=== PATIENT | female | born 1945 | race Caucasian/White ===

== ENCOUNTER 2017-09-08 13:14 | Outpatient (CLI) | payer MEDICAID, MEDICARE ==
--- NOTE | 2017-09-13 16:20 | Ultrasound Report ---
CAROTID DUPLEX: 09/08/2017 CLINICAL INDICATION: Left carotid bruit. TECHNIQUE: Real-time sonographic vascular imaging was performed by the grain buyer through the carotid arteries utilizing both color-flow and Doppler spectral analysis. Multiple parts sales representative static images were saved for review. RIGHT Vessel PSV cm/sec EDV cm/sec ICA/CCA RSV Ratio Degree of Stenosis Plaque Estimate % RCCA Prox 83 -- -- RCCA Dist 73 13 -- RECA 110 -- -- RT BULB 78 15 1.0 FAITH Prox 310 80 4.24 FAITH Mid 248 53 3.3 FAITH Dist 165 32 2.2 RVA 60 -- -- RVA flow direction: Antegrade LEFT Vessel PSV cm/sec EDV cm/sec ICA/CCA RSV Ratio Degree of Stenosis Plaque Estimate % LCCA Prox 127 -- -- LCCA Dist 94 20 -- LECA 124 -- -- LFT BULB 168 40 1.7 LICA Prox 140 39 1.4 LICA Mid 94 33 1.0 LICA Dist 133 23 1.4 LVA 44 -- -- LVA flow direction: Antegrade Velocity criteria are extrapolated from diameter data as defined by the Society of Radiologists in Ultrasound Consensus Conference Radiology 2003; 229; 340-346. Degree of Stenosis % ICA PSV cm/sec ICA/CCA RSV Ratio ICA EDV cm/sec Plaque Estimate % Normal < 125 < 40 < 2.0 None <50 < 125 <40 < 2.0 < 50 50-69 125-130 40-100 2.0-4.0 >/=50 >/=70 but less than near occlusion > 230 > 100 > 4.0 >/=50 Near occlusion High, low or undetectable Variable Variable Visible Total occlusion Undetectable Not applicable Not applicable No detectable lumen RIGHT: There is plaquing at the right carotid bifurcation and proximal right internal carotid artery, producing greater than 70% luminal diameter narrowing of the proximal right internal carotid artery by velocity criteria. LEFT: There is plaquing in the left carotid bifurcation and proximal internal carotid artery, producing less than 50% luminal diameter narrowing by velocity criteria. The vertebral arteries demonstrate antegrade flow bilaterally. IMPRESSION: Right worse than left carotid plaquing, producing greater than 70% luminal diameter stenosis of the proximal right internal carotid artery by velocity criteria. TD: 09/08/2017 22:20 [facility]
== END 2017-09-08 13:15 | disposition home or self-care (01) ==
LOC: DI 13:14
PROVIDERS: ATTEND Physician Assistant Medical
DX: I65.23 Occlusion and stenosis of bilateral carotid arteries (principal)
CPT/HCPCS: 93880

== ENCOUNTER 2017-09-28 05:50 | Day surgery (SDC) | payer MEDICARE, MEDICAID ==
[2017-09-28] MEDS ORDERED: LACTATED RINGERS 1,000 ML IV ONE (06:28)
[2017-09-28] MEDS ORDERED: MIDAZOLAM 2 MG/2 ML VIAL IVP ONE (08:17)
[2017-09-28] MEDS ORDERED: fentaNYL 100 MCG/2 ML VIAL IVP ONE (08:17)
[2017-09-28 09:49] VITALS: BP 146/76
== END 2017-09-28 05:51 | disposition home or self-care (01) ==
LOC: SDS 05:50
PROVIDERS: ATTEND Surgery
PROC: 0DBN8ZX Excision of Sigmoid Colon, Via Natural or Artificial Opening Endoscopic, Diagnostic (ICD-10-PCS; 2017-09-28)
PROC: 0DBH8ZX Excision of Cecum, Via Natural or Artificial Opening Endoscopic, Diagnostic (ICD-10-PCS; 2017-09-28)
PROC: 0DBL8ZX Excision of Transverse Colon, Via Natural or Artificial Opening Endoscopic, Diagnostic (ICD-10-PCS; 2017-09-28)
PROC: 3E0H8GC Introduction of Other Therapeutic Substance into Lower GI, Via Natural or Artificial Opening Endoscopic (ICD-10-PCS; 2017-09-28)
PROC: 0DBK8ZX Excision of Ascending Colon, Via Natural or Artificial Opening Endoscopic, Diagnostic (ICD-10-PCS; principal; 2017-09-28 07:30)
DX: Z12.11 Encounter for screening for malignant neoplasm of colon (principal); K57.30 Diverticulosis of large intestine without perforation or abscess without bleeding; D12.0 Benign neoplasm of cecum; D12.2 Benign neoplasm of ascending colon; D12.3 Benign neoplasm of transverse colon; D12.4 Benign neoplasm of descending colon; D12.5 Benign neoplasm of sigmoid colon; K62.1 Rectal polyp; K64.8 Other hemorrhoids; E11.40 Type 2 diabetes mellitus with diabetic neuropathy, unspecified; E11.319 Type 2 diabetes mellitus with unspecified diabetic retinopathy without macular edema; Z79.82 Long term (current) use of aspirin; Z79.84 Long term (current) use of oral hypoglycemic drugs; F17.210 Nicotine dependence, cigarettes, uncomplicated; I25.10 Atherosclerotic heart disease of native coronary artery without angina pectoris; Z80.0 Family history of malignant neoplasm of digestive organs
CPT/HCPCS: 45380; 45381; 45385; J7120

== ENCOUNTER 2018-04-02 12:12 | Outpatient (CLI) | payer MEDICARE, MEDICAID ==
--- NOTE | 2018-04-05 15:22 | Mammography Report ---
Procedure Date: 04/02/2018 Accession Number: [id number] / [id number] Procedure: MGN - Screening Mammo Dig Bilat CPT Code: FULL RESULT: EXAM: Screening Mammo Dig Bilat DATE: 04/02/2018 12:32 PM CLINICAL HISTORY: 72-year-old female with history of early menses and breast biopsy with benign pathology results in her left breast presents for screening. TECHNIQUE: Bilateral CC and MLO views were obtained. COMPARISON: No comparisons are available. If outside mammograms are made available, an addendum can be issued. FINDINGS: The breasts demonstrate diffuse fatty replacement bilaterally. Typically benign coarse calcifications are seen in both breasts. Typically benign vascular calcifications are seen in both breasts. No suspicious masses, clustered microcalcifications, or regions of architectural distortion are identified. IMPRESSION: Benign findings RECOMMENDATION: Routine annual screening unless otherwise clinically indicated. BIRADS CATEGORY 2: Benign findings STANDARD QUALIFYING STATEMENTS: 1. This examination was reviewed with the aid of Computer-Aided Detection (CAD). 2. A negative or benign imaging report should not delay biopsy if clinically suspicious findings are present. Consider surgical consultation if warrented. More than 5% of cancers are not identified by imaging. 3. Dense breasts may obscure an underlying neoplasm.
== END 2018-04-02 12:13 | disposition home or self-care (01) ==
LOC: DI.N 12:12
PROVIDERS: ATTEND Family Medicine
DX: Z12.31 Encounter for screening mammogram for malignant neoplasm of breast (principal)
CPT/HCPCS: 77067

== ENCOUNTER 2018-07-13 10:46 | Day surgery (SDC) | payer MEDICARE, MEDICAID ==
[2018-07-13] MEDS ORDERED: LACTATED RINGERS 1,000 ML IV ONE (11:24)
[2018-07-13] MEDS ORDERED: fentaNYL 250 MCG/5 ML VIAL IVP ONE (13:02)
[2018-07-13] MEDS ORDERED: MIDAZOLAM 2 MG/2 ML VIAL IVP ONE (13:02)
[2018-07-13 13:54] VITALS: BP 144/71
== END 2018-07-13 10:47 | disposition home or self-care (01) ==
LOC: SDS 10:46
PROVIDERS: ATTEND Surgery
PROC: 0DBL8ZZ Excision of Transverse Colon, Via Natural or Artificial Opening Endoscopic (ICD-10-PCS; 2018-07-13)
PROC: 0DBN8ZZ Excision of Sigmoid Colon, Via Natural or Artificial Opening Endoscopic (ICD-10-PCS; 2018-07-13)
PROC: 0DBM8ZZ Excision of Descending Colon, Via Natural or Artificial Opening Endoscopic (ICD-10-PCS; principal; 2018-07-13 12:00)
DX: D12.4 Benign neoplasm of descending colon (principal); D12.3 Benign neoplasm of transverse colon; K63.5 Polyp of colon; K57.30 Diverticulosis of large intestine without perforation or abscess without bleeding; K64.8 Other hemorrhoids; E11.40 Type 2 diabetes mellitus with diabetic neuropathy, unspecified; E11.319 Type 2 diabetes mellitus with unspecified diabetic retinopathy without macular edema; E66.9 Obesity, unspecified; J43.9 Emphysema, unspecified; I10 Essential (primary) hypertension; I25.119 Atherosclerotic heart disease of native coronary artery with unspecified angina pectoris; F17.210 Nicotine dependence, cigarettes, uncomplicated; I25.2 Old myocardial infarction; Z79.4 Long term (current) use of insulin; Z80.0 Family history of malignant neoplasm of digestive organs; Z68.38 Body mass index [BMI] 38.0-38.9, adult
CPT/HCPCS: 45385; J3010; J7120

== ENCOUNTER 2018-08-25 19:45 | Outpatient (CLI) | payer MEDICARE, MEDICAID | END 2018-08-25 19:46 | disposition critical access hospital (66) | LOC: EMS 19:45 | PROVIDERS: ATTEND Surgery | DX: R06.02 Shortness of breath (principal); R05 Cough; R50.9 Fever, unspecified | CPT/HCPCS: A0425; A0427 ==

== ENCOUNTER 2018-08-25 20:00 | Emergency (ER) | payer MEDICARE, MEDICAID ==
[2018-08-25] MEDS ORDERED: ALBUTEROL NEB 2.5 MG/3 ML INH STA ×2 (20:28→21:58)
[2018-08-25] MEDS ORDERED: methylPREDNISolone SUCCINATE 125 MG/2 ML VIAL IVP STA (20:28)
--- NOTE | 2018-08-25 20:31 | ED Physician Documentation ---
PD HPI DYSPNEA - Stated complaint Stated Complaint: SOA, COPD, COUGH - Chief complaint Chief Complaint: Resp - History obtained from History obtained from: Patient, EMS - History of Present Illness Timing - onset: Other (Almost 1 weeks worth of worsening cough with productive sputum that is pinkish and shortness of breath. Some subjective fevers at home. No pedal edema or chest pain. She has a history of COPD but does not take anything on a daily basis. She does still smoke. She had a DuoNeb in route) Timing - details: Gradual onset, Still present Associated symptoms: Fever, Cough Review of Systems Ten Systems: 10 systems reviewed and negative Constitutional: reports: Fever, Fatigue Nose: denies: Rhinorrhea / runny nose, Congestion Throat: denies: Sore throat Respiratory: reports: Dyspnea, Cough GI: denies: Abdominal Pain, Nausea, Vomiting PD PAST MEDICAL HISTORY - Past Medical History Cardiovascular: Hypertension, High cholesterol, Coronary artery disease Respiratory: COPD, Shortness of breath Endocrine/Autoimmune: Type 2 diabetes GI: None : None HEENT: Other Psych: Depression, Anxiety Musculoskeletal: None, Chronic back pain Derm: None - Past Surgical History Past Surgical History: Yes General: Colonoscopy Ortho: Carpal Tunnel surgery, Spine surgery /MEDICAL WRITER: Hysterectomy Cardiovascular: Coronary stent HEENT: Cataracts - Present Medications Home Medications: Ambulatory Orders Medication Instructions Recorded Confirmed ALPRAZolam [Alprazolam] 1.5 mg PO DAILY PRN 05/30/15 07/12/18 Albuterol Sulfate [Proair Hfa] 2 puffs INH Q4HR PRN 05/30/15 07/12/18 Aspirin [Aspir 81] 81 mg PO DAILY 05/30/15 07/13/18 Atorvastatin Calcium [Lipitor] 80 mg PO DAILY 05/30/15 07/12/18 Enalapril Maleate [Vasotec] 20 mg PO DAILY 05/30/15 07/12/18 Gabapentin 1,200 mg PO BID 05/30/15 07/12/18 Mirtazapine 45 mg PO DAILY 05/30/15 07/12/18 Nitroglycerin [Nitrostat] 0.4 mg PO Q5MIN PRN 05/30/15 07/12/18 metFORMIN [Glucophage] 1,000 mg PO BID 05/30/15 07/13/18 Bupropion HCl [Wellbutrin Sr] 150 mg PO BID 01/01/16 07/12/18 Carvedilol 12 mg PO BID 01/01/16 07/12/18 Primidone 200 mg PO DAILY 01/01/16 07/12/18 Cholecalciferol (Vitamin D3) 2,000 unit PO DAILY 08/22/16 07/12/18 [Vitamin D] Insulin Glargine/Lixisenatide 30 units PO DAILY 09/28/17 07/12/18 [Soliqua 100 Unit-33 Mcg/ml Pen] Azithromycin 1 tab PO DAILY #4 tablet 08/25/18 Tiotropium [place] [Spiriva] 08/25/18 predniSONE [Deltasone] 20 mg PO [id number] #21 tab 08/25/18 - Allergies Allergies/Adverse Reactions: Allergies Allergy/AdvReac Type Severity Reaction Status Date / Time No Known Drug Allergies Allergy Verified 05/30/15 19:18 - Social History Does the pt smoke?: Yes Smoking Status: Current every day smoker Does the pt drink ETOH?: No Does the pt have substance abuse?: No - POLST Patient has POLST: No PD ED PE NORMAL - Vitals Vital signs reviewed: Yes - General General: Alert and oriented X 3, No acute distress - HEENT HEENT: PERRL, EOMI - Neck Neck: Supple, no meningeal sign, No bony TTP - Cardiac Cardiac: RRR, No murmur - Respiratory Respiratory: Other (slightly labored, wheezy throughout with rhonchi at the left base.) - Abdomen Abdomen: Soft, Non tender - Back Back: No CVA TTP, No spinal TTP - Derm Derm: Normal color, Warm and dry - Extremities Extremities: No edema, No calf tenderness / cord - Neuro Neuro: Alert and oriented X 3, Normal speech Results - Vitals Vitals: Vital Signs - 24 hr 08/25/18 08/25/18 08/25/18 20:03 20:11 20:38 Temperature 36.2 C L Heart Rate 91 91 Respiratory 28 H 21 Rate Blood Pressure 202/90 H O2 Saturation 93 Oxygen O2 Source Nasal cannula - Labs Labs: Laboratory Tests 08/25/18 08/25/18 08/25/18 21:03 21:03 21:03 WBC 7.0 RBC 4.22 Hgb 13.8 Hct 41.2 MCV 97.7 MCH 32.6 H MCHC 33.4 RDW 14.4 Plt Count 264 MPV 7.3 L Neut # (Auto) 4.6 Lymph # (Auto) 1.3 L [place] # (Auto) 0.9 Eos # (Auto) 0.2 Baso # (Auto) 0.1 Absolute Nucleated RBC 0.00 Nucleated RBC % 0.0 Sodium 136 Potassium 4.5 Chloride 97 L Carbon Dioxide 29 Anion Gap 10.0 BUN 9 Creatinine 0.9 Estimated GFR (MDRD) 62 L Glucose 163 H Lactic Acid 1.3 Calcium 9.2 Total Bilirubin 0.3 AST 18 ALT 22 Alkaline Phosphatase 94 Total Protein 7.1 Albumin 3.6 Globulin 3.5 Albumin/Globulin Ratio 1.0 Lipase 24 - Rads (name of study) 2v chest Radiology: EMP read contemporaneously (NAD) PD MEDICAL DECISION MAKING - ED course ED course: 73-year-old woman with apparent COPD exacerbation. Her chest x-ray is clear and she was feeling better after nebs here and in route. She also received IV steroids and oral azithromycin. Her vital signs and lab work are reassuring. Departure - Departure Disposition: 01 Home, Self Care Clinical Impression: COPD exacerbation Condition: Good Record reviewed to determine appropriate education?: Yes Instructions: COPD Dc Prescriptions: Azithromycin 1 tab PO DAILY #4 tablet predniSONE [Deltasone] 20 mg PO [id number] #21 tab Comments: Continue to use your rescue inhaler. Return for new or worsening symptoms and follow-up with your doctor this week for recheck. Also blood pressure recheck as it was fairly high here tonight. Since you have already gone 4 days without smoking, do not start again.
[2018-08-25 21:13] LABS: BASOPHILS # (AUTO) 0.1 10^3/uL (0.0-0.1); EOSINOPHILS # (AUTO) 0.2 10^3/uL (0.0-0.7); HGB - HEMOGLOBIN 13.8 g/dL (12.0-16.0); LYMPHOCYTES # (AUTO) 1.3 10^3/uL (1.5-3.5); LYMPHOCYTES % (AUTO) 18.6 %; MEAN CORPUSCULAR HEMOGLOBIN 32.6 pg (27.0-31.0); MEAN CORPUSCULAR HGB CONC 33.4 g/dL (32.0-36.0); MEAN CORPUSCULAR VOLUME 97.7 fL (81.0-99.0); MEAN PLATELET VOLUME 7.3 fL (7.9-10.8); MONOCYTES # (AUTO) 0.9 10^3/uL (0.0-1.0); MONOCYTES % (AUTO) 12.1 %; NEUTROPHILS # (AUTO) 4.6 10^3/uL (1.5-6.6); NEUTROPHILS % (AUTO) 65.3 %; PLT - PLATELET COUNT 264 10^3/uL (130-450); RED BLOOD COUNT 4.22 10^6/uL (4.20-5.40); RED CELL DISTRIBUTION WIDTH 14.4 % (12.0-15.0)
[2018-08-25 21:26] LABS: ALBUMIN 3.6 g/dL (3.2-5.5); BILIRUBIN,TOTAL 0.3 mg/dL (0.2-1.0); CALCIUM 9.2 mg/dL (8.5-10.3); CREATININE 0.9 mg/dL (0.4-1.0); TOTAL PROTEIN 7.1 g/dL (6.7-8.2)
--- NOTE | 2018-08-25 21:37 | XRAY Report ---
Reason: cough Procedure Date: 08/25/2018 Accession Number: [id number] / [id number] Procedure: XR - Chest 2 View X-Ray CPT Code: 68387 FULL RESULT: EXAM: CHEST RADIOGRAPHY EXAM DATE: 08/25/2018 09:16 PM. CLINICAL HISTORY: Cough. COMPARISON: 01/04/2016. TECHNIQUE: 2 views. FINDINGS: Lungs/Pleura: No focal consolidation. Minimal linear scarring or atelectasis in the left lung base. No pleural effusion. No pneumothorax. Normal volumes. Mediastinum: Heart and mediastinal contours are normal. Other: None. IMPRESSION: No acute cardiopulmonary abnormality. RADIA
[2018-08-25] MEDS ORDERED: AZITHROMYCIN 250 MG TABLET PO STA (21:52)
[2018-08-25 22:04] VITALS: BP 141/71
== END 2018-08-25 22:27 | disposition home or self-care (01) ==
LOC: EDUNIT# → ED 20:00
DX: J44.1 Chronic obstructive pulmonary disease with (acute) exacerbation (principal); E11.9 Type 2 diabetes mellitus without complications; Z79.4 Long term (current) use of insulin; I25.10 Atherosclerotic heart disease of native coronary artery without angina pectoris; E78.00 Pure hypercholesterolemia, unspecified; I10 Essential (primary) hypertension; Z95.5 Presence of coronary angioplasty implant and graft; Z79.82 Long term (current) use of aspirin; F17.200 Nicotine dependence, unspecified, uncomplicated
CPT/HCPCS: 36415; 71046; 80053; 83605; 83690; 85025; 87040; 94640; 94664; 96374; 99283; 99284; A9270

== ENCOUNTER 2019-02-25 13:18 | Outpatient (CLI) | payer MEDICARE, MEDICAID ==
--- NOTE | 2019-02-26 10:57 | Ultrasound Report ---
Reason: CLAUDICATION BILATERAL, DIABETES TYPE II, NICOTENE Procedure Date: 02/25/2019 Accession Number: [id number] / [id number] Procedure: US - Duplex Lwr Ext Arterial Bilat CPT Code: FULL RESULT: EXAM: Bilateral Lower Extremity Arterial Doppler Ultrasound EXAM DATE: 02/25/2019 02:45 PM. CLINICAL HISTORY: Claudication bilateral, diabetes type 2, nicotine. COMPARISON: None. TECHNIQUE: Real-time sonographic vascular imaging was performed by the change control manager, utilizing color-flow, Doppler flow, and spectral analysis. Multiple agricultural sales representative static images were saved for review. FINDINGS: Bilateral lower extremity arterial Doppler examination is performed with grayscale, color Doppler and spectral Doppler. The right common femoral artery, profunda femoris, SFA, popliteal, peroneal, anterior and posterior tibial arteries as well as the dorsalis pedis artery are all patent by color Doppler, do not demonstrate focal stenosis greater than 50% by grayscale Doppler, and demonstrate preserved brisk systolic upstrokes with expected arterial waveforms by spectral Doppler. Despite mild elevation of velocity at the common femoral artery inflow, downstream arterial waveforms are not suggestive of hemodynamic significance. For the left lower extremity, the common femoral artery demonstrates brisk systolic upstroke by spectral Doppler with focal elevation of velocity to 309 cm/s just before the bifurcation into profunda and SFA. Waveforms in the profunda femoris are preserved with brisk systolic upstroke. There is a minimal delay in upstroke without tardus parvus waveform in the proximal SFA which persists throughout the downstream lower extremity, but there is otherwise preserved patency of the left popliteal artery, posterior tibial artery, anterior tibial artery, peroneal artery and dorsalis pedis artery, all of which demonstrate relative preservation of upstroke without tardus parvus waveform. The following peak systolic velocities are reported in centimeters per second: Right Lower Extremity: DESKTOP SUPPORT ENGINEER: PSV 194 cm/s. PSFA: PSV 122 cm/s. MSFA: PSV 87 cm/s. DSFA: PSV 131 cm/s. PFA: PSV 50 cm/s. POP: PSV 85 cm/s. ILSA: PSV 92 cm/s. BAR USEFUL OR BUSSER: PSV 106 cm/s. KATHERIN: PSV 45 cm/s. DPA: PSV 72 cm/s. Left Lower Extremity: DESKTOP SUPPORT ENGINEER: PSV 309 cm/s. PSFA: PSV 112 cm/s. MSFA: PSV 88 cm/s. DSFA: PSV 116 cm/s. PFA: PSV 77 cm/s. POP: PSV 139 cm/s. ILSA: PSV 88 cm/s. BAR USEFUL OR BUSSER: PSV 93 cm/s. KATHERIN: PSV 46 cm/s. DPA: PSV 72 cm/s. IMPRESSION: Preserved three-vessel perfusion to both ankles with focal elevation of velocity in the left common femoral artery and to a lesser degree in the right common femoral artery. Minimal delay in upstroke downstream to the focal DESKTOP SUPPORT ENGINEER narrowing is seen in the left lower extremity without development of tardus parvus waveform at any level. RADIA
== END 2019-02-25 13:19 | disposition home or self-care (01) ==
LOC: DI 13:18
PROVIDERS: ATTEND Family Medicine
DX: E11.51 Type 2 diabetes mellitus with diabetic peripheral angiopathy without gangrene (principal); F17.201 Nicotine dependence, unspecified, in remission
CPT/HCPCS: 93925

== ENCOUNTER 2019-04-24 12:27 | Outpatient (CLI) | payer MEDICARE, MEDICAID ==
--- NOTE | 2019-04-25 09:15 | Mammography Report ---
Reason: SCREENING MAMMO Procedure Date: 04/24/2019 Accession Number: [id number] / [id number] Procedure: MGN - Screening Mammo Dig Bilat CPT Code: FULL RESULT: EXAM: Screening Mammo Dig Bilat DATE: 04/24/2019 12:52 PM CLINICAL HISTORY: Screening encounter. History of early menses. TECHNIQUE: (B) - Bilateral CC and MLO views were obtained. COMPARISON: 04/02/2018. PARENCHYMAL PATTERN: (A) - The breast(s) demonstrate(s) scattered fibroglandular densities. FINDINGS: There are coarse typically benign calcifications. There are no suspicious masses, calcifications, or areas of distortion. IMPRESSION: Benign findings. BI-RADS category 2. RECOMMENDATION: (ANNUAL) - Recommend routine annual screening mammography. BI-RADS CATEGORY: (2) - Benign Findings. STANDARD QUALIFYING STATEMENTS: 1. This examination was not reviewed with the aid of Computer-Aided Detection (CAD). 2. A negative or benign imaging report should not preclude biopsy if clinically suspicious findings are present. 3. Dense breasts may obscure an underlying neoplasm. 4. This examination was reviewed without the aid of 3D breast imaging (tomosynthesis).
== END 2019-04-24 12:28 | disposition home or self-care (01) ==
LOC: DI.N 12:27
DX: Z12.31 Encounter for screening mammogram for malignant neoplasm of breast (principal)
CPT/HCPCS: 77067

== ENCOUNTER 2020-03-09 17:36 | Outpatient (CLI) | payer MEDICARE, MEDICAID ==
[2020-03-09 19:18] LABS: ALBUMIN 3.4 g/dL (3.2-5.5); BILIRUBIN,TOTAL 0.5 mg/dL (0.2-1.0); CALCIUM 9.2 mg/dL (8.5-10.3); CREATININE 1.2 mg/dL (0.4-1.0); TOTAL PROTEIN 6.7 g/dL (6.7-8.2)
[2020-03-09 19:38] LABS: HEMOGLOBIN A1C 1.79 g/dL; HEMOGLOBIN A1C % 13.8 % (4.6-6.2)
--- NOTE | 2020-03-10 09:12 | XRAY Report ---
PROCEDURE: Pelvis 1 View INDICATIONS: Pain In Joint, Pelvis/Thigh TECHNIQUE: 1 view(s) of the pelvis acquired. COMPARISON: CT of abdomen and pelvis dated 07/25/2016. FINDINGS: Bones: No fractures or dislocations. No suspicious bony lesions. Mild osteoarthritic changes throu ghout bony pelvis is seen. No evidence of avascular necrosis of femoral head. Soft tissues: Visualized bowel gas pattern is normal. No suspicious soft tissue calcifications. IMPRESSION: Osteoarthritis throughout the bony pelvis. No pelvic fracture or dislocation. No evidence of avascular necrosis. Reviewed by: Colton Doyle MD on 03/10/2020 9:10 AM PDT Approved by: Colton Doyle MD on 03/10/2020 9:10 AM PDT Station ID: [id number]
--- NOTE | 2020-03-10 09:13 | XRAY Report ---
PROCEDURE: Lumbar Spine 2 View INDICATIONS: Pain In Joint, Pelvis/Thigh TECHNIQUE: 3 views of the lumbar spine were acquired. COMPARISON: CT of abdomen and pelvis dated 07/25/2016. FINDINGS: Bones: 5 [id number] vertebrae are present. There is normal bony alignment. Degenerative disc d isease throughout lumbar spine is seen more prominent at L3-4 and L4-5 levels. Bilateral facet arthro sis is also seen. No vertebral body compression fractures. No suspicious bony lesions. Soft tissues: Overlying bowel gas pattern is normal. No suspicious soft tissue calcifications. IMPRESSION: No acute compression fracture or spondylolisthesis. Degenerative disc disease throughout lumbar spine more prominent at L3-4 and L4-5 levels. Reviewed by: Colton Doyle MD on 03/10/2020 9:11 AM PDT Approved by: Colton Doyle MD on 03/10/2020 9:11 AM PDT Station ID: [id number]
== END 2020-03-09 17:37 | disposition home or self-care (01) ==
LOC: DI 17:36
PROVIDERS: ATTEND Nurse Practitioner Family
DX: M25.559 Pain in unspecified hip (principal); M47.898 Other spondylosis, sacral and sacrococcygeal region; M51.36 Other intervertebral disc degeneration, lumbar region; E11.9 Type 2 diabetes mellitus without complications
CPT/HCPCS: 36415; 72100; 72170; 80053; 83036

== ENCOUNTER 2020-07-20 11:42 | Outpatient (CLI) | payer MEDICARE, MEDICAID ==
[2020-07-20 12:29] VITALS: BP 109/51
--- NOTE | 2020-07-20 12:29 | SLEEP CARE CONSULTATION ---
Information from patient questionnaire entered by Angela Lundberg. I have reviewed and concur with the information entered by Angela Lundberg. This document represents the service I personally performed and the decisions made by me, Theresa Ansari ARNP. History of Present Illness Service Date and Time: 07/20/2020 1142 Reason for Visit: New patient Chief Complaint: reports: Unrefreshed sleep, Snoring, Fatigue, Frequent awakenings at night. denies: Insomnia, Excessive daytime sleepiness, Observed pauses in breathing (sleeps alone) Date of Onset: 2005 Usual bedtime: 11 PM Time it takes to fall asleep: 30-45 min Snores at night: Yes Observed to quit breathing while asleep: No Number of times waking at night: 2 or 3 Reasons for waking at night: reports: Snoring (Mostly unknown why). denies: Choking, Gasping for air, Bathroom Toss, Turn, or Twitch while sleeping: No Recalls having dreams: Yes (But don't recall the dreams) Usually gets out of bed at: Between 5 and 11 AM Feels refreshed in the morning: No Morning headache: No Sleepy or fatigued during the day: Yes Ever fallen asleep while driving: No Takes day naps: Yes (sometimes; 1-2 times a week for 20-40 minutes) Dreams during day naps: Yes (probably) Prior sleep studies: Yes Year and Where: Around 2015 at [facility] Additional HPI information: I had the pleasure of seeing HOUSTON FARLEY today regarding the possibility of her having a sleep disorder. Her current complaints are insomnia, snoring, frequent night awakenings, unrefreshed sleep and fatigue. Previously diagnosed, but has bad claustrophobia and couldn't tolerate the mask on the initial trial of CPAP therapy. She was taken off Xanax 2 months ago, weaned off and now out for last month. She is here because her PCP does not want to have her continue on the Xanax. She is now taking a trazadone with an antihistamine which is helping her get to sleep but not stay asleep. She is unsure what she is doing here for this evaluation. - Parasomnia Symptoms Ever been unable to move upon waking from sleep: No Walks in sleep: No Talks in sleep: Yes Ever acted out dreams in sleep: No Ever felt weak in the knees when startled or emotional: No Bothered by creepy, crawly, restless sensations in legs: Yes (has RLS) Problems with memory or concentration: Yes (sometimes) Subjective Initial [place] Sleepiness Scale score: 6 (in 2019) Past Medical History Past Medical History: reports: Hypertension, Claustrophobia, Diabetes, Arthritis, Coronary Heart Disease, Anxiety, Depression, Emphysema, Mood di sorder, Other (essential tremors). 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 Patient is a / and lives in [place]. Have you smoked in the past 12 months: Yes Cigarettes per day (20/pack): 60 Years of smokin Quit date: 10/2019 Smoking Pack Years: 120.0 Alcohol use: No Caffeine use: Yes Caffeine amount and frequency: 3 diet pepsis a day, sometimes a latte Family History Family history of sleep disordered breathing: Yes (Brother snores; sister has apnea) Family Hx Sleep Apnea: Sibling: Snoring, Sleep apnea - Treated Allergies and Home Medications Drug allergies reviewed: Yes (NKDA) Home medication list reviewed: Yes (see list) Review of Systems Weight gain over past 5 years: 50 Cardiovascular: reports: high blood pressure, leg or foot swelling, other (heart attack in 2003). denies: palpitations, chest pain, irregular heart rate or pulse Respiratory: reports: shortness of breath Gastrointestinal: reports: diarrhea. denies: heartburn, difficulty swallowing Urinary: reports: incontinence (some), frequency (seldom) Neurological: reports: headaches (not often), gait or balance problems. denies: seizure, head trauma, speech dysfunction Psychiatric: reports: Attention Deficit Hyperactivity, anxiety, depression, mood disorder, claustrophobia Ear/Nose/Throat: reports: dry mouth/throat, hoarseness, tonsillectomy, wisdom teeth removed Endocrine: reports: sluggishness, too hot or cold (sometimes), excessive thirst, increased appetite Musculoskeletal: reports: joint pain, neck pain, back pain, muscle pain or cramping, mobility problems (kind of) Immunologic: denies: allergies to food or environment Physical Exam Blood Pressure: 109/51 Cuff size: wrist Heart Rate: 82 O2 Saturation: 94 Height: 5 ft 6 in Weight: 261 lb Body Mass Index: 42.1 BMI Classification: Morbidly Obese Neck circumference: 16 (inchs) HEENT: No craniofacial malformation Nostrils: patent to airflow Mouth and throat: narrow oropharynx Uvula visualization: 25% Mallampati Class III Tonsils: absent bilaterally Chin and jaw: normal size and position Neck: normal w/o lymphadenopathy or thyromegaly Heart: regular rate and rhythm Lungs: clear bilaterally Impression and Plan 1. Suspected Obstructive Sleep Apnea-Hypopnea Syndrome, as previously diagnosed as well as a history of loud and irregular snoring, frequent awakening during the night, unrefreshed sleep, cognitive impairment. She was agreeable to retesting and possibly restarting CPAP therapy again if it will help to improve her health and quality of sleep. She has a history of hypertension, diabetes, coronary heart disease, mood disorder, depression and anxiety. I recommend proceeding to polysomnography to confirm the diagnosis and to assess severity. If the patient has significant sleep disordered breathing, a manual CPAP titration study will also be performed to find the optimal treatment pressure. I informed the patient of what the sleep studies involve and after some discussion, obtained agreement to proceed. The pathophysiology of obstructive sleep apnea-hypopnea syndrome was discussed with the patient and health risks of cardiovascular and cerebrovascular disease if not treated. Risks of drowsy driving discussed in detail and patient advised to avoid long distance driving and to ear pull machine operator at the first sign of drowsiness. Patient agreed to plan. * Schedule polysomnography +- manual CPAP titration study. * Avoid long distance driving or driving when feeling sleepy. * Avoid alcohol, sedative and muscle relaxant around bedtime. * Attempt to lose weight. * Review instructions provided by trained office staff on how to prepare for the sleep study. * Return for follow-up after sleep study completed. Counseling Topics: Weight loss health impact Visit Type: In Office Time Spent with Patient (minutes): 35 Provider Statement: I spent 100% of the Face to Face Visit with the patient with greater than 50% spent counseling the patient and coordination of care.
== END 2020-07-20 11:43 | disposition home or self-care (01) ==
LOC: SC 11:42
PROVIDERS: ATTEND Nurse Practitioner Family
DX: G47.33 Obstructive sleep apnea (adult) (pediatric) (principal); E66.01 Morbid (severe) obesity due to excess calories; Z68.41 Body mass index [BMI] 40.0-44.9, adult
CPT/HCPCS: 99203; G0463; 99212

== ENCOUNTER 2020-12-15 07:00 | Outpatient (CLI) | payer MEDICARE, MEDICAID ==
[2020-12-15 18:28] LABS: THYROID STIMULATING HORMONE 1.64 uIU/mL (0.34-5.60)
[2020-12-15 18:35] LABS: CREATININE,URINE 85.8 mg/dL; MICROALBUM/CREATININE RATIO,UR 442.9 ug/mg (<30.0)
== END 2020-12-15 23:59 | disposition home or self-care (01) ==
LOC: LAB.WCP 07:00
PROVIDERS: ATTEND Family Medicine
DX: E11.8 Type 2 diabetes mellitus with unspecified complications (principal)
CPT/HCPCS: 36415; 80053; 80061; 82043; 82570; 83036; 83721; 84443; 85025

== ENCOUNTER 2020-12-24 08:00 | Outpatient (CLI) | payer MEDICARE, MEDICAID ==
[2020-12-24 17:47] LABS: BASOPHILS % (AUTO) 0.8 %; EOSINOPHILS # (AUTO) 0.4 10^3/uL (0.0-0.7); EOSINOPHILS % (AUTO) 7.4 %; HCT - HEMATOCRIT 38.9 % (37.0-47.0); LYMPHOCYTES # (AUTO) 1.1 10^3/uL (1.5-3.5); MEAN CORPUSCULAR HEMOGLOBIN 34.2 pg (27.0-31.0); MEAN CORPUSCULAR HGB CONC 30.8 g/dL (32.0-36.0); MEAN CORPUSCULAR VOLUME 110.8 fL (81.0-99.0); MEAN PLATELET VOLUME 11.3 fL (7.9-10.8); MONOCYTES # (AUTO) 0.6 10^3/uL (0.0-1.0); NEUTROPHILS # (AUTO) 3.1 10^3/uL (1.5-6.6); NEUTROPHILS % (AUTO) 59.4 %; NRBC ABSOLUTE COUNT (AUTO) 0.04 x10^3/uL; NUCLEATED RED BLOOD CELLS AUTO 0.8 /100WBC; PLT - PLATELET COUNT 253 10^3/uL (130-450); RED BLOOD COUNT 3.51 10^6/uL (4.20-5.40); WHITE BLOOD COUNT 5.3 x10^3/uL (4.8-10.8)
[2020-12-24 17:50] LABS: SLIDE REVIEW? Indicated
[2020-12-24 18:05] LABS: PLATELET ESTIMATE, MANUAL NORMAL (130-450,000) (NORMAL); PLATELET MORPHOLOGY NORMAL APPEARANCE (NORMAL); RBC MORPHOLOGY (MULTIPLE) 1+ MACROCYTOSIS (NORMAL); WBC MORPHOLOGY (MULTIPLE) NORMAL APPEARANCE (NORMAL)
[2020-12-24 18:07] LABS: ALBUMIN 4.3 g/dL (3.2-5.5); ALBUMIN/GLOBULIN RATIO 1.6 (1.0-2.2); ALKALINE PHOSPHATASE 108 IU/L (42-121); ALT ALANINE AMINOTRANSFERASE 29 IU/L (10-60); AST ASPARTATE AMINOTRANSFERASE 20 IU/L (10-42); BILIRUBIN,TOTAL 0.6 mg/dL (0.2-1.0); BUN - BLOOD UREA NITROGEN 25 mg/dL (6-20); CALCIUM 9.9 mg/dL (8.5-10.3); CARBON DIOXIDE - CO2 30 mmol/L (21-32); CHLORIDE 98 mmol/L (101-111); CHOL/HDL RATIO 3.7 (<4.4); CHOLESTEROL 162 mg/dL; CREATININE 1.1 mg/dL (0.4-1.0); GFR - MDRD 49 (>89); GLUCOSE 318 mg/dL (70-100); HDL CHOLESTEROL 44 mg/dL; LDL CHOLESTEROL,CALCULATED 73 mg/dL; LDL/HDL RATIO 1.7 (<4.4); POTASSIUM 5.1 mmol/L (3.5-5.0); SODIUM 137 mmol/L (135-145); TRIGLYCERIDES 227 mg/dL; VLDL CHOLESTEROL 45 mg/dL
[2020-12-24 20:52] LABS: ESTIMATED AVERAGE GLUCOSE 252 mg/dL (70-100); HEMOGLOBIN A1c% 10.4 % (4.27-6.07)
== END 2020-12-24 23:59 | disposition home or self-care (01) ==
LOC: LAB.WCP 08:00
PROVIDERS: ATTEND Family Medicine
DX: E11.8 Type 2 diabetes mellitus with unspecified complications (principal)
CPT/HCPCS: 36415; 80053; 80061; 83036; 83721; 85025

== ENCOUNTER 2021-02-18 02:21 | Outpatient (CLI) | payer MEDICAID, MEDICARE | END 2021-02-18 02:22 | disposition critical access hospital (66) | LOC: EMS 02:21 | DX: R06.02 Shortness of breath (principal) | CPT/HCPCS: A0425; A0427 ==

== ENCOUNTER 2021-02-18 02:38 | Emergency (ER) | payer MEDICAID, MEDICARE ==
--- NOTE | 2021-02-18 02:36 | ED Physician Documentation ---
PD HPI DYSPNEA - Stated complaint Stated Complaint: SOA - History obtained from History obtained from: Patient, EMS - History of Present Illness Timing - onset: Enter time (17:00) Timing - onset during: Rest Timing - details: Gradual onset Pain level now: 2 Improved by: O2, Inhaler/neb Worsened by: Exertion Associated symptoms: No: Fever Recently seen: Not recently seen - Additional information Additional information: BIBA for dyspnea. she started having shortness of breath this afternoon around 5 PM while at home at rest, gradually progressing. she feels this is similar to previous COPD exacerbations. she does not use oxygen at home nor does she have nebs or inhalers. EMS found patient to be tachypneic , tachycardic, could not get accurate pulse ox reading. combivent MDI was given and supplemental oxygen ( via NC) was placed, and she rapidly had relief of her dyspnea and says she is at baseline on arrival regarding her respiratory status. as she is arriving to ED, however, she developed chest pressure, midline without radiation. denies h/o similar pain. she has h/o coronary artery stents placed 2003 and 2010 fsbs by EMS 223 Review of Systems Constitutional: reports: Reviewed and negative Cardiac: reports: Chest pain / pressure. denies: Palpitations, Pedal edema Respiratory: reports: Dyspnea, Wheezing. denies: Cough, Hemoptysis GI: reports: Reviewed and negative PD PAST MEDICAL HISTORY - Past Medical History Past Medical History: Yes Cardiovascular: Hypertension, Coronary artery disease Respiratory: COPD Endocrine/Autoimmune: Type 2 diabetes - Present Medications Home Medications: Ambulatory Orders Medication Instructions Recorded Confirmed Albuterol Sulfate [Proair Hfa] 2 puffs INH Q4HR PRN 05/30/15 02/18/21 Aspirin [Aspir 81] 81 mg PO DAILY 05/30/15 02/18/21 Enalapril Maleate [Vasotec] 10 mg PO DAILY 05/30/15 02/18/21 Gabapentin 1,200 mg PO BID 05/30/15 02/18/21 Mirtazapine 45 mg PO DAILY 05/30/15 02/18/21 Nitroglycerin [Nitrostat] 0.4 mg PO Q5MIN PRN 05/30/15 02/18/21 metFORMIN [Glucophage] 250 mg PO DAILY 05/30/15 02/18/21 Bupropion HCl [Wellbutrin Sr] 150 mg PO BID 01/01/16 02/18/21 Primidone 200 mg PO BID 01/01/16 02/18/21 carvediloL [Carvedilol] 12.5 mg PO BID 01/01/16 02/18/21 Cholecalciferol (Vitamin D3) 2,000 unit PO DAILY 08/22/16 02/18/21 [Vitamin D] Insulin Glargine/Lixisenatide 40 units PO QPM 09/28/17 02/18/21 [Soliqua 100 Unit-33 Mcg/ml Pen] Tiotropium [place] [Spiriva] 1 cap INH DAILY 08/25/18 02/18/21 Atorvastatin Calcium 80 mg PO DAILY 01/09/19 02/18/21 Cyanocobalamin (Vitamin B-12) 500 mcg SL DAILY 01/09/19 02/18/21 [Vitamin B-12 (500 mcg sublingual)] Multivitamin [Multiple Vitamins] 1 each PO DAILY 01/09/19 02/18/21 Vitamin E 100 unit PO DAILY 01/09/19 02/18/21 Furosemide [Lasix] 20 mg PO DAILY 02/18/21 02/18/21 Insulin Lispro [Humalog Kwikpen 12 units SUBQ TID 02/18/21 02/18/21 U-100] Propranolol [Inderal] 10 mg PO DAILY 02/18/21 02/18/21 predniSONE [Deltasone] 40 mg PO DAILY 3 Days #6 tablet 02/18/21 - Allergies Allergies/Adverse Reactions: Allergies Allergy/AdvReac Type Severity Reaction Status Date / Time No Known Drug Allergies Allergy Verified 02/18/21 02:58 - Living Situation Living Arrangement: reports: At home - Social History Does the pt drink ETOH?: No PD ED PE NORMAL - Vitals Vital signs reviewed: Yes - General General: Alert and oriented X 3, No acute distress, Well developed/nourished - HEENT HEENT: Moist mucous membranes - Neck Neck: Supple, no meningeal sign, No JVD - Cardiac Cardiac: RRR, No murmur, No gallop, No rub - Respiratory Respiratory: No respiratory distress, Clear bilaterally - Abdomen Abdomen: Soft, Non tender, Non distended - Derm Derm: Normal color, Warm and dry - Neuro Neuro: Alert and oriented X 3 Results - Vitals Vitals: Oxygen O2 Source Room air Oxygen Flow Rate 3 - EKG (time done) both EKGs uninterpretable Other comments: Other comments (2 EKGs were attempted, but neither can be interpreted due to artifact related to her essential tremor) - Labs Labs: Laboratory Tests 02/18/21 02/18/21 02/18/21 03:05 03:16 03:16 WBC 9.6 RBC 3.14 L Hgb 11.2 L Hct 34.6 L MCV 110.2 H MCH 35.7 H MCHC 32.4 RDW 15.6 H Plt Count 234 MPV 10.3 Neut # (Auto) 7.1 H Lymph # (Auto) 1.1 L [place] # (Auto) 0.8 Eos # (Auto) 0.4 Baso # (Auto) 0.1 Absolute Nucleated RBC 0.04 Nucleated RBC % 0.4 Manual Slide Review Indicated Platelet Estimate NORMAL (130-450,000) RBC Morph Micro Appear 1+ POLYCHROMASIA Sodium 136 Potassium 5.3 H Chloride 96 L Carbon Dioxide 33 H Anion Gap 7.0 BUN 31 H Creatinine 1.0 Estimated GFR (MDRD) 54 L Glucose 268 H Calcium 8.6 Total Bilirubin 0.6 AST 58 H ALT 92 H Alkaline Phosphatase 121 Troponin I High Sens Total Protein 6.6 L Albumin 3.7 Globulin 2.9 Albumin/Globulin Ratio 1.3 Lipase 130 H Nasal Adenovirus (PCR) NOT DETECTED Nasal B. parapertussis DNA (PCR) NOT DETECTED Nasal Coronavir 229E PCR NOT DETECTED Nasal Coronavir HKU1 PCR NOT DETECTED Nasal Coronavir NL63 PCR NOT DETECTED Nasal Coronavir OC43 PCR NOT DETECTED Nasal Enterovir/Rhinovir PCR NOT DETECTED Nasal Influenza B PCR NOT DETECTED Nasal Influenza A PCR NOT DETECTED Nasal Parainfluen 1 PCR NOT DETECTED Nasal Parainfluen 2 PCR NOT DETECTED Nasal Parainfluen 3 PCR NOT DETECTED Nasal Parainfluen 4 PCR NOT DETECTED Nasal RSV (PCR) NOT DETECTED Nasal B.pertussis DNA PCR NOT DETECTED Nasal C.pneumoniae (PCR) NOT DETECTED Edwin Human Metapneumo PCR NOT DETECTED Nasal M.pneumoniae (PCR) NOT DETECTED Nasal SARS-CoV-2 (PCR) NOT DETECTED 02/18/21 03:16 WBC RBC Hgb Hct MCV MCH MCHC RDW Plt Count MPV Neut # (Auto) Lymph # (Auto) [place] # (Auto) Eos # (Auto) Baso # (Auto) Absolute Nucleated RBC Nucleated RBC % Manual Slide Review Platelet Estimate RBC Morph Micro Appear Sodium Potassium Chloride Carbon Dioxide Anion Gap BUN Creatinine Estimated GFR (MDRD) Glucose Calcium Total Bilirubin AST ALT Alkaline Phosphatase Troponin I High Sens 9.0 Total Protein Albumin Globulin Albumin/Globulin Ratio Lipase Nasal Adenovirus (PCR) Nasal B. parapertussis DNA (PCR) Nasal Coronavir 229E PCR Nasal Coronavir HKU1 PCR Nasal Coronavir NL63 PCR Nasal Coronavir OC43 PCR Nasal Enterovir/Rhinovir PCR Nasal Influenza B PCR Nasal Influenza A PCR Nasal Parainfluen 1 PCR Nasal Parainfluen 2 PCR Nasal Parainfluen 3 PCR Nasal Parainfluen 4 PCR Nasal RSV (PCR) Nasal B.pertussis DNA PCR Nasal C.pneumoniae (PCR) Edwin Human Metapneumo PCR Nasal M.pneumoniae (PCR) Nasal SARS-CoV-2 (PCR) - Rads (name of study) chest xray Radiology: Prelim report reviewed, See rad report PD MEDICAL DECISION MAKING - ED course Complexity details: reviewed results, re-evaluated patient, considered differential, d/w patient ED course: chest pain developed on ED arrival but only lasted few minutes and resolved completely. 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 reassuring tests including blood tests, CXR Departure - Departure Disposition: 01 Home, Self Care Clinical Impression: COPD exacerbation, Hyperkalemia Chest pain Qualifiers: Chest pain type: unspecified Qualified Code(s): R07.9 - Chest pain, unspecified Condition: Good Instructions: ED Reactive Airway Disease, ED Chest Pain Atypical Unkn Cause, ED Potassium Excess Follow-Up: Clifford Mock DO [Primary Care Provider] - Prescriptions: predniSONE [Deltasone] 40 mg PO DAILY 3 Days #6 tablet Discharge Date/Time: 02/18/21 04:35
[2021-02-18 03:27] LABS: BASOPHILS # (AUTO) 0.1 10^3/uL (0.0-0.1); BASOPHILS % (AUTO) 0.7 %; EOSINOPHILS # (AUTO) 0.4 10^3/uL (0.0-0.7); EOSINOPHILS % (AUTO) 4.2 %; HCT - HEMATOCRIT 34.6 % (37.0-47.0); HGB - HEMOGLOBIN 11.2 g/dL (12.0-16.0); LYMPHOCYTES # (AUTO) 1.1 10^3/uL (1.5-3.5); LYMPHOCYTES % (AUTO) 11.7 %; MEAN CORPUSCULAR HEMOGLOBIN 35.7 pg (27.0-31.0); MEAN CORPUSCULAR HGB CONC 32.4 g/dL (32.0-36.0); MEAN CORPUSCULAR VOLUME 110.2 fL (81.0-99.0); MEAN PLATELET VOLUME 10.3 fL (7.9-10.8); MONOCYTES # (AUTO) 0.8 10^3/uL (0.0-1.0); MONOCYTES % (AUTO) 8.4 %; NEUTROPHILS # (AUTO) 7.1 10^3/uL (1.5-6.6); NEUTROPHILS % (AUTO) 74.3 %; NRBC ABSOLUTE COUNT (AUTO) 0.04 x10^3/uL; NUCLEATED RED BLOOD CELLS AUTO 0.4 /100WBC; PLT - PLATELET COUNT 234 10^3/uL (130-450); RED BLOOD COUNT 3.14 10^6/uL (4.20-5.40); RED CELL DISTRIBUTION WIDTH 15.6 % (12.0-15.0); WHITE BLOOD COUNT 9.6 x10^3/uL (4.8-10.8)
[2021-02-18 03:30] LABS: SLIDE REVIEW? Indicated
[2021-02-18 03:41] LABS: ALBUMIN 3.7 g/dL (3.2-5.5); ALBUMIN/GLOBULIN RATIO 1.3 (1.0-2.2); BILIRUBIN,TOTAL 0.6 mg/dL (0.2-1.0); CALCIUM 8.6 mg/dL (8.5-10.3); POTASSIUM 5.3 mmol/L (3.5-5.0); TOTAL PROTEIN 6.6 g/dL (6.7-8.2)
[2021-02-18 03:53] LABS: PLATELET ESTIMATE, MANUAL NORMAL (130-450,000) (NORMAL)
[2021-02-18 04:00] LABS: CORONAVIRUS 229E-RESP PCR NOT DETECTED; CORONAVIRUS HKU1-RESP PCR NOT DETECTED; CORONAVIRUS NL63-RESP PCR NOT DETECTED; CORONAVIRUS OC43-RESP PCR NOT DETECTED; HUMAN METAPNEUMOVIRUS NOT DETECTED; SARS-CoV-2 -RESP PCR PANEL NOT DETECTED
[2021-02-18 04:01] LABS: B. PARAPERTUSSIS- RESP PCR PAN NOT DETECTED; B. PERTUSSIS- RESP PCR PANEL NOT DETECTED; C. PNEUMONIAE- RESP PCR PANEL NOT DETECTED; INFLUENZA A- RESP PCR PANEL NOT DETECTED; INFLUENZA B - RESP PCR PANEL NOT DETECTED; M. PNEUMONIAE- RESP PCR PANEL NOT DETECTED; PARAINFLUENZA VIRUS 1 NOT DETECTED; PARAINFLUENZA VIRUS 2 NOT DETECTED; PARAINFLUENZA VIRUS 3 NOT DETECTED; PARAINFLUENZA VIRUS 4 NOT DETECTED; RHINOVIRUS/ENTEROVIRUS NOT DETECTED; RSV- RESP PCR PANEL NOT DETECTED
[2021-02-18] MEDS ORDERED: CHERRY SYRUP 10 ML UDC PO ONE (04:11)
[2021-02-18] MEDS ORDERED: DEXAMETHASONE 10 MG/ML VIAL PO STA (04:11)
[2021-02-18 04:37] VITALS: BP 146/70
--- NOTE | 2021-02-18 08:53 | XRAY Report ---
PROCEDURE: Chest 1 View X-Ray INDICATIONS: chest pain TECHNIQUE: One view of the chest was acquired. COMPARISON: 08/25/2018 FINDINGS: Surgical changes and devices: None. Lungs and pleura: No pleural effusions or pneumothorax. Lungs are clear. Mediastinum: Mediastinal contours appear normal. Heart size is normal. Bones and chest wall: No suspicious bony lesions. Overlying soft tissues appear unremarkable. IMPRESSION: No acute cardiopulmonary abnormality Findings are consistent with preliminary findings from [facility]. Reviewed by: Raymond Palumbo on 02/18/2021 8:52 AM PDT Approved by: Raymond Palumbo on 02/18/2021 8:52 AM PDT Station ID: [id number]
== END 2021-02-18 04:35 | disposition home or self-care (01) ==
LOC: EDUNIT# → ED 02:38
DX: J44.1 Chronic obstructive pulmonary disease with (acute) exacerbation (principal); E87.5 Hyperkalemia; R07.89 Other chest pain; G25.0 Essential tremor; Z20.822 Contact with and (suspected) exposure to COVID-19; I25.10 Atherosclerotic heart disease of native coronary artery without angina pectoris; I10 Essential (primary) hypertension; Z95.5 Presence of coronary angioplasty implant and graft; E11.9 Type 2 diabetes mellitus without complications; Z79.4 Long term (current) use of insulin; Z79.82 Long term (current) use of aspirin
CPT/HCPCS: 36415; 71045; 80053; 83690; 84484; 85025; 87631; 93005; 99284; A9270; 0202U

== ENCOUNTER 2021-04-19 22:56 | Outpatient (CLI) | payer MEDICARE, MEDICAID | END 2021-04-19 22:57 | disposition critical access hospital (66) | LOC: EMS 22:56 | DX: R06.00 Dyspnea, unspecified (principal) | CPT/HCPCS: A0425; A0429 ==

== ENCOUNTER 2021-04-19 23:13 | Inpatient (IN) | payer MEDICARE, MEDICAID ==
[2021-04-20 00:08] LABS: BASOPHILS # (AUTO) 0.1 10^3/uL (0.0-0.1); BASOPHILS % (AUTO) 0.8 %; EOSINOPHILS # (AUTO) 0.5 10^3/uL (0.0-0.7); HGB - HEMOGLOBIN 10.1 g/dL (12.0-16.0); LYMPHOCYTES # (AUTO) 1.2 10^3/uL (1.5-3.5); LYMPHOCYTES % (AUTO) 13.3 %; MEAN CORPUSCULAR HEMOGLOBIN 36.9 pg (27.0-31.0); MEAN CORPUSCULAR HGB CONC 32.6 g/dL (32.0-36.0); MEAN CORPUSCULAR VOLUME 113.1 fL (81.0-99.0); MEAN PLATELET VOLUME 10.9 fL (7.9-10.8); MONOCYTES # (AUTO) 0.7 10^3/uL (0.0-1.0); MONOCYTES % (AUTO) 7.8 %; NEUTROPHILS # (AUTO) 6.8 10^3/uL (1.5-6.6); NEUTROPHILS % (AUTO) 72.7 %; NRBC ABSOLUTE COUNT (AUTO) 0.06 x10^3/uL; NUCLEATED RED BLOOD CELLS AUTO 0.6 /100WBC; PLT - PLATELET COUNT 268 10^3/uL (130-450); RED BLOOD COUNT 2.74 10^6/uL (4.20-5.40); RED CELL DISTRIBUTION WIDTH 17.6 % (12.0-15.0); WHITE BLOOD COUNT 9.3 x10^3/uL (4.8-10.8)
[2021-04-20 00:17] LABS: SLIDE REVIEW? Indicated
[2021-04-20 00:22] LABS: ALBUMIN 3.5 g/dL (3.2-5.5); ALBUMIN/GLOBULIN RATIO 1.4 (1.0-2.2); BILIRUBIN,TOTAL 0.7 mg/dL (0.2-1.0); CALCIUM 8.1 mg/dL (8.5-10.3); POTASSIUM 4.6 mmol/L (3.5-5.0)
[2021-04-20 00:30] LABS: PLATELET ESTIMATE, MANUAL NORMAL (130-450,000) (NORMAL)
--- NOTE | 2021-04-20 00:50 | ED Physician Documentation ---
PD HPI DYSPNEA - Stated complaint Stated Complaint: SOA/ LE SWELLING - Chief complaint Chief Complaint: Resp - History obtained from History obtained from: Patient, EMS - History of Present Illness Timing - onset: Yesterday Timing - details: Gradual onset Pain level max: 0 Pain level now: 0 Inciting event(s): Out of meds ( MDI (see narrative below)) Improved by: O2, Rest Associated symptoms: Wheezing, Bilateral edema (R>L). No: Fever, Cough, Hemoptysis, Chest pain / discomfort, Palpitations, Diaphoresis Similar symptoms before: Diagnosis (COPD) Recently seen: Not recently seen - Additional information Additional information: BIBA for dyspnea. She has COPD, does not use oxygen at home. She says that since yesterday, she has had gradually worsening dyspnea from her baseline; this was initially GIBSON but tonight is even at rest. She used her albuterol MDI twice before calling 911, noted no improvement. EMS then noted her MDI had . EMS administered albuterol by MDI they provided; this was given en route, but patient says this did not improve her dyspnea. she is COVID vaccinated. She notes bilateral leg swelling that started few days ago, noticeably worse RLE compared to left. Denies chest pain, denies fever. Mild, nonproductive cough. Review of Systems Constitutional: reports: Fatigue. denies: Fever, Chills, Sweats Eyes: reports: Reviewed and negative Ears: reports: Reviewed and negative Nose: reports: Reviewed and negative Throat: reports: Reviewed and negative Cardiac: reports: Pedal edema. denies: Chest pain / pressure, Palpitations, Calf pain Respiratory: reports: Dyspnea, Cough, Wheezing. denies: Hemoptysis GI: reports: Reviewed and negative : denies: Dysuria, Frequency Skin: reports: Reviewed and negative Musculoskeletal: reports: Extremity swelling. denies: Extremity pain Neurologic: reports: Generalized weakness, Headache. 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 Cardiovascular: Coronary stent HEENT: Cataracts - Present Medications Home Medications: Ambulatory Orders Medication Instructions Recorded Confirmed Albuterol Sulfate [Proair Hfa] 2 puffs INH Q4HR PRN 05/30/15 04/19/21 Aspirin [Aspir 81] 81 mg PO DAILY 05/30/15 04/19/21 Enalapril Maleate [Vasotec] 10 mg PO DAILY 05/30/15 04/19/21 Gabapentin 1,200 mg PO BID 05/30/15 04/19/21 Mirtazapine 45 mg PO DAILY 05/30/15 04/19/21 Nitroglycerin [Nitrostat] 0.4 mg PO Q5MIN PRN 05/30/15 04/19/21 metFORMIN [Glucophage] 250 mg PO DAILY 05/30/15 04/19/21 Bupropion HCl [Wellbutrin Sr] 150 mg PO BID 01/01/16 04/19/21 Primidone 200 mg PO BID 01/01/16 04/19/21 carvediloL [Carvedilol] 12.5 mg PO BID 01/01/16 04/19/21 Cholecalciferol (Vitamin D3) 2,000 unit PO DAILY 08/22/16 04/19/21 [Vitamin D] Insulin Glargine/Lixisenatide 40 units PO QPM 09/28/17 04/19/21 [Soliqua 100 Unit-33 Mcg/ml Pen] Atorvastatin Calcium 80 mg PO DAILY 01/09/19 04/19/21 Cyanocobalamin (Vitamin B-12) 500 mcg SL DAILY 01/09/19 04/19/21 [Vitamin B-12 (500 mcg sublingual)] Multivitamin [Multiple Vitamins] 1 each PO DAILY 01/09/19 04/19/21 Vitamin E 100 unit PO DAILY 01/09/19 04/19/21 Furosemide [Lasix] 20 mg PO DAILY 02/18/21 04/19/21 Insulin Lispro [Humalog Kwikpen 12 units SUBQ TID 02/18/21 04/19/21 U-100] Propranolol [Inderal] 10 mg PO DAILY 02/18/21 04/19/21 predniSONE [Deltasone] 40 mg PO DAILY 3 Days #6 tablet 02/18/21 04/19/21 - Allergies Allergies/Adverse Reactions: Allergies Allergy/AdvReac Type Severity Reaction Status Date / Time No Known Drug Allergies Allergy Verified 04/19/21 23:24 - Social History Does the pt smoke?: Yes Smoking Status: Current every day smoker Does the pt drink ETOH?: No Does the pt have substance abuse?: No - Immunizations Immunizations are current?: Yes - POLST Patient has POLST: No PD ED PE NORMAL - Vitals Vital signs reviewed: Yes - General General: Alert and oriented X 3, Other (obese. becomes dyspneic during conversation) - HEENT HEENT: Moist mucous membranes - Neck Neck: Supple, no meningeal sign - Cardiac Cardiac: RRR, No murmur - Abdomen Abdomen: Soft, Non tender - Derm Derm: Normal color, Warm and dry - Extremities Extremities: Other (1+ pitting edema LLE, 2+ pitting edema RLE) PD ED PE EXPANDED - Respiratory Respiratory: Wheezing, Decreased breath sounds Results - Vitals Vitals: Vital Signs - 24 hr 04/19/21 04/20/21 04/20/21 23:15 01:22 03:00 Temperature 36.3 C L Heart Rate 88 81 80 Respiratory 23 18 18 Rate Blood Pressure 139/102 H 114/64 119/64 O2 Saturation 98 98 96 04/20/21 04:03 Temperature Heart Rate 80 Respiratory 25 H Rate Blood Pressure O2 Saturation Oxygen O2 Source Nasal cannula Oxygen Flow Rate 2 - EKG (time done) No standard instances Rate: Rate (enter#) (79) Rhythm: NSR [place]: Normal Intervals: Normal IN QRS: Normal Ischemia: Normal ST segments, T wave inversion (III, flat aVF) - Labs Labs: Laboratory Tests 04/20/21 04/20/21 04/20/21 00:05 00:05 00:05 WBC 9.3 RBC 2.74 L Hgb 10.1 L Hct 31.0 L MCV 113.1 H MCH 36.9 H MCHC 32.6 RDW 17.6 H Plt Count 268 MPV 10.9 H Neut # (Auto) 6.8 H Lymph # (Auto) 1.2 L [place] # (Auto) 0.7 Eos # (Auto) 0.5 Baso # (Auto) 0.1 Absolute Nucleated RBC 0.06 Nucleated RBC % 0.6 Manual Slide Review Indicated Platelet Estimate NORMAL (130-450,000) RBC Morph Micro Appear 1+ POLYCHROMASIA D-Dimer Sodium 138 Potassium 4.6 Chloride 102 Carbon Dioxide 27 Anion Gap 9.0 BUN 20 Creatinine 1.0 Estimated GFR (MDRD) 54 L Glucose 266 H Calcium 8.1 L Total Bilirubin 0.7 AST 22 ALT 38 Alkaline Phosphatase 126 H Troponin I High Sens B-Natriuretic Peptide 183 H Total Protein 6.0 L Albumin 3.5 Globulin 2.5 Albumin/Globulin Ratio 1.4 Lipase 37 Nasal Adenovirus (PCR) Nasal B. parapertussis DNA (PCR) Nasal Coronavir 229E PCR Nasal Coronavir HKU1 PCR Nasal Coronavir NL63 PCR Nasal Coronavir OC43 PCR Nasal Enterovir/Rhinovir PCR Nasal Influenza B PCR Nasal Influenza A PCR Nasal Parainfluen 1 PCR Nasal Parainfluen 2 PCR Nasal Parainfluen 3 PCR Nasal Parainfluen 4 PCR Nasal RSV (PCR) Nasal B.pertussis DNA PCR Nasal C.pneumoniae (PCR) Edwin Human Metapneumo PCR Nasal M.pneumoniae (PCR) Nasal SARS-CoV-2 (PCR) 04/20/21 04/20/21 04/20/21 00:05 01:25 02:27 WBC RBC Hgb Hct MCV MCH MCHC RDW Plt Count MPV Neut # (Auto) Lymph # (Auto) [place] # (Auto) Eos # (Auto) Baso # (Auto) Absolute Nucleated RBC Nucleated RBC % Manual Slide Review Platelet Estimate RBC Morph Micro Appear D-Dimer 395.8 H Sodium Potassium Chloride Carbon Dioxide Anion Gap BUN Creatinine Estimated GFR (MDRD) Glucose Calcium Total Bilirubin AST ALT Alkaline Phosphatase Troponin I High Sens 9.9 B-Natriuretic Peptide Total Protein Albumin Globulin Albumin/Globulin Ratio Lipase Nasal Adenovirus (PCR) NOT DETECTED Nasal B. parapertussis DNA (PCR) NOT DETECTED Nasal Coronavir 229E PCR NOT DETECTED Nasal Coronavir HKU1 PCR NOT DETECTED Nasal Coronavir NL63 PCR NOT DETECTED Nasal Coronavir OC43 PCR NOT DETECTED Nasal Enterovir/Rhinovir PCR NOT DETECTED Nasal Influenza B PCR NOT DETECTED Nasal Influenza A PCR NOT DETECTED Nasal Parainfluen 1 PCR NOT DETECTED Nasal Parainfluen 2 PCR NOT DETECTED Nasal Parainfluen 3 PCR NOT DETECTED Nasal Parainfluen 4 PCR NOT DETECTED Nasal RSV (PCR) NOT DETECTED Nasal B.pertussis DNA PCR NOT DETECTED Nasal C.pneumoniae (PCR) NOT DETECTED Edwin Human Metapneumo PCR NOT DETECTED Nasal M.pneumoniae (PCR) NOT DETECTED Nasal SARS-CoV-2 (PCR) NOT DETECTED - [facility]ads (name of study) chest xray Radiology: Prelim report reviewed, See rad report RLE doppler US Radiology: Prelim report reviewed, See rad report PD MEDICAL DECISION MAKING - ED course Complexity details: reviewed old records, reviewed results, re-evaluated patient, considered differential, d/w patient ED course: given duoneb in ED followed by two albuterol neb treatments. also given 40 mg IV lasix early in stay. These did not result in any significant improvement on exam and patient reports no improvement after these interventions. She is also given 10mg Decadron early in stay. CXR interpreted by radiology as "possible small left pleural effusion. no definite consolidation. nonspecific bronchial wall thickening". BNP 183, normal troponin, no concerning findings on EKG. supplemental oxygen removed after above medications given and she slowly trended down to as low as 88% pulse ox on room air; supplemental oxygen restarted (3 liters/min NC) with improvement of pulse ox to lower/mid 90s. Will admit for hypoxia and dyspnea, suspect COPD exacerbation given lack of findings on testing to suggest alternative diagnosis. Departure - Departure Disposition: [facility] DC/[place] Clinical Impression: COPD exacerbation Condition: Good Discharge Date/Time: 04/20/21 05:20
[2021-04-20] MEDS ORDERED: FUROSEMIDE 40 MG/4 ML VIAL IVP STA (01:08)
[2021-04-20] MEDS ORDERED: DEXAMETHASONE 10 MG/ML VIAL IVP STA (01:09)
[2021-04-20] MEDS ORDERED: IPRATROPIUM/ALBUTEROL 3 ML NEB INH STA (01:09)
[2021-04-20 02:22] LABS: B. PARAPERTUSSIS- RESP PCR PAN NOT DETECTED; B. PERTUSSIS- RESP PCR PANEL NOT DETECTED; C. PNEUMONIAE- RESP PCR PANEL NOT DETECTED; CORONAVIRUS 229E-RESP PCR NOT DETECTED; CORONAVIRUS HKU1-RESP PCR NOT DETECTED; CORONAVIRUS NL63-RESP PCR NOT DETECTED; CORONAVIRUS OC43-RESP PCR NOT DETECTED; HUMAN METAPNEUMOVIRUS NOT DETECTED; INFLUENZA A- RESP PCR PANEL NOT DETECTED; INFLUENZA B - RESP PCR PANEL NOT DETECTED; M. PNEUMONIAE- RESP PCR PANEL NOT DETECTED; PARAINFLUENZA VIRUS 1 NOT DETECTED; PARAINFLUENZA VIRUS 2 NOT DETECTED; PARAINFLUENZA VIRUS 3 NOT DETECTED; PARAINFLUENZA VIRUS 4 NOT DETECTED; RHINOVIRUS/ENTEROVIRUS NOT DETECTED; RSV- RESP PCR PANEL NOT DETECTED; SARS-CoV-2 -RESP PCR PANEL NOT DETECTED
[2021-04-20] MEDS ORDERED: ALBUTEROL NEB 2.5 MG/3 ML INH STA ×2 (02:44)
[2021-04-20] MEDS ORDERED: KETOROLAC 30 MG/ML VIAL IVP STA (02:44)
[2021-04-20] MEDS ORDERED: ACETAMINOPHEN 325 MG TABLET PO STA (04:42)
[2021-04-20] MEDS ORDERED: ONDANSETRON ODT 4 MG TABLET TL PRN (04:53)
[2021-04-20] MEDS ORDERED: ONDANSETRON 4 MG/2 ML VIAL IVP PRN (04:53)
[2021-04-20] MEDS ORDERED: ALBUTEROL NEB 2.5 MG/3 ML INH PRN (04:56)
--- NOTE | 2021-04-20 05:01 | HISTORY & PHYSICAL EXAMINATION ---
Chief Complaint - Chief Complaint Chief Complaint: Wheezing and shortness of breath History of Present Illness - Admitted From Admitted From:: Home via EMS - History Obtained From Records Reviewed: [facility] History obtained from: Patient and Dr. Santiago Exam Limitations: None - History of Present Illness HPI Comment/Other: She is a 75-year-old female who has COPD and continues to smoke. She is not on home oxygen. She was brought in by EMS on February 18 because of severe shortness of breath that started gradually over the course the day. She does not have fever, chills, purulent phlegm, no one else is sick around her. She usually does not take nebulizer inhalers. When EMS saw her that day they could not get an accurate pulse ox reading, and she was given Combivent MDI and supplemental oxygen. She had rapid relief of her dyspnea by the time she got to the emergency room. While in the emergency room she developed midline chest pressure. Troponin was 9.0 at that time. EKG was unchanged. She has a history of coronary artery stents placed in 2003 and 2010. On her exam she was without respiratory distress, clear lungs bilaterally. Her oxygen rate was 3 L when she was 97% on room air. She was mildly hypertensive at 146/70. But since she was stable, sent home. She now returns with essentially the same history. Again another metered-dose inhaler was found at the scene that she was using but it is . In the ambulance. She did not respond very well this time and continued to have wheezing and shortness of breath. Brought into the emergency room her blood pressure was 139/102. She is 98% but requiring 3 L. She is received 1 DuoNeb and 2 further nebulizers in the emergency room. Decadron. Between 11:30 PM last night and 4:00 this morning she has improved. But she is requiring oxygen. At room air she drops down to 88%. Respiratory rate is still in the low 20s. Her chest x-ray has left costophrenic angle blunting but no pneumonia. Her D- dimer is elevated in the 300s and she has a swollen right leg and she was evaluated with an ultrasound of the right leg which is negative for clot. Troponin today is 9.9. As such the patient will be placed in observation for COPD exacerbation with hypoxia. History - Past Medical History Cardiovascular: reports: Hypertension, Coronary artery disease (Cath 06/2004 w 2 stents, 10/2011 cath, 10/2013 abnml stress w reversible inf w defect, fixed ant wall w 3rd cath. Pat PLV stent, 60% 2nd OM, noncritical LAD, EF 65-70%. echo 03/2016 ef 70-75%, [facility]), Peripheral Vascular Disease (11/2013 with R SHAILESH 1.22, left SHAILESH 1.14. February 2019 arterial duplex LE, preserved three-vessel perfusion to both ankles. Focal elevation of velocity left common femoral. Also w carotid 70% on R. Angio 56% w small aneurysm 3 mm), ID (sees Palrennyal from [facility]. ), Valve disorder ("mitral valve prolapse" by hx but not comfirmed by ECHO) Respiratory: reports: COPD (use to see MD Anthony.), Pneumonia (December 2015), Shortness of breath, Sleep apnea, Other (Lung nodule w stable CT chest 2016) Neuro: reports: Peripheral neuropathy, Tremors (sees Zaheer Browning. Failed botox injections. ), Other (shinglkrystal 2011, restless leg syndrome) Endocrine/Autoimmune: reports: Type 2 diabetes (uses Dexcom. w nephropathy, retinopathy & neuropathy. A1c 10.4% 12/2020) GI: reports: GERD, Colon polyps (tubular adenoma), Diverticulitis (/diverticulosis) : reports: Incontinence ( with overactive bladder) HEENT: reports: Other (TMJ capsulitis) Psych: reports: Depression, Anxiety, Other (chronic insomnia) Musculoskeletal: reports: Chronic back pain, Other (Dupuytren both hands) Derm: reports: None MRSA Hx?: No - Past Surgical History General: reports: Colonoscopy (December 2015 with EGD. Multiple colon polyps.Done for anemia . 2017 osis and polyp), EGD Ortho: reports: Carpal Tunnel surgery, Spine surgery (laminectomy 1979 and 1980) /CUSTODIAN: reports: Hysterectomy (1970) Cardiovascular: reports: Coronary stent HEENT: reports: Cataracts, Tonsil/Adenoidectomy (1950) - Family & Social History Family History: Mother: Blood Disease/Disorder Family History Comment/Other: Mom age 95. Had diabetes, depression, & RLS. Dad . Age 62 of coronary artery disease. Also had colon cancer. Brother has familial tremors, diabetes, snores. Sister with apnea. Hx of alcoholism in family. 2 sons with tremor Living arrangement: At home Living Situation: With family Social History Notes: . 2 grown children. Moved to [facility] in 2011 [place] [facility] 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 Ended up having to quit her job because of shingles. Former Smoker. Used to smoke 3 packs/day, cut down to 1 pack/day by 2013 and quit 2018. No history of alcohol abuse. No history of recreational substance abuse. - Substance History Use: Uses substance without health or social issues: NONE Abuse: Recurrent use of substance despite neg consequences: NONE Dependence: Experiences withdrawal or developed tolerances: NONE - POLST Patient has POLST: No POLST Status: Full Code Meds/Allgy - Home Medications Home Medications: Ambulatory Orders Medication Instructions Recorded Confirmed Albuterol Sulfate [Proair Hfa] 2 puffs INH Q4HR PRN 05/30/15 04/19/21 Aspirin [Aspir 81] 81 mg PO DAILY 05/30/15 04/19/21 Enalapril Maleate [Vasotec] 10 mg PO DAILY 05/30/15 04/19/21 Gabapentin 1,200 mg PO BID 05/30/15 04/19/21 Mirtazapine 45 mg PO DAILY 05/30/15 04/19/21 Nitroglycerin [Nitrostat] 0.4 mg PO Q5MIN PRN 05/30/15 04/19/21 metFORMIN [Glucophage] 250 mg PO DAILY 05/30/15 04/19/21 Bupropion HCl [Wellbutrin Sr] 150 mg PO BID 01/01/16 04/19/21 Primidone 200 mg PO BID 01/01/16 04/19/21 carvediloL [Carvedilol] 12.5 mg PO BID 01/01/16 04/19/21 Cholecalciferol (Vitamin D3) 2,000 unit PO DAILY 08/22/16 04/19/21 [Vitamin D] Insulin Glargine/Lixisenatide 40 units PO QPM 09/28/17 04/19/21 [Soliqua 100 Unit-33 Mcg/ml Pen] Atorvastatin Calcium 80 mg PO DAILY 01/09/19 04/19/21 Cyanocobalamin (Vitamin B-12) 500 mcg SL DAILY 01/09/19 04/19/21 [Vitamin B-12 (500 mcg sublingual)] Multivitamin [Multiple Vitamins] 1 each PO DAILY 01/09/19 04/19/21 Vitamin E 100 unit PO DAILY 01/09/19 04/19/21 Furosemide [Lasix] 20 mg PO DAILY 02/18/21 04/19/21 Insulin Lispro [Humalog Kwikpen 12 units SUBQ TID 02/18/21 04/19/21 U-100] Propranolol [Inderal] 10 mg PO DAILY 02/18/21 04/19/21 predniSONE [Deltasone] 40 mg PO DAILY 3 Days #6 tablet 02/18/21 04/19/21 - Allergies Allergies/Adverse Reactions: Allergies Allergy/AdvReac Type Severity Reaction Status Date / Time No Known Drug Allergies Allergy Verified 04/19/21 23:24 Review of Systems - Constitutional Constitutional: reports: Fatigue (all the time), Weakness (of legs), Weight gain (when she stopped smoking). denies: Fever, Chills, Malaise - Eyes Eyes: reports: Vision loss, Other (does have background diabetic retinopathy). denies: Pain, Field loss, Dipolpia - Ears, Nose & Throat Ears, Nose & Throat: reports: Hoarseness (w dry mouth). denies: Ear pain, Nasal obstruction, Nasal congestion, Sore throat - Cardiovascular Cariovascular: reports: Chest pain (off and on w central ache but not the same as with ID/stent. Offered cardiac rehab for claudication, but wants to wait and do it on her own w lifestyle mod), Edema (chronic w R>L), Exertional dyspnea, Decr. exercise tolerance, Other (intrmittent claudication). denies: Irregular heart rate, Palpitations, Syncope - Respiratory Respiratory: reports: Cough, Wheezing, Snoring, SOB at rest, SOB with exertion, Apnea. denies: Sputum production, Hemoptysis, Orthopnea - Gastrointestinal Gastrointestinal: reports: Reflux/heartburn. denies: Abdominal pain, Abdominal distention, Constipation, Diarrhea, Change in bowel habits, Rectal bleeding - Genitourinary Genitourinary: reports: Incontinence. denies: Dysuria, Frequency, Urgency, Hematuria - Musculoskeletal Musculoskeletal: reports: Back pain, Muscle weakness, Joint pain - Integumentary Integumentary: denies: Rash, Pruritis, Lesions, Dryness - Neurological Neurological: reports: General weakness, Pre-existing deficit (Increasing UE tremors, LE weakness, decreased balance resulting in need for custom power wheelchair). denies: Focal weakness, Headache, Dizziness, Numbness - Psychiatric Psychiatric: reports: Depression, Anxiety, Other (use to use xanax but weaned off and now w trazadone. claustrophobic so doesn't jannet mask for apnea). denies: Suicidal, Hallucinations - Endocrine Endocrine: denies: Polyuria, Polydypsia, Polyphagia - Hematologic/Lymphatic Hematologic/Lymphatic: reports: Anemia, Bruising. denies: Petechiae, Blood c lots Prior Level of Functionality: Chronic daily shortness of breath. Still able to do her own activities of daily living. No durable medical equipment yet. Lives with her son because of shortness of breath.He is deteriorating with regards to taking care of herself. Needing more a more help. She could not get into the shower yesterday. She is tearful, worried that her son can no longer take care of her. She is afraid he will put her senior living but does not want to go. Exam - Vital Signs Reviewed Vital Signs: Yes Vital Signs: Vital Signs x48h Temp Pulse Resp BP Pulse Ox 04/20/21 04:03 80 25 H 04/20/21 03:00 80 18 119/64 96 04/20/21 01:22 81 18 114/64 98 04/19/21 23:15 36.3 C L 88 23 139/102 H 98 - Physical Exam General Appearance: positive: Alert, Moderate distress (Crying because of her fears of the senior living, short of breath if she tries to speak to me through her tears), Other (5 foot 6 inch elderly female, edentulous, morbidly obese at 116.5 kg) Eyes Bilateral: positive: PERRL, EOMI ENT: positive: No signs of dehydration, Other (Edentulous) Neck: positive: No JVD, Carotid bruit. negative: Stiff neck Respiratory: positive: Wheezes, Other (Tachypneic due to wheezing, shortness of breath, and crying). negative: Rales, Rhonchi Cardiovascular: positive: Regular rate & rhythm, Systolic murmur. negative: Gallop/S4, Friction rub Peripheral Pulses: positive: 1+ Abdomen: positive: Non-tender, No organomegaly, Nml bowel sounds, No distention, Other (Obese, large, abdominal pannus) Skin: positive: Warm, Dry, Pallor, Other (Multiple senile purpura of the dorsum of her hands, forearms, shins) Extremities: positive: Full ROM, Pedal edema (Right leg more swollen than left leg). negative: Maurizio's sign/cords Neurologic/Psychiatric: positive: Oriented x3, CN's nml (2-12), Motor nml (Resting head tremor, voice tremor, arm and hand tremor), Weakness (Difficult for her to lift her legs off the bed.), Depressed mood/affect. negative: Sensation nml (Loss of light touch of hands and feet. Feet are worse.) Conclusion/Plan - Problem List (1) Acute respiratory failure with hypoxia Conclusion/Plan: She is tearful. Stating that her shortness of breath has been getting steadily worse over the last few years. She wants to go home with oxygen. If there is any way that she can qualify via an oxygen desaturation test she would really like to do one. In the emergency room she was 88% on room air at rest. But thi s is an acute exacerbation. I have promised her that we will recheck her oxygen desat test once her acute episode has resolved. (2) COPD exacerbation Conclusion/Plan: No antecedent phlegm, fever, chills. Chest x-ray without pneumonia. Plan: Empiric azithromycin 500 mg daily for 3 doses Solu-Medrol 40 3 times daily DuoNeb 4 times daily next time albuterol as needed In the outpatient setting this patient may be a candidate for Spiriva. She tells me that finances are a problem. (3) ASHD (arteriosclerotic heart disease) Conclusion/Plan: Thorough evaluation with [facility]/cardiology. She has had co ronary angiograms, stress test. She has a reversible defect of the inferior wall, fixed defect of the anterior wall. Last visit was recent enough that she was a candidate for follow-up stress testing and she has declined at this time. She would like to focus on lifestyle modifications. Losing weight. Plan: Resume her Coreg, as needed nitroglycerin if needed (4) Diabetes mellitus with complication, with long-term current use of insulin Conclusion/Plan: Occasions include neuropathy, nephropathy, retinopathy. Last A1c was December 2020 and A1c was greater than 10%. She uses a Dexcom, gives himself Lantus once a day. No use of short-term insulin per her med list. Also on metformin. The latter is probably with mild increased use due to age, comorbidities, and risk of lactic acidosis. Plan: We are giving her steroids I will increase her Lantus from 40 units at night to 40 units at night, and 10 in the morning. Give short acting insulin before meals, moderate sliding scale. Check A1c (5) Essential tremor Conclusion/Plan: Her neurologist, Dr. Browning, recently started her on ropinirole. She would like to make sure that she is resumed on that. She is also concerned about her deteriorating status. Is just getting harder and harder for her to take care of herself and her son is having to do more. While she is still able to dress herself, feeding has become a problem because of the tremor. Leg weakness is resulted in the need for a power wheelchair. She is terrified that she will have to go to a senior living. Her son has not mentioned it but with the last few time she laments that, he has not been quick to dispute the notion. Which makes her even more depressed and anxious. Plan: Social work consult. See if she qualifies for any in-home support such as DENISE (6) Depression with anxiety Conclusion/Plan: On Wellbutrin. She would like her trazodone given at night. She was recently tapered off Xanax and is on trazodone 300 mg at night. - Lab Results Lab results reviewed: Yes Fish Bones: 04/20/21 00:05 04/20/21 00:05 - Diagnostic Imaging Results Diagnostic Imaging Results: positive: Prelim report reviewed Diagnostic Imaging Results Comments: Chest x-ray with probable small left pleural effusion. No definite consolidation. Nonspecific bronchial wall thickening. Venous Doppler without evidence of DVT right leg Core Measures - Anticipated LOS I expect patient to be DC'd or transferred within 96 hours.: Yes - DVT/VTE - Prophylaxis VTE/DVT Device ordered at admit?: Yes
[2021-04-20] MEDS: SODIUM CHLORIDE 0.9% 1,000 ML IV SCH ×2 (05:53→16:53)
[2021-04-20] MEDS: SODIUM CHLORIDE FLUSH 0.9% 10 ML SYRINGE IVP PRN (05:56)
[2021-04-20] MEDS: SODIUM CHLORIDE FLUSH 0.9% 10 ML SYRINGE IVP SCH ×3 (05:56→23:48)
[2021-04-20] MEDS: methylPREDNISolone SUCCINATE 40 MG/ML VIAL IVP SCH ×3 (07:03→21:45)
--- NOTE | 2021-04-20 07:11 | Ultrasound Report ---
PROCEDURE: Duplex Ext Veins Right INDICATIONS: RLE swelling, dyspnea TECHNIQUE: Real-time imaging, as well as color and pulse Doppler interrogation, were performed of the lower extr emity deep veins from the inguinal ligament to the popliteal fossa. COMPARISON: None. FINDINGS: The deep veins are normally compressible, and free of intraluminal thrombus. Color and pu lse Doppler demonstrate normal phasic intraluminal flow. There is normal augmentation response to di stal compression maneuver. Nonspecific soft tissue edema noted in the calf. IMPRESSION: No evidence of deep vein thrombosis involving the right lower extremity. Reviewed by: Ember Armendariz MD, PhD on 04/20/2021 7:10 AM PDT Approved by: Ember Armendariz MD, PhD on 04/20/2021 7:10 AM PDT Station ID: [id number]
[2021-04-20] MEDS ORDERED: INSULIN GLARGINE 300 UNIT/3 ML PEN SUBQ SCH ×2 (08:00→21:00)
[2021-04-20] MEDS: IPRATROPIUM/ALBUTEROL 3 ML NEB INH SCH ×4 (08:20→22:23)
--- NOTE | 2021-04-20 08:27 | XRAY Report ---
PROCEDURE: Chest 1 View X-Ray INDICATIONS: respiratory issue TECHNIQUE: One view of the chest was acquired. COMPARISON: 02/18/2021. FINDINGS: Surgical changes and devices: None. Lungs and pleura: No pneumothorax. Small left-sided pleural fluid collection. Possible patchy opaciti es in the left lung base. Mild central bronchial wall thickening. Mediastinum: Mediastinal contours appear normal. Heart size is normal. Bones and chest wall: No suspicious bony lesions. Overlying soft tissues appear unremarkable. IMPRESSION: 1. Small left-sided pleural fluid collection. 2. Possible patchy opacities in the left lung base concerning for pneumonia. 3. Mild central bronchial wall thickening likely inflammatory/infectious. Reviewed by: Ember Armendariz MD, PhD on 04/20/2021 8:25 AM PDT Approved by: Ember Armendariz MD, PhD on 04/20/2021 8:25 AM PDT Station ID: [id number]
[2021-04-20] MEDS: INSULIN ASPART 300 UNIT/3 ML PEN SUBQ SCH ×4 (08:46→21:53)
[2021-04-20] MEDS: INSULIN GLARGINE 300 UNIT/3 ML PEN SUBQ SCH (08:46)
[2021-04-20] MEDS: ENOXAPARIN 40 MG/0.4 ML SYRINGE SUBQ SCH (08:52)
[2021-04-20] MEDS: AZITHROMYCIN INJ 500 MG in SODIUM CHLORIDE 0.9% 250 ML IV SCH (08:55)
[2021-04-20] MEDS ORDERED: ATORVASTATIN 40 MG TABLET PO SCH (09:00)
[2021-04-20] MEDS ORDERED: MIRTAZAPINE 15 MG TABLET PO SCH (09:00)
[2021-04-20] MEDS: PRIMIDONE 50 MG TABLET PO SCH ×2 (09:01→21:46)
[2021-04-20] MEDS: CHOLECALCIFEROL 25 MCG TABLET PO SCH (09:04)
[2021-04-20] MEDS: MULTIVITAMIN TABLET PO SCH (09:05)
[2021-04-20] MEDS: GABAPENTIN 400 MG CAPSULE PO SCH ×2 (09:05→21:46)
[2021-04-20] MEDS: buPROPion SR 150 MG TABLET PO SCH ×2 (09:06→21:47)
[2021-04-20] MEDS: ASPIRIN EC 81 MG TABLET PO SCH (09:06)
[2021-04-20] MEDS: guaiFENesin 600 MG TABLET PO SCH ×2 (12:27→19:37)
[2021-04-20 12:40] LABS: % IRON SATURATION 18 % (20-50); IRON 60 ug/dL (28-170); TOTAL IRON BINDING CAPACITY 332 ug/dL (250-450); TRANSFERRIN 237 mg/dL (192-382)
[2021-04-20 13:16] LABS: ESTIMATED AVERAGE GLUCOSE 252 mg/dL (70-100); HEMOGLOBIN A1c% 10.4 % (4.27-6.07)
--- NOTE | 2021-04-20 14:36 | PHARMACY PROGRESS NOTE ---
- Best Possible Medication History Admit Date and Time: 04/20/21 0453 Processed by: Pharmacy Medication History completed: Yes Patient Interview: Completed Secondary Source(s): Physician records, Pharmacy records, Insurance records As the person ultimately responsible for medication therapy, providers are able to order a medication from an existing home medication list in [facility] via the "Reconcile Routine" prior to Confirmation of that medication by credit support counselor. Such practice is discouraged except when the physician, in their clinical judgment, deems that a medical need exists for a medication without regard to previous use.
[2021-04-20] MEDS: carvediloL 3.125 MG TABLET PO SCH ×2 (15:09→21:46)
[2021-04-20] MEDS: PROPRANOLOL 10 MG TABLET PO SCH (15:09)
[2021-04-20] MEDS: lisinopriL 20 MG TABLET PO SCH (15:10)
[2021-04-20 15:47] LABS: FERRITIN 80.8 ng/mL (11.0-306.8)
[2021-04-20] MEDS: oxyCODONE 5 MG TABLET PO PRN ×2 (18:07→23:49)
[2021-04-20] MEDS: rOPINIRole 0.25 MG TABLET PO SCH (21:45)
[2021-04-20] MEDS: MIRTAZAPINE 15 MG TABLET PO SCH (21:47)
[2021-04-20] MEDS: ATORVASTATIN 40 MG TABLET PO SCH (21:47)
[2021-04-20] MEDS: BENZOCAINE/MENTHOL LOZENGE MM PRN (22:34)
[2021-04-20] MEDS: traZODone 50 MG TABLET PO SCH (23:48)
[2021-04-21] MEDS: methylPREDNISolone SUCCINATE 40 MG/ML VIAL IVP SCH ×3 (05:10→22:06)
[2021-04-21] MEDS: SODIUM CHLORIDE FLUSH 0.9% 10 ML SYRINGE IVP PRN (05:10)
[2021-04-21 06:09] LABS: BASOPHILS % (AUTO) 0.5 %; EOSINOPHILS # (AUTO) 0.2 10^3/uL (0.0-0.7); EOSINOPHILS % (AUTO) 2.2 %; HCT - HEMATOCRIT 29.3 % (37.0-47.0); HGB - HEMOGLOBIN 9.3 g/dL (12.0-16.0); LYMPHOCYTES # (AUTO) 1.5 10^3/uL (1.5-3.5); LYMPHOCYTES % (AUTO) 20.4 %; MEAN CORPUSCULAR HEMOGLOBIN 35.8 pg (27.0-31.0); MEAN CORPUSCULAR HGB CONC 31.7 g/dL (32.0-36.0); MEAN CORPUSCULAR VOLUME 112.7 fL (81.0-99.0); MEAN PLATELET VOLUME 10.3 fL (7.9-10.8); MONOCYTES # (AUTO) 0.5 10^3/uL (0.0-1.0); MONOCYTES % (AUTO) 6.8 %; NEUTROPHILS # (AUTO) 5.1 10^3/uL (1.5-6.6); NEUTROPHILS % (AUTO) 69.4 %; NRBC ABSOLUTE COUNT (AUTO) 0.05 x10^3/uL; NUCLEATED RED BLOOD CELLS AUTO 0.7 /100WBC; PLT - PLATELET COUNT 271 10^3/uL (130-450); RED CELL DISTRIBUTION WIDTH 17.6 % (12.0-15.0); WHITE BLOOD COUNT 7.4 x10^3/uL (4.8-10.8)
[2021-04-21 06:18] LABS: CALCIUM 7.7 mg/dL (8.5-10.3); CREATININE 0.9 mg/dL (0.4-1.0); POTASSIUM 4.6 mmol/L (3.5-5.0)
[2021-04-21 06:27] LABS: SLIDE REVIEW? Indicated
[2021-04-21 06:43] LABS: PLATELET ESTIMATE, MANUAL NORMAL (130-450,000) (NORMAL)
[2021-04-21] MEDS: buPROPion SR 150 MG TABLET PO SCH (07:57)
[2021-04-21] MEDS: GABAPENTIN 400 MG CAPSULE PO SCH ×2 (07:57→22:05)
[2021-04-21] MEDS: CHOLECALCIFEROL 25 MCG TABLET PO SCH (07:58)
[2021-04-21] MEDS: ASPIRIN EC 81 MG TABLET PO SCH (07:58)
[2021-04-21] MEDS: MULTIVITAMIN TABLET PO SCH (07:58)
[2021-04-21] MEDS: lisinopriL 20 MG TABLET PO SCH (07:58)
[2021-04-21] MEDS: carvediloL 3.125 MG TABLET PO SCH (07:58)
[2021-04-21] MEDS: PRIMIDONE 50 MG TABLET PO SCH ×2 (07:58→22:05)
[2021-04-21] MEDS: guaiFENesin 600 MG TABLET PO SCH ×2 (07:58→22:04)
[2021-04-21] MEDS: PROPRANOLOL 10 MG TABLET PO SCH (07:58)
[2021-04-21] MEDS: INSULIN ASPART 300 UNIT/3 ML PEN SUBQ SCH ×4 (07:59→22:06)
[2021-04-21] MEDS: SODIUM CHLORIDE FLUSH 0.9% 10 ML SYRINGE IVP SCH ×3 (07:59→23:49)
[2021-04-21] MEDS: ENOXAPARIN 40 MG/0.4 ML SYRINGE SUBQ SCH (07:59)
[2021-04-21] MEDS: INSULIN GLARGINE 300 UNIT/3 ML PEN SUBQ SCH ×2 (08:00→22:07)
[2021-04-21] MEDS: AZITHROMYCIN INJ 500 MG in SODIUM CHLORIDE 0.9% 250 ML IV SCH (08:44)
[2021-04-21] MEDS: oxyCODONE 5 MG TABLET PO PRN ×3 (08:44→22:09)
[2021-04-21] MEDS: IPRATROPIUM/ALBUTEROL 3 ML NEB INH SCH ×4 (08:50→20:04)
--- NOTE | 2021-04-21 11:29 | PROVIDER PROGRESS NOTE ---
Assessment/Plan - Problem List (1) COPD exacerbation Assessment/Plan: She feels better at rest, but wheezes and becomes dyspneic with any activity, like sitting up. Exam shows wheezing and prolonged exp phase in all lung trujillo posteriorly. She is not ready for DCh, she requires longer care and many med adjustments. Will admit to Inpt status. Will stop Coreg and Propranolol, since both are non-specific B-blockers which could be adding to bronchospasm, and replace them with Metoprolol (a pure B1-miya) Will increase Solumedrol from 40 tid to 80 tid Continue Mucinex. Continue empiric Zithromax Continue Albuterol nebs, qid scheduled and q4h prn Start inhaled steroids bid Start Singulair at night She has hoarseness from coughing so often. Will stop her JOZEF, which could be adding to the cough. Continue suppl O2 as needed for low sats The patient herself requested a Palliative Care consult, which should be done today. (2) Leg edema Assessment/Plan: She likely has Cor pulmonale causing leg edema. The Cor pulmonale could be from pulm HTN due to COPD or from Obesity hypoventilation syndrome (BMI is 41.5). Will obtain Echo. Her last Echo was done in 2016 and showed normal LV and RV function. Will start iv Lasix Follow I's and O's and daily weights and daily BMP and Mg (3) Diabetes mellitus with hyperglycemia Assessment/Plan: Her glu are running >400s, likely due to iv steroid use. The steroid dose was just increased by me today. Her A1c was 10.4 yesterday, even before the iv steroids were started. She is not ready for Dch today Therefore the glu will need Insulin dose adjustments. (4) Diabetes mellitus with complication, with long-term current use of insulin Conclusion/Plan: She has neuropathy, nephropathy, retinopathy. (5) Essential tremor Conclusion/Plan: Her neurologist, Dr. Browning, recently started her on ropinirole. She would like to make sure that she is resumed on that. She is also concerned about her deteriorating status. Is just getting harder and harder for her to take care of herself and her son is having to do more. While she is still able to dress herself, feeding has become a problem because of the tremor. Leg weakness is resulted in the need for a power wheelchair. She is terrified that she will have to go to a residential. Her son has not mentioned it but with the last few time she laments that, he has not been quick to dispute the notion. Which makes her even more depressed and anxious. Social work consult to see if she qualifies for any in-home support such as [employer] (6) Depression with anxiety Conclusion/Plan: On Wellbutrin 150 bid. She would like her trazodone given at night. She was recently tapered off Xanax and is on trazodone 300 mg at night. The patient herself requested a Palliative Care consult, which was done today. Laverne Glynn NP saw her and recommended keeping the am Wellbutrin at 150 mg and increasing the evening dose ot 200 mg, which I will order. - Current Meds Current Meds: Current Medications Generic Name Dose Route Start Last Admin Trade Name Freq PRN Reason Stop Dose Admin Albuterol/Ipratropium 3 ml 04/20/21 07:00 04/21/21 08:50 Ipratropium/Albuterol 3 Ml Neb INH 3 ml RTQID TEMO Administration Aspirin 81 mg 04/20/21 09:00 04/21/21 07:58 Aspirin Ec 81 Mg Tablet PO 81 mg DAILY TEMO Administration Atorvastatin Calcium 80 mg 04/20/21 11:43 04/20/21 21:47 Atorvastatin 40 Mg Tablet PO 80 mg QPM TEMO Administration Bupropion HCl 150 mg 04/20/21 09:00 04/21/21 07:57 Bupropion Sr 150 Mg Tablet PO 150 mg BID TEMO Administration Carvedilol 12.5 mg 04/20/21 09:00 04/21/21 07:58 Carvedilol 3.125 Mg Tablet PO 12.5 mg BID TEMO Administration Cholecalciferol 50 mcg 04/20/21 09:00 04/21/21 07:58 Cholecalciferol 25 Mcg Tablet PO 50 mcg DAILY TEMO Administration Enoxaparin Sodium 40 mg 04/20/21 09:00 04/21/21 07:59 Enoxaparin 40 Mg/0.4 Ml Syringe SUBQ 40 mg DAILY TEMO Administration Gabapentin 1,200 mg 04/20/21 09:00 04/21/21 07:57 Gabapentin 400 Mg Capsule PO 1,200 mg BID TEMO Administration Guaifenesin 600 mg 04/20/21 12:00 04/21/21 07:58 Guaifenesin 600 Mg Tablet PO 600 mg BID TEMO Administration Azithromycin 500 mg/ Sodium 250 mls @ 250 mls/hr 04/20/21 09:00 04/21/21 09:52 Chloride IV 04/22/21 09:59 Infused DAILY TEMO Infusion Insulin Aspart 1 - 9 unit 04/20/21 08:00 04/21/21 07:59 Insulin Aspart 300 Unit/3 Ml Pen SUBQ 7 unit 0800,1200,1700,2100 TEMO Administration Protocol Insulin Glargine 40 unit 04/20/21 21:00 04/20/21 21:52 Insulin Glargine 300 Unit/3 Ml Pen SUBQ 40 unit QPM TEMO Administration Insulin Glargine 20 unit 04/20/21 09:00 04/21/21 08:00 Insulin Glargine 300 Unit/3 Ml Pen SUBQ 20 unit QDBREAKFAST TEMO Administration Lisinopril 20 mg 04/20/21 09:00 04/21/21 07:58 Lisinopril 20 Mg Tablet PO 20 mg DAILY TEMO Administration Methylprednisolone 40 mg 04/20/21 07:00 04/21/21 05:10 Methylprednisolone Succinate 40 Mg/Ml Vial IVP 40 mg TID TEMO Administration Mirtazapine 45 mg 04/20/21 21:00 04/20/21 21:47 Mirtazapine 15 Mg Tablet PO 45 mg HS TEOM Administration Multivitamins 1 tab 04/20/21 09:00 04/21/21 07:58 Multivitamin Tablet PO 1 tab DAILY TEMO Administration Oxycodone HCl 5 mg 04/20/21 04:53 04/21/21 08:44 Oxycodone 5 Mg Tablet PO 5 mg Q4HR PRN Administration Pain 5 to 7 Primidone 200 mg 04/20/21 09:00 04/21/21 07:58 Primidone 50 Mg Tablet PO 200 mg BID TEMO Administration Propranolol HCl 10 mg 04/20/21 09:00 04/21/21 07:58 Propranolol 10 Mg Tablet PO 10 mg DAILY TEMO Administration Ropinirole HCl 0.5 mg 04/20/21 21:00 04/20/21 21:45 Ropinirole 0.25 Mg Tablet PO 0.5 mg QPM TEMO Administration Sodium Chloride 10 ml 04/20/21 04:53 04/21/21 05:10 Sodium Chloride Flush 0.9% 10 Ml Syringe IVP 10 ml PRN PRN Administration NEEDED PER PROVIDER ORDERS Sodium Chloride 10 ml 04/20/21 09:00 04/21/21 07:59 Sodium Chloride Flush 0.9% 10 Ml Syringe IVP 10 ml 0100,0900,1700 TEMO Administration Throat Lozenges 1 lozenge 04/20/21 22:08 04/20/21 22:34 Benzocaine/Menthol Lozenge MM 1 lozenge Q2HR PRN Administration Throat pain Trazodone HCl 50 mg 04/20/21 23:06 04/20/21 23:48 Trazodone 50 Mg Tablet PO 50 mg QPM TEMO Administration - Lab Result Fish Bone Diagrams: 04/21/21 04:35 04/21/21 04:35 - Additional Planning My Orders: My Active Orders 04/20/21 12:00 guaiFENesin [Mucinex] 600 mg PO BID 04/20/21 22:08 Benzocaine/Menthol [Cepacol] 1 lozenge MM Q2HR PRN 04/21/21 11:20 Admit [Admit \ Transfer \ Status] [RC] .ONCE 04/21/21 14:00 methylPREDNISolone SUCCINATE [SOLU-Medrol (40MG VIAL)] 80 mg IVP TID 04/21/21 21:00 Insulin Glargine [Lantus Solostar] 45 unit SUBQ QPM 04/22/21 08:00 Insulin Glargine [Lantus Solostar] 30 unit SUBQ QDBREAKFAST Subjective - Subjective Patient Reports: Cough, Shortness of Breath, Other (Cries when thinks about DCh, lives with her son and [id number].) Objective Vital Signs: Vital Signs - 24 hr 04/20/21 04/20/21 04/20/21 15:06 15:42 16:40 Temperature 36.8 C Heart Rate 70 Heart Rate [ 89 83 Brachial] Respiratory 34 H 20 20 Rate Blood Pressure 139/102 H 116/83 H [Left Brachial artery] Blood Pressure [Left Radial artery] O2 Saturation 98 99 04/20/21 04/20/21 04/21/21 22:25 23:45 01:32 Temperature 36.5 C Heart Rate 73 Heart Rate [ 73 73 Brachial] Respiratory 20 16 Rate Blood Pressure 156/73 H [Left Brachial artery] Blood Pressure 113/61 [Left Radial artery] O2 Saturation 95 98 04/21/21 04/21/21 04/21/21 04:30 05:10 07:34 Temperature 36.4 C L 36.4 C L Heart Rate Heart Rate [ 71 71 Brachial] Respiratory 16 20 Rate Blood Pressure 137/60 H 138/63 H [Left Brachial artery] Blood Pressure [Left Radial artery] O2 Saturation 99 96 94 04/21/21 08:50 Temperature Heart Rate 73 Heart Rate [ Brachial] Respiratory 20 Rate Blood Pressure [Left Brachial artery] Blood Pressure [Left Radial artery] O2 Saturation Oxygen O2 Source Room air Oxygen Flow Rate 2 I&O (Last 24 Hrs): Intake and Output Totals x24h 04/19/21 04/20/21 04/21/21 23:59 23:59 23:59 Intake Total 5830.000 770 Output Total 3100 800 Balance 2730.000 -30 General: Alert, Oriented x3 HEENT: Mucous membr. moist/pink, Other (Hoarseness of voice. Edentulous) Neck: Supple, No JVD Neuro: Alert, Non Focal Cardiovascular: Other (Distant heart sounds) Respiratory: Wheezes (Very prolonged expiratory phase, wheezing in all upper and lower lung trujillo posteriorly), Other (Dysoneic when talking and with sitting up in bed) Abdomen: Soft (Obese with pannus) Extremities: Other (4+ pitting edema to knees) - Results Results: Laboratory Results WBC 7.4 x10^3/uL (4.8-10.8) 04/21/21 04:35 RBC 2.60 10^6/uL (4.20-5.40) L 04/21/21 04:35 Hgb 9.3 g/dL (12.0-16.0) L 04/21/21 04:35 Hct 29.3 % (37.0-47.0) L 04/21/21 04:35 MCV 112.7 fL (81.0-99.0) H 04/21/21 04:35 MCH 35.8 pg (27.0-31.0) H 04/21/21 04:35 MCHC 31.7 g/dL (32.0-36.0) L 04/21/21 04:35 RDW 17.6 % (12.0-15.0) H 04/21/21 04:35 Plt Count 271 10^3/uL (130-450) 04/21/21 04:35 MPV 10.3 fL (7.9-10.8) 04/21/21 04:35 Neut # (Auto) 5.1 10^3/uL (1.5-6.6) 04/21/21 04:35 Lymph # (Auto) 1.5 10^3/uL (1.5-3.5) 04/21/21 04:35 Clark # (Auto) 0.5 10^3/uL (0.0-1.0) 04/21/21 04:35 Eos # (Auto) 0.2 10^3/uL (0.0-0.7) 04/21/21 04:35 Baso # (Auto) 0.0 10^3/uL (0.0-0.1) 04/21/21 04:35 Absolute Nucleated RBC 0.05 x10^3/uL 04/21/21 04:35 Nucleated RBC % 0.7 /100WBC 04/21/21 04:35 Manual Slide Review Indicated 04/21/21 04:35 Platelet Estimate NORMAL (130-450,000) (NORMAL) 04/21/21 04:35 RBC Morph Micro Appear 2+ MICROCYTOSIS (NORMAL) 1+ POLYCHROMASIA (NORMAL) 04/21/21 04:35 RBC Morph Micro Appear 2+ MICROCYTOSIS (NORMAL) 1+ POLYCHROMASIA (NORMAL) 04/21/21 04:35 D-Dimer 395.8 ng/mL (200.0-255.0) H 04/20/21 02:27 Sodium 131 mmol/L (135-145) L 04/21/21 04:35 Potassium 4.6 mmol/L (3.5-5.0) 04/21/21 04:35 Chloride 97 mmol/L (101-111) L 04/21/21 04:35 Carbon Dioxide 26 mmol/L (21-32) 04/21/21 04:35 Anion Gap 8.0 (6-13) 04/21/21 04:35 BUN 27 mg/dL (6-20) H 04/21/21 04:35 Creatinine 0.9 mg/dL (0.4-1.0) 04/21/21 04:35 Estimated GFR (MDRD) 61 (>89) L 04/21/21 04:35 Glucose 294 mg/dL (70-100) H 04/21/21 04:35 POC Whole Bld Glucose 432 mg/dL (70 - 100) H 04/21/21 11:17 Estimat Average Glucose 252 mg/dL (70-100) H 04/20/21 02:27 Hemoglobin A1c % 10.4 % (4.27-6.07) H 04/20/21 02:27 Calcium 7.7 mg/dL (8.5-10.3) L 04/21/21 04:35 Iron 60 ug/dL (28-170) 04/20/21 10:42 TIBC 332 ug/dL (250-450) 04/20/21 10:42 % Saturation 18 % (20-50) L 04/20/21 10:42 Transferrin 237 mg/dL (192-382) 04/20/21 10:42 Ferritin 80.8 ng/mL (11.0-306.8) 04/20/21 11:23 Total Bilirubin 0.7 mg/dL (0.2-1.0) 04/20/21 00:05 AST 22 IU/L (10-42) 04/20/21 00:05 ALT 38 IU/L (10-60) 04/20/21 00:05 Alkaline Phosphatase 126 IU/L (42-121) H 04/20/21 00:05 Lactate Dehydrogenase 222 IU/L (91-225) 04/20/21 10:42 Troponin I High Sens 9.9 ng/L (2.3-14.8) 04/20/21 00:05 B-Natriuretic Peptide 156 pg/mL (5-100) H 04/21/21 04:35 Total Protein 6.0 g/dL (6.7-8.2) L 04/20/21 00:05 Albumin 3.5 g/dL (3.2-5.5) 04/20/21 00:05 Globulin 2.5 g/dL (2.1-4.2) 04/20/21 00:05 Albumin/Globulin Ratio 1.4 (1.0-2.2) 04/20/21 00:05 Lipase 37 U/L (22-51) 04/20/21 00:05 Vitamin B12 2517 pg/mL (180-914) H 04/20/21 11:23 Folate 33.00 ng/mL (5.90 - >24.8) 04/20/21 Unknown Nasal Adenovirus (PCR) NOT DETECTED 04/20/21 01:25 Nasal B. parapertussis DNA (PCR) NOT DETECTED 04/20/21 01:25 Nasal Coronavir 229E PCR NOT DETECTED 04/20/21 01:25 Nasal Coronavir HKU1 PCR NOT DETECTED 04/20/21 01:25 Nasal Coronavir NL63 PCR NOT DETECTED 04/20/21 01:25 Nasal Coronavir OC43 PCR NOT DETECTED 04/20/21 01:25 Nasal Enterovir/Rhinovir PCR NOT DETECTED 04/20/21 01:25 Nasal Influenza B PCR NOT DETECTED 04/20/21 01:25 Nasal Influenza A PCR NOT DETECTED 04/20/21 01:25 Nasal Parainfluen 1 PCR NOT DETECTED 04/20/21 01:25 Nasal Parainfluen 2 PCR NOT DETECTED 04/20/21 01:25 Nasal Parainfluen 3 PCR NOT DETECTED 04/20/21 01:25 Nasal Parainfluen 4 PCR NOT DETECTED 04/20/21 01:25 Nasal RSV (PCR) NOT DETECTED 04/20/21 01:25 Nasal B.pertussis DNA PCR NOT DETECTED 04/20/21 01:25 Nasal C.pneumoniae (PCR) NOT DETECTED 04/20/21 01:25 Edwin Human Metapneumo PCR NOT DETECTED 04/20/21 01:25 Nasal M.pneumoniae (PCR) NOT DETECTED 04/20/21 01:25 Nasal SARS-CoV-2 (PCR) NOT DETECTED 04/20/21 01:25 - Procedures Procedures: Procedures EXCISION OF ASCENDING COLON, ENDO, DIAGN (09/28/17) EXCISION OF CECUM, ENDO, DIAGN (09/28/17) EXCISION OF DESCENDING COLON, ENDO (07/13/18) EXCISION OF SIGMOID COLON, ENDO (07/13/18) EXCISION OF SIGMOID COLON, ENDO, DIAGN (09/28/17) EXCISION OF TRANSVERSE COLON, ENDO (07/13/18) EXCISION OF TRANSVERSE COLON, ENDO, DIAGN (09/28/17) INTRODUCTION OF OTH THERAP SUBST INTO LOW GI, ENDO (09/28/17)
[2021-04-21] MEDS: BUDESONIDE 0.5 MG/2 ML NEB INH SCH ×2 (13:53→20:04)
--- NOTE | 2021-04-21 14:09 | CONSULTATION NOTE ---
Palliative Care Consultation - Referral Referring Provider: Dr. Kristel Joyner Time of Visit: 4084-4119 Referral setting: Hospitalized patient Referral Reason: COPD/Depression - Information Sources Records reviewed: Previous records reviewed History/Review of Systems obtained from: Patient, Other (hospitalist) - History of Present Illness Brief History of Present Illness: This is a 75-year-old female who who is seen and evaluated today for initial palliative care consultation while hospitalized for COPD exacerbation And establishment regarding goals of care. Prefers to be addressed as [place]. The patient requested a palliative care consultation. She reports a longstanding history of many years regarding COPD. She is not on any supplemental oxygen but is requesting this. She in the last year has had frequent emergency department visits for COPD exacerbation. 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 She is finding that she is very dyspneic on exertion with any type of activity. She is requesting evaluation for supplemental oxygen therapy. She had a chest x-ray performed that was negative for pneumonia. And is presently empiric azithromycin with routine nebs.. The patient has a longstanding history of tobacco abuse. She smoked approximately 3 packs/day over the course of numerous years and stopped approximately 3 years ago. She also has a history of an essential tremor that limits her capability of performing certain tasks. She is on Requip and is followed by neurology. The patient expresses extreme depression without suicidal ideation. She feels that she is quite a burden to her son and [id number]. She does not see any way of getting out of her present predicament. She is presently on mirtazapine 45 mg daily and Wellbutrin 150 mg twice daily. She reports that this regimen has been present since for "a number of years." . She does relay that she is a very supportive family and does not wish to be a burden upon them. She also wishes to have improvement of her overall breathing status with reduction in COPD exacerbations Morbidly obese woman sitting up on the edge of a hospital bed periodically crying due to underlying depressive symptoms and reports of hopelessness. Medical/Surgical History - Past Medical History Cardiovascular: reports: Hypertension, Coronary artery disease Respiratory: reports: COPD Neuro: Peripheral neuropathy, Tremors Neuro: reports: Tremors Endocrine/Autoimmune: reports: Type 2 diabetes GI: reports: None : reports: None HEENT: reports: Other Psych: reports: Depression, Anxiety Musculoskeletal: reports: None, Chronic back pain Derm: reports: None MRSA Hx?: No - Past Surgical History General: reports: Colonoscopy Ortho: reports: Carpal Tunnel surgery, Spine surgery /LUBE ATTENDANT: reports: Hysterectomy Cardiovascular: reports: Coronary stent HEENT: reports: Cataracts - Substance History Use: Uses substance without health or social issues: NONE Abuse: Recurrent use of substance despite neg consequences: NONE Dependence: Experiences withdrawal or developed tolerances: NONE Social History - Living Situation Living Situation: With family Support System: Patient grew up in [facility] and then relocated to [place] and then finally [place], [place]. The patient and her spouse who is now from cancer, but a farm in [place] where they lived. 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 She unfortunately had to quit due to her essential tremor and numerous working hours. After the of her she "threw herself into work." She has 2 sons, Brian and Zackery. The patient relocated to [place] [facility] in 2012 to live with her son Zackery and [id number]. The patient's other son lives in [place], [place] and she is presently estranged from him. She receives support from her family who are local on [facility]. She recently stopped driving to [place]. She no longer smokes. Family History - Family History Family History: Mother: , Father: Medications/Allergies - Medications Active Medication List: Active Medications Acetaminophen (Acetaminophen 325 Mg Tablet) 650 mg PO Q4HR PRN PRN Reason: Pain 1 to 4 Albuterol (Albuterol Neb 2.5 Mg/3 Ml) 2.5 mg INH RTQ4H PRN PRN Reason: Wheezing Albuterol/Ipratropium (Ipratropium/Albuterol 3 Ml Neb) 3 ml INH RTQID [facility] Last Admin: 04/21/21 13:52 Dose: Not Given Documented by: Aspirin (Aspirin Ec 81 Mg Tablet) 81 mg PO DAILY [facility] Last Admin: 04/21/21 07:58 Dose: 81 mg Documented by: Atorvastatin Calcium (Atorvastatin 40 Mg Tablet) 80 mg PO QPM [facility] Last Admin: 04/20/21 21:47 Dose: 80 mg Documented by: Budesonide (Budesonide 0.5 Mg/2 Ml Neb) 0.5 mg INH RTBID [facility] Last Admin: 04/21/21 13:53 Dose: Not Given Documented by: Bupropion HCl (Bupropion Sr 150 Mg Tablet) 150 mg PO BID [facility] Last Admin: 04/21/21 07:57 Dose: 150 mg Documented by: Cholecalciferol (Cholecalciferol 25 Mcg Tablet) 50 mcg PO DAILY [facility] Last Admin: 04/21/21 07:58 Dose: 50 mcg Documented by: Enoxaparin Sodium (Enoxaparin 40 Mg/0.4 Ml Syringe) 40 mg SUBQ DAILY [facility] Last Admin: 04/21/21 07:59 Dose: 40 mg Documented by: Furosemide (Furosemide 20 Mg/2 Ml Vial) 20 mg IVP BIDDIURETIC [facility] Gabapentin (Gabapentin 400 Mg Capsule) 1,200 mg PO BID [facility] Last Admin: 04/21/21 07:57 Dose: 1,200 mg Documented by: Guaifenesin (Guaifenesin 600 Mg Tablet) 600 mg PO BID [facility] Last Admin: 04/21/21 07:58 Dose: 600 mg Documented by: Azithromycin 500 mg/ Sodium (Chloride) 250 mls @ 250 mls/hr IV DAILY [facility] Stop: 04/22/21 09:59 Last Infusion: 04/21/21 09:52 Dose: Infused Documented by: Insulin Aspart (Insulin Aspart 300 Unit/3 Ml Pen) 2 - 10 unit SUBQ 0800,1200,1700,2100 [facility]; Protocol Last Admin: 04/21/21 12:06 Dose: 10 unit Documented by: Insulin Glargine (Insulin Glargine 300 Unit/3 Ml Pen) 45 unit SUBQ QPM [facility] Insulin Glargine (Insulin Glargine 300 Unit/3 Ml Pen) 30 unit SUBQ QDBREAKFAST [facility] Methylprednisolone (Methylprednisolone Succinate 40 Mg/Ml Vial) 80 mg IVP TID [facility] Metoprolol Succinate (Metoprolol Succinate 25 Mg Tablet) 25 mg PO DAILY [facility] Mirtazapine (Mirtazapine 15 Mg Tablet) 45 mg PO HS [facility] Last Admin: 04/20/21 21:47 Dose: 45 mg Documented by: Montelukast Sodium (Montelukast 10 Mg Tablet) 10 mg PO QPM [facility] Multivitamins (Multivitamin Tablet) 1 tab PO DAILY [facility] Last Admin: 04/21/21 07:58 Dose: 1 tab Documented by: Ondansetron HCl (Ondansetron Odt 4 Mg Tablet) 4 mg TL Q6HR PRN PRN Reason: Nausea / Vomiting Ondansetron HCl (Ondansetron 4 Mg/2 Ml Vial) 4 mg IVP Q6HR PRN PRN Reason: Nausea / Vomiting Oxycodone HCl (Oxycodone 5 Mg Tablet) 5 mg PO Q4HR PRN PRN Reason: Pain 5 to 7 Last Admin: 04/21/21 08:44 Dose: 5 mg Documented by: Primidone (Primidone 50 Mg Tablet) 200 mg PO BID [facility] Last Admin: 04/21/21 07:58 Dose: 200 mg Documented by: Propranolol HCl (Propranolol 10 Mg Tablet) 10 mg PO DAILY [facility] Last Admin: 04/21/21 07:58 Dose: 10 mg Documented by: Ropinirole HCl (Ropinirole 0.25 Mg Tablet) 0.5 mg PO QPM [facility] Last Admin: 04/20/21 21:45 Dose: 0.5 mg Documented by: Sodium Chloride (Sodium Chloride Flush 0.9% 10 Ml Syringe) 10 ml IVP PRN PRN PRN Reason: NEEDED PER PROVIDER ORDERS Last Admin: 04/21/21 05:10 Dose: 10 ml Documented by: Sodium Chloride (Sodium Chloride Flush 0.9% 10 Ml Syringe) 10 ml IVP 0100,09 00,1700 [facility] Last Admin: 04/21/21 07:59 Dose: 10 ml Documented by: Throat Lozenges (Benzocaine/Menthol Lozenge) 1 lozenge MM Q2HR PRN PRN Reason: Throat pain Last Admin: 04/20/21 22:34 Dose: 1 lozenge Documented by: Trazodone HCl (Trazodone 50 Mg Tablet) 50 mg PO QPM [facility] Last Admin: 04/20/21 23:48 Dose: 50 mg Documented by: Albuterol Sulfate [Proair Hfa] 2 puffs INH Q4HR PRN 05/30/15 Aspirin [Aspir 81] 81 mg PO DAILY 05/30/15 Enalapril Maleate [Vasotec] 10 mg PO DAILY 05/30/15 Gabapentin 1,200 mg PO BID 05/30/15 Nitroglycerin [Nitrostat] 0.4 mg PO Q5MIN PRN 05/30/15 Bupropion HCl [Wellbutrin Sr] 150 mg PO BID 01/01/16 Primidone 150 mg PO BID 01/01/16 carvediloL [Carvedilol] 12.5 mg PO BID 01/01/16 Cholecalciferol (Vitamin D3) [Vitamin D] 2,000 unit PO DAILY 08/22/16 Insulin Glargine/Lixisenatide [Soliqua 100 Unit-33 Mcg/ml Pen] 40 units PO QPM 09/28/17 Atorvastatin Calcium 80 mg PO DAILY 01/09/19 Cyanocobalamin (Vitamin B-12) [Vitamin B-12 (500 mcg sublingual)] 250 mcg SL DAILY 01/09/19 Multivitamin [Multiple Vitamins] 1 each PO DAILY 01/09/19 Vitamin E 100 unit PO DAILY 01/09/19 Furosemide [Lasix] 20 mg PO DAILY 02/18/21 Insulin Lispro [Humalog Kwikpen U-100] 15 units SUBQ TID 02/18/21 Propranolol [Inderal] 10 mg PO BID 02/18/21 Mirtazapine 22.5 mg PO QPM 04/20/21 Trazodone HCl 300 mg PO QPM 04/20/21 rOPINIRole [Requip] 0.25 mg PO QPM 04/20/21 - Allergies Allergies/Adverse Reactions: Allergies Allergy/AdvReac Type Severity Reaction Status Date / Time No Known Drug Allergies Allergy Verified 04/19/21 23:24 Review of Systems - Constitutional Constitutional: reports: Weight stable. denies: Fever - Ears, Nose & Throat Ears, Nose & Throat: denies: Hearing aids - Cardiovascular Cardiovascular: reports: Edema, Decr. exercise tolerance. denies: Chest pain - Respiratory Respiratory: reports: Cough, Wheezing, SOB with exertion - Gastrointestinal Gastrointestinal: reports: Constipation (last bowel movement 3 days ago. Reports that typically is regular with bowel moveent), Good appetite. denies: Abdominal pain, Vomiting - Genitourinary Genitourinary: reports: Incontinence. denies: Dysuria - Musculoskeletal Musculoskeletal: reports: Assistive devices, Transfer issues. denies: Joint pain - Neurological Neurological: reports: General weakness - Psychiatric Psychiatric: reports: Depression - Endocrine Endocrine: reports: Diabetes type 2 (does not check her blood glucose levels at home per her report) - Hematologic/Lymphatic Hematologic/Lymph: reports: Recurrent infections (recurrent COPD excerbations) - All Other Systems All Other Systems: reports: Reviewed and negative Physical Exam - Vital Signs Vital Signs: Vital Signs x48h Temp Pulse Pulse Resp BP Pulse Ox 04/21/21 12:00 73 136/94 H 96 04/21/21 08:50 73 20 04/21/21 07:34 36.4 C L 71 20 138/63 H 94 - Physical Exam General Appearance: positive: Alert, Moderate distress (intermittently tearful and crying as she does not wish to be a burden to her family or be placed in a facility.), Other (morbidly obese) Eyes Bilateral: positive: Normal inspection ENT: positive: No signs of dehydration, Other (endentulous) Neck: positive: Trachea midline, Other (supple) Cardiovascular: positive: Regular rate & rhythm Respiratory: positive: Chest non-tender, Wheezes (BLL), Other (Able to speak in full setances but became tachypneic with crying.) Abdomen: positive: Non-tender, Soft, Nml bowel sounds, Obese Skin: positive: Bruising (b/l forearms) Extremities: positive: Pedal edema (Right greater than left, trace) Neurologic/Psychiatric: positive: Oriented x3, Weakness, Depressed mood/affect, Other (+tremor to BUE with rest and action noted) Palliative Care Pain: No pain Nausea: None Anorexia: None Dyspnea: Moderate (4-6) Depression: Severe (7-10) (Denies Suicidal ideation) Anxiety: None Feelings of wellbeing/Perceived Quality of Life: Poor Constipation: Comment (presently with constipation symptoms) Performance Status: Patient essentially remains in her room and periodically comes out to spend time with her family. She has difficulty ambulating into the home without support up to steps due to her balance. She does have a walker at home and a wheelchair. She is unable to ambulate easily the length of the house due to dyspnea on exertion. She is incontinent of urine. Continent of bowel. PPS 60% - Palliative Care Discussion: The patient expresses extensive depressive symptoms due to her present life circumstances. She enjoyed the life that she was leading in [place] but recognized that she needed increased assistance and relocated to live with her son on [facility]. She has had a steady decline in her health since relo cation. She recognizes that her diagnosis of COPD is a progressive illness however, she desires increased support such as oxygen therapy due to the extent of her dyspnea on exertion. She no longer findings any enjoyable moments in her life. She has a great fear that her son will place her in a custodial. This is a residual fear stemming from guilt where she had to place her own mother who expressed a desire to not be placed in a facility prior to her own . This is guilt the patient reports that she carries with her. She wants to be able to take care of herself more independently however is becoming increasingly difficult. She denies any suicidal nation. She has been on her pr esent regimen of mirtazapine and Wellbutrin for a number of years. She is open to trialing different medications to improve her overall outlook and mood. Recommendation made to hospitalist to increase Wellbutrin to 200 mg in the evening and continue 150 mg in the morning as well as mirtazapine 45 mg nightly as this is the maximum dose. 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 Supportive listening provided. Results - Lab Results Lab results reviewed: Yes Fish Bones: 04/21/21 04:35 04/21/21 04:35 Lab and Imaging Results: Lab Results x24hrs 04/21/21 04/21/21 04/21/21 Range/Units 12:59 11:17 07:28 WBC (4.8-10.8) x10^3/uL RBC (4.20-5.40) 10^6/uL Hgb (12.0-16.0) g/dL Hct (37.0-47.0) % MCV (81.0-99.0) fL MCH (27.0-31.0) pg MCHC (32.0-36.0) g/dL RDW (12.0-15.0) % Plt Count (130-450) 10^3/uL MPV (7.9-10.8) fL Neut # (Auto) (1.5-6.6) 10^3/uL Lymph # (Auto) (1.5-3.5) 10^3/uL [place] # (Auto) (0.0-1.0) 10^3/uL Eos # (Auto) (0.0-0.7) 10^3/uL Baso # (Auto) (0.0-0.1) 10^3/uL Absolute Nucleated RBC x10^3/uL Nucleated RBC % /100WBC Manual Slide Review Platelet Estimate (NORMAL) RBC Morph Micro Appear (NORMAL) Sodium (135-145) mmol/L Potassium (3.5-5.0) mmol/L Chloride (101-111) mmol/L Carbon Dioxide (21-32) mmol/L Anion Gap (6-13) BUN (6-20) mg/dL Creatinine (0.4-1.0) mg/dL Estimated GFR (MDRD) (>89) Glucose (70-100) mg/dL POC Whole Bld Glucose 432 H 299 H (70 - 100) mg/dL Calcium (8.5-10.3) mg/dL Ferritin (11.0-306.8) ng/mL Troponin I High Sens 7.3 (2.3-14.8) ng/L B-Natriuretic Peptide (5-100) pg/mL Vitamin B12 (180-914) pg/mL 04/21/21 04/21/21 04/21/21 Range/Units 04:35 04:35 04:35 WBC 7.4 (4.8-10.8) x10^3/uL RBC 2.60 L (4.20-5.40) 10^6/uL Hgb 9.3 L (12.0-16.0) g/dL Hct 29.3 L (37.0-47.0) % MCV 112.7 H (81.0-99.0) fL MCH 35.8 H (27.0-31.0) pg MCHC 31.7 L (32.0-36.0) g/dL RDW 17.6 H (12.0-15.0) % Plt Count 271 (130-450) 10^3/uL MPV 10.3 (7.9-10.8) fL Neut # (Auto) 5.1 (1.5-6.6) 10^3/uL Lymph # (Auto) 1.5 (1.5-3.5) 10^3/uL [place] # (Auto) 0.5 (0.0-1.0) 10^3/uL Eos # (Auto) 0.2 (0.0-0.7) 10^3/uL Baso # (Auto) 0.0 (0.0-0.1) 10^3/uL Absolute Nucleated RBC 0.05 x10^3/uL Nucleated RBC % 0.7 /100WBC Manual Slide Review Indicated Platelet Estimate NORMAL (130-450,000) (NORMAL) RBC Morph Micro Appear 1+ POLYCHROMASIA (NORMAL) Sodium 131 L (135-145) mmol/L Potassium 4.6 (3.5-5.0) mmol/L Chloride 97 L (101-111) mmol/L Carbon Dioxide 26 (21-32) mmol/L Anion Gap 8.0 (6-13) BUN 27 H (6-20) mg/dL Creatinine 0.9 (0.4-1.0) mg/dL Estimated GFR (MDRD) 61 L (>89) Glucose 294 H (70-100) mg/dL POC Whole Bld Glucose (70 - 100) mg/dL Calcium 7.7 L (8.5-10.3) mg/dL Ferritin (11.0-306.8) ng/mL Troponin I High Sens (2.3-14.8) ng/L B-Natriuretic Peptide 156 H (5-100) pg/mL Vitamin B12 (180-914) pg/mL 04/20/21 04/20/21 04/20/21 Range/Units 20:41 16:36 11:23 WBC (4.8-10.8) x10^3/uL RBC (4.20-5.40) 10^6/uL Hgb (12.0-16.0) g/dL Hct (37.0-47.0) % MCV (81.0-99.0) fL MCH (27.0-31.0) pg MCHC (32.0-36.0) g/dL RDW (12.0-15.0) % Plt Count (130-450) 10^3/uL MPV (7.9-10.8) fL Neut # (Auto) (1.5-6.6) 10^3/uL Lymph # (Auto) (1.5-3.5) 10^3/uL [place] # (Auto) (0.0-1.0) 10^3/uL Eos # (Auto) (0.0-0.7) 10^3/uL Baso # (Auto) (0.0-0.1) 10^3/uL Absolute Nucleated RBC x10^3/uL Nucleated RBC % /100WBC Manual Slide Review Platelet Estimate (NORMAL) RBC Morph Micro Appear (NORMAL) Sodium (135-145) mmol/L Potassium (3.5-5.0) mmol/L Chloride (101-111) mmol/L Carbon Dioxide (21-32) mmol/L Anion Gap (6-13) BUN (6-20) mg/dL Creatinine (0.4-1.0) mg/dL Estimated GFR (MDRD) (>89) Glucose (70-100) mg/dL POC Whole Bld Glucose 361 H 315 H (70 - 100) mg/dL Calcium (8.5-10.3) mg/dL Ferritin 80.8 (11.0-306.8) ng/mL Troponin I High Sens (2.3-14.8) ng/L B-Natriuretic Peptide (5-100) pg/mL Vitamin B12 2517 H (180-914) pg/mL Impression and Recommendations - Palliative Care Impression: This is a 75-year-old female admitted for COPD exacerbation in the setting of history of tobacco abuse in the past as well with extensive depressive symptoms. She would benefit from further dose titration of her antidepressant medications and patient is open to trialing this as well as open to suggestions of counseling therapy upon discharge from the hospital. Patient is also displaying symptoms of constipation and would benefit from titration of bowel regimen. Supportive and empathetic listening provided today. Palliative care will continue to provide support, care coordination, symptom management and anticipatory guidance. Recommendations/Counseling Done: 1. Major depression. Longstanding history. Denies suicidal ideation. Patient would benefit from dose titration of her Wellbutrin and this was discussed with hospitalist. Recommend continuing Wellbutrin 150 [place] area and increase to Wellbutrin 200 mg in the evening. Continue mirtazapine 45 mg in the evening as she is at the present maximum dose. Discussed with the patient that she would likely see benefit from dose adjustment in about 3 to 4 weeks time with understanding verbalized. Potentially may need to titrate up to 200 mg twice daily outpatient of Wellbutrin. If dose titration of Wellbutrin is not effect ct in managing depressive symptoms then may consider titrating off Wellbutrin or mirtazapine and adding another antidepressant such as Abilify for a boost. Patient is open to cognitive behavioral therapy and working with a therapist. Will assist with telemedicine set up upon discharge for the patient to follow through upon. Patient is also open to having the palliative care manager transfusion assist upon discharge from the hospital for psychosocial support. Will benefit from continued monitoring and dose adjustment outpatient. 2. COPD exacerbation in the setting of COPD. Patient with recent frequent exacerbations. Presently being followed by hospitalist. In the future will benefit from acute pulse oximetry to determine qualifications for supplemental oxygen support. We will also benefit from palliative care follow-up upon discharge given the frequency of her COPD exacerbations to attempt decreased frequencies. 3. Diabetes mellitus. Longstanding history. Patient is open and relying that she does not check her blood glucose levels at home and therefore her diabetes mellitus is not well controlled. Hemoglobin A1c 10.4% on 04/20/2021. Would likely benefit from and nurses educator and further oversight for management. 4. Advanced care planning. Patient expresses fear that she will ultimately need to be placed in a nursing facility as she had to do for her own mother. There have been no indications that her sons will would make such a transition. However, the patient is very anxious and fearful of being a burden upon her family and is not presently open for assistance with mediation between her and her family to express her fears adequately. Social work presently assisting regarding resources which will benefit from follow-up up on discharge. Total time spent 60 minutes with greater than 50% of the spent in counseling and coordination of care with the patient and hospitalist; review of medical record; examination of the patient; review of pathophysiology of COPD; supportive and empathetic listening as well as discussion of medication adjustments; Symptom management and advance care planning. Disclaimer: The chart note was formulated using voice recognition technology and unfortunately sound alike errors may occur.
[2021-04-21] MEDS: FUROSEMIDE 20 MG/2 ML VIAL IVP SCH (15:01)
[2021-04-21] MEDS: ACETAMINOPHEN 325 MG TABLET PO PRN (15:30)
[2021-04-21] MEDS: buPROPion SR 100 MG TABLET PO SCH (22:04)
[2021-04-21] MEDS: MONTELUKAST 10 MG TABLET PO SCH (22:04)
[2021-04-21] MEDS: ATORVASTATIN 40 MG TABLET PO SCH (22:05)
[2021-04-21] MEDS: MIRTAZAPINE 15 MG TABLET PO SCH (22:05)
[2021-04-21] MEDS: traZODone 50 MG TABLET PO SCH (22:05)
[2021-04-21] MEDS: rOPINIRole 0.25 MG TABLET PO SCH (22:06)
[2021-04-22] MEDS: oxyCODONE 5 MG TABLET PO PRN ×4 (03:22→22:13)
[2021-04-22] MEDS: FUROSEMIDE 20 MG/2 ML VIAL IVP SCH ×2 (05:01→13:55)
[2021-04-22] MEDS: methylPREDNISolone SUCCINATE 40 MG/ML VIAL IVP SCH ×3 (05:01→22:19)
[2021-04-22 05:13] LABS: BASOPHILS % (AUTO) 0.5 %; EOSINOPHILS # (AUTO) 0.1 10^3/uL (0.0-0.7); EOSINOPHILS % (AUTO) 0.8 %; HCT - HEMATOCRIT 29.1 % (37.0-47.0); HGB - HEMOGLOBIN 9.6 g/dL (12.0-16.0); LYMPHOCYTES # (AUTO) 1.1 10^3/uL (1.5-3.5); LYMPHOCYTES % (AUTO) 14.6 %; MEAN CORPUSCULAR HEMOGLOBIN 36.2 pg (27.0-31.0); MEAN CORPUSCULAR VOLUME 109.8 fL (81.0-99.0); MEAN PLATELET VOLUME 10.5 fL (7.9-10.8); MONOCYTES # (AUTO) 0.5 10^3/uL (0.0-1.0); MONOCYTES % (AUTO) 6.5 %; NEUTROPHILS % (AUTO) 77.1 %; NRBC ABSOLUTE COUNT (AUTO) 0.05 x10^3/uL; NUCLEATED RED BLOOD CELLS AUTO 0.6 /100WBC; PLT - PLATELET COUNT 270 10^3/uL (130-450); RED BLOOD COUNT 2.65 10^6/uL (4.20-5.40); RED CELL DISTRIBUTION WIDTH 17.3 % (12.0-15.0); WHITE BLOOD COUNT 7.8 x10^3/uL (4.8-10.8)
[2021-04-22 05:27] LABS: CALCIUM 8.2 mg/dL (8.5-10.3); MAGNESIUM 2.6 mg/dL (1.7-2.8); POTASSIUM 4.8 mmol/L (3.5-5.0)
[2021-04-22] MEDS: IPRATROPIUM/ALBUTEROL 3 ML NEB INH SCH ×4 (07:34→21:10)
[2021-04-22] MEDS: BUDESONIDE 0.5 MG/2 ML NEB INH SCH ×2 (07:34→21:10)
[2021-04-22] MEDS: INSULIN ASPART 300 UNIT/3 ML PEN SUBQ SCH ×6 (08:09→20:30)
--- NOTE | 2021-04-22 08:23 | PROVIDER PROGRESS NOTE ---
Assessment/Plan - Problem List (1) COPD exacerbation Assessment/Plan: Continue with IV steroids (dose was increased yesterday), nebulizers scheduled qid and every 4 hours as needed, Mucinex, Singulair po at hs(which was started yesterday), empiric antibiotics. Continue supplemental oxygen with activity and she is interested in being tested for home oxygen on the day of discharge. Will order PT so that she does not become deconditioned. (2) Leg edema Assessment/Plan: Her Echo shows low-normal LVEF of 50% and grade 2 diastolic dysfunction as well as pulmonary hypertension with PA pressure 65 mmHg which is worse than on her last Echo done in 2016. She was started on Lasix IV twice daily yesterday. We will follow I's and O's and daily weights, daily electrolytes and magnesium and replace if low. Her Propranolol and low-dose Carvedilol were stopped yesterday and she is now on Toprol-XL (chosen because it is a beta-1 selective beta-miya that should not cause bronchospasm). It is unclear why she was on Propranolol AND Carvedilol, possibly for anxiety and blood pressure control. We will also add Spironolactone orally. (3) Diabetes mellitus with hyperglycemia Assessment/Plan: Glu are as high as 400's likely due to iv steroid use Will add nutrition doses of 5U Aspart Insulin Continue long acting Insulin and cc diet and fingerstick glu checks (4) Diabetes mellitus with complication, with long-term current use of insulin Assessment/Plan: She has neuropathy, nephropathy, retinopathy. (5) Essential tremor Assessment/Plan: Her neurologist, Dr. Browning, recently started her on ropinirole. We have ordered it here. She is concerned about her deteriorating status. Is just getting harder and harder for her to take care of herself and her son is having to do more. While she is still able to dress herself, feeding has become a problem because of the tremor. Leg weakness is resulted in the need for a power wheelchair. She is terrified that she will have to go to a assisted, which makes her even more depressed and anxious. She herself requested a Palliative Care consult which was done yesterday by Laverne Glynn NP. Social work consult to see if she qualifies for any in-home support such as DENISE. (6) Depression with anxiety Assessment/Plan: She was on Wellbutrin 150 bid and trazodone at night. She was recently tapered off Xanax The patient herself requested a Palliative Care consult, which was done yesterday. Laverne Glynn NP saw her and recommended keeping the am Wellbutrin at 150 mg and increasing the evening dose at 200 mg, which was ordered. (7) Chronic anemia Assessment/Plan: Will check B12, folate levels and iron stores and replace if low - Current Meds Current Meds: Current Medications Generic Name Dose Route Start Last Admin Trade Name Freq PRN Reason Stop Dose Admin Acetaminophen 650 mg 04/20/21 04:53 04/21/21 15:30 Acetaminophen 325 Mg Tablet PO 650 mg Q4HR PRN Administration Pain 1 to 4 Albuterol/Ipratropium 3 ml 04/20/21 07:00 04/22/21 07:34 Ipratropium/Albuterol 3 Ml Neb INH 3 ml RTQID TEMO Administration Aspirin 81 mg 04/20/21 09:00 04/21/21 07:58 Aspirin Ec 81 Mg Tablet PO 81 mg DAILY TEMO Administration Atorvastatin Calcium 80 mg 04/20/21 11:43 04/21/21 22:05 Atorvastatin 40 Mg Tablet PO 80 mg QPM TEMO Administration Budesonide 0.5 mg 04/21/21 11:36 04/22/21 07:34 Budesonide 0.5 Mg/2 Ml Neb INH 0.5 mg RTBID TEMO Administration Bupropion HCl 200 mg 04/21/21 21:00 04/21/21 22:04 Bupropion Sr 100 Mg Tablet PO 200 mg QPM TEMO Administration Cholecalciferol 50 mcg 04/20/21 09:00 04/21/21 07:58 Cholecalciferol 25 Mcg Tablet PO 50 mcg DAILY TEMO Administration Enoxaparin Sodium 40 mg 04/20/21 09:00 04/21/21 07:59 Enoxaparin 40 Mg/0.4 Ml Syringe SUBQ 40 mg DAILY TEMO Administration Furosemide 20 mg 04/21/21 14:00 04/22/21 05:01 Furosemide 20 Mg/2 Ml Vial IVP 20 mg BIDDIURETIC TEMO Administration Gabapentin 1,200 mg 04/20/21 09:00 04/21/21 22:05 Gabapentin 400 Mg Capsule PO 1,200 mg BID TEMO Administration Guaifenesin 600 mg 04/20/21 12:00 04/21/21 22:04 Guaifenesin 600 Mg Tablet PO 600 mg BID TEMO Administration Azithromycin 500 mg/ Sodium 250 mls @ 250 mls/hr 04/20/21 09:00 04/21/21 09:52 Chloride IV 04/22/21 09:59 Infused DAILY TEMO Infusion Insulin Aspart 2 - 10 unit 04/21/21 12:00 04/22/21 08:09 Insulin Aspart 300 Unit/3 Ml Pen SUBQ 8 unit 0800,1200,1700,2100 TEMO Administration Protocol Insulin Glargine 45 unit 04/21/21 21:00 04/21/21 22:07 Insulin Glargine 300 Unit/3 Ml Pen SUBQ 45 unit QPM TEMO Administration Methylprednisolone 80 mg 04/21/21 14:00 04/22/21 05:01 Methylprednisolone Succinate 40 Mg/Ml Vial IVP 80 mg TID TEMO Administration Mirtazapine 45 mg 04/20/21 21:00 04/21/21 22:05 Mirtazapine 15 Mg Tablet PO 45 mg HS TEMO Administration Montelukast Sodium 10 mg 04/21/21 21:00 04/21/21 22:04 Montelukast 10 Mg Tablet PO 10 mg QPM TEMO Administration Multivitamins 1 tab 04/20/21 09:00 04/21/21 07:58 Multivitamin Tablet PO 1 tab DAILY TEMO Administration Oxycodone HCl 5 mg 04/20/21 04:53 04/22/21 08:09 Oxycodone 5 Mg Tablet PO 5 mg Q4HR PRN Administration Pain 5 to 7 Primidone 200 mg 04/20/21 09:00 04/21/21 22:05 Primidone 50 Mg Tablet PO 200 mg BID TEMO Administration Ropinirole HCl 0.5 mg 04/20/21 21:00 04/21/21 22:06 Ropinirole 0.25 Mg Tablet PO 0.5 mg QPM TEMO Administration Sodium Chloride 10 ml 04/20/21 04:53 04/21/21 05:10 Sodium Chloride Flush 0.9% 10 Ml Syringe IVP 10 ml PRN PRN Administration NEEDED PER PROVIDER ORDERS Sodium Chloride 10 ml 04/20/21 09:00 04/21/21 23:49 Sodium Chloride Flush 0.9% 10 Ml Syringe IVP 10 ml 0100,0900,1700 TEMO Administration Throat Lozenges 1 lozenge 04/20/21 22:08 04/20/21 22:34 Benzocaine/Menthol Lozenge MM 1 lozenge Q2HR PRN Administration Throat pain Trazodone HCl 50 mg 04/20/21 23:06 04/21/21 22:05 Trazodone 50 Mg Tablet PO 50 mg QPM TEMO Administration - Lab Result Fish Bone Diagrams: 04/22/21 04:43 04/22/21 04:43 - Additional Planning My Orders: My Active Orders 04/21/21 11:36 Miscellaenous Nursing Order [RC] QSHIFT Resp Teach Nebulizer/MDI [RC] .ONCE Budesonide [Pulmicort] 0.5 mg INH RTBID 04/21/21 11:41 Daily Weight [RC] 0600 Echo Transthoracic Complete [ECHO] Routine 04/21/21 12:00 Insulin Aspart [NovoLOG] 2 - 10 unit SUBQ 0800,1200,1700,2100 04/21/21 12:47 Orthostatic [Vital Signs - Orthostatic] [RC] QSHIFT 04/21/21 14:00 FUROSEMIDE INJ 20mg VIAL [LASIX INJ 20mg VIAL] 20 mg IVP BIDDIURETIC methylPREDNISolone SUCCINATE [SOLU-Medrol (40MG VIAL)] 80 mg IVP TID 04/21/21 21:00 Insulin Glargine [Lantus Solostar] 45 unit SUBQ QPM Montelukast [Singulair] 10 mg PO QPM buPROPion [Wellbutrin Sr] 200 mg PO QPM 04/22/21 08:00 Insulin Glargine [Lantus Solostar] 30 unit SUBQ QDBREAKFAST 04/22/21 09:00 Metoprolol Succinate [Toprol Xl] 25 mg PO DAILY buPROPion [Wellbutrin Sr] 150 mg PO DAILY polyethylene glycoL 3350 [Miralax] 17 gm PO DAILY 04/23/21 05:00 MAGNESIUM [CHEM] DAILYLAB Subjective - Subjective Patient Reports: Feeling Better (Less SOB when speaking, less wheezing) Objective Vital Signs: Vital Signs - 24 hr 04/21/21 04/21/21 04/21/21 08:50 12:00 14:41 Temperature 36.7 C Heart Rate 73 Heart Rate [ 73 Brachial] Respiratory 20 20 Rate Blood Pressure 136/94 H [Left Brachial artery] Blood Pressure [Left Radial artery] O2 Saturation 96 94 04/21/21 04/21/21 04/21/21 14:53 15:49 20:06 Temperature 36.6 C Heart Rate 69 72 Heart Rate [ 77 Brachial] Respiratory 12 22 18 Rate Blood Pressure [Left Brachial artery] Blood Pressure 117/73 [Left Radial artery] O2 Saturation 96 04/22/21 04/22/21 04/22/21 00:00 03:42 05:18 Temperature 36.5 C Heart Rate Heart Rate [ 73 Brachial] Respiratory 20 Rate Blood Pressure 111/55 L [Left Brachial artery] Blood Pressure [Left Radial artery] O2 Saturation 96 97 96 04/22/21 04/22/21 04/22/21 06:06 07:39 07:53 Temperature 36.5 C 36.7 C Heart Rate 73 95 Heart Rate [ 70 Brachial] Respiratory 20 22 18 Rate Blood Pressure 134/96 H [Left Brachial artery] Blood Pressure [Left Radial artery] O2 Saturation 96 95 Oxygen O2 Source Room air Oxygen Flow Rate 2 I&O (Last 24 Hrs): Intake and Output Totals x24h 04/20/21 04/21/21 04/22/21 23:59 23:59 23:59 Intake Total 5830.000 2330 700 Output Total 3100 1400 2500 Balance 2730.000 930 -1800 General: Alert, Oriented x3 HEENT: Mucous membr. moist/pink, Other (edentulous) Neck: Supple, No JVD Neuro: Alert, Non Focal Cardiovascular: Regular rate, No murmurs Respiratory: Other (No wheezing anteriorly, still prolonged exp phase, no rales or rhhonchi) Abdomen: Soft (Obese with a large pannus), No tenderness Extremities: Other (4+ pitting edema to knees) - Results Results: Laboratory Results WBC 7.8 x10^3/uL (4.8-10.8) 04/22/21 04:43 RBC 2.65 10^6/uL (4.20-5.40) L 04/22/21 04:43 Hgb 9.6 g/dL (12.0-16.0) L 04/22/21 04:43 Hct 29.1 % (37.0-47.0) L 04/22/21 04:43 MCV 109.8 fL (81.0-99.0) H 04/22/21 04:43 MCH 36.2 pg (27.0-31.0) H 04/22/21 04:43 MCHC 33.0 g/dL (32.0-36.0) 04/22/21 04:43 RDW 17.3 % (12.0-15.0) H 04/22/21 04:43 Plt Count 270 10^3/uL (130-450) 04/22/21 04:43 MPV 10.5 fL (7.9-10.8) 04/22/21 04:43 Neut # (Auto) 6.0 10^3/uL (1.5-6.6) 04/22/21 04:43 Lymph # (Auto) 1.1 10^3/uL (1.5-3.5) L 04/22/21 04:43 [place] # (Auto) 0.5 10^3/uL (0.0-1.0) 04/22/21 04:43 Eos # (Auto) 0.1 10^3/uL (0.0-0.7) 04/22/21 04:43 Baso # (Auto) 0.0 10^3/uL (0.0-0.1) 04/22/21 04:43 Absolute Nucleated RBC 0.05 x10^3/uL 04/22/21 04:43 Nucleated RBC % 0.6 /100WBC 04/22/21 04:43 Manual Slide Review Indicated 04/21/21 04:35 Platelet Estimate NORMAL (130-450,000) (NORMAL) 04/21/21 04:35 RBC Morph Micro Appear 2+ MICROCYTOSIS (NORMAL) 1+ POLYCHROMASIA (NORMAL) 04/21/21 04:35 RBC Morph Micro Appear 2+ MICROCYTOSIS (NORMAL) 1+ POLYCHROMASIA (NORMAL) 04/21/21 04:35 D-Dimer 395.8 ng/mL (200.0-255.0) H 04/20/21 02:27 Sodium 133 mmol/L (135-145) L 04/22/21 04:43 Potassium 4.8 mmol/L (3.5-5.0) 04/22/21 04:43 Chloride 97 mmol/L (101-111) L 04/22/21 04:43 Carbon Dioxide 25 mmol/L (21-32) 04/22/21 04:43 Anion Gap 11.0 (6-13) 04/22/21 04:43 BUN 27 mg/dL (6-20) H 04/22/21 04:43 Creatinine 1.0 mg/dL (0.4-1.0) 04/22/21 04:43 Estimated GFR (MDRD) 54 (>89) L 04/22/21 04:43 Glucose 342 mg/dL (70-100) H 04/22/21 04:43 POC Whole Bld Glucose 297 mg/dL (70 - 100) H 04/22/21 07:48 Estimat Average Glucose 252 mg/dL (70-100) H 04/20/21 02:27 Hemoglobin A1c % 10.4 % (4.27-6.07) H 04/20/21 02:27 Calcium 8.2 mg/dL (8.5-10.3) L 04/22/21 04:43 Magnesium 2.6 mg/dL (1.7-2.8) 04/22/21 04:43 Iron 60 ug/dL (28-170) 04/20/21 10:42 TIBC 332 ug/dL (250-450) 04/20/21 10:42 % Saturation 18 % (20-50) L 04/20/21 10:42 Transferrin 237 mg/dL (192-382) 04/20/21 10:42 Ferritin 80.8 ng/mL (11.0-306.8) 04/20/21 11:23 Total Bilirubin 0.7 mg/dL (0.2-1.0) 04/20/21 00:05 AST 22 IU/L (10-42) 04/20/21 00:05 ALT 38 IU/L (10-60) 04/20/21 00:05 Alkaline Phosphatase 126 IU/L (42-121) H 04/20/21 00:05 Lactate Dehydrogenase 222 IU/L (91-225) 04/20/21 10:42 Troponin I High Sens 7.3 ng/L (2.3-14.8) 04/21/21 12:59 B-Natriuretic Peptide 228 pg/mL (5-100) H 04/22/21 04:43 Total Protein 6.0 g/dL (6.7-8.2) L 04/20/21 00:05 Albumin 3.5 g/dL (3.2-5.5) 04/20/21 00:05 Globulin 2.5 g/dL (2.1-4.2) 04/20/21 00:05 Albumin/Globulin Ratio 1.4 (1.0-2.2) 04/20/21 00:05 Lipase 37 U/L (22-51) 04/20/21 00:05 Vitamin B12 2517 pg/mL (180-914) H 04/20/21 11:23 Folate 33.00 ng/mL (5.90 - >24.8) 04/20/21 Unknown Nasal Adenovirus (PCR) NOT DETECTED 04/20/21 01:25 Nasal B. parapertussis DNA (PCR) NOT DETECTED 04/20/21 01:25 Nasal Coronavir 229E PCR NOT DETECTED 04/20/21 01:25 Nasal Coronavir HKU1 PCR NOT DETECTED 04/20/21 01:25 Nasal Coronavir NL63 PCR NOT DETECTED 04/20/21 01:25 Nasal Coronavir OC43 PCR NOT DETECTED 04/20/21 01:25 Nasal Enterovir/Rhinovir PCR NOT DETECTED 04/20/21 01:25 Nasal Influenza B PCR NOT DETECTED 04/20/21 01:25 Nasal Influenza A PCR NOT DETECTED 04/20/21 01:25 Nasal Parainfluen 1 PCR NOT DETECTED 04/20/21 01:25 Nasal Parainfluen 2 PCR NOT DETECTED 04/20/21 01:25 Nasal Parainfluen 3 PCR NOT DETECTED 04/20/21 01:25 Nasal Parainfluen 4 PCR NOT DETECTED 04/20/21 01:25 Nasal RSV (PCR) NOT DETECTED 04/20/21 01:25 Nasal B.pertussis DNA PCR NOT DETECTED 04/20/21 01:25 Nasal C.pneumoniae (PCR) NOT DETECTED 04/20/21 01:25 Edwin Human Metapneumo PCR NOT DETECTED 04/20/21 01:25 Nasal M.pneumoniae (PCR) NOT DETECTED 04/20/21 01:25 Nasal SARS-CoV-2 (PCR) NOT DETECTED 04/20/21 01:25 - Procedures Procedures: Procedures EXCISION OF ASCENDING COLON, ENDO, DIAGN (09/28/17) EXCISION OF CECUM, ENDO, DIAGN (09/28/17) EXCISION OF DESCENDING COLON, ENDO (07/13/18) EXCISION OF SIGMOID COLON, ENDO (07/13/18) EXCISION OF SIGMOID COLON, ENDO, DIAGN (09/28/17) EXCISION OF TRANSVERSE COLON, ENDO (07/13/18) EXCISION OF TRANSVERSE COLON, ENDO, DIAGN (09/28/17) INTRODUCTION OF OTH THERAP SUBST INTO LOW GI, ENDO (09/28/17)
[2021-04-22] MEDS: INSULIN GLARGINE 300 UNIT/3 ML PEN SUBQ SCH ×2 (10:29→22:04)
[2021-04-22] MEDS: ENOXAPARIN 40 MG/0.4 ML SYRINGE SUBQ SCH (10:32)
[2021-04-22] MEDS: polyethylene glycoL 3350 17 GM PACKET PO SCH (10:32)
[2021-04-22] MEDS: AZITHROMYCIN INJ 500 MG in SODIUM CHLORIDE 0.9% 250 ML IV SCH ×2 (10:33→13:30)
[2021-04-22] MEDS: PRIMIDONE 50 MG TABLET PO SCH ×2 (10:36→22:12)
[2021-04-22] MEDS: guaiFENesin 600 MG TABLET PO SCH ×2 (10:36→22:13)
[2021-04-22] MEDS: buPROPion SR 150 MG TABLET PO SCH (10:37)
[2021-04-22] MEDS: METOPROLOL SUCCINATE 25 MG TABLET PO SCH (10:37)
[2021-04-22] MEDS: MULTIVITAMIN TABLET PO SCH (10:37)
[2021-04-22] MEDS: CHOLECALCIFEROL 25 MCG TABLET PO SCH (10:37)
[2021-04-22] MEDS: ASPIRIN EC 81 MG TABLET PO SCH (10:38)
[2021-04-22] MEDS: GABAPENTIN 400 MG CAPSULE PO SCH ×2 (10:38→22:14)
[2021-04-22] MEDS: SODIUM CHLORIDE FLUSH 0.9% 10 ML SYRINGE IVP SCH ×2 (10:42→16:59)
[2021-04-22] MEDS: buPROPion SR 100 MG TABLET PO SCH (22:11)
[2021-04-22] MEDS: DOCUSATE SODIUM 250 MG CAPSULE PO SCH (22:12)
[2021-04-22] MEDS: BENZOCAINE/MENTHOL LOZENGE MM PRN (22:12)
[2021-04-22] MEDS: rOPINIRole 0.25 MG TABLET PO SCH (22:12)
[2021-04-22] MEDS: MONTELUKAST 10 MG TABLET PO SCH (22:13)
[2021-04-22] MEDS: ATORVASTATIN 40 MG TABLET PO SCH (22:13)
[2021-04-22] MEDS: traZODone 50 MG TABLET PO SCH (22:13)
[2021-04-22] MEDS: MIRTAZAPINE 15 MG TABLET PO SCH (22:13)
[2021-04-22] MEDS: ACETAMINOPHEN 325 MG TABLET PO PRN (22:14)
[2021-04-23] MEDS: SODIUM CHLORIDE FLUSH 0.9% 10 ML SYRINGE IVP SCH ×4 (00:03→23:28)
[2021-04-23] MEDS ORDERED: CYCLOBENZAPRINE 10 MG TABLET PO PRN (00:04)
[2021-04-23] MEDS: FUROSEMIDE 20 MG/2 ML VIAL IVP SCH ×2 (05:23→13:45)
[2021-04-23] MEDS: methylPREDNISolone SUCCINATE 40 MG/ML VIAL IVP SCH ×3 (05:24→21:09)
[2021-04-23 06:06] LABS: BASOPHILS % (AUTO) 0.5 %; EOSINOPHILS # (AUTO) 0.1 10^3/uL (0.0-0.7); EOSINOPHILS % (AUTO) 1.1 %; HCT - HEMATOCRIT 28.7 % (37.0-47.0); HGB - HEMOGLOBIN 9.2 g/dL (12.0-16.0); LYMPHOCYTES # (AUTO) 1.5 10^3/uL (1.5-3.5); LYMPHOCYTES % (AUTO) 19.3 %; MEAN CORPUSCULAR HEMOGLOBIN 35.8 pg (27.0-31.0); MEAN CORPUSCULAR HGB CONC 32.1 g/dL (32.0-36.0); MEAN CORPUSCULAR VOLUME 111.7 fL (81.0-99.0); MEAN PLATELET VOLUME 10.3 fL (7.9-10.8); MONOCYTES # (AUTO) 0.7 10^3/uL (0.0-1.0); MONOCYTES % (AUTO) 9.2 %; NEUTROPHILS # (AUTO) 5.4 10^3/uL (1.5-6.6); NRBC ABSOLUTE COUNT (AUTO) 0.07 x10^3/uL; NUCLEATED RED BLOOD CELLS AUTO 0.9 /100WBC; PLT - PLATELET COUNT 261 10^3/uL (130-450); RED BLOOD COUNT 2.57 10^6/uL (4.20-5.40); RED CELL DISTRIBUTION WIDTH 17.5 % (12.0-15.0); WHITE BLOOD COUNT 7.8 x10^3/uL (4.8-10.8)
[2021-04-23 06:13] LABS: SLIDE REVIEW? Indicated
[2021-04-23 06:26] LABS: CALCIUM 8.4 mg/dL (8.5-10.3); CREATININE 0.9 mg/dL (0.4-1.0); MAGNESIUM 2.4 mg/dL (1.7-2.8); POTASSIUM 4.9 mmol/L (3.5-5.0)
[2021-04-23 06:39] LABS: PLATELET ESTIMATE, MANUAL NORMAL (130-450,000) (NORMAL); PLATELET MORPHOLOGY NORMAL APPEARANCE (NORMAL); RBC MORPHOLOGY (MULTIPLE) 2+ MACROCYTOSIS (NORMAL); WBC MORPHOLOGY (MULTIPLE) NORMAL APPEARANCE (NORMAL)
[2021-04-23 06:40] LABS: FOLATE 21.67 ng/mL (5.90 - >24.8)
[2021-04-23] MEDS: IPRATROPIUM/ALBUTEROL 3 ML NEB INH SCH ×4 (07:27→21:57)
[2021-04-23] MEDS: BUDESONIDE 0.5 MG/2 ML NEB INH SCH ×2 (07:27→21:57)
[2021-04-23] MEDS: INSULIN GLARGINE 300 UNIT/3 ML PEN SUBQ SCH ×2 (08:40→21:10)
[2021-04-23] MEDS: INSULIN ASPART 300 UNIT/3 ML PEN SUBQ SCH ×7 (08:44→21:11)
[2021-04-23] MEDS: METOPROLOL SUCCINATE 25 MG TABLET PO SCH (09:00)
[2021-04-23] MEDS: ASPIRIN EC 81 MG TABLET PO SCH (09:13)
[2021-04-23] MEDS: buPROPion SR 150 MG TABLET PO SCH (09:13)
[2021-04-23] MEDS: DOCUSATE SODIUM 250 MG CAPSULE PO SCH (09:13)
[2021-04-23] MEDS: ACETAMINOPHEN 325 MG TABLET PO PRN (09:14)
[2021-04-23] MEDS: oxyCODONE 5 MG TABLET PO PRN ×2 (09:26→21:09)
[2021-04-23] MEDS: PRIMIDONE 50 MG TABLET PO SCH ×2 (09:27→21:09)
[2021-04-23] MEDS: SENNA 8.6 MG TABLET PO SCH (09:28)
[2021-04-23] MEDS: CHOLECALCIFEROL 25 MCG TABLET PO SCH (09:31)
[2021-04-23] MEDS: ENOXAPARIN 40 MG/0.4 ML SYRINGE SUBQ SCH (09:31)
[2021-04-23] MEDS: GABAPENTIN 400 MG CAPSULE PO SCH ×2 (09:34→21:09)
[2021-04-23] MEDS: guaiFENesin 600 MG TABLET PO SCH ×2 (09:35→21:08)
[2021-04-23] MEDS: MULTIVITAMIN TABLET PO SCH (09:39)
[2021-04-23] MEDS: SPIRONOLACTONE 25 MG TABLET PO SCH (09:40)
[2021-04-23] MEDS: polyethylene glycoL 3350 17 GM PACKET PO SCH (12:03)
--- NOTE | 2021-04-23 15:57 | PROVIDER PROGRESS NOTE ---
Assessment/Plan - Problem List (1) COPD exacerbation Assessment/Plan: Improving Will start tapering iv steroids Continue nebs, Mucinex, antibx (2) Leg edema Assessment/Plan: She has not lost any weight since being on 1-1/2 days of IV Lasix Continue with IV twice daily Lasix. Continue I's and O's and daily weights Will order significant leg elevation when she is supine as well as elevate legs when out of bed in chair. Because she is developing prerenal BUN/creatinine ratio, we will not increase the IV diuretic dose. Continue present iv Lasix dose (3) Diabetes mellitus with hyperglycemia Assessment/Plan: Is were in the 400s when the highest dose of IV steroids was started. We have adjusted her Lantus and sliding scale up. Continue with carb controlled diet and other Diabetic management (4) Diabetes mellitus with complication, with long-term current use of insulin Assessment/Plan: She has neuropathy, which is stable (5) Essential tremor Assessment/Plan: Stable. She has qualified for special type of wheelchair which should assist her more at home (6) Depression with anxiety Assessment/Plan: Stable on meds. The dose of Wellbutrin was increased as recommended by the palliative urgent care, Laverne Glynn NP (7) Chronic anemia Assessment/Plan: She has normal B12, folate and iron stores. This is probably anemia of chronic disease which is brought to light by being volume overloaded (hemodilutional) - Current Meds Current Meds: Current Medications Generic Name Dose Route Start Last Admin Trade Name Freq PRN Reason Stop Dose Admin Acetaminophen 650 mg 04/20/21 04:53 04/23/21 09:14 Acetaminophen 325 Mg Tablet PO 650 mg Q4HR PRN Administration Pain 1 to 4 Albuterol/Ipratropium 3 ml 04/20/21 07:00 04/23/21 15:26 Ipratropium/Albuterol 3 Ml Neb INH 3 ml RTQID TEMO Administration Aspirin 81 mg 04/20/21 09:00 04/23/21 09:13 Aspirin Ec 81 Mg Tablet PO 81 mg DAILY TEMO Administration Atorvastatin Calcium 80 mg 04/20/21 11:43 04/22/21 22:13 Atorvastatin 40 Mg Tablet PO 80 mg QPM TEMO Administration Budesonide 0.5 mg 04/21/21 11:36 04/23/21 07:27 Budesonide 0.5 Mg/2 Ml Neb INH 0.5 mg RTBID TEMO Administration Bupropion HCl 150 mg 04/22/21 09:00 04/23/21 09:13 Bupropion Sr 150 Mg Tablet PO 150 mg DAILY TEMO Administration Bupropion HCl 200 mg 04/21/21 21:00 04/22/21 22:11 Bupropion Sr 100 Mg Tablet PO 200 mg QPM TEMO Administration Cholecalciferol 50 mcg 04/20/21 09:00 04/23/21 09:31 Cholecalciferol 25 Mcg Tablet PO 50 mcg DAILY TEMO Administration Cyclobenzaprine HCl 10 mg 04/23/21 00:04 04/23/21 00:37 Cyclobenzaprine 10 Mg Tablet PO 10 mg TID PRN Administration Spasms Docusate Sodium 250 - 500 mg 04/22/21 21:00 04/23/21 09:13 Docusate Sodium 250 Mg Capsule PO 250 mg DAILY TEMO Administration Enoxaparin Sodium 40 mg 04/20/21 09:00 04/23/21 09:31 Enoxaparin 40 Mg/0.4 Ml Syringe SUBQ 40 mg DAILY TEMO Administration Furosemide 20 mg 04/21/21 14:00 04/23/21 13:45 Furosemide 20 Mg/2 Ml Vial IVP 20 mg BIDDIURETIC TEMO Administration Gabapentin 1,200 mg 04/20/21 09:00 04/23/21 09:34 Gabapentin 400 Mg Capsule PO 1,200 mg BID TEMO Administration Guaifenesin 600 mg 04/20/21 12:00 04/23/21 09:35 Guaifenesin 600 Mg Tablet PO 600 mg BID TEMO Administration Insulin Aspart 2 - 10 unit 04/21/21 12:00 04/23/21 12:10 Insulin Aspart 300 Unit/3 Ml Pen SUBQ 8 unit 0800,1200,1700,2100 TEMO Administration Protocol Insulin Glargine 45 unit 04/21/21 21:00 04/22/21 22:04 Insulin Glargine 300 Unit/3 Ml Pen SUBQ 45 unit QPM TEOM Administration Insulin Glargine 30 unit 04/22/21 08:00 04/23/21 08:40 Insulin Glargine 300 Unit/3 Ml Pen SUBQ 30 unit QDBREAKFAST TEMO Administration Methylprednisolone 80 mg 04/21/21 14:00 04/23/21 13:37 Methylprednisolone Succinate 40 Mg/Ml Vial IVP 04/23/21 23:00 80 mg TID TEMO Administration Metoprolol Succinate 25 mg 04/22/21 09:00 04/23/21 09:00 Metoprolol Succinate 25 Mg Tablet PO 25 mg DAILY TEMO Administration Mirtazapine 45 mg 04/20/21 21:00 04/22/21 22:13 Mirtazapine 15 Mg Tablet PO 45 mg HS TEMO Administration Montelukast Sodium 10 mg 04/21/21 21:00 04/22/21 22:13 Montelukast 10 Mg Tablet PO 10 mg QPM TEMO Administration Multivitamins 1 tab 04/20/21 09:00 04/23/21 09:39 Multivitamin Tablet PO 1 tab DAILY TEMO Administration Oxycodone HCl 5 mg 04/20/21 04:53 04/23/21 09:26 Oxycodone 5 Mg Tablet PO 5 mg Q4HR PRN Administration Pain 5 to 7 Polyethylene Glycol 17 gm 04/22/21 09:00 04/23/21 12:03 Polyethylene Glycol 3350 17 Gm Packet PO Not Given DAILY TEMO Primidone 200 mg 04/20/21 09:00 04/23/21 09:27 Primidone 50 Mg Tablet PO 200 mg BID TEMO Administration Ropinirole HCl 0.5 mg 04/20/21 21:00 04/22/21 22:12 Ropinirole 0.25 Mg Tablet PO 0.5 mg QPM TEMO Administration Senna 8.6 - 17.2 mg 04/23/21 09:00 04/23/21 09:28 Senna 8.6 Mg Tablet PO 8.6 mg DAILY TEMO Administration Sodium Chloride 10 ml 04/20/21 04:53 04/21/21 05:10 Sodium Chloride Flush 0.9% 10 Ml Syringe IVP 10 ml PRN PRN Administration NEEDED PER PROVIDER ORDERS Sodium Chloride 10 ml 04/20/21 09:00 04/23/21 09:00 Sodium Chloride Flush 0.9% 10 Ml Syringe IVP 10 ml 0100,0900,1700 TEMO Administration Spironolactone 25 mg 04/23/21 09:00 04/23/21 09:40 Spironolactone 25 Mg Tablet PO 25 mg DAILY TEMO Administration Throat Lozenges 1 lozenge 04/20/21 22:08 04/22/21 22:12 Benzocaine/Menthol Lozenge MM 1 lozenge Q2HR PRN Administration Throat pain Trazodone HCl 50 mg 04/20/21 23:06 04/22/21 22:13 Trazodone 50 Mg Tablet PO 50 mg QPM TEMO Administration - Lab Result Fish Bone Diagrams: 04/23/21 04:39 04/23/21 04:39 - Additional Planning My Orders: My Active Orders 04/22/21 21:00 Docusate Sodium 250Mg Capsule [Colace 250Mg Capsule] 250 - 500 mg PO DAILY 04/23/21 Home Health Referral [CONS] Routine 04/23/21 09:00 Senna [Senokot] 8.6 - 17.2 mg PO DAILY Spironolactone [Aldactone] 25 mg PO DAILY 04/23/21 10:28 Nutrition Consult [CONS] Routine 04/23/21 15:11 Miscellaenous Nursing Order [RC] QSHIFT 04/23/21 17:00 Insulin Aspart [NovoLOG] 5 unit SUBQ TIDWM 04/24/21 08:00 methylPREDNISolone SUCCINATE [SOLU-Medrol (40MG VIAL)] 40 mg IVP TID Subjective - Subjective Patient Reports: Resting Comfortably, Cough (She had a "coughing spasm for 30 minutes", felt like there was a plug that was stuck and nothing could come up), Other (But leg edema no better) Objective Vital Signs: Vital Signs - 24 hr 04/22/21 04/22/21 04/23/21 21:14 23:45 00:35 Temperature 36.6 C Heart Rate 74 Heart Rate [ 72 Brachial] Respiratory 18 16 Rate Blood Pressure 123/63 [Left Brachial artery] Blood Pressure [Left Radial artery] O2 Saturation 94 84 L 04/23/21 04/23/21 04/23/21 00:38 07:30 08:00 Temperature 36.6 C Heart Rate 74 Heart Rate [ 74 Brachial] Respiratory 18 16 Rate Blood Pressure [Left Brachial artery] Blood Pressure 139/57 H [Left Radial artery] O2 Saturation 94 97 04/23/21 04/23/21 04/23/21 12:15 12:52 15:28 Temperature 37.1 C Heart Rate 68 77 Heart Rate [ 80 Brachial] Respiratory 18 17 18 Rate Blood Pressure [Left Brachial artery] Blood Pressure 145/99 H [Left Radial artery] O2 Saturation 96 04/23/21 15:50 Temperature 37.3 C Heart Rate Heart Rate [ 76 Brachial] Respiratory 18 Rate Blood Pressure 116/57 L [Left Brachial artery] Blood Pressure [Left Radial artery] O2 Saturation 95 Oxygen O2 Source Nasal cannula Oxygen Flow Rate 2 I&O (Last 24 Hrs): Intake and Output Totals x24h 04/21/21 04/22/21 04/23/21 23:59 23:59 23:59 Intake Total 2330 3920 800 Output Total 1400 5550 775 Balance 930 -1630 25 General: Alert, Oriented x3 HEENT: Mucous membr. moist/pink, Other (edentulous) Neuro: Alert, Non Focal Cardiovascular: Regular rate, No murmurs Respiratory: No respiratory distress, Other (No posterior wheezes) Abdomen: Soft (Obese with pannus) Extremities: Other (4+ edema) - Results Results: Laboratory Results WBC 7.8 x10^3/uL (4.8-10.8) 04/23/21 04:39 RBC 2.57 10^6/uL (4.20-5.40) L 04/23/21 04:39 Hgb 9.2 g/dL (12.0-16.0) L 04/23/21 04:39 Hct 28.7 % (37.0-47.0) L 04/23/21 04:39 MCV 111.7 fL (81.0-99.0) H 04/23/21 04:39 MCH 35.8 pg (27.0-31.0) H 04/23/21 04:39 MCHC 32.1 g/dL (32.0-36.0) 04/23/21 04:39 RDW 17.5 % (12.0-15.0) H 04/23/21 04:39 Plt Count 261 10^3/uL (130-450) 04/23/21 04:39 MPV 10.3 fL (7.9-10.8) 04/23/21 04:39 Neut # (Auto) 5.4 10^3/uL (1.5-6.6) 04/23/21 04:39 Lymph # (Auto) 1.5 10^3/uL (1.5-3.5) 04/23/21 04:39 Brule # (Auto) 0.7 10^3/uL (0.0-1.0) 04/23/21 04:39 Eos # (Auto) 0.1 10^3/uL (0.0-0.7) 04/23/21 04:39 Baso # (Auto) 0.0 10^3/uL (0.0-0.1) 04/23/21 04:39 Absolute Nucleated RBC 0.07 x10^3/uL 04/23/21 04:39 Nucleated RBC % 0.9 /100WBC 04/23/21 04:39 Manual Slide Review Indicated 04/23/21 04:39 WBC Morphology NORMAL APPEARANCE (NORMAL) 04/23/21 04:39 Platelet Estimate NORMAL (130-450,000) (NORMAL) 04/23/21 04:39 Platelet Morphology NORMAL APPEARANCE (NORMAL) 04/23/21 04:39 RBC Morph Micro Appear 2+ MACROCYTOSIS (NORMAL) 04/23/21 04:39 D-Dimer 395.8 ng/mL (200.0-255.0) H 04/20/21 02:27 Sodium 133 mmol/L (135-145) L 04/23/21 04:39 Potassium 4.9 mmol/L (3.5-5.0) 04/23/21 04:39 Chloride 96 mmol/L (101-111) L 04/23/21 04:39 Carbon Dioxide 26 mmol/L (21-32) 04/23/21 04:39 Anion Gap 11.0 (6-13) 04/23/21 04:39 BUN 29 mg/dL (6-20) H 04/23/21 04:39 Creatinine 0.9 mg/dL (0.4-1.0) 04/23/21 04:39 Estimated GFR (MDRD) 61 (>89) L 04/23/21 04:39 Glucose 208 mg/dL (70-100) H 04/23/21 04:39 POC Whole Bld Glucose 287 mg/dL (70 - 100) H 04/23/21 11:30 Estimat Average Glucose 252 mg/dL (70-100) H 04/20/21 02:27 Hemoglobin A1c % 10.4 % (4.27-6.07) H 04/20/21 02:27 Calcium 8.4 mg/dL (8.5-10.3) L 04/23/21 04:39 Magnesium 2.4 mg/dL (1.7-2.8) 04/23/21 04:39 Iron 51 ug/dL (28-170) 04/23/21 04:39 TIBC 329 ug/dL (250-450) 04/23/21 04:39 % Saturation 16 % (20-50) L 04/23/21 04:39 Transferrin 235 mg/dL (192-382) 04/23/21 04:39 Ferritin 80.8 ng/mL (11.0-306.8) 04/20/21 11:23 Total Bilirubin 0.7 mg/dL (0.2-1.0) 04/20/21 00:05 AST 22 IU/L (10-42) 04/20/21 00:05 ALT 38 IU/L (10-60) 04/20/21 00:05 Alkaline Phosphatase 126 IU/L (42-121) H 04/20/21 00:05 Lactate Dehydrogenase 222 IU/L (91-225) 04/20/21 10:42 Troponin I High Sens 7.3 ng/L (2.3-14.8) 04/21/21 12:59 B-Natriuretic Peptide 228 pg/mL (5-100) H 04/22/21 04:43 Total Protein 6.0 g/dL (6.7-8.2) L 04/20/21 00:05 Albumin 3.5 g/dL (3.2-5.5) 04/20/21 00:05 Globulin 2.5 g/dL (2.1-4.2) 04/20/21 00:05 Albumin/Globulin Ratio 1.4 (1.0-2.2) 04/20/21 00:05 Lipase 37 U/L (22-51) 04/20/21 00:05 Vitamin B12 1739 pg/mL (180-914) H 04/23/21 04:39 Folate 21.67 ng/mL (5.90 - >24.8) 04/23/21 04:39 Nasal Adenovirus (PCR) NOT DETECTED 04/20/21 01:25 Nasal B. parapertussis DNA (PCR) NOT DETECTED 04/20/21 01:25 Nasal Coronavir 229E PCR NOT DETECTED 04/20/21 01:25 Nasal Coronavir HKU1 PCR NOT DETECTED 04/20/21 01:25 Nasal Coronavir NL63 PCR NOT DETECTED 04/20/21 01:25 Nasal Coronavir OC43 PCR NOT DETECTED 04/20/21 01:25 Nasal Enterovir/Rhinovir PCR NOT DETECTED 04/20/21 01:25 Nasal Influenza B PCR NOT DETECTED 04/20/21 01:25 Nasal Influenza A PCR NOT DETECTED 04/20/21 01:25 Nasal Parainfluen 1 PCR NOT DETECTED 04/20/21 01:25 Nasal Parainfluen 2 PCR NOT DETECTED 04/20/21 01:25 Nasal Parainfluen 3 PCR NOT DETECTED 04/20/21 01:25 Nasal Parainfluen 4 PCR NOT DETECTED 04/20/21 01:25 Nasal RSV (PCR) NOT DETECTED 04/20/21 01:25 Nasal B.pertussis DNA PCR NOT DETECTED 04/20/21 01:25 Nasal C.pneumoniae (PCR) NOT DETECTED 04/20/21 01:25 Edwin Human Metapneumo PCR NOT DETECTED 04/20/21 01:25 Nasal M.pneumoniae (PCR) NOT DETECTED 04/20/21 01:25 Nasal SARS-CoV-2 (PCR) NOT DETECTED 04/20/21 01:25 - Procedures Procedures: Procedures EXCISION OF ASCENDING COLON, ENDO, DIAGN (09/28/17) EXCISION OF CECUM, ENDO, DIAGN (09/28/17) EXCISION OF DESCENDING COLON, ENDO (07/13/18) EXCISION OF SIGMOID COLON, ENDO (07/13/18) EXCISION OF SIGMOID COLON, ENDO, DIAGN (09/28/17) EXCISION OF TRANSVERSE COLON, ENDO (07/13/18) EXCISION OF TRANSVERSE COLON, ENDO, DIAGN (09/28/17) INTRODUCTION OF OTH THERAP SUBST INTO LOW GI, ENDO (09/28/17)
[2021-04-23] MEDS: buPROPion SR 100 MG TABLET PO SCH (21:08)
[2021-04-23] MEDS: MIRTAZAPINE 15 MG TABLET PO SCH (21:09)
[2021-04-23] MEDS: MONTELUKAST 10 MG TABLET PO SCH (21:09)
[2021-04-23] MEDS: traZODone 50 MG TABLET PO SCH (21:09)
[2021-04-23] MEDS: rOPINIRole 0.25 MG TABLET PO SCH (21:09)
[2021-04-23] MEDS: ATORVASTATIN 40 MG TABLET PO SCH (21:09)
[2021-04-24 05:25] LABS: BASOPHILS % (AUTO) 0.6 %; EOSINOPHILS # (AUTO) 0.1 10^3/uL (0.0-0.7); EOSINOPHILS % (AUTO) 0.9 %; HCT - HEMATOCRIT 29.2 % (37.0-47.0); HGB - HEMOGLOBIN 9.5 g/dL (12.0-16.0); LYMPHOCYTES # (AUTO) 1.5 10^3/uL (1.5-3.5); MEAN CORPUSCULAR HEMOGLOBIN 36.3 pg (27.0-31.0); MEAN CORPUSCULAR HGB CONC 32.5 g/dL (32.0-36.0); MEAN CORPUSCULAR VOLUME 111.5 fL (81.0-99.0); MONOCYTES # (AUTO) 0.6 10^3/uL (0.0-1.0); MONOCYTES % (AUTO) 9.2 %; NEUTROPHILS # (AUTO) 4.4 10^3/uL (1.5-6.6); NEUTROPHILS % (AUTO) 65.4 %; NRBC ABSOLUTE COUNT (AUTO) 0.03 x10^3/uL; NUCLEATED RED BLOOD CELLS AUTO 0.5 /100WBC; PLT - PLATELET COUNT 253 10^3/uL (130-450); RED BLOOD COUNT 2.62 10^6/uL (4.20-5.40); RED CELL DISTRIBUTION WIDTH 17.5 % (12.0-15.0); WHITE BLOOD COUNT 6.7 x10^3/uL (4.8-10.8)
[2021-04-24 05:31] LABS: SLIDE REVIEW? Indicated
[2021-04-24 05:34] LABS: CALCIUM 8.8 mg/dL (8.5-10.3); POTASSIUM 4.7 mmol/L (3.5-5.0)
[2021-04-24] MEDS: SODIUM CHLORIDE FLUSH 0.9% 10 ML SYRINGE IVP PRN ×2 (05:55→13:55)
[2021-04-24] MEDS: FUROSEMIDE 20 MG/2 ML VIAL IVP SCH ×2 (05:55→13:55)
[2021-04-24 05:58] LABS: PLATELET ESTIMATE, MANUAL NORMAL (130-450,000) (NORMAL); PLATELET MORPHOLOGY NORMAL APPEARANCE (NORMAL); WBC MORPHOLOGY (MULTIPLE) NORMAL APPEARANCE (NORMAL)
[2021-04-24] MEDS: IPRATROPIUM/ALBUTEROL 3 ML NEB INH SCH ×4 (07:52→21:10)
[2021-04-24] MEDS: BUDESONIDE 0.5 MG/2 ML NEB INH SCH ×2 (07:52→21:10)
[2021-04-24] MEDS: INSULIN ASPART 300 UNIT/3 ML PEN SUBQ SCH ×7 (08:09→22:28)
[2021-04-24] MEDS: INSULIN GLARGINE 300 UNIT/3 ML PEN SUBQ SCH ×2 (08:10→22:27)
[2021-04-24] MEDS: buPROPion SR 150 MG TABLET PO SCH (08:13)
[2021-04-24] MEDS: polyethylene glycoL 3350 17 GM PACKET PO SCH (08:13)
[2021-04-24] MEDS: MULTIVITAMIN TABLET PO SCH (08:13)
[2021-04-24] MEDS: guaiFENesin 600 MG TABLET PO SCH ×2 (08:13→22:24)
[2021-04-24] MEDS: GABAPENTIN 400 MG CAPSULE PO SCH ×2 (08:13→22:26)
[2021-04-24] MEDS: DOCUSATE SODIUM 250 MG CAPSULE PO SCH (08:13)
[2021-04-24] MEDS: SPIRONOLACTONE 25 MG TABLET PO SCH (08:13)
[2021-04-24] MEDS: SENNA 8.6 MG TABLET PO SCH (08:13)
[2021-04-24] MEDS: ASPIRIN EC 81 MG TABLET PO SCH (08:14)
[2021-04-24] MEDS: METOPROLOL SUCCINATE 25 MG TABLET PO SCH (08:14)
[2021-04-24] MEDS: CHOLECALCIFEROL 25 MCG TABLET PO SCH (08:14)
[2021-04-24] MEDS: PRIMIDONE 50 MG TABLET PO SCH ×2 (08:14→22:25)
[2021-04-24] MEDS: ACETAMINOPHEN 325 MG TABLET PO PRN (08:18)
[2021-04-24] MEDS: oxyCODONE 5 MG TABLET PO PRN ×2 (08:19→22:23)
[2021-04-24] MEDS: methylPREDNISolone SUCCINATE 40 MG/ML VIAL IVP SCH ×3 (08:19→22:29)
[2021-04-24] MEDS: SODIUM CHLORIDE FLUSH 0.9% 10 ML SYRINGE IVP SCH ×2 (08:19→17:15)
--- NOTE | 2021-04-24 09:14 | PROVIDER PROGRESS NOTE ---
Assessment/Plan - Problem List (1) Leg edema Assessment/Plan: Patient has lost no weight since admission. She has had negative fluid balance for the last 3 days of approximately 1000 cc. Her I's and O's show that she drinks over 2 L of fluid a day. Yesterday, strict leg elevation was ordered. Yesterday we learned she has been salting her food. Therefore, yesterday, a nutrition consult was requested for dietary teaching and 2gm/day salt restriction was added to her diet I will order HAROON stockings and compression hose to help compress the tense leg edema. (Will stop the Lovenox prophylaxis). Will add 1500 cc/day oral fluid restriction Continue with Lasix IV twice daily dosing Watch her BMP daily; she has prerenal BUN/creat ratios of 30/1.0 today, and yesterday 29/0.9 I spoke to her son by Lauro, on the patient's phone, while in her room today. I updated him that she needs salt and water restrictions and that she may need several more days of IV diuresis since there is no negative fluid balance yet. (2) COPD exacerbation Assessment/Plan: This has improved. She has completed an empiric course of Zithromax Continue with steroids, the dose is being tapered down now. Continue with nebs and Singulair and Mucinex On the day of discharge, an oximetry walk test is planned to see if she needs home oxygen (3) Diabetes mellitus with hyperglycemia Assessment/Plan: Expect her glucose control to be better as the IV steroids are decreasing. Continue with long-acting insulin, short acting insulin for fingerstick glucose check coverage and cc diet (4) Diabetes mellitus with complication, with long-term current use of insulin Assessment/Plan: Known neuropathy (5) Essential tremor Assessment/Plan: Stable. She has qualified for a special type of wheelchair which she is awaiting (6) Depression with anxiety Assessment/Plan: Stable. Appreciate recommendations from Laverne Glynn NP, who will now be her Palliative Care provider (7) Chronic anemia Assessment/Plan: This appears to be anemia of chronic disease since she has normal B12, folate levels and iron stores - Current Meds Current Meds: Current Medications Generic Name Dose Route Start Last Admin Trade Name Freq PRN Reason Stop Dose Admin Acetaminophen 650 mg 04/20/21 04:53 04/24/21 08:18 Acetaminophen 325 Mg Tablet PO 650 mg Q4HR PRN Administration Pain 1 to 4 Albuterol 2.5 mg 04/20/21 04:56 04/24/21 01:53 Albuterol Neb 2.5 Mg/3 Ml INH 2.5 mg RTQ4H PRN Administration Wheezing Albuterol/Ipratropium 3 ml 04/20/21 07:00 04/24/21 07:52 Ipratropium/Albuterol 3 Ml Neb INH 3 ml RTQID TEMO Administration Aspirin 81 mg 04/20/21 09:00 04/24/21 08:14 Aspirin Ec 81 Mg Tablet PO 81 mg DAILY TEMO Administration Atorvastatin Calcium 80 mg 04/20/21 11:43 04/23/21 21:09 Atorvastatin 40 Mg Tablet PO 80 mg QPM TEMO Administration Budesonide 0.5 mg 04/21/21 11:36 04/24/21 07:52 Budesonide 0.5 Mg/2 Ml Neb INH 0.5 mg RTBID TEMO Administration Bupropion HCl 150 mg 04/22/21 09:00 04/24/21 08:13 Bupropion Sr 150 Mg Tablet PO 150 mg DAILY TEMO Administration Bupropion HCl 200 mg 04/21/21 21:00 04/23/21 21:08 Bupropion Sr 100 Mg Tablet PO 200 mg QPM TEMO Administration Cholecalciferol 50 mcg 04/20/21 09:00 04/24/21 08:14 Cholecalciferol 25 Mcg Tablet PO 50 mcg DAILY TEMO Administration Cyclobenzaprine HCl 10 mg 04/23/21 00:04 04/23/21 00:37 Cyclobenzaprine 10 Mg Tablet PO 10 mg TID PRN Administration Spasms Docusate Sodium 250 - 500 mg 04/22/21 21:00 04/24/21 08:13 Docusate Sodium 250 Mg Capsule PO 250 mg DAILY TEMO Administration Furosemide 20 mg 04/21/21 14:00 04/24/21 05:55 Furosemide 20 Mg/2 Ml Vial IVP 20 mg BIDDIURETIC TEMO Administration Gabapentin 1,200 mg 04/20/21 09:00 04/24/21 08:13 Gabapentin 400 Mg Capsule PO 1,200 mg BID TEMO Administration Guaifenesin 600 mg 04/20/21 12:00 04/24/21 08:13 Guaifenesin 600 Mg Tablet PO 600 mg BID TEMO Administration Insulin Aspart 5 unit 04/23/21 17:00 04/24/21 08:09 Insulin Aspart 300 Unit/3 Ml Pen SUBQ 5 unit TIDWM TEMO Administration Insulin Aspart 3 - 11 unit 04/24/21 08:00 04/24/21 08:10 Insulin Aspart 300 Unit/3 Ml Pen SUBQ 5 unit 0800,1200,1700,2100 TEMO Administration Protocol Insulin Glargine 45 unit 04/21/21 21:00 04/23/21 21:10 Insulin Glargine 300 Unit/3 Ml Pen SUBQ 45 unit QPM TEMO Administration Insulin Glargine 30 unit 04/22/21 08:00 04/24/21 08:10 Insulin Glargine 300 Unit/3 Ml Pen SUBQ 30 unit QDBREAKFAST TEMO Administration Methylprednisolone 40 mg 04/24/21 08:00 04/24/21 08:19 Methylprednisolone Succinate 40 Mg/Ml Vial IVP 40 mg TID TEMO Administration Metoprolol Succinate 25 mg 04/22/21 09:00 04/24/21 08:14 Metoprolol Succinate 25 Mg Tablet PO 25 mg DAILY TEMO Administration Mirtazapine 45 mg 04/20/21 21:00 04/23/21 21:09 Mirtazapine 15 Mg Tablet PO 45 mg HS TEMO Administration Montelukast Sodium 10 mg 04/21/21 21:00 04/23/21 21:09 Montelukast 10 Mg Tablet PO 10 mg QPM TEMO Administration Multivitamins 1 tab 04/20/21 09:00 04/24/21 08:13 Multivitamin Tablet PO 1 tab DAILY TEMO Administration Oxycodone HCl 5 mg 04/20/21 04:53 04/24/21 08:19 Oxycodone 5 Mg Tablet PO 5 mg Q4HR PRN Administration Pain 5 to 7 Polyethylene Glycol 17 gm 04/22/21 09:00 04/24/21 08:13 Polyethylene Glycol 3350 17 Gm Packet PO 17 gm DAILY TEMO Administration Primidone 200 mg 04/20/21 09:00 04/24/21 08:14 Primidone 50 Mg Tablet PO 200 mg BID TEMO Administration Ropinirole HCl 0.5 mg 04/20/21 21:00 04/23/21 21:09 Ropinirole 0.25 Mg Tablet PO 0.5 mg QPM TEMO Administration Senna 8.6 - 17.2 mg 04/23/21 09:00 04/24/21 08:13 Senna 8.6 Mg Tablet PO 8.6 mg DAILY TEMO Administration Sodium Chloride 10 ml 04/20/21 04:53 04/24/21 05:55 Sodium Chloride Flush 0.9% 10 Ml Syringe IVP 10 ml PRN PRN Administration NEEDED PER PROVIDER ORDERS Sodium Chloride 10 ml 04/20/21 09:00 04/24/21 08:19 Sodium Chloride Flush 0.9% 10 Ml Syringe IVP 10 ml 0100,0900,1700 TEMO Administration Spironolactone 25 mg 04/23/21 09:00 04/24/21 08:13 Spironolactone 25 Mg Tablet PO 25 mg DAILY TEMO Administration Throat Lozenges 1 lozenge 04/20/21 22:08 04/22/21 22:12 Benzocaine/Menthol Lozenge MM 1 lozenge Q2HR PRN Administration Throat pain Trazodone HCl 50 mg 04/20/21 23:06 04/23/21 21:09 Trazodone 50 Mg Tablet PO 50 mg QPM TEMO Administration - Lab Result Fish Bone Diagrams: 04/24/21 05:11 04/24/21 05:11 - Additional Planning My Orders: My Active Orders 04/23/21 09:00 Senna [Senokot] 8.6 - 17.2 mg PO DAILY Spironolactone [Aldactone] 25 mg PO DAILY 04/23/21 10:28 Nutrition Consult [CONS] Routine 04/23/21 15:11 Miscellaenous Nursing Order [RC] QSHIFT 04/23/21 17:00 Insulin Aspart [NovoLOG] 5 unit SUBQ TIDWM 04/24/21 07:50 HAROON Kimble and SCDs [RC] QSHIFT 04/24/21 08:00 methylPREDNISolone SUCCINATE [SOLU-Medrol (40MG VIAL)] 40 mg IVP TID Subjective - Subjective Patient Reports: Feeling Better, Resting Comfortably Nursing Reports: Other (Legs elevated in bed and when OOB) Objective Vital Signs: Vital Signs - 24 hr 04/23/21 04/23/21 04/23/21 12:15 12:52 15:28 Temperature 37.1 C Heart Rate 68 77 Heart Rate [ 80 Brachial] Respiratory 18 17 18 Rate Blood Pressure [Left Brachial artery] Blood Pressure 145/99 H [Left Radial artery] Blood Pressure [Right Brachial artery] O2 Saturation 96 04/23/21 04/23/21 04/23/21 15:50 21:58 23:25 Temperature 37.3 C 36.6 C Heart Rate 75 Heart Rate [ 76 78 Brachial] Respiratory 18 20 20 Rate Blood Pressure 116/57 L [Left Brachial artery] Blood Pressure 125/49 L [Left Radial artery] Blood Pressure [Right Brachial artery] O2 Saturation 95 96 04/24/21 04/24/21 04/24/21 01:54 07:34 07:52 Temperature 36.4 C L Heart Rate 68 64 Heart Rate [ 70 Brachial] Respiratory 20 22 12 Rate Blood Pressure [Left Brachial artery] Blood Pressure [Left Radial artery] Blood Pressure 136/61 H [Right Brachial artery] O2 Saturation 95 Oxygen O2 Source Nasal cannula Oxygen Flow Rate 2 I&O (Last 24 Hrs): Intake and Output Totals x24h 04/22/21 04/23/21 04/24/21 23:59 23:59 23:59 Intake Total 3920 2200 360 Output Total 5550 3575 2150 Balance -1630 -1375 -1790 General: Alert, Oriented x3 HEENT: Mucous membr. moist/pink Neck: Supple, No JVD Neuro: Alert, Non Focal Cardiovascular: Regular rate, No murmurs Respiratory: No respiratory distress, Breath sounds nml Abdomen: Normal bowel sounds, Soft, Other (Obese with pannus) Extremities: No clubbing, Other (4+ edema) - Results Results: Laboratory Results WBC 6.7 x10^3/uL (4.8-10.8) 04/24/21 05:11 RBC 2.62 10^6/uL (4.20-5.40) L 04/24/21 05:11 Hgb 9.5 g/dL (12.0-16.0) L 04/24/21 05:11 Hct 29.2 % (37.0-47.0) L 04/24/21 05:11 MCV 111.5 fL (81.0-99.0) H 04/24/21 05:11 MCH 36.3 pg (27.0-31.0) H 04/24/21 05:11 MCHC 32.5 g/dL (32.0-36.0) 04/24/21 05:11 RDW 17.5 % (12.0-15.0) H 04/24/21 05:11 Plt Count 253 10^3/uL (130-450) 04/24/21 05:11 MPV 10.0 fL (7.9-10.8) 04/24/21 05:11 Neut # (Auto) 4.4 10^3/uL (1.5-6.6) 04/24/21 05:11 Lymph # (Auto) 1.5 10^3/uL (1.5-3.5) 04/24/21 05:11 [place] # (Auto) 0.6 10^3/uL (0.0-1.0) 04/24/21 05:11 Eos # (Auto) 0.1 10^3/uL (0.0-0.7) 04/24/21 05:11 Baso # (Auto) 0.0 10^3/uL (0.0-0.1) 04/24/21 05:11 Absolute Nucleated RBC 0.03 x10^3/uL 04/24/21 05:11 Nucleated RBC % 0.5 /100WBC 04/24/21 05:11 Manual Slide Review Indicated 04/24/21 05:11 WBC Morphology NORMAL APPEARANCE (NORMAL) 04/24/21 05:11 Platelet Estimate NORMAL (130-450,000) (NORMAL) 04/24/21 05:11 Platelet Morphology NORMAL APPEARANCE (NORMAL) 04/24/21 05:11 RBC Morph Micro Appear 2+ MACROCYTOSIS (NORMAL) 1+ POLYCHROMASIA (NORMAL) 1+ BASO STIPPLING (NORMAL) 04/24/21 05:11 RBC Morph Micro Appear 2+ MACROCYTOSIS (NORMAL) 1+ POLYCHROMASIA (NORMAL) 1+ BASO STIPPLING (NORMAL) 04/24/21 05:11 RBC Morph Micro Appear 2+ MACROCYTOSIS (NORMAL) 1+ POLYCHROMASIA (NORMAL) 1+ BASO STIPPLING (NORMAL) 04/24/21 05:11 D-Dimer 395.8 ng/mL (200.0-255.0) H 04/20/21 02:27 Sodium 133 mmol/L (135-145) L 04/24/21 05:11 Potassium 4.7 mmol/L (3.5-5.0) 04/24/21 05:11 Chloride 96 mmol/L (101-111) L 04/24/21 05:11 Carbon Dioxide 27 mmol/L (21-32) 04/24/21 05:11 Anion Gap 10.0 (6-13) 04/24/21 05:11 BUN 30 mg/dL (6-20) H 04/24/21 05:11 Creatinine 1.0 mg/dL (0.4-1.0) 04/24/21 05:11 Estimated GFR (MDRD) 54 (>89) L 04/24/21 05:11 Glucose 263 mg/dL (70-100) H 04/24/21 05:11 POC Whole Bld Glucose 208 mg/dL (70 - 100) H 04/24/21 07:24 Estimat Average Glucose 252 mg/dL (70-100) H 04/20/21 02:27 Hemoglobin A1c % 10.4 % (4.27-6.07) H 04/20/21 02:27 Calcium 8.8 mg/dL (8.5-10.3) 04/24/21 05:11 Magnesium 2.4 mg/dL (1.7-2.8) 04/23/21 04:39 Iron 51 ug/dL (28-170) 04/23/21 04:39 TIBC 329 ug/dL (250-450) 04/23/21 04:39 % Saturation 16 % (20-50) L 04/23/21 04:39 Transferrin 235 mg/dL (192-382) 04/23/21 04:39 Ferritin 80.8 ng/mL (11.0-306.8) 04/20/21 11:23 Total Bilirubin 0.7 mg/dL (0.2-1.0) 04/20/21 00:05 AST 22 IU/L (10-42) 04/20/21 00:05 ALT 38 IU/L (10-60) 04/20/21 00:05 Alkaline Phosphatase 126 IU/L (42-121) H 04/20/21 00:05 Lactate Dehydrogenase 222 IU/L (91-225) 04/20/21 10:42 Troponin I High Sens 7.3 ng/L (2.3-14.8) 04/21/21 12:59 B-Natriuretic Peptide 228 pg/mL (5-100) H 04/22/21 04:43 Total Protein 6.0 g/dL (6.7-8.2) L 04/20/21 00:05 Albumin 3.5 g/dL (3.2-5.5) 04/20/21 00:05 Globulin 2.5 g/dL (2.1-4.2) 04/20/21 00:05 Albumin/Globulin Ratio 1.4 (1.0-2.2) 04/20/21 00:05 Lipase 37 U/L (22-51) 04/20/21 00:05 Vitamin B12 1739 pg/mL (180-914) H 04/23/21 04:39 Folate 21.67 ng/mL (5.90 - >24.8) 04/23/21 04:39 Nasal Adenovirus (PCR) NOT DETECTED 04/20/21 01:25 Nasal B. parapertussis DNA (PCR) NOT DETECTED 04/20/21 01:25 Nasal Coronavir 229E PCR NOT DETECTED 04/20/21 01:25 Nasal Coronavir HKU1 PCR NOT DETECTED 04/20/21 01:25 Nasal Coronavir NL63 PCR NOT DETECTED 04/20/21 01:25 Nasal Coronavir OC43 PCR NOT DETECTED 04/20/21 01:25 Nasal Enterovir/Rhinovir PCR NOT DETECTED 04/20/21 01:25 Nasal Influenza B PCR NOT DETECTED 04/20/21 01:25 Nasal Influenza A PCR NOT DETECTED 04/20/21 01:25 Nasal Parainfluen 1 PCR NOT DETECTED 04/20/21 01:25 Nasal Parainfluen 2 PCR NOT DETECTED 04/20/21 01:25 Nasal Parainfluen 3 PCR NOT DETECTED 04/20/21 01:25 Nasal Parainfluen 4 PCR NOT DETECTED 04/20/21 01:25 Nasal RSV (PCR) NOT DETECTED 04/20/21 01:25 Nasal B.pertussis DNA PCR NOT DETECTED 04/20/21 01:25 Nasal C.pneumoniae (PCR) NOT DETECTED 04/20/21 01:25 Edwin Human Metapneumo PCR NOT DETECTED 04/20/21 01:25 Nasal M.pneumoniae (PCR) NOT DETECTED 04/20/21 01:25 Nasal SARS-CoV-2 (PCR) NOT DETECTED 04/20/21 01:25 - Procedures Procedures: Procedures EXCISION OF ASCENDING COLON, ENDO, DIAGN (09/28/17) EXCISION OF CECUM, ENDO, DIAGN (09/28/17) EXCISION OF DESCENDING COLON, ENDO (07/13/18) EXCISION OF SIGMOID COLON, ENDO (07/13/18) EXCISION OF SIGMOID COLON, ENDO, DIAGN (09/28/17) EXCISION OF TRANSVERSE COLON, ENDO (07/13/18) EXCISION OF TRANSVERSE COLON, ENDO, DIAGN (09/28/17) INTRODUCTION OF OTH THERAP SUBST INTO LOW GI, ENDO (09/28/17)
[2021-04-24] MEDS: MIRTAZAPINE 15 MG TABLET PO SCH (22:22)
[2021-04-24] MEDS: ATORVASTATIN 40 MG TABLET PO SCH (22:23)
[2021-04-24] MEDS: rOPINIRole 0.25 MG TABLET PO SCH (22:24)
[2021-04-24] MEDS: traZODone 50 MG TABLET PO SCH (22:24)
[2021-04-24] MEDS: buPROPion SR 100 MG TABLET PO SCH (22:25)
[2021-04-24] MEDS: MONTELUKAST 10 MG TABLET PO SCH (22:25)
[2021-04-25] MEDS: ACETAMINOPHEN 325 MG TABLET PO PRN ×2 (00:34→08:50)
[2021-04-25] MEDS: SODIUM CHLORIDE FLUSH 0.9% 10 ML SYRINGE IVP SCH ×3 (00:34→17:46)
[2021-04-25 06:04] LABS: BASOPHILS % (AUTO) 0.6 %; EOSINOPHILS # (AUTO) 0.2 10^3/uL (0.0-0.7); EOSINOPHILS % (AUTO) 2.5 %; HCT - HEMATOCRIT 31.7 % (37.0-47.0); HGB - HEMOGLOBIN 9.9 g/dL (12.0-16.0); LYMPHOCYTES # (AUTO) 1.7 10^3/uL (1.5-3.5); MEAN CORPUSCULAR HEMOGLOBIN 35.5 pg (27.0-31.0); MEAN CORPUSCULAR HGB CONC 31.2 g/dL (32.0-36.0); MEAN CORPUSCULAR VOLUME 113.6 fL (81.0-99.0); MEAN PLATELET VOLUME 10.4 fL (7.9-10.8); MONOCYTES # (AUTO) 0.6 10^3/uL (0.0-1.0); MONOCYTES % (AUTO) 9.1 %; NEUTROPHILS # (AUTO) 4.1 10^3/uL (1.5-6.6); NEUTROPHILS % (AUTO) 61.6 %; NRBC ABSOLUTE COUNT (AUTO) 0.04 x10^3/uL; NUCLEATED RED BLOOD CELLS AUTO 0.6 /100WBC; PLT - PLATELET COUNT 239 10^3/uL (130-450); RED BLOOD COUNT 2.79 10^6/uL (4.20-5.40); RED CELL DISTRIBUTION WIDTH 17.5 % (12.0-15.0); WHITE BLOOD COUNT 6.7 x10^3/uL (4.8-10.8)
[2021-04-25 06:08] LABS: SLIDE REVIEW? Indicated
[2021-04-25] MEDS: FUROSEMIDE 20 MG/2 ML VIAL IVP SCH (06:19)
[2021-04-25] MEDS: methylPREDNISolone SUCCINATE 40 MG/ML VIAL IVP SCH ×3 (06:19→21:39)
[2021-04-25 06:32] LABS: PLATELET ESTIMATE, MANUAL NORMAL (130-450,000) (NORMAL); PLATELET MORPHOLOGY NORMAL APPEARANCE (NORMAL); WBC MORPHOLOGY (MULTIPLE) NORMAL APPEARANCE (NORMAL)
[2021-04-25] MEDS: BUDESONIDE 0.5 MG/2 ML NEB INH SCH (07:24)
[2021-04-25] MEDS: IPRATROPIUM/ALBUTEROL 3 ML NEB INH SCH ×3 (07:24→15:19)
[2021-04-25] MEDS: INSULIN ASPART 300 UNIT/3 ML PEN SUBQ SCH ×7 (08:42→21:24)
[2021-04-25] MEDS: INSULIN GLARGINE 300 UNIT/3 ML PEN SUBQ SCH ×2 (08:43→21:25)
--- NOTE | 2021-04-25 08:47 | PROVIDER PROGRESS NOTE ---
Assessment/Plan - Problem List (1) Leg edema Assessment/Plan: Her Echo showed significant pulmonary hypertension, probably related to COPD. Yolanda for a long time that has never been treated. The patient has significant negative fluid balance for the last 2 days ever since 1500 cc oral fluid intake restriction was started yesterday, and salt restriction was added to her diet 2 days ago and IV Lasix twice daily continued. She now has a 2 pound weight loss from baseline. Today we will convert her IV twice daily Lasix to oral Lasix and assess if she still has adequate urine output before discharge. Probable discharge tomorrow (2) COPD exacerbation Assessment/Plan: Improved over the last 3 days. She is on about 0.5 to 1 L oxygen supplemental. Continue nebs for bronchodilation. Continue Mucinex for expectoration. She finished her empiric Zithromax treatment. Yesterday iv Solu-Medrol was decreased by half. Today will be her final day with iv steroids and will start oral steroids tomorrow. I plan to discharge her home with a Medrol Dosepak taper, planning [facility] to bly. She will need an oximetry walk test tomorrow, for possible new order for home oxygen. (3) Diabetes mellitus with hyperglycemia Assessment/Plan: Her glucoses were 400 when she was first admitted and needed high-dose steroids. We adjusted her insulin dosing. Continue with carb controlled diet, long-acting and fingerstick short acting insulin coverage. (4) Diabetes mellitus with complication, with long-term current use of insulin Assessment/Plan: Known neuropathy, is on meds for this (5) Essential tremor Assessment/Plan: Stable. She is awaiting the special wheelchair at home, that she qualified for. (6) Depression with anxiety Assessment/Plan: Able. She was seen by Palliative distributor sales consultant while here and will follow up with Laverne Glynn NP. Her antidepressant was increased slightly while here, at the recommendation of Laverne Glynn NP (7) Chronic anemia Assessment/Plan: Appears to have anemia of chronic disease since her B12, folate levels and iron stores are normal, and also poss hemodilutional anemia related to her volume overload - Current Meds Current Meds: Current Medications Generic Name Dose Route Start Last Admin Trade Name Freq PRN Reason Stop Dose Admin Acetaminophen 650 mg 04/20/21 04:53 04/25/21 00:34 Acetaminophen 325 Mg Tablet PO 650 mg Q4HR PRN Administration Pain 1 to 4 Albuterol 2.5 mg 04/20/21 04:56 04/24/21 01:53 Albuterol Neb 2.5 Mg/3 Ml INH 2.5 mg RTQ4H PRN Administration Wheezing Albuterol/Ipratropium 3 ml 04/20/21 07:00 04/25/21 07:24 Ipratropium/Albuterol 3 Ml Neb INH 3 ml RTQID TEMO Administration Aspirin 81 mg 04/20/21 09:00 04/24/21 08:14 Aspirin Ec 81 Mg Tablet PO 81 mg DAILY TEMO Administration Atorvastatin Calcium 80 mg 04/20/21 11:43 04/24/21 22:23 Atorvastatin 40 Mg Tablet PO 80 mg QPM TEMO Administration Budesonide 0.5 mg 04/21/21 11:36 04/25/21 07:24 Budesonide 0.5 Mg/2 Ml Neb INH 0.5 mg RTBID TEMO Administration Bupropion HCl 150 mg 04/22/21 09:00 04/24/21 08:13 Bupropion Sr 150 Mg Tablet PO 150 mg DAILY TEMO Administration Bupropion HCl 200 mg 04/21/21 21:00 04/24/21 22:25 Bupropion Sr 100 Mg Tablet PO 200 mg QPM TEMO Administration Cholecalciferol 50 mcg 04/20/21 09:00 04/24/21 08:14 Cholecalciferol 25 Mcg Tablet PO 50 mcg DAILY TEMO Administration Cyclobenzaprine HCl 10 mg 04/23/21 00:04 04/23/21 00:37 Cyclobenzaprine 10 Mg Tablet PO 10 mg TID PRN Administration Spasms Docusate Sodium 250 - 500 mg 04/22/21 21:00 04/24/21 08:13 Docusate Sodium 250 Mg Capsule PO 250 mg DAILY TEMO Administration Gabapentin 1,200 mg 04/20/21 09:00 04/24/21 22:26 Gabapentin 400 Mg Capsule PO 1,200 mg BID TEMO Administration Guaifenesin 600 mg 04/20/21 12:00 04/24/21 22:24 Guaifenesin 600 Mg Tablet PO 600 mg BID TEMO Administration Insulin Aspart 5 unit 04/23/21 17:00 04/24/21 17:14 Insulin Aspart 300 Unit/3 Ml Pen SUBQ 5 unit TIDWM TEMO Administration Insulin Aspart 3 - 11 unit 04/24/21 08:00 04/24/21 22:28 Insulin Aspart 300 Unit/3 Ml Pen SUBQ 9 unit 0800,1200,1700,2100 TEMO Administration Protocol Insulin Glargine 45 unit 04/21/21 21:00 04/24/21 22:27 Insulin Glargine 300 Unit/3 Ml Pen SUBQ 45 unit QPM TEMO Administration Insulin Glargine 30 unit 04/22/21 08:00 04/24/21 08:10 Insulin Glargine 300 Unit/3 Ml Pen SUBQ 30 unit [id number] TEMO Administration Methylprednisolone 40 mg 04/24/21 08:00 04/25/21 06:19 Methylprednisolone Succinate 40 Mg/Ml Vial IVP 04/25/21 23:00 40 mg TID TEMO Administration Metoprolol Succinate 25 mg 04/22/21 09:00 04/24/21 08:14 Metoprolol Succinate 25 Mg Tablet PO 25 mg DAILY TEMO Administration Mirtazapine 45 mg 04/20/21 21:00 04/24/21 22:22 Mirtazapine 15 Mg Tablet PO 45 mg HS TEMO Administration Montelukast Sodium 10 mg 04/21/21 21:00 04/24/21 22:25 Montelukast 10 Mg Tablet PO 10 mg QPM TEMO Administration Multivitamins 1 tab 04/20/21 09:00 04/24/21 08:13 Multivitamin Tablet PO 1 tab DAILY TEMO Administration Oxycodone HCl 5 mg 04/20/21 04:53 04/24/21 22:23 Oxycodone 5 Mg Tablet PO 5 mg Q4HR PRN Administration Pain 5 to 7 Polyethylene Glycol 17 gm 04/22/21 09:00 04/24/21 08:13 Polyethylene Glycol 3350 17 Gm Packet PO 17 gm DAILY TEMO Administration Primidone 200 mg 04/20/21 09:00 04/24/21 22:25 Primidone 50 Mg Tablet PO 200 mg BID TEMO Administration Ropinirole HCl 0.5 mg 04/20/21 21:00 04/24/21 22:24 Ropinirole 0.25 Mg Tablet PO 0.5 mg QPM TEMO Administration Senna 8.6 - 17.2 mg 04/23/21 09:00 04/24/21 08:13 Senna 8.6 Mg Tablet PO 8.6 mg DAILY TEMO Administration Sodium Chloride 10 ml 08/10/21 04:53 04/24/21 13:55 Sodium Chloride Flush 0.9% 10 Ml Syringe IVP 10 ml PRN PRN Administration NEEDED PER PROVIDER ORDERS Sodium Chloride 10 ml 04/20/21 09:00 04/25/21 00:34 Sodium Chloride Flush 0.9% 10 Ml Syringe IVP 10 ml 0100,0900,1700 TEMO Administration Spironolactone 25 mg 04/23/21 09:00 04/24/21 08:13 Spironolactone 25 Mg Tablet PO 25 mg DAILY TEMO Administration Throat Lozenges 1 lozenge 04/20/21 22:08 04/22/21 22:12 Benzocaine/Menthol Lozenge MM 1 lozenge Q2HR PRN Administration Throat pain Trazodone HCl 50 mg 04/20/21 23:06 04/24/21 22:24 Trazodone 50 Mg Tablet PO 50 mg QPM TEMO Administration - Lab Result Fish Bone Diagrams: 04/25/21 05:37 04/25/21 09:42 - Additional Planning My Orders: My Active Orders 04/24/21 07:50 HAROON Kimble and SCDs [RC] QSHIFT 04/24/21 08:00 methylPREDNISolone SUCCINATE [SOLU-Medrol (40MG VIAL)] 40 mg IVP TID 04/25/21 08:40 BMP - BASIC METABOLIC PANEL [CHEM] Routine BNP - B-NATRIURETIC PEPTIDE [IAI] Routine 04/25/21 12:00 Furosemide [Lasix] 40 mg PO ONCE ONE 04/26/21 08:00 methylPREDNISolone [Medrol] 16 mg PO DAILYWM 04/26/21 09:00 Furosemide [Lasix] 40 mg PO DAILY Subjective - Subjective Patient Reports: Feeling Better, Resting Comfortably, Other (Finally she sees "smaller ankles") Objective Vital Signs: Vital Signs - 24 hr 04/24/21 04/24/21 04/24/21 11:33 15:32 16:00 Temperature 36.7 C Heart Rate 74 65 Heart Rate [ 72 Brachial] Respiratory 12 12 18 Rate Blood Pressure [Left Brachial artery] Blood Pressure 151/81 H [Right Brachial artery] O2 Saturation 94 04/24/21 04/25/21 04/25/21 21:12 00:00 07:24 Temperature 36.5 C Heart Rate 70 63 Heart Rate [ 68 Brachial] Respiratory 18 20 12 Rate Blood Pressure 119/68 [Left Brachial artery] Blood Pressure [Right Brachial artery] O2 Saturation 92 04/25/21 07:34 Temperature 36.4 C L Heart Rate Heart Rate [ 73 Brachial] Respiratory 20 Rate Blood Pressure 131/65 H [Left Brachial artery] Blood Pressure [Right Brachial artery] O2 Saturation 98 Oxygen O2 Source Nasal cannula Oxygen Flow Rate 2 I&O (Last 24 Hrs): Intake and Output Totals x24h 04/23/21 04/24/21 04/25/21 23:59 23:59 23:59 Intake Total 2200 1300 420 Output Total 3575 6710 [facility] Balance -9511 -1767 -0900 General: Alert, Oriented x3 HEENT: Mucous membr. moist/pink, Other (Horase voice) Neck: Supple, No JVD Neuro: Alert, Other (Significant tremor of UEs and head seen intermittently) Cardiovascular: Regular rate Respiratory: No respiratory distress, Breath sounds nml Abdomen: Soft (Obese with pannus) Extremities: Other (1+ pretibial edema) - Results Results: Laboratory Results WBC 6.7 x10^3/uL (4.8-10.8) 04/25/21 05:37 RBC 2.79 10^6/uL (4.20-5.40) L 04/25/21 05:37 Hgb 9.9 g/dL (12.0-16.0) L 04/25/21 05:37 Hct 31.7 % (37.0-47.0) L 04/25/21 05:37 MCV 113.6 fL (81.0-99.0) H 04/25/21 05:37 MCH 35.5 pg (27.0-31.0) H 04/25/21 05:37 MCHC 31.2 g/dL (32.0-36.0) L 04/25/21 05:37 RDW 17.5 % (12.0-15.0) H 04/25/21 05:37 Plt Count 239 10^3/uL (130-450) 04/25/21 05:37 MPV 10.4 fL (7.9-10.8) 04/25/21 05:37 Neut # (Auto) 4.1 10^3/uL (1.5-6.6) 04/25/21 05:37 Lymph # (Auto) 1.7 10^3/uL (1.5-3.5) 04/25/21 05:37 [place] # (Auto) 0.6 10^3/uL (0.0-1.0) 04/25/21 05:37 Eos # (Auto) 0.2 10^3/uL (0.0-0.7) 04/25/21 05:37 Baso # (Auto) 0.0 10^3/uL (0.0-0.1) 04/25/21 05:37 Absolute Nucleated RBC 0.04 x10^3/uL 04/25/21 05:37 Nucleated RBC % 0.6 /100WBC 04/25/21 05:37 Manual Slide Review Indicated 04/25/21 05:37 WBC Morphology NORMAL APPEARANCE (NORMAL) 04/25/21 05:37 Platelet Estimate NORMAL (130-450,000) (NORMAL) 04/25/21 05:37 Platelet Morphology NORMAL APPEARANCE (NORMAL) 04/25/21 05:37 RBC Morph Micro Appear 2+ MACROCYTOSIS (NORMAL) 1+ BASO STIPPLING (NORMAL) 1+ POLYCHROMASIA (NORMAL) 04/25/21 05:37 RBC Morph Micro Appear 2+ MACROCYTOSIS (NORMAL) 1+ BASO STIPPLING (NORMAL) 1+ POLYCHROMASIA (NORMAL) 04/25/21 05:37 RBC Morph Micro Appear 2+ MACROCYTOSIS (NORMAL) 1+ BASO STIPPLING (NORMAL) 1+ POLYCHROMASIA (NORMAL) 04/25/21 05:37 D-Dimer 395.8 ng/mL (200.0-255.0) H 04/20/21 02:27 Sodium 133 mmol/L (135-145) L 04/24/21 05:11 Potassium 4.7 mmol/L (3.5-5.0) 04/24/21 05:11 Chloride 96 mmol/L (101-111) L 04/24/21 05:11 Carbon Dioxide 27 mmol/L (21-32) 04/24/21 05:11 Anion Gap 10.0 (6-13) 04/24/21 05:11 BUN 30 mg/dL (6-20) H 04/24/21 05:11 Creatinine 1.0 mg/dL (0.4-1.0) 04/24/21 05:11 Estimated GFR (MDRD) 54 (>89) L 04/24/21 05:11 Glucose 263 mg/dL (70-100) H 04/24/21 05:11 POC Whole Bld Glucose 224 mg/dL (70 - 100) H 04/25/21 07:37 Estimat Average Glucose 252 mg/dL (70-100) H 04/20/21 02:27 Hemoglobin A1c % 10.4 % (4.27-6.07) H 04/20/21 02:27 Calcium 8.8 mg/dL (8.5-10.3) 04/24/21 05:11 Magnesium 2.4 mg/dL (1.7-2.8) 04/23/21 04:39 Iron 51 ug/dL (28-170) 04/23/21 04:39 TIBC 329 ug/dL (250-450) 04/23/21 04:39 % Saturation 16 % (20-50) L 04/23/21 04:39 Transferrin 235 mg/dL (192-382) 04/23/21 04:39 Ferritin 80.8 ng/mL (11.0-306.8) 04/20/21 11:23 Total Bilirubin 0.7 mg/dL (0.2-1.0) 04/20/21 00:05 AST 22 IU/L (10-42) 04/20/21 00:05 ALT 38 IU/L (10-60) 04/20/21 00:05 Alkaline Phosphatase 126 IU/L (42-121) H 04/20/21 00:05 Lactate Dehydrogenase 222 IU/L (91-225) 04/20/21 10:42 Troponin I High Sens 7.3 ng/L (2.3-14.8) 04/21/21 12:59 B-Natriuretic Peptide 228 pg/mL (5-100) H 04/22/21 04:43 Total Protein 6.0 g/dL (6.7-8.2) L 04/20/21 00:05 Albumin 3.5 g/dL (3.2-5.5) 04/20/21 00:05 Globulin 2.5 g/dL (2.1-4.2) 04/20/21 00:05 Albumin/Globulin Ratio 1.4 (1.0-2.2) 04/20/21 00:05 Lipase 37 U/L (22-51) 04/20/21 00:05 Vitamin B12 1739 pg/mL (180-914) H 04/23/21 04:39 Folate 21.67 ng/mL (5.90 - >24.8) 04/23/21 04:39 Nasal Adenovirus (PCR) NOT DETECTED 04/20/21 01:25 Nasal B. parapertussis DNA (PCR) NOT DETECTED 04/20/21 01:25 Nasal Coronavir 229E PCR NOT DETECTED 04/20/21 01:25 Nasal Coronavir HKU1 PCR NOT DETECTED 04/20/21 01:25 Nasal Coronavir NL63 PCR NOT DETECTED 04/20/21 01:25 Nasal Coronavir OC43 PCR NOT DETECTED 04/20/21 01:25 Nasal Enterovir/Rhinovir PCR NOT DETECTED 04/20/21 01:25 Nasal Influenza B PCR NOT DETECTED 04/20/21 01:25 Nasal Influenza A PCR NOT DETECTED 04/20/21 01:25 Nasal Parainfluen 1 PCR NOT DETECTED 04/20/21 01:25 Nasal Parainfluen 2 PCR NOT DETECTED 04/20/21 01:25 Nasal Parainfluen 3 PCR NOT DETECTED 04/20/21 01:25 Nasal Parainfluen 4 PCR NOT DETECTED 04/20/21 01:25 Nasal RSV (PCR) NOT DETECTED 04/20/21 01:25 Nasal B.pertussis DNA PCR NOT DETECTED 04/20/21 01:25 Nasal C.pneumoniae (PCR) NOT DETECTED 04/20/21 01:25 Edwin Human Metapneumo PCR NOT DETECTED 04/20/21 01:25 Nasal M.pneumoniae (PCR) NOT DETECTED 04/20/21 01:25 Nasal SARS-CoV-2 (PCR) NOT DETECTED 04/20/21 01:25 - Procedures Procedures: Procedures EXCISION OF ASCENDING COLON, ENDO, DIAGN (09/28/17) EXCISION OF CECUM, ENDO, DIAGN (09/28/17) EXCISION OF DESCENDING COLON, ENDO (07/13/18) EXCISION OF SIGMOID COLON, ENDO (07/13/18) EXCISION OF SIGMOID COLON, ENDO, DIAGN (09/28/17) EXCISION OF TRANSVERSE COLON, ENDO (07/13/18) EXCISION OF TRANSVERSE COLON, ENDO, DIAGN (09/28/17) INTRODUCTION OF OTH THERAP SUBST INTO LOW GI, ENDO (09/28/17)
[2021-04-25] MEDS: oxyCODONE 5 MG TABLET PO PRN ×2 (08:51→21:39)
[2021-04-25] MEDS: DOCUSATE SODIUM 250 MG CAPSULE PO SCH (08:52)
[2021-04-25] MEDS: PRIMIDONE 50 MG TABLET PO SCH ×2 (08:52→21:22)
[2021-04-25] MEDS: ASPIRIN EC 81 MG TABLET PO SCH (08:52)
[2021-04-25] MEDS: MULTIVITAMIN TABLET PO SCH (08:52)
[2021-04-25] MEDS: CHOLECALCIFEROL 25 MCG TABLET PO SCH (08:53)
[2021-04-25] MEDS: GABAPENTIN 400 MG CAPSULE PO SCH ×2 (08:54→21:23)
[2021-04-25] MEDS: guaiFENesin 600 MG TABLET PO SCH ×2 (08:54→21:23)
[2021-04-25] MEDS: buPROPion SR 150 MG TABLET PO SCH (08:54)
[2021-04-25] MEDS: SPIRONOLACTONE 25 MG TABLET PO SCH (08:54)
[2021-04-25] MEDS: METOPROLOL SUCCINATE 25 MG TABLET PO SCH (08:55)
[2021-04-25] MEDS: SENNA 8.6 MG TABLET PO SCH (08:55)
[2021-04-25] MEDS: polyethylene glycoL 3350 17 GM PACKET PO SCH (08:55)
[2021-04-25 10:00] LABS: CREATININE 1.1 mg/dL (0.4-1.0); POTASSIUM 4.4 mmol/L (3.5-5.0)
[2021-04-25] MEDS ORDERED: FUROSEMIDE 40 MG TABLET PO ONE (12:00)
[2021-04-25] MEDS: SODIUM CHLORIDE FLUSH 0.9% 10 ML SYRINGE IVP PRN (13:51)
[2021-04-25] MEDS: MONTELUKAST 10 MG TABLET PO SCH (21:22)
[2021-04-25] MEDS: buPROPion SR 100 MG TABLET PO SCH (21:22)
[2021-04-25] MEDS: MIRTAZAPINE 15 MG TABLET PO SCH (21:22)
[2021-04-25] MEDS: traZODone 50 MG TABLET PO SCH (21:23)
[2021-04-25] MEDS: rOPINIRole 0.25 MG TABLET PO SCH (21:23)
[2021-04-25] MEDS: ATORVASTATIN 40 MG TABLET PO SCH (21:23)
[2021-04-26] MEDS: IPRATROPIUM/ALBUTEROL 3 ML NEB INH SCH ×2 (00:54→08:49)
[2021-04-26] MEDS: BUDESONIDE 0.5 MG/2 ML NEB INH SCH ×2 (00:54→08:49)
[2021-04-26] MEDS: SODIUM CHLORIDE FLUSH 0.9% 10 ML SYRINGE IVP SCH ×2 (02:07→08:24)
[2021-04-26] MEDS: oxyCODONE 5 MG TABLET PO PRN (03:43)
[2021-04-26] MEDS ORDERED: methylPREDNISolone 4 MG TABLET PO SCH (08:00)
[2021-04-26] MEDS: INSULIN ASPART 300 UNIT/3 ML PEN SUBQ SCH ×4 (08:20→12:19)
[2021-04-26] MEDS: INSULIN GLARGINE 300 UNIT/3 ML PEN SUBQ SCH (08:20)
[2021-04-26] MEDS: DOCUSATE SODIUM 250 MG CAPSULE PO SCH (08:22)
[2021-04-26] MEDS: GABAPENTIN 400 MG CAPSULE PO SCH (08:22)
[2021-04-26] MEDS: guaiFENesin 600 MG TABLET PO SCH (08:22)
[2021-04-26] MEDS: CHOLECALCIFEROL 25 MCG TABLET PO SCH (08:22)
[2021-04-26] MEDS: PRIMIDONE 50 MG TABLET PO SCH (08:23)
[2021-04-26] MEDS: MULTIVITAMIN TABLET PO SCH (08:23)
[2021-04-26] MEDS: ASPIRIN EC 81 MG TABLET PO SCH (08:23)
[2021-04-26] MEDS: METOPROLOL SUCCINATE 25 MG TABLET PO SCH (08:23)
[2021-04-26] MEDS: SENNA 8.6 MG TABLET PO SCH (08:23)
[2021-04-26] MEDS: polyethylene glycoL 3350 17 GM PACKET PO SCH (08:23)
[2021-04-26] MEDS: SPIRONOLACTONE 25 MG TABLET PO SCH (08:35)
--- NOTE | 2021-04-26 08:35 | Discharge Plan ---
Discharge Plan Problem Reviewed?: Yes Disposition: 06 Home Health Service Condition: Stable Prescriptions: Spironolactone [Aldactone] 25 mg PO DAILY #30 tablet Furosemide [Lasix] 40 mg PO MOWEFR #15 tablet methylPREDNISolone [Medrol Dose Pack] 1 each PO .PACKAGEINSTRUCTIONS 6 Days #1 each guaiFENesin [Mucinex] 600 mg PO BID #7 tablet Montelukast [Singulair] 10 mg PO QPM #7 tablet Tiotropium [place] [Spiriva Respimat] 4 gm IH BID #1 inhaler Budesonide/Formoterol Fumarate [Symbicort 160-4.5 Mcg Inhaler] 2 puffs IH BID #1 inhaler Metoprolol Succinate [Toprol Xl] 25 mg PO DAILY #30 tablet buPROPion [Wellbutrin Sr] 200 mg PO QPM #60 tablet buPROPion [Wellbutrin Sr] 150 mg PO DAILY #30 tablet Diet: Diabetic (Low sodium diet AND restrict total fluid intake per day to: 1 and 1/2 quarts) Activity Restrictions: Activity as Tolerated Shower Restrictions: No Assistance Devices: Walker Weight Bearing: Full Weight Instruction Topics: Oxygen Home Use, COPD Dc, Breathing Controlled Dc, Coughing Techniques Dc, Breathing Pursed Lip Dc, ED Edema Legs Bilateral Health Concerns: You were admitted with a COPD exacerbation, bronchitis, and leg swelling related to high pressures in your lungs. You are being discharged home with a change of some medications. PLEASE FOLLOW THE NEW LIST OF MEDICATIONS PROVIDED FOR YOU NOW. New prescriptions were electronically sent to your pharmacy. You qualify for attending Pulmonary Rehab and a referral has been sent and the staff at Pulmonary Rehab here will call you to see if your doctor will order it. You were tested to see if you need a new order for home oxygen and you have low oxygen when you sleep and with any activity. Therefore, I am ordering home oxygen for you to be set at 2L/min during sleep and during any activity/exertion. You should see your Primary Care Provider in the next 5 to 7 days for a hospital follow-up appointment. Plan of Treatment: As above. Care Goals: Improvement in symptoms and stabilization are the goals. Assessment: The patient and son understand and are agreeable with the plan. Additional Instructions or Follow Up instructions: If you have new or worsening symptoms, call your PCP for advice or come to the ER. Follow-Up Care: [facility] - [facility] No Smoking: If you smoke, Please STOP! Call for help. Follow-up with: Clifford Mock DO [Primary Care Provider] -
[2021-04-26] MEDS ORDERED: FUROSEMIDE 40 MG TABLET PO SCH (09:00)
--- NOTE | 2021-04-26 09:13 | DISCHARGE SUMMARY ---
Discharge Summary Admit Date: 04/20/21 Discharge Date: 04/26/21 Discharging Provider: Dr Kristel Plunkett Primary Care Provider: Dr Clifford Mock Code Status: Do Not Attempt Resuscitation Condition at Discharge: Stable Discharge Disposition: [facility] - [facility] History of Present Illness: She is a 75-year-old white female who has Insulin-dependant Diabetes, CAD, and COPD and continues to smoke. She is not on home oxygen. [facility] by EMS on February 18, 2021 because of severe shortness of breath that started gradually over the course that day. She did not have fever, chills, purulent phlegm, no one else was sick around her. She usually does not take nebulizer inhalers. When EMS saw her that day they could not get an accurate pulse oximetry reading, and she was given Combivent MDI and supplemental oxygen. She had rapid relief of her dyspnea by the time she got to the emergency room. While in the emergency room she had midline chest pressure. Troponin was 9.0 at that time and EKG was unchanged. She has a history of coronary artery stents placed in 2003 and 2010. On her exam she was without respiratory distress, clear lungs bilaterally. Her oxygen was 97% saturated on room air. She was mildly hypertensive at 146/70. But since she was stable, she was sent home then. She now returns with essentially the same presentation. Again another metered- dose inhaler was found at the scene that she was using but it had . In the ambulance, she did not respond very well this time to treatments and continu ed to have wheezing and shortness of breath. When brought into the emergency room, her blood pressure was 139/102. She was saturating at 98% on 3 L O2 per nasal cannula. She has received 1 DuoNeb tx and 2 further nebulizers in the emergency room, and iv Decadron. Between 11:30 PM last night and 4:00 AM this morning, she has improved slightly but she is still requiring oxygen. On room air her sat drops down to 88%. Respiratory rate is still in the low 20s. Her chest x-ray has left costophrenic angle blunting but no pneumonia. Her D-dimer is elevated in the 300s and she has a swollen right leg and she was evaluated with an ultrasound of the right leg which is negative for clot. Troponin today is 9.9. As such the patient will be placed in Observation status for managing a COPD exacerbation with hypoxia. She states she wants to be a DNR: No intubation, no chest compressions, no c ardioversion. - HOSPITAL COURSE Hospital Course: (1) COPD exacerbation She was started on iv steroids, nebulizer treatments, Mucinex and continued on supplemental oxygen. She was no better after 1 day and was made an Inpatient. Her tachypnea and wheezing then slowly improved over 3 days, but she was still on 0.5 to 1 L oxygen supplemental. She finished her empiric Zithromax treatment. Steroids started a tapered. She underwent an oximetry walk test on 04/26/21. At rest, on room air she started at 96%. With ambulation, on room air, her O2 saturation dropped to 78% and she had air hunger and stopped walking. Then at rest on 1L oxygen her saturation was 90%. With ambulation on 1L oxygen, her saturation was 89%, with ambulation on 2L oxygen, her saturation was 95%. I am prescribing new home oxygen, set at 1L at rest and at 2L with activity. She was also prescribed new inhalers, and a Medrol Dose pack to taper steroid to off. We encouraged her to stop smoking. She qualifies for Pulmonary Rehab at the [facility] here. A referral for Home Health nursing (to check her with new oxygen and on new inhalers) was sent, and for home PT, if she wished. (2) Leg edema She had 4+ edema to her knees at admission. An Echo showed normal LV contractility but significant pulmonary hypertension, likely related to COPD. She reported this leg edema was present "for a long time that has never been treated". She was started on Lasi iv b.i.d. but had no adequate diuresis or weight loss until a 1500 cc/day oral fluid intake restriction was started and salt restriction was added to her diet. Leg elevation then compression stocking were also ordered. She had consultation from Dietary to teach about salt and fluid restrictions. At discharge, she had no leg edema and a 4-pound weight loss. (3) Diabetes mellitus with hyperglycemia Her glucoses were in the 400's when she was first admitted and needed high-dose steroids. We adjusted her insulin dosing. She was continued on a carb- controlled diet, long-acting and had sliding scale short-acting insulin coverage. Her A1c was 10.4. (4) Diabetes mellitus with complication, with long-term current use of insulin She has known neuropathy, was on meds for this (5) Essential tremor Stable present tremor. She was awaiting a special wheelchair at home, that she qualified for. (6) Depression with anxiety She requested to be seen by Palliative [employer] consultant while here and will follow up with Laverne Glynn NP. Her antidepressant was increased slightly while here, at the recommendation of Laverne Glynn NP (7) Chronic anemia She appears to have anemia of chronic disease since her B12, folate levels and iron stores are all normal, and also possible hemodilutional anemia related to her volume overload at admission. - ALLERGIES Allergies/Adverse Reactions: Allergies Allergy/AdvReac Type Severity Reaction Status Date / Time No Known Drug Allergies Allergy Verified 04/19/21 23:24 - MEDICATIONS Home Medications: Ambulatory Orders Medication Instructions Recorded Confirmed Albuterol Sulfate [Proair Hfa 2 puffs INH Q4HR PRN 05/30/15 04/19/21 Inhaler] Aspirin [Aspir 81] 81 mg PO DAILY 05/30/15 04/19/21 Gabapentin 1,200 mg PO BID 05/30/15 04/19/21 Nitroglycerin [Nitrostat] 0.4 mg PO Q5MIN PRN 05/30/15 04/19/21 Primidone 150 mg PO BID 01/01/16 04/20/21 Cholecalciferol (Vitamin D3) 2,000 unit PO DAILY 08/22/16 04/19/21 [Vitamin D3] Insulin Glargine/Lixisenatide 40 units PO QPM 09/28/17 04/19/21 [[place] 100 Unit-33 Mcg/ml Pen] Atorvastatin Calcium 80 mg PO DAILY 01/09/19 04/19/21 Cyanocobalamin (Vitamin B-12) 250 mcg SL DAILY 01/09/19 04/20/21 [Vitamin B-12 (500 mcg sublingual)] Multivitamin [Multiple Vitamins] 1 each PO DAILY 01/09/19 04/19/21 Vitamin E 100 unit PO DAILY 01/09/19 04/19/21 Insulin Lispro [Humalog Kwikpen 15 units SUBQ TID 02/18/21 04/20/21 U-100] Mirtazapine 22.5 mg PO QPM 04/20/21 04/20/21 Trazodone HCl 300 mg PO QPM 04/20/21 04/20/21 rOPINIRole [Requip] 0.25 mg PO QPM 04/20/21 04/20/21 Albuterol Sulfate [Proair Hfa 2 puffs INH Q4H PRN #1 inhaler 04/26/21 Inhaler] Budesonide/Formoterol Fumarate 2 puffs IH BID #1 inhaler 04/26/21 [Symbicort 160-4.5 Mcg Inhaler] Furosemide [Lasix] 40 mg PO MOWEFR #15 tablet 04/26/21 Metoprolol Succinate [Toprol Xl] 25 mg PO DAILY #30 tablet 04/26/21 Mirtazapine [Remeron] 45 mg PO HS tablet 04/26/21 Montelukast [Singulair] 10 mg PO QPM #7 tablet 04/26/21 Spironolactone [Aldactone] 25 mg PO DAILY #30 tablet 04/26/21 Tiotropium [place] [Spiriva 4 gm IH BID #1 inhaler 04/26/21 Respimat] buPROPion [Wellbutrin Sr] 150 mg PO DAILY #30 tablet 04/26/21 buPROPion [Wellbutrin Sr] 200 mg PO QPM #60 tablet 04/26/21 guaiFENesin [Mucinex] 600 mg PO BID #7 tablet 04/26/21 methylPREDNISolone [Medrol Dose 1 each PO .PACKAGEINSTRUCTIONS 6 04/26/21 Pack] Days #1 each - PHYSICAL EXAM AT DISCHARGE General Appearance: positive: No acute distress, Alert, Other (obese (BMI 43)) Eyes Bilateral: positive: Normal inspection, EOMI ENT: positive: ENT inspection nml, No signs of dehydration Neck: positive: Nml inspection, No JVD Respiratory: positive: No respiratory distress, Breath sounds nml Cardiovascular: positive: Regular rate & rhythm, No murmur Abdomen: positive: Non-tender (Obese with a pannus), Nml bowel sounds Skin: positive: Warm, Dry Extremities: positive: Non-tender, No pedal edema Neurologic/Psychiatric: positive: Oriented x3 (Tremor of head and arms) - LABS Result Diagrams: 04/25/21 05:37 04/25/21 09:42 - DIAGNOSTIC IMAGING Diagnostic Imaging Results: Final report reviewed - FOLLOW UP Follow Up: See PCP in 1-2 weeks for a hospital follow-up appointment. - TIME SPENT Time Spent in Discharge (Minutes): 60
[2021-04-26] MEDS: buPROPion SR 150 MG TABLET PO SCH (09:18)
[2021-04-26 14:56] VITALS: BP 127/71
== END 2021-04-26 14:45 | disposition home health service (06) | DRG 191 ==
LOC: EDUNIT# → ED 23:13 → SUPCPDRO 23:13 → MS3 04-20 04:53 → OBSVTOIN 04-21 11:20 → MS2 04-23 16:02
PROVIDERS: ADMIT Specialist; ATTEND Internal Medicine
DX: J96.01 Acute respiratory failure with hypoxia (principal); J44.1 Chronic obstructive pulmonary disease with (acute) exacerbation; Z68.41 Body mass index [BMI] 40.0-44.9, adult; I27.23 Pulmonary hypertension due to lung diseases and hypoxia; E11.65 Type 2 diabetes mellitus with hyperglycemia; E11.21 Type 2 diabetes mellitus with diabetic nephropathy; E11.42 Type 2 diabetes mellitus with diabetic polyneuropathy; E11.319 Type 2 diabetes mellitus with unspecified diabetic retinopathy without macular edema; F17.200 Nicotine dependence, unspecified, uncomplicated; R25.1 Tremor, unspecified; G47.30 Sleep apnea, unspecified; D63.8 Anemia in other chronic diseases classified elsewhere; I10 Essential (primary) hypertension; I65.21 Occlusion and stenosis of right carotid artery; I25.10 Atherosclerotic heart disease of native coronary artery without angina pectoris; Z20.822 Contact with and (suspected) exposure to COVID-19; R32 Unspecified urinary incontinence; F41.8 Other specified anxiety disorders; E66.01 Morbid (severe) obesity due to excess calories; G89.29 Other chronic pain; M54.9 Dorsalgia, unspecified; M72.0 Palmar fascial fibromatosis [Dupuytren]; F40.240 Claustrophobia; G47.00 Insomnia, unspecified; R26.2 Difficulty in walking, not elsewhere classified; Z51.5 Encounter for palliative care; Z66 Do not resuscitate; Z99.3 Dependence on wheelchair; Z95.5 Presence of coronary angioplasty implant and graft; Z79.82 Long term (current) use of aspirin; Z79.4 Long term (current) use of insulin; Z79.52 Long term (current) use of systemic steroids; I25.2 Old myocardial infarction; Z86.19 Personal history of other infectious and parasitic diseases; Z99.81 Dependence on supplemental oxygen; Z91.19 Patient's noncompliance with other medical treatment and regimen
CPT/HCPCS: 36415; 71045; 80048; 80053; 82607; 82728; 82746; 83036; 83540; 83615; 83690; 83735; 83880; 84466; 84484; 85025; 85379; 87631; 93005; 93306; 93971; 94640; 94761; 96365; 96366; 96372; 96375; 96376; 97110; 97116; 97161; 97530; 99222; 99284; 99285; A9270; G0378; J1650; J1815; J7509; J7626; 0202U

== ENCOUNTER 2021-05-05 08:00 | Outpatient (CLI) | payer MEDICARE, MEDICAID ==
[2021-05-05 18:08] LABS: CALCIUM 9.2 mg/dL (8.5-10.3); CREATININE 0.9 mg/dL (0.4-1.0); POTASSIUM 4.7 mmol/L (3.5-5.0)
== END 2021-05-05 23:59 | disposition home or self-care (01) ==
LOC: LAB.WCP 08:00
PROVIDERS: ATTEND Family Medicine
DX: E11.9 Type 2 diabetes mellitus without complications (principal)
CPT/HCPCS: 36415; 80048

== ENCOUNTER 2021-05-16 02:28 | Inpatient (IN) | payer MEDICARE, MEDICAID ==
[~2021-05-16 02:28] MED LIST: ACETAMINOPHEN 325 MG TABLET PO PRN; ONDANSETRON ODT 4 MG TABLET TL PRN
[2021-05-16] MEDS: SODIUM CHLORIDE FLUSH 0.9% 10 ML SYRINGE IVP SCH ×3 (03:03→17:36)
[2021-05-16] MEDS: SODIUM CHLORIDE 0.9% 1,000 ML IV SCH ×2 (03:03→17:33)
--- NOTE | 2021-05-16 03:33 | HISTORY & PHYSICAL EXAMINATION ---
Chief Complaint - Chief Complaint Chief Complaint: "I couldn't breathe" History of Present Illness - Admitted From Admitted From:: Transfer from [facility] - History Obtained From Records Reviewed: [facility] History obtained from: patient and Dr. Alonso Mcdonnell Exam Limitations: none - History of Present Illness HPI Comment/Other: Ms. Mckeon is a 75-year-old female who has COPD and still smokes. She is not on home oxygen. She says that she is a sedentary person. She has chronic dyspnea on exertion. She is still able to dress herself, feed herself. She lives with her son, and he does everything else. She was seen in the emergency room February 182020 then sent home. She returned April 202020 and was admitted. With her last admission she had run out of inhalers and was having increasing cough, shortness of breath, sputum production. She was stabilized with steroids, empiric antibiotic therapy and discharged April 26. She was discharged on 2 L nasal cannula to be done 03/04. She says that she has been doing "okay" but not the best she could be. She feels that she is not really returned to her baseline dyspnea on exertion and her mobility is even more limited because of that shortness of breath. However, she felt well enough that she went to go see the band [place] at [facility] a week ago today (today is a Monday). She had a great time with her brother and the band played for 2-1/2 hours. She is vaccinated against COVID-19 with the Moderna vaccine. She then went to her sister's house in [place] and has been there this last week. Her best friend from [place] flew in Monday. She has been miserable in that she has been having increasing shortness of breath. She denies fever, chills, rhinorrhea, coryza, sore throat, eustachian tube dysfunction.There is no new phlegm production.Chest feels tight and she cannot breathe. As far she knows no one else around her is sick with COVID-19. Today her family threw her a alliance party and there was a big celebration at her sister's house. Her shortness of breath was not able to be controlled with her metered-dose inh aler so she went to the emergency room. In the emergency room they described her as tachypneic, respiratory distress. O2 sat was 85% on room air. Venous blood gases were 7.29 with a PCO2 of 64. BNP was normal. She was treated for COPD exacerbation with nebulizers and steroids. Her Covid testing came back positive. Chest x-ray shows faint nodular opacity that are scant. D-dimer was elevated at 1050. CT pulmonary angiogram was done and negative for pulmonary embolus. BNP was 165. They initially put her on BiPAP to stabilize her shortness of breath. They called us for transfer since their facility is not able to take care of critically ill patients who are respiratory failure needing BiPAP. I asked him to make sure she stays stable. She was able to come off BiPAP within 1.5 hours and was transition to high flow nasal cannula for an hour.. However, to transfer her, she was put back on BiPAP to keep her respiratory status stable. Once she was on the rarcadia and transferred from the ambulance [facility] to the [facility], the first thing she asked for was food. She says she has not eaten all day long and she is starving. She is short of breath but states that she feels tremendously better than when she was in [place]. History - Past Medical History Cardiovascular: reports: Hypertension, Coronary artery disease (stents 2003 and 2010), Other (Pulmonary hypertension on echo. Chronic leg edema) Respiratory: reports: COPD Neuro: reports: Peripheral neuropathy, Tremors Endocrine/Autoimmune: reports: Type 2 diabetes GI: reports: None : reports: None HEENT: reports: Other Psych: reports: Depression, Anxiety Musculoskeletal: reports: None, Chronic back pain Derm: reports: None MRSA Hx?: No - Past Surgical History General: reports: Colonoscopy Ortho: reports: Carpal Tunnel surgery, Spine surgery /DIRECTOR OF PATIENT FINANCIAL SERVICES: reports: Hysterectomy Cardiovascular: reports: Coronary stent HEENT: reports: Cataracts - Family & Social History Family History: Mother: , Blood Disease/Disorder, Father: Family History Comment/Other: Mom age 95. Had diabetes, depression, & RLS. Dad . Age 62 of coronary artery disease. Also had colon cancer. Brother has familial tremors, diabetes, snores. Sister with apnea. Hx of alcoholism in family. 2 sons with tremor Living arrangement: At home Living Situation: With family Social History Notes: . 2 grown children. Moved to [facility] in 2011 [place] [facility] 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 Ended up having to quit her job because of shingles. Former Smoker. Used to smoke 3 packs/day, cut down to 1 pack/day by 2013 and quit 2018. Resumed smoking at times but only a little. No history of alcohol abuse. No history of recreational substance abuse. - Substance History Use: Uses substance without health or social issues: NONE Abuse: Recurrent use of substance despite neg consequences: NONE Dependence: Experiences withdrawal or developed tolerances: NONE - POLST Patient has POLST: No POLST Status: DNR Meds/Allgy - Home Medications Home Medications: Ambulatory Orders Medication Instructions Recorded Confirmed Albuterol Sulfate [Proair Hfa 2 puffs INH Q4HR PRN 05/30/15 04/19/21 Inhaler] Aspirin [Aspir 81] 81 mg PO DAILY 05/30/15 04/19/21 Gabapentin 1,200 mg PO BID 05/30/15 04/19/21 Nitroglycerin [Nitrostat] 0.4 mg PO Q5MIN PRN 05/30/15 04/19/21 Primidone 150 mg PO BID 01/01/16 04/20/21 Cholecalciferol (Vitamin D3) 2,000 unit PO DAILY 08/22/16 04/19/21 [Vitamin D3] Insulin Glargine/Lixisenatide 40 units PO QPM 09/28/17 04/19/21 [Soliqua 100 Unit-33 Mcg/ml Pen] Atorvastatin Calcium 80 mg PO DAILY 01/09/19 04/19/21 Cyanocobalamin (Vitamin B-12) 250 mcg SL DAILY 01/09/19 04/20/21 [Vitamin B-12 (500 mcg sublingual)] Multivitamin [Multiple Vitamins] 1 each PO DAILY 01/09/19 04/19/21 Vitamin E 100 unit PO DAILY 01/09/19 04/19/21 Insulin Lispro [Humalog Kwikpen 15 units SUBQ TID 02/18/21 04/20/21 U-100] Mirtazapine 22.5 mg PO QPM 04/20/21 04/20/21 Trazodone HCl 300 mg PO QPM 04/20/21 04/20/21 rOPINIRole [Requip] 0.25 mg PO QPM 04/20/21 04/20/21 Albuterol Sulfate [Proair Hfa 2 puffs INH Q4H PRN #1 inhaler 04/26/21 Inhaler] Budesonide/Formoterol Fumarate 2 puffs IH BID #1 inhaler 04/26/21 [Symbicort 160-4.5 Mcg Inhaler] Furosemide [Lasix] 40 mg PO MOWEFR #15 tablet 04/26/21 Metoprolol Succinate [Toprol Xl] 25 mg PO DAILY #30 tablet 04/26/21 Mirtazapine [Remeron] 45 mg PO HS tablet 04/26/21 Montelukast [Singulair] 10 mg PO QPM #7 tablet 04/26/21 Spironolactone [Aldactone] 25 mg PO DAILY #30 tablet 04/26/21 Tiotropium [place] [Spiriva 4 gm IH BID #1 inhaler 04/26/21 Respimat] buPROPion [Wellbutrin Sr] 150 mg PO DAILY #30 tablet 04/26/21 buPROPion [Wellbutrin Sr] 200 mg PO QPM #60 tablet 04/26/21 guaiFENesin [Mucinex] 600 mg PO BID #7 tablet 04/26/21 methylPREDNISolone [Medrol Dose 1 each PO .PACKAGEINSTRUCTIONS 6 04/26/21 Pack] Days #1 each - Allergies Allergies/Adverse Reactions: Allergies Allergy/AdvReac Type Severity Reaction Status Date / Time No Known Drug Allergies Allergy Verified 04/19/21 23:24 Review of Systems - Constitutional Constitutional: reports: Fatigue. denies: Fever, Chills, Malaise, Poor appetite, Diaphoresis, Night sweats - Eyes Eyes: reports: Vision loss (chronic). denies: Pain, Irritation, Amaurosis, Blurred vision - Ears, Nose & Throat Ears, Nose & Throat: reports: Hearing loss. denies: Ear pain, Hearing aids, Tinnitus, Vertigo, Nasal pain, Nasal discharge, Sore throat, Hoarseness - Cardiovascular Cariovascular: reports: Exertional dyspnea, Decr. exercise tolerance. denies: Irregular heart rate, Palpitations, Chest pain, Edema - Respiratory Respiratory: reports: Cough, Wheezing, SOB at rest, SOB with exertion. denies: Hemoptysis, Orthopnea - Gastrointestinal Gastrointestinal: denies: Abdominal pain, Abdominal distention, Constipation, Diarrhea, Change in bowel habits - Genitourinary Genitourinary: reports: Frequency, Urgency, Incontinence. denies: Dysuria, Hematuria - Musculoskeletal Musculoskeletal: reports: Stiffness, Joint pain. denies: Back pain, Muscle aches - Integumentary Integumentary: denies: Rash, Pruritis, Lesions - Neurological Neurological: reports: General weakness. denies: Focal weakness, Headache, Dizziness, Memory problems, Pre-existing deficit, Abnormal gait - Psychiatric Psychiatric: reports: Depression, Anxiety. denies: Suicidal, Delusions - Endocrine Endocrine: denies: Polyuria, Polydypsia, Polyphagia - Hematologic/Lymphatic Hematologic/Lymphatic: denies: Anemia, Bruising, Petechiae Prior Level of Functionality: She is sedentary. Able to dress herself and feed herself and needs to use the furniture for walking. Very limited mobility due to dyspnea on exertion. She relies on her son to do the housework, cooking, grocery shopping, etc. Exam - Vital Signs Reviewed Vital Signs: Yes Vital Signs: Vital Signs x48h Temp Pulse Resp BP Pulse Ox 05/16/21 02:36 36.9 C 74 22 119/67 95 - Physical Exam General Appearance: positive: Alert, Other (Morbidly obese pleasant female who looks much older than stated age, mild pursed lip breathing, sitting at 45 degrees, no use of accessory muscles) Eyes Bilateral: positive: PERRL, EOMI ENT: positive: Pharynx nml Neck: positive: No JVD, Lymphadenopathy (R), Lymphadenopathy (L). negative: Stiff neck Respiratory: positive: Wheezes, Rhonchi, Other (Mild respiratory distress) Cardiovascular: positive: Regular rate & rhythm, Systolic murmur. negative: Gallop/S4, Friction rub Peripheral Pulses: positive: 1+ Abdomen: positive: Non-tender, No organomegaly, Nml bowel sounds, No distention Skin: positive: Warm, Dry Extremities: positive: Full ROM, Pedal edema Neurologic/Psychiatric: positive: Oriented x3, CN's nml (2-12), Motor nml Conclusion/Plan - Problem List (1) Acute respiratory failure with hypoxia Conclusion/Plan: Due to COPD exacerbation. We will treat the underlying cause. She is already starting to improve. BiPAP was used in the emergency room at [place], and was used to keep her respiratory status stable upon transfer with the ambulance, but I have taken her off BiPAP on MedSurg and she is stable. (2) COPD exacerbation Conclusion/Plan: In a smoker. Patient is hypoxic. Mild respiratory distress. Treatment will be empiric antibiotics, steroids, nebulizers.Component of anxiety. This patient uses a handheld metered-dose inhaler. I think it is time to transition her to nebulizers. She was on Spiriva, LABA, long-acting inhaled steroids. We will change her medication to Perforomist, budesonide inhalation, DuoNeb scheduled dose, albuterol as needed. In the outpatient setting I am recommending that she be discharged on budesonide inhalation, Perforomist inhalation, and DuoNeb scheduled dosing. Add Ativan 0.5 mg (3) COVID-19 Conclusion/Plan: Early in the illness. Her chest x-ray was reported without ARDS or the alveolar infiltrate that we usually associate with viral pneumonia. She may be candidate for Regeneron and I will discuss with pharmacy in the morning. (4) Acute kidney insufficiency Conclusion/Plan: With her labs from [place], creatinine has doubled. At discharge with her last visit she was 0.9. Plan: Gentle IV hydration. Recheck in the morning (5) Diabetes mellitus with hyperglycemia Conclusion/Plan: I anticipate that her diabetes will become uncontrolled as I give her steroids. She is on Humalog 15 units before meals, but no glargine. Plan: Glargine 10 units at night Resume 15 units before meals Carb controlled diet Qualifiers: Diabetes mellitus type: type 2 Diabetes mellitus post doctoral researcher insulin use: with post doctoral researcher use Qualified Code(s): E11.65 - Type 2 diabetes mellitus with hyperglycemia; Z79.4 - framing consultant (current) use of insulin (6) Depression with anxiety Conclusion/Plan: Resume Wellbutrin. (7) Chronic anemia Conclusion/Plan: She was anemic in 2015. But by 2017 and in the spring 2020 she was normal hemoglobin. With her ER visit in February she was anemic, and she is anemic again with this visit. But anemia is stable, not acutely worsened. Iron was low in December 2015. But normal with subsequent visits. We will resume oral iron and vitamin C (8) Cor pulmonale (chronic) Conclusion/Plan: She was discharged on Lasix as well as spironolactone. Pedal edema today is improved from discharge. Or at least from the last time I examined her. We will hold off on resuming diuretic until creatinine normalizes. (9) Elevated troponin Conclusion/Plan: [facility] lab states that a troponin greater than 6 is positive for them. Plan: She does have a history of coronary artery disease, will repeat troponin - Lab Results Lab results reviewed: Yes Other Lab Results: Labs from [facility]: Sodium 131, potassium 5.1, BUN 31, creatinine 1.5. D-dimer 1050 BNP 165 White cell count 6.0, hemoglobin 8.3, hematocrit 26.3, platelet 265 Troponin VIII - Diagnostic Imaging Results Diagnostic Imaging Results: positive: Prelim report reviewed Diagnostic Imaging Results Comments: Chest x-ray with faint left upper lobe nodular opacity. CT pulmonary angiogram report not included in transfer packet. Per verbal report from emergency room physician, there is no pulmonary embolus. - EKG Results EKG Interpreted Independently: No Core Measures - Anticipated LOS I expect patient to be DC'd or transferred within 96 hours.: Yes - DVT/VTE - Prophylaxis VTE/DVT Device ordered at admit?: Yes
[2021-05-16] MEDS ORDERED: DEXAMETHASONE 10 MG/ML VIAL PO SCH (03:48)
[2021-05-16] MEDS ORDERED: CHERRY SYRUP 10 ML UDC PO ONE (03:48)
[2021-05-16] MEDS: ALBUTEROL NEB 2.5 MG/3 ML INH PRN (04:38)
[2021-05-16] MEDS: LORazepam 2 MG/ML VIAL IVP PRN ×4 (04:58→22:51)
[2021-05-16 05:12] LABS: BASOPHILS % (AUTO) 0.6 %; EOSINOPHILS # (AUTO) 0.2 10^3/uL (0.0-0.7); EOSINOPHILS % (AUTO) 3.9 %; HCT - HEMATOCRIT 27.3 % (37.0-47.0); HGB - HEMOGLOBIN 8.7 g/dL (12.0-16.0); LYMPHOCYTES # (AUTO) 0.9 10^3/uL (1.5-3.5); LYMPHOCYTES % (AUTO) 16.2 %; MEAN CORPUSCULAR HEMOGLOBIN 35.7 pg (27.0-31.0); MEAN CORPUSCULAR HGB CONC 31.9 g/dL (32.0-36.0); MEAN CORPUSCULAR VOLUME 111.9 fL (81.0-99.0); MEAN PLATELET VOLUME 9.6 fL (7.9-10.8); MONOCYTES # (AUTO) 0.4 10^3/uL (0.0-1.0); NEUTROPHILS # (AUTO) 3.8 10^3/uL (1.5-6.6); NRBC ABSOLUTE COUNT (AUTO) 0.08 x10^3/uL; NUCLEATED RED BLOOD CELLS AUTO 1.5 /100WBC; PLT - PLATELET COUNT 265 10^3/uL (130-450); RED BLOOD COUNT 2.44 10^6/uL (4.20-5.40); WHITE BLOOD COUNT 5.4 x10^3/uL (4.8-10.8)
[2021-05-16 05:14] LABS: SLIDE REVIEW? Indicated
[2021-05-16 05:19] LABS: CALCIUM 8.2 mg/dL (8.5-10.3); CREATININE 1.2 mg/dL (0.4-1.0); POTASSIUM 4.8 mmol/L (3.5-5.0)
[2021-05-16 05:35] LABS: PLATELET ESTIMATE, MANUAL NORMAL (130-450,000) (NORMAL); PLATELET MORPHOLOGY NORMAL APPEARANCE (NORMAL); WBC MORPHOLOGY (MULTIPLE) NORMAL APPEARANCE (NORMAL)
[2021-05-16] MEDS ORDERED: GABAPENTIN 400 MG CAPSULE PO SCH (06:00)
[2021-05-16] MEDS: BUDESONIDE 0.5 MG/2 ML NEB INH SCH ×2 (07:25→19:13)
[2021-05-16] MEDS: IPRATROPIUM/ALBUTEROL 3 ML NEB INH SCH ×4 (07:25→19:13)
[2021-05-16] MEDS ORDERED: REMDESIVIR 100MG VIAL 200 MG in SODIUM CHLORIDE 0.9% 250 ML IV ONE (08:00)
[2021-05-16] MEDS ORDERED: INSULIN ASPART 300 UNIT/3 ML PEN SUBQ SCH (08:00)
[2021-05-16] MEDS: INSULIN ASPART 300 UNIT/3 ML PEN SUBQ SCH ×6 (08:26→17:36)
[2021-05-16] MEDS: INSULIN GLARGINE 300 UNIT/3 ML PEN SUBQ SCH ×2 (08:30→21:19)
[2021-05-16] MEDS: ENOXAPARIN 40 MG/0.4 ML SYRINGE SUBQ SCH (08:36)
[2021-05-16] MEDS: SACCHAROMYCES BOULARDII 250 MG CAPSULE PO SCH ×2 (08:36→16:28)
[2021-05-16] MEDS: ASPIRIN EC 81 MG TABLET PO SCH (08:36)
[2021-05-16] MEDS: cefTRIAXone 1 GM in SODIUM CHLORIDE 0.9% MINIBAG 100 ML IV SCH (08:37)
[2021-05-16] MEDS: AZITHROMYCIN INJ 500 MG in SODIUM CHLORIDE 0.9% 250 ML IV SCH (08:37)
[2021-05-16] MEDS: polyethylene glycoL 3350 17 GM PACKET PO SCH (10:42)
[2021-05-16 10:47] LABS: ABG PH 7.31 (7.35-7.45)
[2021-05-16 10:48] LABS: ABG BASE EXCESS 0.8 mmol/L (-2.0-3.0); ABG HCO3 27.7 mmol/L (22.0-26.0); ABG OXYGEN SATURATION 93 % (94-98); ABG PCO2 57 mmHg (34-45); ABG PO2 77 mmHg (80-100); ABG TCO2 29.4 MMOL/L (21.0-29.0); ALLEN TEST POSITIVE
[2021-05-16] MEDS ORDERED: FUROSEMIDE 40 MG/4 ML VIAL IVP STA (11:04)
--- NOTE | 2021-05-16 11:31 | PHARMACY PROGRESS NOTE ---
- Best Possible Medication History Admit Date and Time: 05/16/21 0230 Processed by: Pharmacy Medication History completed: Yes Secondary Source(s): Physician records, Pharmacy records, Insurance records As the person ultimately responsible for medication therapy, providers are able to order a medication from an existing home medication list in [facility] via the "Reconcile Routine" prior to Confirmation of that medication by technical support representative. Such practice is discouraged except when the physician, in their clinical judgment, deems that a medical need exists for a medication without regard to previous use.
[2021-05-16] MEDS: GABAPENTIN 300 MG CAPSULE PO SCH ×2 (13:25→21:20)
[2021-05-16 13:43] LABS: ESTIMATED AVERAGE GLUCOSE 220 mg/dL (70-100); HEMOGLOBIN A1c% 9.3 % (4.27-6.07)
[2021-05-16 16:34] LABS: ABG PCO2 57 mmHg (34-45); ABG PH 7.35 (7.35-7.45); ABG PO2 75 mmHg (80-100)
[2021-05-16 16:35] LABS: ABG HCO3 30.6 mmol/L (22.0-26.0); ABG OXYGEN SATURATION 94 % (94-98); ABG TCO2 32.4 MMOL/L (21.0-29.0)
[2021-05-16 16:36] LABS: ALLEN TEST POSITIVE
[2021-05-16] MEDS: oxyCODONE 5 MG TABLET PO PRN (17:32)
--- NOTE | 2021-05-16 18:40 | PROVIDER PROGRESS NOTE ---
Hospitalist Cross-cover Note - Cross-Cover Note Cross-Cover Note: The patient was admitted this morning for acute on chronic hypoxic aspiratory failure secondary to COVID-19 pneumonia and possibly a component of community- acquired bacterial pneumonia. She had been on high flow nasal cannula thought the day but still continued to feel dyspneic. We started her on remdesivir today and switch her p.o. Decadron to IV. We also continued her on IV antibiotics. Given she had lower extremity edema, a BNP was checked which was mildly elevated. Decision was made to give her 40 mg of IV Lasix given she felt dyspneic and there could potentially be a component of pulmonary vascular congestion. An ABG was obtained which showed pH 7.3 with a CO2 in the 50s. She was continued on high flow nasal cannula but due to her ongoing dyspnea and occasional change in mental status, we transferred to intensive care unit and start her on BiPAP. We did obtain a repeat gas which showed improvement in her pH although her CO2 remained in the 50s. I suspect she is likely a chronic retainer secondary to her COPD. At this time, we will continue the current medical therapies and we will keep her in the ICU with BiPAP as needed. We did discuss the potential need for mechanical ventilation if she were to decline from a respiratory standpoint and she is agreeable to this if necessary.
[2021-05-16] MEDS ORDERED: INSULIN GLARGINE 300 UNIT/3 ML PEN SUBQ SCH (21:00)
[2021-05-17] MEDS: INSULIN REGULAR HUMAN 300 UNIT/3 ML VIAL SUBQ SCH ×3 (00:20→13:12)
[2021-05-17] MEDS: SODIUM CHLORIDE FLUSH 0.9% 10 ML SYRINGE IVP SCH ×3 (00:21→17:45)
[2021-05-17] MEDS: SODIUM CHLORIDE 0.9% 1,000 ML IV SCH ×2 (01:17→05:45)
[2021-05-17] MEDS: LORazepam 2 MG/ML VIAL IVP PRN ×4 (01:18→20:40)
[2021-05-17] MEDS: SODIUM CHLORIDE FLUSH 0.9% 10 ML SYRINGE IVP PRN ×2 (01:19→20:41)
[2021-05-17 05:17] LABS: BASOPHILS % (AUTO) 0.4 %; EOSINOPHILS # (AUTO) 0.3 10^3/uL (0.0-0.7); EOSINOPHILS % (AUTO) 5.1 %; HCT - HEMATOCRIT 25.9 % (37.0-47.0); HGB - HEMOGLOBIN 8.1 g/dL (12.0-16.0); LYMPHOCYTES # (AUTO) 0.9 10^3/uL (1.5-3.5); LYMPHOCYTES % (AUTO) 16.2 %; MEAN CORPUSCULAR HEMOGLOBIN 35.5 pg (27.0-31.0); MEAN CORPUSCULAR HGB CONC 31.3 g/dL (32.0-36.0); MEAN CORPUSCULAR VOLUME 113.6 fL (81.0-99.0); MEAN PLATELET VOLUME 9.9 fL (7.9-10.8); MONOCYTES # (AUTO) 0.6 10^3/uL (0.0-1.0); MONOCYTES % (AUTO) 10.8 %; NEUTROPHILS # (AUTO) 3.7 10^3/uL (1.5-6.6); NEUTROPHILS % (AUTO) 66.6 %; NRBC ABSOLUTE COUNT (AUTO) 0.05 x10^3/uL; NUCLEATED RED BLOOD CELLS AUTO 0.9 /100WBC; PLT - PLATELET COUNT 276 10^3/uL (130-450); RED BLOOD COUNT 2.28 10^6/uL (4.20-5.40); RED CELL DISTRIBUTION WIDTH 17.5 % (12.0-15.0); WHITE BLOOD COUNT 5.5 x10^3/uL (4.8-10.8)
[2021-05-17 05:18] LABS: SLIDE REVIEW? Indicated
[2021-05-17 05:25] LABS: CALCIUM 7.9 mg/dL (8.5-10.3); CREATININE 0.9 mg/dL (0.4-1.0); POTASSIUM 4.3 mmol/L (3.5-5.0)
[2021-05-17 05:41] LABS: PLATELET ESTIMATE, MANUAL NORMAL (130-450,000) (NORMAL); PLATELET MORPHOLOGY NORMAL APPEARANCE (NORMAL)
[2021-05-17 05:42] LABS: WBC MORPHOLOGY (MULTIPLE) NORMAL APPEARANCE (NORMAL)
[2021-05-17 05:44] LABS: MAGNESIUM 2.3 mg/dL (1.7-2.8); PHOSPHORUS 3.5 mg/dL (2.5-4.6)
[2021-05-17] MEDS: GABAPENTIN 300 MG CAPSULE PO SCH (05:45)
[2021-05-17 06:06] LABS: CALCIUM, IONIZED 1.07 mmol/L (1.15-1.33); VBG PH 7.338 (7.31-7.41)
[2021-05-17] MEDS: IPRATROPIUM/ALBUTEROL 3 ML NEB INH SCH ×4 (07:28→21:32)
[2021-05-17] MEDS: BUDESONIDE 0.5 MG/2 ML NEB INH SCH ×2 (07:28→21:30)
--- NOTE | 2021-05-17 07:33 | PROVIDER PROGRESS NOTE ---
Subjective - Prog Note Date Prog Note Date: 05/17/21 - Subjective Subjective: She remained on BiPAP overnight. She is off of BiPAP this morning and now on nasal cannula. She states that she feels much improved compared to yesterday. Still has a cough. Denies any chest pain. Current Medications - Current Medications Current Medications: Active Medications Acetaminophen (Acetaminophen 325 Mg Tablet) 650 mg PO Q4HR PRN PRN Reason: Pain 1 to 4 Albuterol (Albuterol Neb 2.5 Mg/3 Ml) 2.5 mg INH Q4HR PRN PRN Reason: Wheezing Last Admin: 05/16/21 04:38 Dose: 2.5 mg Documented by: Albuterol/Ipratropium (Ipratropium/Albuterol 3 Ml Neb) 3 ml INH RTQID [facility] Stop: 05/20/21 06:59 Last Admin: 05/17/21 07:28 Dose: 3 ml Documented by: Aspirin (Aspirin Ec 81 Mg Tablet) 81 mg PO DAILY [facility] Last Admin: 05/16/21 08:36 Dose: 81 mg Documented by: Budesonide (Budesonide 0.5 Mg/2 Ml Neb) 0.5 mg INH RTBID TEMO Last Admin: 05/17/21 07:28 Dose: 0.5 mg Documented by: Calcium Carbonate/Glycine (Calcium Carbonate Chew 500 Mg Tablet) 1,250 mg PO Q4H [facility]; Protocol Stop: 05/17/21 12:01 Dexamethasone (Dexamethasone 4 Mg/Ml Vial) 6 mg IVP DAILY [facility] Enoxaparin Sodium (Enoxaparin 40 Mg/0.4 Ml Syringe) 40 mg SUBQ DAILY [facility] Last Admin: 05/16/21 08:36 Dose: 40 mg Documented by: Gabapentin (Gabapentin 300 Mg Capsule) 600 mg PO TID [facility] Last Admin: 05/17/21 05:45 Dose: 600 mg Documented by: Guaifenesin (Guaifenesin 100 Mg/5 Ml Udc) 100 mg PO Q6HR PRN PRN Reason: Cough Sodium Chloride (Normal Saline 0.9%) 1,000 mls @ 85 mls/hr IV .[id number] [facility] Last Admin: 05/17/21 05:45 Dose: 85 mls/hr Documented by: Ceftriaxone Sodium 1 gm/ (Sodium Chloride) 100 mls @ 200 mls/hr IV DAILY [facility] Last Infusion: 05/16/21 09:10 Dose: Infused Documented by: Azithromycin 500 mg/ Sodium (Chloride) 250 mls @ 250 mls/hr IV DAILY [facility] Stop: 05/18/21 09:59 Last Infusion: 05/16/21 10:09 Dose: Infused Documented by: Remdesivir 100 mg/ Sodium (Chloride) 100 mls @ 200 mls/hr IV 0800 [facility] Stop: 05/20/21 08:29 Insulin Aspart (Insulin Aspart 300 Unit/3 Ml Pen) 15 unit SUBQ TIDWM [facility]; Protocol Last Admin: 05/16/21 16:27 Dose: Not Given Documented by: Insulin Glargine (Insulin Glargine 300 Unit/3 Ml Pen) 5 unit SUBQ QDBREAKFAST [facility] Last Admin: 05/16/21 08:30 Dose: 5 unit Documented by: Insulin Glargine (Insulin Glargine 300 Unit/3 Ml Pen) 40 unit SUBQ QPM [facility] Last Admin: 05/16/21 21:19 Dose: 40 unit Documented by: Insulin Human Regular (Insulin Regular Human 300 Unit/3 Ml Vial) 1 - 5 unit SUBQ Q6HR [facility]; Protocol Last Admin: 05/17/21 05:45 Dose: Not Given Documented by: Lorazepam (Lorazepam 2 Mg/Ml Vial) 0.5 mg IVP Q2H PRN PRN Reason: Anxiety Last Admin: 05/17/21 01:18 Dose: 0.5 mg Documented by: Ondansetron HCl (Ondansetron Odt 4 Mg Tablet) 4 mg TL Q6HR PRN PRN Reason: Nausea / Vomiting Ondansetron HCl (Ondansetron 4 Mg/2 Ml Vial) 4 mg IVP Q6HR PRN PRN Reason: Nausea / Vomiting Oxycodone HCl (Oxycodone 5 Mg Tablet) 5 mg PO Q4HR PRN PRN Reason: Pain 5 to 7 Last Admin: 05/16/21 17:32 Dose: 5 mg Documented by: Polyethylene Glycol (Polyethylene Glycol 3350 17 Gm Packet) 17 gm PO DAILY [facility] Last Admin: 05/16/21 10:42 Dose: Not Given Documented by: Saccharomyces Boulardii (Saccharomyces Boulardii 250 Mg Capsule) 250 mg PO BIDWM [facility] Last Admin: 05/16/21 16:28 Dose: Not Given Documented by: Sodium Chloride (Sodium Chloride Flush 0.9% 10 Ml Syringe) 10 ml IVP PRN PRN PRN Reason: NEEDED PER PROVIDER ORDERS Last Admin: 05/17/21 01:19 Dose: 10 ml Documented by: Sodium Chloride (Sodium Chloride Flush 0.9% 10 Ml Syringe) 10 ml IVP 0100,0900,1700 [facility] Last Admin: 05/17/21 00:21 Dose: Not Given Documented by: Albuterol Sulfate [Proair Hfa Inhaler] 2 puffs INH Q4HR PRN 05/30/15 Aspirin [Aspir 81] 81 mg PO DAILY 05/30/15 Gabapentin 1,200 mg PO BID 05/30/15 Nitroglycerin [Nitrostat] 0.4 mg PO Q5MIN PRN 05/30/15 Primidone 150 mg PO BID 01/01/16 Cholecalciferol (Vitamin D3) [Vitamin D3] 2,000 unit PO DAILY 08/22/16 Insulin Glargine/Lixisenatide [Soliqua 100 Unit-33 Mcg/ml Pen] 40 units PO QPM 0 09/28/17 Atorvastatin Calcium 80 mg PO QPM 01/09/19 Cyanocobalamin (Vitamin B-12) [Vitamin B-12 (500 mcg sublingual)] 250 mcg SL DAILY 01/09/19 Multivitamin [Multiple Vitamins] 1 each PO DAILY 01/09/19 Vitamin E 100 unit PO DAILY 01/09/19 Insulin Lispro [Humalog Kwikpen U-100] 15 units SUBQ TID 02/18/21 Mirtazapine 22.5 mg PO QPM 04/20/21 Trazodone HCl 300 mg PO QPM 04/20/21 rOPINIRole [Requip] 0.25 mg PO QPM 04/20/21 Enalapril Maleate [Vasotec] 10 mg PO DAILY 05/16/21 Propranolol [Inderal] 10 mg PO DAILY 05/16/21 Propranolol [Inderal] 20 mg PO QPM 05/16/21 Tiotropium [place] [Spiriva Respimat] 1 inh IH BID 05/16/21 Objective - Vital Signs/Intake & Output Reviewed Vital Signs: Yes Vital Signs: Vital Signs Pulse Pulse Resp BP Pulse Ox 05/17/21 07:28 90 26 H 05/17/21 07:00 94 18 125/84 H 97 05/17/21 06:00 93 23 115/63 95 05/17/21 05:32 87 25 H 104/56 L 94 05/17/21 05:00 87 83 22 99/47 L 95 05/17/21 04:00 83 22 100/46 L 92 Intake & Output: Intake & Output 05/14/21 05/15/21 05/16/21 05/17/21 23:59 23:59 23:59 23:59 Intake Total 2760 1000 Output Total 3565 305 Balance -805 695 - Objective General Appearance: positive: Alert, Mild distress Eyes Bilateral: positive: Normal inspection, Conjunctivae nml ENT: positive: ENT inspection nml, Other (Nasal cannula in place.) Neck: positive: Nml inspection Respiratory: positive: No respiratory distress, Wheezes, Rhonchi, Other (She is not appear to be distress but is still tachypneic. Faint wheezes bilaterally. Rhonchi throughout the lung trujillo.). negative: Rales Cardiovascular: positive: Regular rate & rhythm, Tachycardia. negative: Irregularly irregular, Bradycardia, Systolic murmur Abdomen: positive: Non-tender, No distention. negative: Tenderness Skin: positive: Warm, Dry Extremities: positive: Pedal edema (+2 pitting edema in the bilateral lower extremities) Neurologic/Psychiatric: negative: Disoriented to person, Disoriented to place, Disoriented to time - Lab Results Fish Bones: 05/17/21 05:05 05/17/21 05:05 Other Labs: Lab Results x24hrs 05/17/21 05/17/21 05/17/21 Range/Units 06:00 05:40 05:05 WBC (4.8-10.8) x10^3/uL RBC (4.20-5.40) 10^6/uL Hgb (12.0-16.0) g/dL Hct (37.0-47.0) % MCV (81.0-99.0) fL MCH (27.0-31.0) pg MCHC (32.0-36.0) g/dL RDW (12.0-15.0) % Plt Count (130-450) 10^3/uL MPV (7.9-10.8) fL Neut # (Auto) (1.5-6.6) 10^3/uL Lymph # (Auto) (1.5-3.5) 10^3/uL Whiteside # (Auto) (0.0-1.0) 10^3/uL Eos # (Auto) (0.0-0.7) 10^3/uL Baso # (Auto) (0.0-0.1) 10^3/uL Absolute Nucleated RBC x10^3/uL Nucleated RBC % /100WBC Manual Slide Review WBC Morphology (NORMAL) Platelet Estimate (NORMAL) Platelet Morphology (NORMAL) RBC Morph Micro Appear (NORMAL) Bld Gas Analysis Time Sample Site ABG pH (7.35-7.45) ABG pCO2 (34-45) mmHg ABG pO2 (80-100) mmHg ABG HCO3 (22.0-26.0) mmol/L ABG Total CO2 (21.0-29.0) MMOL/L ABG O2 Saturation (94-98) % ABG Base Excess (-2.0-3.0) mmol/L Derek Test VBG pH 7.338 (7.31-7.41) Ionized Calcium 1.07 L (1.15-1.33) mmol/L O2 Delivery Device O2 Liters/Min LPM FiO2 EPAP cmH2O IPAP cmH2O Sodium (135-145) mmol/L Potassium (3.5-5.0) mmol/L Chloride (101-111) mmol/L Carbon Dioxide (21-32) mmol/L Anion Gap (6-13) BUN (6-20) mg/dL Creatinine (0.4-1.0) mg/dL Estimated GFR (MDRD) (>89) Glucose (70-100) mg/dL POC Whole Bld Glucose 103 H (70 - 100) mg/dL Estimat Average Glucose (70-100) mg/dL Hemoglobin A1c % (4.27-6.07) % Calcium (8.5-10.3) mg/dL Phosphorus 3.5 (2.5-4.6) mg/dL Magnesium 2.3 (1.7-2.8) mg/dL B-Natriuretic Peptide (5-100) pg/mL Nasal Screen MRSA (PCR) (NEGATIVE) 05/17/21 05/17/21 05/16/21 Range/Units 05:05 05:05 23:52 WBC 5.5 (4.8-10.8) x10^3/uL RBC 2.28 L (4.20-5.40) 10^6/uL Hgb 8.1 L (12.0-16.0) g/dL Hct 25.9 L (37.0-47.0) % MCV 113.6 H (81.0-99.0) fL MCH 35.5 H (27.0-31.0) pg MCHC 31.3 L (32.0-36.0) g/dL RDW 17.5 H (12.0-15.0) % Plt Count 276 (130-450) 10^3/uL MPV 9.9 (7.9-10.8) fL Neut # (Auto) 3.7 (1.5-6.6) 10^3/uL Lymph # (Auto) 0.9 L (1.5-3.5) 10^3/uL Whiteside # (Auto) 0.6 (0.0-1.0) 10^3/uL Eos # (Auto) 0.3 (0.0-0.7) 10^3/uL Baso # (Auto) 0.0 (0.0-0.1) 10^3/uL Absolute Nucleated RBC 0.05 x10^3/uL Nucleated RBC % 0.9 /100WBC Manual Slide Review Indicated WBC Morphology NORMAL APPEARANCE (NORMAL) Platelet Estimate NORMAL (130-450,000) (NORMAL) Platelet Morphology NORMAL APPEARANCE (NORMAL) RBC Morph Micro Appear 1+ BASO STIPPLING (NORMAL) Bld Gas Analysis Time Sample Site ABG pH (7.35-7.45) ABG pCO2 (34-45) mmHg ABG pO2 (80-100) mmHg ABG HCO3 (22.0-26.0) mmol/L ABG Total CO2 (21.0-29.0) MMOL/L ABG O2 Saturation (94-98) % ABG Base Excess (-2.0-3.0) mmol/L Derek Test VBG pH (7.31-7.41) Ionized Calcium (1.15-1.33) mmol/L O2 Delivery Device O2 Liters/Min LPM FiO2 EPAP cmH2O IPAP cmH2O Sodium 139 (135-145) mmol/L Potassium 4.3 (3.5-5.0) mmol/L Chloride 101 (101-111) mmol/L Carbon Dioxide 30 (21-32) mmol/L Anion Gap 8.0 (6-13) BUN 29 H (6-20) mg/dL Creatinine 0.9 (0.4-1.0) mg/dL Estimated GFR (MDRD) 61 L (>89) Glucose 113 H (70-100) mg/dL POC Whole Bld Glucose 125 H (70 - 100) mg/dL Estimat Average Glucose (70-100) mg/dL Hemoglobin A1c % (4.27-6.07) % Calcium 7.9 L (8.5-10.3) mg/dL Phosphorus (2.5-4.6) mg/dL Magnesium (1.7-2.8) mg/dL B-Natriuretic Peptide (5-100) pg/mL Nasal Screen MRSA (PCR) (NEGATIVE) 05/16/21 05/16/21 05/16/21 Range/Units 21:10 17:10 16:25 WBC (4.8-10.8) x10^3/uL RBC (4.20-5.40) 10^6/uL Hgb (12.0-16.0) g/dL Hct (37.0-47.0) % MCV (81.0-99.0) fL MCH (27.0-31.0) pg MCHC (32.0-36.0) g/dL RDW (12.0-15.0) % Plt Count (130-450) 10^3/uL MPV (7.9-10.8) fL Neut # (Auto) (1.5-6.6) 10^3/uL Lymph # (Auto) (1.5-3.5) 10^3/uL Whiteside # (Auto) (0.0-1.0) 10^3/uL Eos # (Auto) (0.0-0.7) 10^3/uL Baso # (Auto) (0.0-0.1) 10^3/uL Absolute Nucleated RBC x10^3/uL Nucleated RBC % /100WBC Manual Slide Review WBC Morphology (NORMAL) Platelet Estimate (NORMAL) Platelet Morphology (NORMAL) RBC Morph Micro Appear (NORMAL) Bld Gas Analysis Time 1633 Sample Site RIGHT RADIAL ABG pH 7.35 (7.35-7.45) ABG pCO2 57 H (34-45) mmHg ABG pO2 75 L (80-100) mmHg ABG HCO3 30.6 H (22.0-26.0) mmol/L ABG Total CO2 32.4 H (21.0-29.0) MMOL/L ABG O2 Saturation 94 (94-98) % ABG Base Excess 4.0 H (-2.0-3.0) mmol/L Derek Test POSITIVE VBG pH (7.31-7.41) Ionized Calcium (1.15-1.33) mmol/L O2 Delivery Device BiPAP O2 Liters/Min LPM FiO2 30.00 EPAP 5 cmH2O IPAP 12 cmH2O Sodium (135-145) mmol/L Potassium (3.5-5.0) mmol/L Chloride (101-111) mmol/L Carbon Dioxide (21-32) mmol/L Anion Gap (6-13) BUN (6-20) mg/dL Creatinine (0.4-1.0) mg/dL Estimated GFR (MDRD) (>89) Glucose (70-100) mg/dL POC Whole Bld Glucose 129 H (70 - 100) mg/dL Estimat Average Glucose (70-100) mg/dL Hemoglobin A1c % (4.27-6.07) % Calcium (8.5-10.3) mg/dL Phosphorus (2.5-4.6) mg/dL Magnesium (1.7-2.8) mg/dL B-Natriuretic Peptide (5-100) pg/mL Nasal Screen MRSA (PCR) NEGATIVE (NEGATIVE) 05/16/21 05/16/21 05/16/21 Range/Units 12:08 11:15 10:35 WBC (4.8-10.8) x10^3/uL RBC (4.20-5.40) 10^6/uL Hgb (12.0-16.0) g/dL Hct (37.0-47.0) % MCV (81.0-99.0) fL MCH (27.0-31.0) pg MCHC (32.0-36.0) g/dL RDW (12.0-15.0) % Plt Count (130-450) 10^3/uL MPV (7.9-10.8) fL Neut # (Auto) (1.5-6.6) 10^3/uL Lymph # (Auto) (1.5-3.5) 10^3/uL Whiteside # (Auto) (0.0-1.0) 10^3/uL Eos # (Auto) (0.0-0.7) 10^3/uL Baso # (Auto) (0.0-0.1) 10^3/uL Absolute Nucleated RBC x10^3/uL Nucleated RBC % /100WBC Manual Slide Review WBC Morphology (NORMAL) Platelet Estimate (NORMAL) Platelet Morphology (NORMAL) RBC Morph Micro Appear (NORMAL) Bld Gas Analysis Time 1047 Sample Site RIGHT RADIAL ABG pH 7.31 L (7.35-7.45) ABG pCO2 57 H (34-45) mmHg ABG pO2 77 L (80-100) mmHg ABG HCO3 27.7 H (22.0-26.0) mmol/L ABG Total CO2 29.4 H (21.0-29.0) MMOL/L ABG O2 Saturation 93 L (94-98) % ABG Base Excess 0.8 (-2.0-3.0) mmol/L Derek Test POSITIVE VBG pH (7.31-7.41) Ionized Calcium (1.15-1.33) mmol/L O2 Delivery Device HHFNC O2 Liters/Min 45.00 LPM FiO2 0.40 EPAP cmH2O IPAP cmH2O Sodium (135-145) mmol/L Potassium (3.5-5.0) mmol/L Chloride (101-111) mmol/L Carbon Dioxide (21-32) mmol/L Anion Gap (6-13) BUN (6-20) mg/dL Creatinine (0.4-1.0) mg/dL Estimated GFR (MDRD) (>89) Glucose (70-100) mg/dL POC Whole Bld Glucose 291 H (70 - 100) mg/dL Estimat Average Glucose (70-100) mg/dL Hemoglobin A1c % (4.27-6.07) % Calcium (8.5-10.3) mg/dL Phosphorus (2.5-4.6) mg/dL Magnesium (1.7-2.8) mg/dL B-Natriuretic Peptide 278 H (5-100) pg/mL Nasal Screen MRSA (PCR) (NEGATIVE) 05/16/21 05/16/21 Range/Units 08:18 05:00 WBC (4.8-10.8) x10^3/uL RBC (4.20-5.40) 10^6/uL Hgb (12.0-16.0) g/dL Hct (37.0-47.0) % MCV (81.0-99.0) fL MCH (27.0-31.0) pg MCHC (32.0-36.0) g/dL RDW (12.0-15.0) % Plt Count (130-450) 10^3/uL MPV (7.9-10.8) fL Neut # (Auto) (1.5-6.6) 10^3/uL Lymph # (Auto) (1.5-3.5) 10^3/uL Whiteside # (Auto) (0.0-1.0) 10^3/uL Eos # (Auto) (0.0-0.7) 10^3/uL Baso # (Auto) (0.0-0.1) 10^3/uL Absolute Nucleated RBC x10^3/uL Nucleated RBC % /100WBC Manual Slide Review WBC Morphology (NORMAL) Platelet Estimate (NORMAL) Platelet Morphology (NORMAL) RBC Morph Micro Appear (NORMAL) Bld Gas Analysis Time Sample Site ABG pH (7.35-7.45) ABG pCO2 (34-45) mmHg ABG pO2 (80-100) mmHg ABG HCO3 (22.0-26.0) mmol/L ABG Total CO2 (21.0-29.0) MMOL/L ABG O2 Saturation (94-98) % ABG Base Excess (-2.0-3.0) mmol/L Derek Test VBG pH (7.31-7.41) Ionized Calcium (1.15-1.33) mmol/L O2 Delivery Device O2 Liters/Min LPM FiO2 EPAP cmH2O IPAP cmH2O Sodium (135-145) mmol/L Potassium (3.5-5.0) mmol/L Chloride (101-111) mmol/L Carbon Dioxide (21-32) mmol/L Anion Gap (6-13) BUN (6-20) mg/dL Creatinine (0.4-1.0) mg/dL Estimated GFR (MDRD) (>89) Glucose (70-100) mg/dL POC Whole Bld Glucose 410 H (70 - 100) mg/dL Estimat Average Glucose 220 H (70-100) mg/dL Hemoglobin A1c % 9.3 H (4.27-6.07) % Calcium (8.5-10.3) mg/dL Phosphorus (2.5-4.6) mg/dL Magnesium (1.7-2.8) mg/dL B-Natriuretic Peptide (5-100) pg/mL Nasal Screen MRSA (PCR) (NEGATIVE) Assessment/Plan - Problem List (1) Acute on chronic respiratory failure with hypoxia Impression: This is secondary to COVID-19 pneumonia. She is normally on 1 to 2 L of oxygen at home for her underlying COPD. Yesterday she was requiring high flow nasal cannula and due to change in mental status, an ABG was obtained which showed she was slightly hypercapnic. Given she was hypercapnic and short of breath, we transferred her to intensive care unit and placed on BiPAP. She has been doing well on BiPAP with intermittent breaks. Her FiO2 requirements are only 30% while she is on BiPAP and her saturations are in the mid to high 90s. The plan for today will be to continue with BiPAP as needed and try to transition her to nasal cannula for most of the day. She may continue to use BiPAP as needed. We are continuing her on Decadron 6 mg IV daily. She also remains on remdesivir. We also have her on ceftriaxone azithromycin for possible component of community-acquired pneumonia as well as the fact that she is underlying COPD and there could be a component of bacterial overgrowth. Her goal oxygen saturation is greater than 88%. She will remain in the intensive care unit given she still requires BiPAP. (2) COVID-19 Impression: This appears to be the cause of her acute on chronic hypoxic respiratory failure. We are continuing her on Decadron and remdesivir. Continue contact precautions. Plan as mentioned above. (3) COPD (chronic obstructive pulmonary disease) Impression: She is on 1-2 L of oxygen at baseline. She currently does not appear to be in exacerbation. She is on budesonide/formoterol and Tiotropium at home. We will keep her on duo nebs every 4 hours with albuterol as needed. We will resume her home inhalers once she is off of BiPAP. Once again, her goal oxygen saturation is greater than 88%. (4) Chronic diastolic heart failure Impression: This does not appear to be an acute exacerbation. Her last echocardiogram revealed grade 2 diastolic dysfunction with evidence of cor pulmonale. She does have chronic lower extremity edema likely due to the cor pulmonale. We gave her a dose of IV Lasix yesterday but this did not prevent her from going on BiPAP. We will resume her home oral diuretics today. We will consider further IV diuresis if necessary. (5) Diabetes mellitus with hyperglycemia Impression: Her blood glucose was initially poorly controlled with a blood glucose of 400. This was likely exacerbated by the use of Decadron. She is currently n.p.o. and her blood glucose is in the low 100s. We will place her back on a diet when she is off of BiPAP. We will continue her current dose of Lantus which is 40 units but will consider decreasing this if there is evidence of hypoglycemia as she is n.p.o. We are holding her short acting insulin. Continue with sliding scale. 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 She was noted to be anemic during her most recent hospitalization with a hemoglobin on 9. Today it is further decreased to 8.1. There has been no obvious evidence of bleeding. Her MCV is elevated at 113. She had iron studies during her prior hospitalization which suggested anemia of chronic disease. Her B12 and folate were within normal limits. We will check her stool for occult blood otherwise we will cont inue to trend her hemoglobin and transfuse as needed. (7) Cor pulmonale (chronic) Impression: Chronic and likely secondary to her underlying COPD. She does have lower extremity edema and we did trial a dose of IV Lasix yesterday without much improvement in her symptoms. We will resume her home oral Lasix today. (8) Depression with anxiety Impression: She has appeared anxious at times. We will resume her home Wellbutrin, mirtazapine, and Remeron.
[2021-05-17] MEDS ORDERED: CALCIUM GLUCONATE 1,000 MG in SODIUM CHLORIDE 0.9% 50 ML IV ONE (08:00)
[2021-05-17] MEDS: cefTRIAXone 1 GM in SODIUM CHLORIDE 0.9% MINIBAG 100 ML IV SCH (08:23)
[2021-05-17] MEDS: DEXAMETHASONE 4 MG/ML VIAL IVP SCH (08:25)
[2021-05-17] MEDS: CALCIUM CARBONATE CHEW 500 MG TABLET PO SCH ×2 (08:32→12:17)
[2021-05-17] MEDS: AZITHROMYCIN INJ 500 MG in SODIUM CHLORIDE 0.9% 250 ML IV SCH (08:32)
[2021-05-17] MEDS: polyethylene glycoL 3350 17 GM PACKET PO SCH (08:33)
[2021-05-17] MEDS: REMDESIVIR 100MG VIAL 100 MG in SODIUM CHLORIDE 0.9% 100ML 100 ML IV SCH (08:33)
[2021-05-17] MEDS: SACCHAROMYCES BOULARDII 250 MG CAPSULE PO SCH ×2 (08:34→17:31)
[2021-05-17] MEDS: ASPIRIN EC 81 MG TABLET PO SCH (08:34)
[2021-05-17] MEDS ORDERED: ASPIRIN EC 81 MG TABLET PO SCH (09:00)
[2021-05-17] MEDS ORDERED: GABAPENTIN 300 MG CAPSULE PO ONE (09:00)
[2021-05-17] MEDS ORDERED: FUROSEMIDE 40 MG TABLET PO SCH (09:00)
[2021-05-17] MEDS: INSULIN ASPART 300 UNIT/3 ML PEN SUBQ SCH ×5 (09:25→20:58)
[2021-05-17] MEDS: INSULIN GLARGINE 300 UNIT/3 ML PEN SUBQ SCH ×2 (09:25→20:58)
[2021-05-17 09:44] LABS: ABG BASE EXCESS 2.9 mmol/L (-2.0-3.0); ABG HCO3 29.3 mmol/L (22.0-26.0); ABG OXYGEN SATURATION 89 % (94-98); ABG PCO2 55 mmHg (34-45); ABG PH 7.34 (7.35-7.45); ABG PO2 59 mmHg (80-100); ALLEN TEST POSITIVE
[2021-05-17] MEDS: oxyCODONE 5 MG TABLET PO PRN ×2 (10:33→17:31)
[2021-05-17] MEDS: PRIMIDONE 50 MG TABLET PO SCH ×2 (10:33→20:45)
[2021-05-17] MEDS: buPROPion SR 150 MG TABLET PO SCH (10:35)
[2021-05-17] MEDS: ENOXAPARIN 40 MG/0.4 ML SYRINGE SUBQ SCH (10:38)
[2021-05-17] MEDS: ATORVASTATIN 40 MG TABLET PO SCH (20:43)
[2021-05-17] MEDS: MIRTAZAPINE 15 MG TABLET PO SCH (20:44)
[2021-05-17] MEDS: GABAPENTIN 400 MG CAPSULE PO SCH (20:44)
[2021-05-17] MEDS: buPROPion SR 100 MG TABLET PO SCH (20:46)
[2021-05-17] MEDS: ALBUTEROL NEB 2.5 MG/3 ML INH PRN (21:29)
[2021-05-18] MEDS: LORazepam 2 MG/ML VIAL IVP PRN ×4 (00:09→21:48)
[2021-05-18] MEDS: SODIUM CHLORIDE FLUSH 0.9% 10 ML SYRINGE IVP SCH ×3 (00:10→17:26)
[2021-05-18 05:21] LABS: CALCIUM, IONIZED 1.12 mmol/L (1.15-1.33); VBG PH 7.302 (7.31-7.41)
[2021-05-18 05:29] LABS: BASOPHILS % (AUTO) 0.6 %; EOSINOPHILS # (AUTO) 0.4 10^3/uL (0.0-0.7); EOSINOPHILS % (AUTO) 6.3 %; HCT - HEMATOCRIT 27.6 % (37.0-47.0); HGB - HEMOGLOBIN 8.3 g/dL (12.0-16.0); LYMPHOCYTES # (AUTO) 1.2 10^3/uL (1.5-3.5); LYMPHOCYTES % (AUTO) 17.7 %; MEAN CORPUSCULAR HGB CONC 30.1 g/dL (32.0-36.0); MEAN CORPUSCULAR VOLUME 116.5 fL (81.0-99.0); MEAN PLATELET VOLUME 10.1 fL (7.9-10.8); MONOCYTES # (AUTO) 0.7 10^3/uL (0.0-1.0); MONOCYTES % (AUTO) 10.6 %; NEUTROPHILS # (AUTO) 4.1 10^3/uL (1.5-6.6); NEUTROPHILS % (AUTO) 63.7 %; NRBC ABSOLUTE COUNT (AUTO) 0.03 x10^3/uL; NUCLEATED RED BLOOD CELLS AUTO 0.5 /100WBC; PLT - PLATELET COUNT 300 10^3/uL (130-450); RED BLOOD COUNT 2.37 10^6/uL (4.20-5.40); RED CELL DISTRIBUTION WIDTH 17.5 % (12.0-15.0); WHITE BLOOD COUNT 6.5 x10^3/uL (4.8-10.8)
[2021-05-18 05:31] LABS: SLIDE REVIEW? Indicated
[2021-05-18 05:33] LABS: CALCIUM 8.5 mg/dL (8.5-10.3); CREATININE 0.9 mg/dL (0.4-1.0); POTASSIUM 4.8 mmol/L (3.5-5.0)
[2021-05-18 05:51] LABS: PLATELET ESTIMATE, MANUAL NORMAL (130-450,000) (NORMAL); PLATELET MORPHOLOGY NORMAL APPEARANCE (NORMAL); WBC MORPHOLOGY (MULTIPLE) NORMAL APPEARANCE (NORMAL)
[2021-05-18] MEDS: BUDESONIDE 0.5 MG/2 ML NEB INH SCH ×2 (08:08→20:44)
[2021-05-18] MEDS: IPRATROPIUM/ALBUTEROL 3 ML NEB INH SCH ×2 (08:08→11:56)
[2021-05-18] MEDS: DEXAMETHASONE 4 MG/ML VIAL IVP SCH (08:54)
[2021-05-18] MEDS ORDERED: LEVALBUTEROL 1.25 MG/3 ML NEB INH PRN (09:10)
[2021-05-18] MEDS ORDERED: diltiaZEM INJ 5 MG/ML VIAL IVP ONE ×2 (09:11→12:02)
[2021-05-18] MEDS: ENOXAPARIN 40 MG/0.4 ML SYRINGE SUBQ SCH (09:46)
--- NOTE | 2021-05-18 09:51 | XRAY Report ---
PROCEDURE: Chest 1 View X-Ray INDICATIONS: SOB, new Afib TECHNIQUE: One view of the chest was acquired. COMPARISON: 04/19/2021 FINDINGS: Surgical changes and devices: None. Lungs and pleura: Hazy opacities throughout bilateral lung trujillo are seen suggestive of pulmonary ed suzette. Underlying small infiltrates cannot be entirely excluded. There are small bilateral pleural effu sera more prominent on the left side. No gross pneumothorax. Mediastinum: Mediastinal contours appear normal. Heart size is enlarged. Bones and chest wall: No suspicious bony lesions. Overlying soft tissues appear unremarkable. IMPRESSION: Finding is suggestive of CHF. No gross pneumothorax. Reviewed by: Colton Doyle MD on 05/18/2021 9:49 AM PDT Approved by: Colton Doyle MD on 05/18/2021 9:49 AM PDT Station ID: [id number]
[2021-05-18] MEDS: diltiaZEM INJ 125 MG in DEXTROSE 5% 100 ML IV SCH (10:05)
[2021-05-18 10:12] LABS: ABG HCO3 29.8 mmol/L (22.0-26.0); ABG PCO2 54 mmHg (34-45); ABG PH 7.36 (7.35-7.45); ABG PO2 84 mmHg (80-100)
[2021-05-18 10:13] LABS: ABG BASE EXCESS 3.6 mmol/L (-2.0-3.0); ABG MODE OF VENTILATION SYNCHRONOUS/TIMES; ABG OXYGEN SATURATION 96 % (94-98); ABG TCO2 31.5 MMOL/L (21.0-29.0); ALLEN TEST POSITIVE
[2021-05-18] MEDS: ASPIRIN EC 81 MG TABLET PO SCH (10:45)
[2021-05-18] MEDS: buPROPion SR 150 MG TABLET PO SCH (10:45)
[2021-05-18] MEDS: PRIMIDONE 50 MG TABLET PO SCH ×2 (10:46→21:42)
[2021-05-18] MEDS: GABAPENTIN 400 MG CAPSULE PO SCH ×2 (10:49→21:44)
[2021-05-18] MEDS: INSULIN ASPART 300 UNIT/3 ML PEN SUBQ SCH ×7 (10:55→21:46)
[2021-05-18] MEDS: INSULIN GLARGINE 300 UNIT/3 ML PEN SUBQ SCH ×2 (10:55→21:45)
[2021-05-18] MEDS: SACCHAROMYCES BOULARDII 250 MG CAPSULE PO SCH ×2 (11:01→17:23)
[2021-05-18] MEDS: MORPHINE 2 MG/ML CARPUJECT IVP PRN (11:04)
[2021-05-18] MEDS: ONDANSETRON 4 MG/2 ML VIAL IVP PRN (11:13)
--- NOTE | 2021-05-18 11:40 | PROVIDER PROGRESS NOTE ---
Assessment/Plan - Problem List (1) Acute on chronic respiratory failure with hypoxia Assessment/Plan: This is related to her underlying COPD needing chronic oxygen (new home oxygen order 1 month ago after that admission), on top of having Covid pneumonia/community-acquired pneumonia. Continue with supplemental oxygen, keeping sats greater than 88%. ABG was done today due to resp distress/panic attack and confirmed that she is saturating at 95%. Her CXR today was read as having CHF, therefore will start iv Lasix and stop the qod po Lasix. (2) Pneumonia due to COVID-19 virus Assessment/Plan: She has been started on remdesivir per protocol and IV Decadron per protocol. She is also getting empiric antibiotics for possible community-acquired pneumonia. Continue with supplemental oxygen. Continue with Mucinex for expectoration (3) COPD (chronic obstructive pulmonary disease) Assessment/Plan: She is on 1-2 L of oxygen at baseline, ever since her admission 1 mo ago. She currently does not appear to be in exacerbation. She is on budesonide/formoterol and Tiotropium at home. Will keep her on duo nebs every 4 hours, but will change prn Albuterol to prn Xopenex due to new RVR. We will resume her home inhalers once she is off of BiPAP. Her goal oxygen saturation is greater than 88%. (4) Atrial fibrillation with RVR Assessment/Plan: The patient went into sudden A. fib with RVR this morning, she may or may not have had palpitations, but she was in distress and appeared to be "panicky". Chest x-ray was done that showed bilateral fluffy infiltrates and was read as possible CHF. EKG showed a rate of 179, new right axis deviation and nonspecific ST segment changes. ABG showed adequate sats We will order troponins to rule her out for an CO. Will start Cardizem IV boluses and a Cardizem drip for rate control. Her CHADS score is calculated at 2 (HTN and DM), therefore will begin Lovenox bid, therapeutic dose, for stroke prophylaxis. (5) Acute on chronic diastolic heart failure Assessment/Plan: Her last echocardiogram done 1 mo ago, revealed grade 2 diastolic dysfunction wplus evidence of cor pulmonale. She has redeveloped leg edema since being discharged a month ago, likely due to the COVID pneumonia exacerbating her cor pulmonale. Will start IV daily nLasix, once her blood pressure has improved from being "soft", and stop the qod po Lasix. Controlling her new rapid heart rate will also help manage her diastolic heart failure (6) Diabetes mellitus with complication, with long-term current use of insulin Assessment/Plan: Her blood glucose was initially poorly controlled with a blood glucose of 400. This was likely exacerbated by the use of Decadron. She is currently on a diabetic diet when she can take off of BiPAP. We will continue her current dose of Lantus but will consider decreasing this if there is evidence of hypoglycemia as she is n.p.o. We are holding her short acting insulin. Continue with sliding scale. (7) Chronic anemia Assessment/Plan: Her baseline hemoglobin appears to be around 10-11. She was noted to be anemic during her most recent hospitalization with a hemoglobin on 9. Now it is further decreased to 8.1. There has been no obvious evidence of bleeding. Her MCV is elevated at 113. She had iron studies during her prior hospitalization which suggested anemia of chronic disease. Her B12 and folate were within normal limits. We will check her stool for occult blood otherwise we will continue to trend her hemoglobin and transfuse as needed. (8) Cor pulmonale (chronic) Assessment/Plan: Chronic and likely secondary to her underlying COPD. She does have lower extremity edema and we did start IV Lasix yesterday without much improvement in her symptoms. We will restart iv Lasix. (9) Depression with anxiety Assessment/Plan: She had a "panic attack", was sobbing and in distress this morning. She has appeared anxious at other times. Morphine iv was given this morning to help with air hunger and for sedation. We will resume her home Wellbutrin, mirtazapine, and Remeron. The son may contact her by phone in her room as well, which should help. - Current Meds Current Meds: Current Medications Generic Name Dose Route Start Last Admin Trade Name Freq PRN Reason Stop Dose Admin Albuterol/Ipratropium 3 ml 05/16/21 07:00 05/18/21 08:08 Ipratropium/Albuterol 3 Ml Neb INH 05/20/21 06:59 Not Given RTQID TEMO Aspirin 81 mg 05/16/21 09:00 05/18/21 10:45 Aspirin Ec 81 Mg Tablet PO 81 mg DAILY TEMO Administration Atorvastatin Calcium 80 mg 05/17/21 21:00 05/17/21 20:43 Atorvastatin 40 Mg Tablet PO 80 mg QPM TEMO Administration Budesonide 0.5 mg 05/16/21 07:00 05/18/21 08:08 Budesonide 0.5 Mg/2 Ml Neb INH Not Given RTBID TEMO Bupropion HCl 200 mg 05/17/21 21:00 05/17/21 20:46 Bupropion Sr 100 Mg Tablet PO 200 mg QPM TEMO Administration Bupropion HCl 150 mg 05/17/21 09:00 05/18/21 10:45 Bupropion Sr 150 Mg Tablet PO 150 mg DAILY TEMO Administration Dexamethasone 6 mg 05/17/21 09:00 05/18/21 08:54 Dexamethasone 4 Mg/Ml Vial IVP 6 mg DAILY TEMO Administration Enoxaparin Sodium 40 mg 05/16/21 09:00 05/18/21 09:46 Enoxaparin 40 Mg/0.4 Ml Syringe SUBQ 40 mg DAILY TEMO Administration Gabapentin 1,200 mg 05/17/21 21:00 05/18/21 10:49 Gabapentin 400 Mg Capsule PO 1,200 mg BID TEMO Administration Ceftriaxone Sodium 1 gm/ 100 mls @ 200 mls/hr 05/16/21 09:00 05/17/21 19:25 Sodium Chloride IV Infused DAILY TEMO Infusion Remdesivir 100 mg/ Sodium 100 mls @ 200 mls/hr 05/17/21 08:00 05/17/21 19:24 Chloride IV 05/20/21 08:29 Infused 0800 TEMO Infusion Diltiazem HCl 125 mg/ Dextrose 125 mls @ 5 mls/hr 05/18/21 10:00 05/18/21 10:34 IV 15 mg/hr .Q25H TEMO 15 mls/hr Titration Protocol 5 MG/HR Insulin Aspart 15 unit 05/16/21 08:00 05/18/21 10:55 Insulin Aspart 300 Unit/3 Ml Pen SUBQ Not Given TIDWM [facility] Protocol Insulin Aspart 1 - 5 unit 05/17/21 17:00 05/18/21 10:57 Insulin Aspart 300 Unit/3 Ml Pen SUBQ 2 unit 0800,1200,1700,2100 TEMO Administration Protocol Insulin Glargine 5 unit 05/16/21 08:00 05/18/21 10:55 Insulin Glargine 300 Unit/3 Ml Pen SUBQ Not Given QDBREAKFAST TEMO Insulin Glargine 40 unit 05/16/21 21:00 05/17/21 20:58 Insulin Glargine 300 Unit/3 Ml Pen SUBQ 40 unit QPM TEMO Administration Lorazepam 0.5 mg 05/16/21 04:50 05/18/21 00:09 Lorazepam 2 Mg/Ml Vial IVP 0.5 mg Q2H PRN Administration Anxiety Mirtazapine 22.5 mg 05/17/21 21:00 05/17/21 20:44 Mirtazapine 15 Mg Tablet PO 22.5 mg QPM TEMO Administration Morphine Sulfate 2 mg 05/18/21 10:47 05/18/21 11:04 Morphine 2 Mg/Ml Carpuject IVP 2 mg Q3HR PRN Administration Dyspnea Ondansetron HCl 4 mg 05/16/21 00:44 05/18/21 11:13 Ondansetron 4 Mg/2 Ml Vial IVP 4 mg Q6HR PRN Administration Nausea / Vomiting Oxycodone HCl 5 mg 05/16/21 00:44 05/17/21 17:31 Oxycodone 5 Mg Tablet PO 5 mg Q4HR PRN Administration Pain 5 to 7 Polyethylene Glycol 17 gm 05/16/21 09:00 05/17/21 08:33 Polyethylene Glycol 3350 17 Gm Packet PO 17 gm DAILY TEMO Administration Primidone 150 mg 05/17/21 09:00 05/18/21 10:46 Primidone 50 Mg Tablet PO 150 mg BID TEMO Administration Saccharomyces Boulardii 250 mg 05/16/21 08:00 05/18/21 11:01 Saccharomyces Boulardii 250 Mg Capsule PO 250 mg BIDWM TEMO Administration Sodium Chloride 10 ml 05/16/21 00:37 05/17/21 20:41 Sodium Chloride Flush 0.9% 10 Ml Syringe IVP 10 ml PRN PRN Administration NEEDED PER PROVIDER ORDERS Sodium Chloride 10 ml 05/16/21 01:00 05/18/21 00:10 Sodium Chloride Flush 0.9% 10 Ml Syringe IVP 10 ml 0100,0900,1700 TEMO Administration - Lab Result Fish Bone Diagrams: 05/19/21 06:37 05/19/21 06:37 - EKG Results EKG Interpreted Independently: Yes EKG Comparison: Changed from prior EKG EKG Findings: Atrial fib with rapid ventricular rate of 1 50-1 80, right axis deviation, nonspecific ST depressions in the inferolateral leads. Since EKG from 04/21/2021, A. fib with RVR is new, right axis deviation is new and ST segment changes are new. - Additional Planning My Orders: My Active Orders 05/18/21 09:07 RT - Obtain Arterial Specimen [RC] .ONCE 05/18/21 09:10 Nebulizer/MDI Tx. [RC] .qid Resp Teach Nebulizer/MDI [RC] .ONCE Levalbuterol [Xopenex] 1.25 mg INH Q4H PRN 05/18/21 10:00 Dextrose 5% [D5w] 100 ml diltiaZEM INJ [Cardizem Inj] 125 mg IV 5 mg/hr 05/18/21 10:47 Morphine Inj (Carpuject) [Morphine (Carpuject)] 2 mg IVP Q3HR PRN 05/18/21 12:15 TROPONIN I HIGH SENSITIVITY [IAI] Timed 05/19/21 09:00 FUROSEMIDE INJ 20mg VIAL [LASIX INJ 20mg VIAL] 20 mg IVP DAILY Subjective - Subjective Patient Reports: Shortness of Breath, Other (She is panicky, sobbing and asking to "let her go".) Objective Vital Signs: Vital Signs - 24 hr 05/17/21 05/17/21 05/17/21 11:39 11:40 12:00 Temperature Heart Rate 100 100 Heart Rate [ 92 Monitoring electrodes] Respiratory 22 23 Rate Blood Pressure Blood Pressure 129/73 [Left Brachial artery] O2 Saturation 05/17/21 05/17/21 05/17/21 13:00 13:27 14:00 Temperature Heart Rate 88 Heart Rate [ 90 87 Monitoring electrodes] Respiratory 23 25 H Rate Blood Pressure Blood Pressure 123/70 109/77 [Left Brachial artery] O2 Saturation 05/17/21 05/17/21 05/17/21 15:00 15:31 16:00 Temperature Heart Rate 92 Heart Rate [ 89 88 Monitoring electrodes] Respiratory 25 H 22 27 H Rate Blood Pressure Blood Pressure 119/71 [Left Brachial artery] O2 Saturation 97 94 09/06/21 09/06/21 09/06/21 17:00 17:43 18:00 Temperature 37.6 C Heart Rate 90 Heart Rate [ 98 88 Monitoring electrodes] Respiratory 22 22 Rate Blood Pressure Blood Pressure 136/105 H 105/51 L [Left Brachial artery] O2 Saturation 91 L 95 05/17/21 05/17/21 05/17/21 18:47 19:00 20:00 Temperature 37.4 C 37.4 C Heart Rate Heart Rate [ 86 91 Monitoring electrodes] Respiratory 28 H 23 Rate Blood Pressure Blood Pressure 105/80 121/64 [Left Brachial artery] O2 Saturation 97 98 05/17/21 05/17/21 05/17/21 21:00 21:33 22:00 Temperature 37.4 C Heart Rate 87 Heart Rate [ 90 100 Monitoring electrodes] Respiratory 24 23 Rate Blood Pressure Blood Pressure 136/64 H 94/83 H [Left Brachial artery] O2 Saturation 96 94 05/17/21 05/18/21 05/18/21 23:00 00:21 01:00 Temperature 37.7 C Heart Rate Heart Rate [ 91 98 87 Monitoring electrodes] Respiratory 23 24 22 Rate Blood Pressure Blood Pressure 133/67 H 145/71 H 115/56 L [Left Brachial artery] O2 Saturation 97 91 L 93 05/18/21 05/18/21 05/18/21 02:00 03:00 04:00 Temperature 37.7 C Heart Rate 98 Heart Rate [ 96 96 90 Monitoring electrodes] Respiratory 19 19 18 Rate Blood Pressure Blood Pressure 136/75 H 137/68 H 131/56 H [Left Brachial artery] O2 Saturation 92 100 99 05/18/21 05/18/21 05/18/21 05:00 05:30 06:00 Temperature Heart Rate 86 Heart Rate [ 90 88 Monitoring electrodes] Respiratory 19 20 Rate Blood Pressure Blood Pressure 119/66 135/75 H [Left Brachial artery] O2 Saturation 100 97 05/18/21 05/18/21 05/18/21 07:00 08:00 09:10 Temperature Heart Rate Heart Rate [ 88 89 187 H Monitoring electrodes] Respiratory 21 20 25 H Rate Blood Pressure Blood Pressure 141/81 H 144/73 H 131/114 H [Left Brachial artery] O2 Saturation 97 96 96 05/18/21 05/18/21 05/18/21 09:15 09:20 09:32 Temperature 38.7 C H Heart Rate Heart Rate [ 165 H 174 H Monitoring electrodes] Respiratory 22 26 H 25 H Rate Blood Pressure 131/114 H Blood Pressure 145/86 H 129/79 104/67 [Left Brachial artery] O2 Saturation 94 94 95 05/18/21 05/18/21 05/18/21 09:42 09:58 10:05 Temperature Heart Rate 175 H Heart Rate [ Monitoring electrodes] Respiratory 18 Rate Blood Pressure 112/93 H Blood Pressure 125/113 H [Left Brachial artery] O2 Saturation 96 05/18/21 05/18/21 05/18/21 10:10 10:20 10:32 Temperature Heart Rate Heart Rate [ 168 H 171 H Monitoring electrodes] Respiratory 18 19 18 Rate Blood Pressure Blood Pressure 107/91 H 112/84 H 119/101 H [Left Brachial artery] O2 Saturation 96 97 97 Oxygen O2 Source BIPAP I&O (Last 24 Hrs): Intake and Output Totals x24h 05/16/21 05/17/21 05/18/21 23:59 23:59 23:59 Intake Total 2760 2407.083 4.000 Output Total 3565 2245 760 Balance -805 162.083 -756.000 General: Alert, Moderate distress (She is crying, sobbing to "let her out of here", wearing BIPAP mask.), Other HEENT: Mucous membr. moist/pink Neck: Supple Neuro: Alert, Other (Has tremors of arms, legs are still) Cardiovascular: No murmurs, Other (Distant heart sounds) Respiratory: Other (Distant breath sounds, no wheezing) Abdomen: Soft (Obese with a pannus) Extremities: Other (3+ edema to above knees) - Results Results: Laboratory Results WBC 6.5 x10^3/uL (4.8-10.8) 05/18/21 04:58 RBC 2.37 10^6/uL (4.20-5.40) L 05/18/21 04:58 Hgb 8.3 g/dL (12.0-16.0) L 05/18/21 04:58 Hct 27.6 % (37.0-47.0) L 05/18/21 04:58 MCV 116.5 fL (81.0-99.0) H 05/18/21 04:58 MCH 35.0 pg (27.0-31.0) H 05/18/21 04:58 MCHC 30.1 g/dL (32.0-36.0) L 05/18/21 04:58 RDW 17.5 % (12.0-15.0) H 05/18/21 04:58 Plt Count 300 10^3/uL (130-450) 05/18/21 04:58 MPV 10.1 fL (7.9-10.8) 05/18/21 04:58 Neut # (Auto) 4.1 10^3/uL (1.5-6.6) 05/18/21 04:58 Lymph # (Auto) 1.2 10^3/uL (1.5-3.5) L 05/18/21 04:58 Garfield # (Auto) 0.7 10^3/uL (0.0-1.0) 05/18/21 04:58 Eos # (Auto) 0.4 10^3/uL (0.0-0.7) 05/18/21 04:58 Baso # (Auto) 0.0 10^3/uL (0.0-0.1) 05/18/21 04:58 Absolute Nucleated RBC 0.03 x10^3/uL 05/18/21 04:58 Nucleated RBC % 0.5 /100WBC 05/18/21 04:58 Manual Slide Review Indicated 05/18/21 04:58 WBC Morphology NORMAL APPEARANCE (NORMAL) 05/18/21 04:58 Platelet Estimate NORMAL (130-450,000) (NORMAL) 05/18/21 04:58 Platelet Morphology NORMAL APPEARANCE (NORMAL) 05/18/21 04:58 RBC Morph Micro Appear 2+ MACROCYTOSIS (NORMAL) 1+ BASO STIPPLING (NORMAL) 05/18/21 04:58 RBC Morph Micro Appear 2+ MACROCYTOSIS (NORMAL) 1+ BASO STIPPLING (NORMAL) 05/18/21 04:58 Bld Gas Analysis Time 1012 05/18/21 10:01 Sample Site LEFT RADIAL 05/18/21 10:01 ABG pH 7.36 (7.35-7.45) 05/18/21 10:01 ABG pCO2 54 mmHg (34-45) H 05/18/21 10:01 ABG pO2 84 mmHg (80-100) 05/18/21 10:01 ABG HCO3 29.8 mmol/L (22.0-26.0) H 05/18/21 10:01 ABG Total CO2 31.5 MMOL/L (21.0-29.0) H 05/18/21 10:01 ABG O2 Saturation 96 % (94-98) 05/18/21 10:01 ABG Base Excess 3.6 mmol/L (-2.0-3.0) H 05/18/21 10:01 Derek Test POSITIVE 05/18/21 10:01 VBG pH 7.302 (7.31-7.41) L 05/18/21 04:58 Ionized Calcium 1.12 mmol/L (1.15-1.33) L 05/18/21 04:58 O2 Delivery Device BiPAP 05/18/21 10:01 O2 Liters/Min 45.00 LPM 05/16/21 10:35 Vent Mode SYNCHRONOUS/TIMES 05/18/21 10:01 FiO2 35.00 05/18/21 10:01 Pressure Support Vent 7 cmH2O 05/17/21 09:25 EPAP 5 cmH2O 05/18/21 10:01 IPAP 12 cmH2O 05/18/21 10:01 Sodium 139 mmol/L (135-145) 05/18/21 04:58 Potassium 4.8 mmol/L (3.5-5.0) 05/18/21 04:58 Chloride 100 mmol/L (101-111) L 05/18/21 04:58 Carbon Dioxide 30 mmol/L (21-32) 05/18/21 04:58 Anion Gap 9.0 (6-13) 05/18/21 04:58 BUN 29 mg/dL (6-20) H 05/18/21 04:58 Creatinine 0.9 mg/dL (0.4-1.0) 05/18/21 04:58 Estimated GFR (MDRD) 61 (>89) L 05/18/21 04:58 Glucose 226 mg/dL (70-100) H 05/18/21 04:58 POC Whole Bld Glucose 194 mg/dL (70 - 100) H 05/17/21 20:24 Estimat Average Glucose 220 mg/dL (70-100) H 05/16/21 05:00 Hemoglobin A1c % 9.3 % (4.27-6.07) H 05/16/21 05:00 Calcium 8.5 mg/dL (8.5-10.3) 05/18/21 04:58 Phosphorus 3.5 mg/dL (2.5-4.6) 05/17/21 05:05 Magnesium 2.3 mg/dL (1.7-2.8) 05/17/21 05:05 Troponin I High Sens 22.5 ng/L (2.3-14.8) H* 05/18/21 09:11 B-Natriuretic Peptide 278 pg/mL (5-100) H 05/16/21 11:15 Nasal Screen MRSA (PCR) NEGATIVE (NEGATIVE) 05/16/21 21:10 - Procedures Procedures: Procedures EXCISION OF ASCENDING COLON, ENDO, DIAGN (09/28/17) EXCISION OF CECUM, ENDO, DIAGN (09/28/17) EXCISION OF DESCENDING COLON, ENDO (07/13/18) EXCISION OF SIGMOID COLON, ENDO (07/13/18) EXCISION OF SIGMOID COLON, ENDO, DIAGN (09/28/17) EXCISION OF TRANSVERSE COLON, ENDO (07/13/18) EXCISION OF TRANSVERSE COLON, ENDO, DIAGN (09/28/17) INTRODUCTION OF OTH THERAP SUBST INTO LOW GI, ENDO (09/28/17)
--- NOTE | 2021-05-18 12:05 | ADVANCE CARE PLANNING NOTE ---
Advance Care Planning - Planning Encounter Date: 05/18/21 Time: 11:30 Purpose: To confirm CODE BLUE status Parties in Attendance: I spoke to her son Zackery by phone, outside of her room Decisional Capacity of the Patient: She is currently in resp distress and needing iv Morphine prn, therefore she is not reliable to answer questions or make decisions now. - Diagnosis for Encounter (1) Acute on chronic respiratory failure with hypoxia Summary: She has needed increased supplemental O2 and remains in the ICU She was discharged on new home O2 from the last admission 1 month ago. (2) Pneumonia due to COVID-19 virus Summary: She has been started on Remdesivir and Decadron due to hypoxia and resp distress and CXR showing "fluffy bilateral infiltrates". - Encounter Subjective/Patient's Story: She was admitted 1 month ago with a COPD exacerbation and leg edema which was tr eated and she was discharged with new Home oxygen, new Lasix, new inhalersa. She subsequently went to a concert and a "big constitution party", then noticed being more SOB and worse cough. On ER presntation, she was in COPD exacerbation and also tested newly (+) for COVID. She was started on COVID directed treatment whenb her resp status continued to worsen after admission. Objective/Medical Story: As above. She also went into new-onset Afib with RVR this morning, is on a Cardizem drip. ABG was stable on BIPAP. CXR was read as possible CHF. I updated the son, Zackery that she is now in critical condition, and that we are now diagnosing her witgh COVID pneumonia. I asked what her CODE BLUE wishes are, because she was DNR at the last admission 1 month ago, but currently her o rders state she is Full Code. Goals of Care: Zackery, her son confirmed that as of the last time he and she spoke, she wanted to "let nature take its course, if she has a cardiac arrest. She would want to be put on a ventilator if needed for her respiratory status. Plan: Will change her CODE status to DNR. Will plan that ventilator support could be used if her respiratory status worsens and if she needs it. Additional Discussion: The son was worried that she is not answering his text messages and I explained that she is in too much distress or on Morphine treatments and is not able to participate in text messaging right now. He could call into her hospital room and let her hear his voice via a land line, but she may not be able to vocalize an answer. Code Status: Do Not Attempt Resuscitation Time spent on advance care plannin min
[2021-05-18] MEDS: cefTRIAXone 1 GM in SODIUM CHLORIDE 0.9% MINIBAG 100 ML IV SCH (12:42)
[2021-05-18] MEDS: polyethylene glycoL 3350 17 GM PACKET PO SCH (12:48)
[2021-05-18] MEDS: REMDESIVIR 100MG VIAL 100 MG in SODIUM CHLORIDE 0.9% 100ML 100 ML IV SCH (13:54)
[2021-05-18] MEDS: AZITHROMYCIN INJ 500 MG in SODIUM CHLORIDE 0.9% 250 ML IV SCH (14:27)
[2021-05-18] MEDS: FORMOTEROL FUMARATE NEB 20 MCG/2 ML INH SCH (20:44)
[2021-05-18] MEDS: LEVALBUTEROL 1.25 MG/3 ML NEB INH SCH (20:44)
[2021-05-18] MEDS: MIRTAZAPINE 15 MG TABLET PO SCH (21:42)
[2021-05-18] MEDS: traZODone 50 MG TABLET PO SCH (21:43)
[2021-05-18] MEDS: buPROPion SR 100 MG TABLET PO SCH (21:44)
[2021-05-18] MEDS: rOPINIRole 0.25 MG TABLET PO SCH (21:44)
[2021-05-18] MEDS: ATORVASTATIN 40 MG TABLET PO SCH (21:44)
[2021-05-18] MEDS: ENOXAPARIN 150 MG/ML SYRINGE SUBQ SCH (21:47)
[2021-05-18] MEDS: SODIUM CHLORIDE 0.9% 500 ML IV PRN (22:01)
[2021-05-18] MEDS ORDERED: METOPROLOL 5 MG/5 ML VIAL IVP PRN (23:48)
[2021-05-18] MEDS ORDERED: CARBOXYMETHYLCELLULOSE OPHTH DROPS EACHEYE PRN (23:50)
[2021-05-19] MEDS: SODIUM CHLORIDE FLUSH 0.9% 10 ML SYRINGE IVP SCH ×3 (00:05→17:47)
[2021-05-19] MEDS: diltiaZEM INJ 125 MG in DEXTROSE 5% 100 ML IV SCH ×4 (01:51→23:16)
[2021-05-19 05:32] LABS: CALCIUM, IONIZED 1.11 mmol/L (1.15-1.33); VBG PH 7.272 (7.31-7.41)
[2021-05-19 07:10] LABS: BASOPHILS % (AUTO) 0.4 %; EOSINOPHILS # (AUTO) 0.1 10^3/uL (0.0-0.7); HCT - HEMATOCRIT 25.5 % (37.0-47.0); HGB - HEMOGLOBIN 7.6 g/dL (12.0-16.0); LYMPHOCYTES # (AUTO) 1.1 10^3/uL (1.5-3.5); LYMPHOCYTES % (AUTO) 23.9 %; MEAN CORPUSCULAR HEMOGLOBIN 34.7 pg (27.0-31.0); MEAN CORPUSCULAR HGB CONC 29.8 g/dL (32.0-36.0); MEAN CORPUSCULAR VOLUME 116.4 fL (81.0-99.0); MEAN PLATELET VOLUME 10.2 fL (7.9-10.8); MONOCYTES # (AUTO) 0.4 10^3/uL (0.0-1.0); MONOCYTES % (AUTO) 8.3 %; NEUTROPHILS # (AUTO) 2.9 10^3/uL (1.5-6.6); NEUTROPHILS % (AUTO) 63.3 %; NRBC ABSOLUTE COUNT (AUTO) 0.03 x10^3/uL; NUCLEATED RED BLOOD CELLS AUTO 0.7 /100WBC; PLT - PLATELET COUNT 270 10^3/uL (130-450); RED BLOOD COUNT 2.19 10^6/uL (4.20-5.40); RED CELL DISTRIBUTION WIDTH 17.4 % (12.0-15.0); WHITE BLOOD COUNT 4.6 x10^3/uL (4.8-10.8)
[2021-05-19 07:15] LABS: SLIDE REVIEW? Indicated
[2021-05-19 07:23] LABS: MAGNESIUM 2.3 mg/dL (1.7-2.8); PHOSPHORUS 4.3 mg/dL (2.5-4.6); POTASSIUM 5.6 mmol/L (3.5-5.0)
[2021-05-19 07:28] LABS: CALCIUM 8.2 mg/dL (8.5-10.3); CREATININE 1.2 mg/dL (0.4-1.0); POTASSIUM 5.7 mmol/L (3.5-5.0)
[2021-05-19 07:52] LABS: PLATELET ESTIMATE, MANUAL NORMAL (130-450,000) (NORMAL); PLATELET MORPHOLOGY NORMAL APPEARANCE (NORMAL); RBC MORPHOLOGY (MULTIPLE) 2+ MACROCYTOSIS (NORMAL)
[2021-05-19] MEDS: LEVALBUTEROL 1.25 MG/3 ML NEB INH SCH ×4 (08:08→20:12)
[2021-05-19] MEDS: BUDESONIDE 0.5 MG/2 ML NEB INH SCH ×2 (08:08→20:12)
[2021-05-19] MEDS: FORMOTEROL FUMARATE NEB 20 MCG/2 ML INH SCH ×2 (08:08→20:12)
[2021-05-19] MEDS: REMDESIVIR 100MG VIAL 100 MG in SODIUM CHLORIDE 0.9% 100ML 100 ML IV SCH (08:16)
[2021-05-19] MEDS: INSULIN GLARGINE 300 UNIT/3 ML PEN SUBQ SCH ×2 (08:24→20:24)
[2021-05-19] MEDS: INSULIN ASPART 300 UNIT/3 ML PEN SUBQ SCH ×7 (08:25→20:24)
[2021-05-19] MEDS: SACCHAROMYCES BOULARDII 250 MG CAPSULE PO SCH ×2 (08:31→17:46)
[2021-05-19] MEDS: ASPIRIN EC 81 MG TABLET PO SCH (08:32)
[2021-05-19] MEDS: buPROPion SR 150 MG TABLET PO SCH (08:32)
[2021-05-19] MEDS: GABAPENTIN 400 MG CAPSULE PO SCH ×2 (08:38→20:12)
[2021-05-19] MEDS: PRIMIDONE 50 MG TABLET PO SCH ×2 (08:38→20:11)
[2021-05-19] MEDS: ENOXAPARIN 150 MG/ML SYRINGE SUBQ SCH ×2 (08:40→20:13)
[2021-05-19] MEDS: DEXAMETHASONE 4 MG/ML VIAL IVP SCH (08:41)
[2021-05-19] MEDS: FUROSEMIDE 20 MG/2 ML VIAL IVP SCH (08:45)
[2021-05-19] MEDS: polyethylene glycoL 3350 17 GM PACKET PO SCH (08:47)
[2021-05-19] MEDS: cefTRIAXone 1 GM in SODIUM CHLORIDE 0.9% MINIBAG 100 ML IV SCH (08:49)
[2021-05-19] MEDS ORDERED: polyethylene glycoL 3350 17 GM PACKET PO SCH (09:00)
[2021-05-19] MEDS: METOPROLOL 5 MG/5 ML VIAL IVP PRN ×2 (11:46→17:47)
[2021-05-19] MEDS: LORazepam 2 MG/ML VIAL IVP PRN ×3 (11:48→18:55)
[2021-05-19] MEDS: MORPHINE 2 MG/ML CARPUJECT IVP PRN (11:51)
--- NOTE | 2021-05-19 16:01 | PROVIDER PROGRESS NOTE ---
Assessment/Plan - Problem List (1) Acute on chronic respiratory failure with hypoxia Assessment/Plan: This is related to her underlying COPD needing chronic oxygen (new home oxygen order 1 month ago after that admission), on top of having Covid pneumonia/community-acquired pneumonia. She is not in COPD exacerbation this admission Continue with supplemental oxygen, keeping sats greater than 88%. Her CXR yesterday was read as having CHF, therefore we are starting iv Lasix today and stopped the qod po Lasix. (2) Pneumonia due to COVID-19 virus Assessment/Plan: She has been started on remdesivir per protocol and IV Decadron per protocol. She is also getting empiric antibiotics for possible community-acquired pneumonia. Continue with supplemental oxygen. Continue with Mucinex for expectoration (3) COPD (chronic obstructive pulmonary disease) Assessment/Plan: She is on 1-2 L of oxygen at baseline, ever since her admission 1 mo ago. She currently does not appear to be in exacerbation. She is on budesonide/formote rol and Tiotropium at home. Will keep her on duo nebs every 4 hours, but we changed prn Albuterol to prn Xopenex due to new RVR that started yesterday We will resume her home inhalers once she is off of BiPAP. Her goal oxygen saturation is greater than 88%. (4) Atrial fibrillation with RVR Assessment/Plan: The patient went into sudden A. fib with RVR yesterday morning, she was in distress and appeared to be "panicky" at the time Chest x-ray was done that showed bilateral fluffy infiltrates and was read as possible CHF. EKG showed a rate of 179, new right axis deviation and nonspecific ST segment changes. ABG showed adequate sats Her serial troponins ruled her out for an AL. We started Cardizem IV boluses and a Cardizem drip for rate control and iv Metoprolol was needed last night Her CHADS score is calculated at 2 (HTN and DM), therefore will begin Lovenox bid, therapeutic dose, for stroke prophylaxis. (5) Acute on chronic diastolic heart failure Assessment/Plan: Her last echocardiogram done 1 mo ago, revealed grade 2 diastolic dysfunction wplus evidence of cor pulmonale. She has redeveloped leg edema since being discharged a month ago, likely due to the COVID pneumonia exacerbating her cor pulmonale. Will start IV daily Lasix today, and we stopped the qod po Lasix. Controlling her new rapid heart rate will also help manage her diastolic heart failure (6) Diabetes mellitus with complication, with long-term current use of insulin Assessment/Plan: Her blood glucose was initially poorly controlled with a blood glucose of 400. This was likely exacerbated by the use of Decadron. She is currently on a diabetic diet when she can take off of BiPAP. We will continue her current dose of Lantus but will consider decreasing this if there is evidence of hypoglycemia as she is n.p.o. We are holding her short acting insulin. Continue with sliding scale. (7) Chronic anemia Assessment/Plan: Her baseline hemoglobin appears to be around 10-11. She was noted to be anemic during her most recent hospitalization with a hemoglobin on 9. Now it is further decreased to 8. There has been no obvious evidence of bleeding. Her MCV is elevated at 113. Her B12 and folate were within normal limits. She had iron studies during her prior hospitalization which suggested anemia of chronic disease. We will check her stool for occult blood otherwise we will continue to trend her hemoglobin and transfuse if it drops below 7. (8) Cor pulmonale (chronic) Assessment/Plan: Chronic and likely secondary to her underlying COPD. She does have lower extremity edema and we did start IV Lasix today and decreased iv fluids since she is eating 100% of her tray (9) Depression with anxiety Assessment/Plan: She had a "panic attack" yesterday, was sobbing and in distress. She has appeared anxious at other times. Morphine iv was given to help with air hunger and for sedation. We will resume her home Wellbutrin, mirtazapine, and Remeron. The son may contact her by phone in her room as well, which should help. - Current Meds Current Meds: Current Medications Generic Name Dose Route Start Last Admin Trade Name Freq PRN Reason Stop Dose Admin Aspirin 81 mg 05/16/21 09:00 05/19/21 08:32 Aspirin Ec 81 Mg Tablet PO 81 mg DAILY TEMO Administration Atorvastatin Calcium 80 mg 05/17/21 21:00 05/18/21 21:44 Atorvastatin 40 Mg Tablet PO 80 mg QPM TEMO Administration Budesonide 0.5 mg 05/16/21 07:00 05/19/21 08:08 Budesonide 0.5 Mg/2 Ml Neb INH 0.5 mg RTBID TEMO Administration Bupropion HCl 200 mg 05/17/21 21:00 05/18/21 21:44 Bupropion Sr 100 Mg Tablet PO 200 mg QPM TEMO Administration Bupropion HCl 150 mg 05/17/21 09:00 05/19/21 08:32 Bupropion Sr 150 Mg Tablet PO 150 mg DAILY TEMO Administration Dexamethasone 6 mg 05/17/21 09:00 05/19/21 08:41 Dexamethasone 4 Mg/Ml Vial IVP 6 mg DAILY TEMO Administration Enoxaparin Sodium 130 mg 05/18/21 21:00 05/19/21 08:40 Enoxaparin 150 Mg/Ml Syringe SUBQ 130 mg BID TEMO Administration Formoterol Fumarate 20 mcg 05/18/21 19:00 05/19/21 08:08 Formoterol Fumarate Neb 20 Mcg/2 Ml INH 20 mcg RTBID TEMO Administration Furosemide 20 mg 05/19/21 09:00 05/19/21 08:45 Furosemide 20 Mg/2 Ml Vial IVP 20 mg DAILY TEMO Administration Gabapentin 1,200 mg 05/17/21 21:00 05/19/21 08:38 Gabapentin 400 Mg Capsule PO 1,200 mg BID TEMO Administration Ceftriaxone Sodium 1 gm/ 100 mls @ 200 mls/hr 05/16/21 09:00 05/19/21 09:19 Sodium Chloride IV 05/20/21 12:00 Infused DAILY TEMO Infusion Remdesivir 100 mg/ Sodium 100 mls @ 200 mls/hr 05/17/21 08:00 05/19/21 08:46 Chloride IV 05/20/21 08:29 Infused 0800 TEMO Infusion Diltiazem HCl 125 mg/ Dextrose 125 mls @ 5 mls/hr 05/18/21 10:00 05/19/21 11:30 IV 10 mg/hr .Q25H TEMO 10 mls/hr Administration Protocol 5 MG/HR Sodium Chloride 500 mls @ 20 mls/hr 05/18/21 21:11 05/18/21 22:01 Normal Saline 0.9% IV 20 mls/hr Q24H PRN Administration TKO RATE Insulin Aspart 15 unit 05/16/21 08:00 05/19/21 11:36 Insulin Aspart 300 Unit/3 Ml Pen SUBQ 15 unit TIDWM TEMO Administration Protocol Insulin Aspart 1 - 9 unit 05/19/21 08:00 05/19/21 11:38 Insulin Aspart 300 Unit/3 Ml Pen SUBQ 3 unit 0800,1200,1700,2100 TEMO Administration Protocol Insulin Glargine 5 unit 05/16/21 08:00 05/19/21 08:24 Insulin Glargine 300 Unit/3 Ml Pen SUBQ 5 unit [id number] TEMO Administration Insulin Glargine 40 unit 05/16/21 21:00 05/18/21 21:45 Insulin Glargine 300 Unit/3 Ml Pen SUBQ 40 unit QPM TEMO Administration Levalbuterol HCl 1.25 mg 05/18/21 19:00 05/19/21 11:54 Levalbuterol 1.25 Mg/3 Ml Neb INH 1.25 mg RTQID TEMO Administration Lorazepam 0.5 mg 05/16/21 04:50 05/19/21 14:11 Lorazepam 2 Mg/Ml Vial IVP 0.5 mg Q2H PRN Administration Anxiety Metoprolol Tartrate 5 mg 05/19/21 06:59 05/19/21 11:46 Metoprolol 5 Mg/5 Ml Vial IVP 5 mg Q6H PRN Administration Tachycardia Mirtazapine 22.5 mg 05/17/21 21:00 05/18/21 21:42 Mirtazapine 15 Mg Tablet PO 22.5 mg QPM TEMO Administration Morphine Sulfate 2 mg 05/18/21 10:47 05/19/21 11:51 Morphine 2 Mg/Ml Carpuject IVP 2 mg Q3HR PRN Administration Dyspnea Ondansetron HCl 4 mg 05/16/21 00:44 05/18/21 11:13 Ondansetron 4 Mg/2 Ml Vial IVP 4 mg Q6HR PRN Administration Nausea / Vomiting Oxycodone HCl 5 mg 05/16/21 00:44 05/17/21 17:31 Oxycodone 5 Mg Tablet PO 5 mg Q4HR PRN Administration Pain 5 to 7 Polyethylene Glycol 17 gm 05/16/21 09:00 05/19/21 08:47 Polyethylene Glycol 3350 17 Gm Packet PO 17 gm DAILY TEMO Administration Primidone 150 mg 05/17/21 09:00 05/19/21 08:38 Primidone 50 Mg Tablet PO 150 mg BID TEMO Administration Ropinirole HCl 0.25 mg 05/18/21 21:00 05/18/21 21:44 Ropinirole 0.25 Mg Tablet PO 0.25 mg QPM TEMO Administration Saccharomyces Boulardii 250 mg 05/16/21 08:00 05/19/21 08:31 Saccharomyces Boulardii 250 Mg Capsule PO 250 mg BIDWM TEMO Administration Sodium Chloride 10 ml 05/16/21 00:37 05/17/21 20:41 Sodium Chloride Flush 0.9% 10 Ml Syringe IVP 10 ml PRN PRN Administration NEEDED PER PROVIDER ORDERS Sodium Chloride 10 ml 05/16/21 01:00 05/19/21 08:48 Sodium Chloride Flush 0.9% 10 Ml Syringe IVP Not Given 0100,0900,1700 TEMO Trazodone HCl 300 mg 05/18/21 21:00 05/18/21 21:43 Trazodone 50 Mg Tablet PO 300 mg QPM TEMO Administration - Lab Result Fish Bone Diagrams: 05/19/21 06:37 05/19/21 06:37 - Additional Planning My Orders: My Active Orders 05/18/21 15:52 Levalbuterol [Xopenex] 1.25 mg INH Q4H PRN 05/18/21 19:00 Formoterol Fumarate [Perforomist] 20 mcg INH RTBID Levalbuterol [Xopenex] 1.25 mg INH RTQID 05/18/21 21:00 Enoxaparin [Lovenox] 130 mg SUBQ BID rOPINIRole [Requip] 0.25 mg PO QPM traZODone [Desyrel] 300 mg PO QPM 05/19/21 09:00 FUROSEMIDE INJ 20mg VIAL [LASIX INJ 20mg VIAL] 20 mg IVP DAILY 05/19/21 14:54 Miscellaenous Nursing Order [RC] QSHIFT Subjective - Subjective Patient Reports: Feeling Better (She is more alert, eating 100% of her tray, able to take BIPAP off temporarily), Resting Comfortably Objective Vital Signs: Vital Signs - 24 hr 05/18/21 05/18/21 05/18/21 16:04 17:00 18:00 Temperature 36.6 C Heart Rate 152 H Heart Rate [ 147 H 152 H Monitoring electrodes] Respiratory 18 20 Rate Blood Pressure Blood Pressure 110/97 H 127/88 H [Left Brachial artery] O2 Saturation 91 L 88 L 05/18/21 05/18/21 05/18/21 19:00 20:00 20:45 Temperature 37.6 C Heart Rate 131 H Heart Rate [ 155 H 142 H Monitoring electrodes] Respiratory 21 19 Rate Blood Pressure Blood Pressure 111/68 113/81 H [Left Brachial artery] O2 Saturation 95 98 05/18/21 05/18/21 05/18/21 20:51 21:00 22:00 Temperature Heart Rate 131 H Heart Rate [ 146 H 154 H Monitoring electrodes] Respiratory 23 18 16 Rate Blood Pressure Blood Pressure 116/71 143/98 H [Left Brachial artery] O2 Saturation 98 95 05/18/21 05/19/21 05/19/21 23:00 00:00 00:47 Temperature Heart Rate Heart Rate [ 149 H 145 H Monitoring electrodes] Respiratory 13 15 Rate Blood Pressure 108/76 Blood Pressure 105/82 H 104/74 [Left Brachial artery] O2 Saturation 95 97 05/19/21 05/19/21 05/19/21 01:00 01:17 02:00 Temperature Heart Rate Heart Rate [ 131 H 128 H Monitoring electrodes] Respiratory 13 16 Rate Blood Pressure 100/62 Blood Pressure 96/72 97/64 [Left Brachial artery] O2 Saturation 98 97 05/19/21 05/19/21 05/19/21 02:30 03:00 04:00 Temperature 37.7 C Heart Rate 121 H Heart Rate [ 134 H 125 H Monitoring electrodes] Respiratory 16 15 Rate Blood Pressure Blood Pressure 90/54 L 85/62 L [Left Brachial artery] O2 Saturation 93 95 05/19/21 05/19/21 05/19/21 04:39 05:00 05:30 Temperature Heart Rate 131 H Heart Rate [ 125 H 129 H Monitoring electrodes] Respiratory 17 Rate Blood Pressure Blood Pressure 102/65 96/55 L [Left Brachial artery] O2 Saturation 96 05/19/21 05/19/21 05/19/21 06:00 07:00 08:00 Temperature 36.6 C Heart Rate Heart Rate [ 125 H 123 H 121 H Monitoring electrodes] Respiratory 17 15 15 Rate Blood Pressure Blood Pressure 95/70 92/62 82/66 L [Left Brachial artery] O2 Saturation 96 95 94 05/19/21 05/19/21 05/19/21 08:09 08:30 08:36 Temperature Heart Rate 108 H Heart Rate [ 125 H Monitoring electrodes] Respiratory 16 Rate Blood Pressure Blood Pressure 89/62 L [Left Brachial artery] O2 Saturation 95 95 05/19/21 05/19/21 05/19/21 08:54 09:00 09:15 Temperature Heart Rate Heart Rate [ 124 H 124 H 128 H Monitoring electrodes] Respiratory 15 Rate Blood Pressure Blood Pressure 98/58 L 92/60 84/62 L [Left Brachial artery] O2 Saturation 98 95 94 05/19/21 05/19/21 05/19/21 09:30 09:45 10:00 Temperature Heart Rate 128 H Heart Rate [ 126 H 126 H 127 H Monitoring electrodes] Respiratory 16 Rate Blood Pressure Blood Pressure 89/66 L 96/69 88/66 L [Left Brachial artery] O2 Saturation 94 94 93 05/19/21 05/19/21 05/19/21 10:59 11:00 11:46 Temperature Heart Rate 126 H Heart Rate [ 128 H Monitoring electrodes] Respiratory 18 Rate Blood Pressure 198/97 H Blood Pressure 100/73 [Left Brachial artery] O2 Saturation 94 05/19/21 05/19/21 05/19/21 12:00 12:16 13:00 Temperature 36.6 C Heart Rate Heart Rate [ 129 H 125 H Monitoring electrodes] Respiratory 22 18 Rate Blood Pressure 101/65 Blood Pressure 101/65 121/49 L [Left Brachial artery] O2 Saturation 93 94 05/19/21 05/19/21 05/19/21 14:00 15:00 15:21 Temperature 37.0 C Heart Rate Heart Rate [ 135 H 138 H 133 H Monitoring electrodes] Respiratory 23 16 18 Rate Blood Pressure Blood Pressure 119/75 110/66 110/66 [Left Brachial artery] O2 Saturation 96 96 95 Oxygen O2 Source Nasal cannula I&O (Last 24 Hrs): Intake and Output Totals x24h 05/17/21 05/18/21 05/19/21 23:59 23:59 23:59 Intake Total 2407.083 1065.000 689.333 Output Total 2245 1085 577 Balance 162.083 -20.000 112.333 General: Alert, Oriented x3 (probably) HEENT: Mucous membr. moist/pink, Other (BIPAP mask in place) Neck: Supple Neuro: Alert, Non Focal Cardiovascular: No murmurs, Other (Irreg irreg) Respiratory: Other (Improved air movement, no wheezing) Abdomen: Soft (Obese with a pannus) Extremities: Other (3+ edema to knees) - Results Results: Laboratory Results WBC 4.6 x10^3/uL (4.8-10.8) L 05/19/21 06:37 RBC 2.19 10^6/uL (4.20-5.40) L 05/19/21 06:37 Hgb 7.6 g/dL (12.0-16.0) L 05/19/21 06:37 Hct 25.5 % (37.0-47.0) L 05/19/21 06:37 MCV 116.4 fL (81.0-99.0) H 05/19/21 06:37 MCH 34.7 pg (27.0-31.0) H 05/19/21 06:37 MCHC 29.8 g/dL (32.0-36.0) L 05/19/21 06:37 RDW 17.4 % (12.0-15.0) H 05/19/21 06:37 Plt Count 270 10^3/uL (130-450) 05/19/21 06:37 MPV 10.2 fL (7.9-10.8) 05/19/21 06:37 Neut # (Auto) 2.9 10^3/uL (1.5-6.6) 05/19/21 06:37 Lymph # (Auto) 1.1 10^3/uL (1.5-3.5) L 05/19/21 06:37 [place] # (Auto) 0.4 10^3/uL (0.0-1.0) 05/19/21 06:37 Eos # (Auto) 0.1 10^3/uL (0.0-0.7) 05/19/21 06:37 Baso # (Auto) 0.0 10^3/uL (0.0-0.1) 05/19/21 06:37 Absolute Nucleated RBC 0.03 x10^3/uL 05/19/21 06:37 Nucleated RBC % 0.7 /100WBC 05/19/21 06:37 Manual Slide Review Indicated 05/19/21 06:37 WBC Morphology NORMAL APPEARANCE (NORMAL) 05/18/21 04:58 Platelet Estimate NORMAL (130-450,000) (NORMAL) 05/19/21 06:37 Platelet Morphology NORMAL APPEARANCE (NORMAL) 05/19/21 06:37 RBC Morph Micro Appear 2+ MACROCYTOSIS (NORMAL) 05/19/21 06:37 Bld Gas Analysis Time 1012 05/18/21 10:01 Sample Site LEFT RADIAL 05/18/21 10:01 ABG pH 7.36 (7.35-7.45) 05/18/21 10:01 ABG pCO2 54 mmHg (34-45) H 05/18/21 10:01 ABG pO2 84 mmHg (80-100) 05/18/21 10:01 ABG HCO3 29.8 mmol/L (22.0-26.0) H 05/18/21 10:01 ABG Total CO2 31.5 MMOL/L (21.0-29.0) H 05/18/21 10:01 ABG O2 Saturation 96 % (94-98) 05/18/21 10:01 ABG Base Excess 3.6 mmol/L (-2.0-3.0) H 05/18/21 10:01 Derek Test POSITIVE 05/18/21 10:01 VBG pH 7.272 (7.31-7.41) L 05/19/21 04:47 Ionized Calcium 1.11 mmol/L (1.15-1.33) L 05/19/21 04:47 O2 Delivery Device BiPAP 05/18/21 10:01 O2 Liters/Min 45.00 LPM 05/16/21 10:35 Vent Mode SYNCHRONOUS/TIMES 05/18/21 10:01 FiO2 35.00 05/18/21 10:01 Pressure Support Vent 7 cmH2O 05/17/21 09:25 EPAP 5 cmH2O 05/18/21 10:01 IPAP 12 cmH2O 05/18/21 10:01 Sodium 138 mmol/L (135-145) 05/19/21 06:37 Potassium 5.6 mmol/L (3.5-5.0) H 05/19/21 06:37 Potassium 5.7 mmol/L (3.5-5.0) H 05/19/21 06:37 Chloride 100 mmol/L (101-111) L 05/19/21 06:37 Carbon Dioxide 30 mmol/L (21-32) 05/19/21 06:37 Anion Gap 8.0 (6-13) 05/19/21 06:37 BUN 36 mg/dL (6-20) H 05/19/21 06:37 Creatinine 1.2 mg/dL (0.4-1.0) H 05/19/21 06:37 Estimated GFR (MDRD) 44 (>89) L 05/19/21 06:37 Glucose 274 mg/dL (70-100) H 05/19/21 06:37 POC Whole Bld Glucose 214 mg/dL (70 - 100) H 05/19/21 11:12 Estimat Average Glucose 220 mg/dL (70-100) H 05/16/21 05:00 Hemoglobin A1c % 9.3 % (4.27-6.07) H 05/16/21 05:00 Calcium 8.2 mg/dL (8.5-10.3) L 05/19/21 06:37 Phosphorus 4.3 mg/dL (2.5-4.6) 05/19/21 06:37 Magnesium 2.3 mg/dL (1.7-2.8) 05/19/21 06:37 Troponin I High Sens 30.3 ng/L (2.3-14.8) H* 05/18/21 12:08 B-Natriuretic Peptide 203 pg/mL (5-100) H 05/18/21 12:08 Nasal Screen MRSA (PCR) NEGATIVE (NEGATIVE) 05/16/21 21:10 - Procedures Procedures: Procedures EXCISION OF ASCENDING COLON, ENDO, DIAGN (09/28/17) EXCISION OF CECUM, ENDO, DIAGN (09/28/17) EXCISION OF DESCENDING COLON, ENDO (07/13/18) EXCISION OF SIGMOID COLON, ENDO (07/13/18) EXCISION OF SIGMOID COLON, ENDO, DIAGN (09/28/17) EXCISION OF TRANSVERSE COLON, ENDO (07/13/18) EXCISION OF TRANSVERSE COLON, ENDO, DIAGN (09/28/17) INTRODUCTION OF OTH THERAP SUBST INTO LOW GI, ENDO (09/28/17)
[2021-05-19] MEDS: traZODone 50 MG TABLET PO SCH (20:09)
[2021-05-19] MEDS: MIRTAZAPINE 15 MG TABLET PO SCH (20:12)
[2021-05-19] MEDS: rOPINIRole 0.25 MG TABLET PO SCH (20:12)
[2021-05-19] MEDS: ATORVASTATIN 40 MG TABLET PO SCH (20:13)
[2021-05-19] MEDS: buPROPion SR 100 MG TABLET PO SCH (20:13)
[2021-05-19] MEDS: SODIUM CHLORIDE 0.9% 500 ML IV PRN (23:15)
[2021-05-20] MEDS: SODIUM CHLORIDE FLUSH 0.9% 10 ML SYRINGE IVP SCH ×3 (00:19→21:37)
[2021-05-20 05:04] LABS: BASOPHILS % (AUTO) 0.4 %; EOSINOPHILS # (AUTO) 0.2 10^3/uL (0.0-0.7); HCT - HEMATOCRIT 24.9 % (37.0-47.0); HGB - HEMOGLOBIN 7.5 g/dL (12.0-16.0); LYMPHOCYTES # (AUTO) 1.7 10^3/uL (1.5-3.5); LYMPHOCYTES % (AUTO) 31.5 %; MEAN CORPUSCULAR HEMOGLOBIN 34.4 pg (27.0-31.0); MEAN CORPUSCULAR HGB CONC 30.1 g/dL (32.0-36.0); MEAN CORPUSCULAR VOLUME 114.2 fL (81.0-99.0); MEAN PLATELET VOLUME 10.2 fL (7.9-10.8); MONOCYTES # (AUTO) 0.5 10^3/uL (0.0-1.0); MONOCYTES % (AUTO) 9.1 %; NEUTROPHILS % (AUTO) 55.3 %; NRBC ABSOLUTE COUNT (AUTO) 0.09 x10^3/uL; NUCLEATED RED BLOOD CELLS AUTO 1.7 /100WBC; PLT - PLATELET COUNT 273 10^3/uL (130-450); RED BLOOD COUNT 2.18 10^6/uL (4.20-5.40); RED CELL DISTRIBUTION WIDTH 17.2 % (12.0-15.0); WHITE BLOOD COUNT 5.4 x10^3/uL (4.8-10.8)
[2021-05-20 05:08] LABS: CALCIUM, IONIZED 1.14 mmol/L (1.15-1.33); VBG PH 7.363 (7.31-7.41)
[2021-05-20 05:10] LABS: SLIDE REVIEW? Indicated
[2021-05-20 05:14] LABS: CALCIUM 8.5 mg/dL (8.5-10.3); CREATININE 1.3 mg/dL (0.4-1.0); MAGNESIUM 2.3 mg/dL (1.7-2.8); POTASSIUM 4.9 mmol/L (3.5-5.0)
[2021-05-20 05:31] LABS: PLATELET ESTIMATE, MANUAL NORMAL (130-450,000) (NORMAL); PLATELET MORPHOLOGY NORMAL APPEARANCE (NORMAL); WBC MORPHOLOGY (MULTIPLE) NORMAL APPEARANCE (NORMAL)
[2021-05-20] MEDS: LEVALBUTEROL 1.25 MG/3 ML NEB INH SCH ×4 (08:21→20:02)
[2021-05-20] MEDS: FORMOTEROL FUMARATE NEB 20 MCG/2 ML INH SCH ×2 (08:21→20:02)
[2021-05-20] MEDS: BUDESONIDE 0.5 MG/2 ML NEB INH SCH ×2 (08:21→20:01)
[2021-05-20] MEDS: INSULIN ASPART 300 UNIT/3 ML PEN SUBQ SCH ×7 (08:50→21:15)
[2021-05-20] MEDS ORDERED: DIGOXIN 500 MCG/2 ML AMP IVP STA (08:51)
[2021-05-20] MEDS: INSULIN GLARGINE 300 UNIT/3 ML PEN SUBQ SCH ×2 (08:53→21:14)
[2021-05-20] MEDS: REMDESIVIR 100MG VIAL 100 MG in SODIUM CHLORIDE 0.9% 100ML 100 ML IV SCH (08:54)
[2021-05-20] MEDS: SACCHAROMYCES BOULARDII 250 MG CAPSULE PO SCH ×2 (08:57→17:34)
[2021-05-20] MEDS: GABAPENTIN 400 MG CAPSULE PO SCH ×2 (08:57→21:13)
[2021-05-20] MEDS: ASPIRIN EC 81 MG TABLET PO SCH (08:58)
[2021-05-20] MEDS: buPROPion SR 150 MG TABLET PO SCH (09:04)
[2021-05-20] MEDS: FUROSEMIDE 20 MG/2 ML VIAL IVP SCH (09:04)
[2021-05-20] MEDS: DEXAMETHASONE 4 MG/ML VIAL IVP SCH (09:29)
[2021-05-20] MEDS: PRIMIDONE 50 MG TABLET PO SCH ×2 (09:29→21:36)
[2021-05-20] MEDS: ENOXAPARIN 150 MG/ML SYRINGE SUBQ SCH ×2 (09:30→21:15)
[2021-05-20] MEDS: cefTRIAXone 1 GM in SODIUM CHLORIDE 0.9% MINIBAG 100 ML IV SCH (09:46)
[2021-05-20] MEDS: polyethylene glycoL 3350 17 GM PACKET PO SCH (09:47)
[2021-05-20] MEDS: MORPHINE 2 MG/ML CARPUJECT IVP PRN ×3 (11:53→21:37)
[2021-05-20] MEDS: diltiaZEM INJ 125 MG in DEXTROSE 5% 100 ML IV SCH (12:31)
--- NOTE | 2021-05-20 13:29 | PROVIDER PROGRESS NOTE ---
Assessment/Plan - Problem List (1) Acute on chronic respiratory failure with hypoxia Assessment/Plan: This is related to her underlying COPD needing chronic oxygen (new home oxygen order 1 month ago after that admission), on top of having Covid pneumonia/community-acquired pneumonia. She is not in COPD exacerbation this admission. Her CXR 2 days ago was read as having CHF, therefore we started iv Lasix yesterday and stopped the qod po Lasix. She was able to tolerate being off BiPAP all night last night Continue with supplemental oxygen, keeping sats greater than 88%. Remain in the ICU today and BIPAP restart if needed. (2) Pneumonia due to COVID-19 virus Assessment/Plan: She is on remdesivir per protocol and IV Decadron per protocol. She is also getting empiric antibiotics for possible community-acquired pneumonia. Continue with supplemental oxygen. Continue with Mucinex for expectoration (3) COPD (chronic obstructive pulmonary disease) Assessment/Plan: She is on 1-2 L of oxygen at baseline, ever since her admission 1 mo ago. She currently does not appear to be in exacerbation. She was on budesonide/for moterol and Tiotropium at home. Will keep her on duo nebs every 4 hours, but we changed prn Albuterol to prn Xopenex due to new RVR that started 2 days ago We will resume her home inhalers once she is off of BiPAP. Her goal oxygen saturation is greater than 88%. (4) Atrial fibrillation with RVR Assessment/Plan: The patient went into sudden A. fib with RVR 2 days ago, she was in distress and appeared to be "panicky" at the time Chest x-ray was done that showed bilateral fluffy infiltrates and was read as possible CHF. EKG showed a rate of 179, new right axis deviation and nonspecific ST segment changes. ABG showed adequate sats Her serial troponins ruled her out for an [place]. We ordered Cardizem IV boluses, a Cardizem drip, scheduled iv Metoprolol. Will transition to po B-miya and po Cardizem to try to wean off Carizem drip. Her CHADS score is calculated at 2 (HTN and DM), therefore she is on Lovenox bid, therapeutic dose, for stroke prophylaxis. (5) Acute on chronic diastolic heart failure Assessment/Plan: Her last Echocardiogram done 1 mo ago, revealed grade 2 diastolic dysfunction wplus evidence of cor pulmonale. She has redeveloped leg edema since being discharged a month ago, likely due to the COVID pneumonia exacerbating her cor pulmonale. She has been resumed on IV daily Lasix, and we stopped the qod po Lasix. Will order leg elevation when OOB Controlling her new rapid heart rate will also help manage her diastolic heart failure (6) Diabetes mellitus with complication, with long-term current use of insulin Assessment/Plan: Her blood glucose was initially poorly controlled with a blood glucose of 400. This was likely exacerbated by the use of Decadron. She is currently on a diabetic diet We will continue her current dose of Lantus but will consider decreasing this if there is evidence of hypoglycemia as she is n.p.o. We are holding her short acting insulin. Continue with sliding scale. (7) Chronic anemia Assessment/Plan: Her baseline hemoglobin appears to be around 10-11. She was noted to be anemic during her most recent hospitalization a month ago, with a hemoglobin of 9. Now it is further decreased to 8. There has been no obvious evidence of bleeding. Her MCV is elevated at 113. Her B12 and folate were within normal limits. She had iron studies during her prior hospitalization which suggested anemia of chronic disease. We will check her stool for occult blood otherwise we will continue to trend her hemoglobin and transfuse if it drops below 7. (8) Cor pulmonale (chronic) Assessment/Plan: Chronic and likely secondary to her underlying COPD. She does have lower extremity edema and we did start IV Lasix today and decreased iv fluids since she is eating 100% of her tray (9) Depression with anxiety Assessment/Plan: She had a "panic attack" 2 days ago while on BIPAP, was sobbing and in distress. She has appeared anxious at other times. Morphine iv was given to help with air hunger and for sedation. We resumed her home Wellbutrin, mirtazapine, and Remeron. The son may contact her by phone in her room as well, which should help. - Current Meds Current Meds: Current Medications Generic Name Dose Route Start Last Admin Trade Name Freq PRN Reason Stop Dose Admin Aspirin 81 mg 05/16/21 09:00 05/20/21 08:58 Aspirin Ec 81 Mg Tablet PO 81 mg DAILY TEMO Administration Atorvastatin Calcium 80 mg 05/17/21 21:00 05/19/21 20:13 Atorvastatin 40 Mg Tablet PO 80 mg QPM TEMO Administration Budesonide 0.5 mg 05/16/21 07:00 05/20/21 08:21 Budesonide 0.5 Mg/2 Ml Neb INH 0.5 mg RTBID TEMO Administration Bupropion HCl 200 mg 05/17/21 21:00 05/19/21 20:13 Bupropion Sr 100 Mg Tablet PO 200 mg QPM TEMO Administration Bupropion HCl 150 mg 05/17/21 09:00 05/20/21 09:04 Bupropion Sr 150 Mg Tablet PO 150 mg DAILY TEMO Administration Dexamethasone 6 mg 05/17/21 09:00 05/20/21 09:29 Dexamethasone 4 Mg/Ml Vial IVP 6 mg DAILY TEMO Administration Enoxaparin Sodium 130 mg 05/18/21 21:00 05/20/21 09:30 Enoxaparin 150 Mg/Ml Syringe SUBQ 130 mg BID TEMO Administration Formoterol Fumarate 20 mcg 05/18/21 19:00 05/20/21 08:21 Formoterol Fumarate Neb 20 Mcg/2 Ml INH 20 mcg RTBID TEMO Administration Furosemide 20 mg 05/19/21 09:00 05/20/21 09:04 Furosemide 20 Mg/2 Ml Vial IVP 20 mg DAILY TEMO Administration Gabapentin 1,200 mg 05/17/21 21:00 05/20/21 08:57 Gabapentin 400 Mg Capsule PO 1,200 mg BID TEMO Administration Diltiazem HCl 125 mg/ Dextrose 125 mls @ 5 mls/hr 05/18/21 10:00 05/20/21 12:31 IV 10 mg/hr .Q25H TEMO 10 mls/hr Administration Protocol 5 MG/HR Sodium Chloride 500 mls @ 20 mls/hr 05/18/21 21:11 05/19/21 23:15 Normal Saline 0.9% IV 20 mls/hr Q24H PRN Administration TKO RATE Insulin Aspart 15 unit 05/16/21 08:00 05/20/21 11:55 Insulin Aspart 300 Unit/3 Ml Pen SUBQ 15 unit TIDWM TEMO Administration Protocol Insulin Aspart 2 - 10 unit 05/20/21 08:00 05/20/21 11:55 Insulin Aspart 300 Unit/3 Ml Pen SUBQ 6 unit 0800,1200,1700,2100 TEMO Administration Protocol Insulin Glargine 5 unit 05/16/21 08:00 05/20/21 08:53 Insulin Glargine 300 Unit/3 Ml Pen SUBQ 5 unit [id number] TEMO Administration Insulin Glargine 40 unit 05/16/21 21:00 05/19/21 20:24 Insulin Glargine 300 Unit/3 Ml Pen SUBQ 40 unit QPM TEMO Administration Levalbuterol HCl 1.25 mg 05/18/21 19:00 05/20/21 08:21 Levalbuterol 1.25 Mg/3 Ml Neb INH 1.25 mg RTQID TEMO Administration Lorazepam 0.5 mg 05/16/21 04:50 05/19/21 18:55 Lorazepam 2 Mg/Ml Vial IVP 0.5 mg Q2H PRN Administration Anxiety Metoprolol Tartrate 5 mg 05/19/21 06:59 05/19/21 17:47 Metoprolol 5 Mg/5 Ml Vial IVP 5 mg Q6H PRN Administration Tachycardia Mirtazapine 22.5 mg 05/17/21 21:00 05/19/21 20:12 Mirtazapine 15 Mg Tablet PO 22.5 mg QPM TEMO Administration Morphine Sulfate 2 mg 05/18/21 10:47 05/20/21 11:53 Morphine 2 Mg/Ml Carpuject IVP 2 mg Q3HR PRN Administration Dyspnea Ondansetron HCl 4 mg 05/16/21 00:44 05/18/21 11:13 Ondansetron 4 Mg/2 Ml Vial IVP 4 mg Q6HR PRN Administration Nausea / Vomiting Oxycodone HCl 5 mg 05/16/21 00:44 05/17/21 17:31 Oxycodone 5 Mg Tablet PO 5 mg Q4HR PRN Administration Pain 5 to 7 Polyethylene Glycol 17 gm 05/16/21 09:00 05/20/21 09:47 Polyethylene Glycol 3350 17 Gm Packet PO 17 gm DAILY TEMO Administration Primidone 150 mg 05/17/21 09:00 05/20/21 09:29 Primidone 50 Mg Tablet PO 150 mg BID TEMO Administration Ropinirole HCl 0.25 mg 05/18/21 21:00 05/19/21 20:12 Ropinirole 0.25 Mg Tablet PO 0.25 mg QPM TEMO Administration Saccharomyces Augustoi 250 mg 05/16/21 08:00 05/20/21 08:57 Saccharomyces Boulardii 250 Mg Capsule PO 250 mg BIDWM TEMO Administration Sodium Chloride 10 ml 05/16/21 00:37 05/17/21 20:41 Sodium Chloride Flush 0.9% 10 Ml Syringe IVP 10 ml PRN PRN Administration NEEDED PER PROVIDER ORDERS Sodium Chloride 10 ml 05/16/21 01:00 05/20/21 09:47 Sodium Chloride Flush 0.9% 10 Ml Syringe IVP 10 ml 0100,0900,1700 TEMO Administration Trazodone HCl 300 mg 05/18/21 21:00 05/19/21 20:09 Trazodone 50 Mg Tablet PO 300 mg QPM TEMO Administration - Lab Result Fish Bone Diagrams: 05/20/21 04:51 05/20/21 04:51 - Additional Planning My Orders: My Active Orders 05/19/21 14:54 Miscellaenous Nursing Order [RC] QSHIFT 05/20/21 Home Health Referral [CONS] Routine 05/20/21 08:00 Insulin Aspart [NovoLOG] 2 - 10 unit SUBQ 0800,1200,1700,2100 05/20/21 08:52 HAROON Jimmye [RC] QSHIFT 05/20/21 10:33 Initial Ventilator Settings [RC] .ONCE Ventilator Bundle Oral Care [RC] Q2H Ventilator Bundle [RC] Q8H Ventilator Care - ICU [RC] Q4HR 05/20/21 10:37 Miscellaenous Nursing Order [RC] QSHIFT 05/20/21 10:38 Miscellaenous Nursing Order [RC] QSHIFT 05/20/21 14:00 Metoprolol Tartrate [Lopressor] 12.5 mg PO TID 05/21/21 08:00 Multivitamin [Theragran] 1 tab PO DAILYWM 05/21/21 09:00 Cholecalciferol [Vitamin D3] 50 mcg PO DAILY Cyanocobalamin [Vitamin B-12] 250 mcg PO DAILY Subjective - Subjective Patient Reports: Resting Comfortably (She is OOB first time, in a chair, using O2 per n.c. Asking when she will be DCh) Objective Vital Signs: Vital Signs - 24 hr 05/19/21 05/19/21 05/19/21 14:00 15:00 15:21 Temperature 37.0 C Heart Rate Heart Rate [ 135 H 138 H 133 H Monitoring electrodes] Respiratory 23 16 18 Rate Blood Pressure Blood Pressure 119/75 110/66 110/66 [Left Brachial artery] O2 Saturation 96 96 95 05/19/21 05/19/21 05/19/21 17:00 17:47 18:00 Temperature Heart Rate Heart Rate [ 137 H 129 H Monitoring electrodes] Respiratory 20 19 Rate Blood Pressure 119/91 H Blood Pressure 119/91 H 119/91 H [Left Brachial artery] O2 Saturation 94 96 05/19/21 05/19/21 05/19/21 18:17 18:23 18:34 Temperature Heart Rate Heart Rate [ 123 H 136 H Monitoring electrodes] Respiratory Rate Blood Pressure 103/62 Blood Pressure 126/101 H 103/62 [Left Brachial artery] O2 Saturation 05/19/21 05/19/21 05/19/21 19:00 20:00 20:13 Temperature Heart Rate 134 H Heart Rate [ 138 H 129 H Monitoring electrodes] Respiratory 21 22 21 Rate Blood Pressure Blood Pressure 115/84 H 101/69 [Left Brachial artery] O2 Saturation 97 95 05/19/21 05/19/21 05/19/21 21:00 22:00 23:00 Temperature 37.4 C 36.5 C Heart Rate Heart Rate [ 145 H 139 H 124 H Monitoring electrodes] Respiratory 21 21 18 Rate Blood Pressure Blood Pressure 94/71 87/61 L 104/84 H [Left Brachial artery] O2 Saturation 89 L 92 92 05/20/21 05/20/21 05/20/21 00:00 01:00 02:00 Temperature Heart Rate Heart Rate [ 126 H 127 H 134 H Monitoring electrodes] Respiratory 16 22 21 Rate Blood Pressure Blood Pressure 83/57 L 96/64 97/80 [Left Brachial artery] O2 Saturation 93 93 89 L 05/20/21 05/20/21 05/20/21 03:00 04:00 05:00 Temperature Heart Rate Heart Rate [ 126 H 132 H 123 H Monitoring electrodes] Respiratory 24 19 16 Rate Blood Pressure Blood Pressure 88/60 L 95/66 82/65 L [Left Brachial artery] O2 Saturation 96 92 93 05/20/21 05/20/21 05/20/21 06:00 07:00 08:00 Temperature 35.9 C L Heart Rate Heart Rate [ 129 H 130 H 135 H Monitoring electrodes] Respiratory 22 19 18 Rate Blood Pressure Blood Pressure 96/73 104/66 104/66 [Left Brachial artery] O2 Saturation 89 L 97 94 05/20/21 05/20/21 05/20/21 08:22 09:00 09:33 Temperature Heart Rate 122 H 139 H Heart Rate [ Monitoring electrodes] Respiratory 18 21 Rate Blood Pressure Blood Pressure 92/77 [Left Brachial artery] O2 Saturation 92 05/20/21 05/20/21 11:00 12:00 Temperature Heart Rate Heart Rate [ 150 H 155 H Monitoring electrodes] Respiratory 22 19 Rate Blood Pressure Blood Pressure 174/110 H [Left Brachial artery] O2 Saturation 93 92 Oxygen O2 Source Nasal cannula I&O (Last 24 Hrs): Intake and Output Totals x24h 05/18/21 05/19/21 05/20/21 23:59 23:59 23:59 Intake Total 8725.582 7501.000 1075.000 Output Total 1085 971 960 Balance -20.000 1196.000 115.000 General: Alert, Oriented x3, Other (Obese) HEENT: Mucous membr. moist/pink Neck: Supple Neuro: Alert, Non Focal Cardiovascular: Other (Rapid irreg irreg) Respiratory: Other (Diminished) - Results Results: Laboratory Results WBC 5.4 x10^3/uL (4.8-10.8) 05/20/21 04:51 RBC 2.18 10^6/uL (4.20-5.40) L 05/20/21 04:51 Hgb 7.5 g/dL (12.0-16.0) L 05/20/21 04:51 Hct 24.9 % (37.0-47.0) L 05/20/21 04:51 MCV 114.2 fL (81.0-99.0) H 05/20/21 04:51 MCH 34.4 pg (27.0-31.0) H 05/20/21 04:51 MCHC 30.1 g/dL (32.0-36.0) L 05/20/21 04:51 RDW 17.2 % (12.0-15.0) H 05/20/21 04:51 Plt Count 273 10^3/uL (130-450) 05/20/21 04:51 MPV 10.2 fL (7.9-10.8) 05/20/21 04:51 Neut # (Auto) 3.0 10^3/uL (1.5-6.6) 05/20/21 04:51 Lymph # (Auto) 1.7 10^3/uL (1.5-3.5) 05/20/21 04:51 [place] # (Auto) 0.5 10^3/uL (0.0-1.0) 05/20/21 04:51 Eos # (Auto) 0.2 10^3/uL (0.0-0.7) 05/20/21 04:51 Baso # (Auto) 0.0 10^3/uL (0.0-0.1) 05/20/21 04:51 Absolute Nucleated RBC 0.09 x10^3/uL 05/20/21 04:51 Nucleated RBC % 1.7 /100WBC 05/20/21 04:51 Manual Slide Review Indicated 05/20/21 04:51 WBC Morphology NORMAL APPEARANCE (NORMAL) 05/20/21 04:51 Platelet Estimate NORMAL (130-450,000) (NORMAL) 05/20/21 04:51 Platelet Morphology NORMAL APPEARANCE (NORMAL) 05/20/21 04:51 RBC Morph Micro Appear 2+ MACROCYTOSIS (NORMAL) 1+ BASO STIPPLING (NORMAL) 05/20/21 04:51 RBC Morph Micro Appear 2+ MACROCYTOSIS (NORMAL) 1+ BASO STIPPLING (NORMAL) 05/20/21 04:51 Bld Gas Analysis Time 1012 05/18/21 10:01 Sample Site LEFT RADIAL 05/18/21 10:01 ABG pH 7.36 (7.35-7.45) 05/18/21 10:01 ABG pCO2 54 mmHg (34-45) H 05/18/21 10:01 ABG pO2 84 mmHg (80-100) 05/18/21 10:01 ABG HCO3 29.8 mmol/L (22.0-26.0) H 05/18/21 10:01 ABG Total CO2 31.5 MMOL/L (21.0-29.0) H 05/18/21 10:01 ABG O2 Saturation 96 % (94-98) 05/18/21 10:01 ABG Base Excess 3.6 mmol/L (-2.0-3.0) H 05/18/21 10:01 Derek Test POSITIVE 05/18/21 10:01 VBG pH 7.363 (7.31-7.41) 05/20/21 04:51 Ionized Calcium 1.14 mmol/L (1.15-1.33) L 05/20/21 04:51 O2 Delivery Device BiPAP 05/18/21 10:01 O2 Liters/Min 45.00 LPM 05/16/21 10:35 Vent Mode SYNCHRONOUS/TIMES 05/18/21 10:01 FiO2 35.00 05/18/21 10:01 Pressure Support Vent 7 cmH2O 05/17/21 09:25 EPAP 5 cmH2O 05/18/21 10:01 IPAP 12 cmH2O 05/18/21 10:01 Sodium 136 mmol/L (135-145) 05/20/21 04:51 Potassium 4.9 mmol/L (3.5-5.0) 05/20/21 04:51 Chloride 98 mmol/L (101-111) L 05/20/21 04:51 Carbon Dioxide 30 mmol/L (21-32) 05/20/21 04:51 Anion Gap 8.0 (6-13) 05/20/21 04:51 BUN 44 mg/dL (6-20) H 05/20/21 04:51 Creatinine 1.3 mg/dL (0.4-1.0) H 05/20/21 04:51 Estimated GFR (MDRD) 40 (>89) L 05/20/21 04:51 Glucose 220 mg/dL (70-100) H 05/20/21 04:51 POC Whole Bld Glucose 254 mg/dL (70 - 100) H 05/20/21 11:39 Estimat Average Glucose 220 mg/dL (70-100) H 05/16/21 05:00 Hemoglobin A1c % 9.3 % (4.27-6.07) H 05/16/21 05:00 Calcium 8.5 mg/dL (8.5-10.3) 05/20/21 04:51 Phosphorus 4.0 mg/dL (2.5-4.6) 05/20/21 04:51 Magnesium 2.3 mg/dL (1.7-2.8) 05/20/21 04:51 Troponin I High Sens 30.3 ng/L (2.3-14.8) H* 05/18/21 12:08 B-Natriuretic Peptide 203 pg/mL (5-100) H 05/18/21 12:08 Nasal Screen MRSA (PCR) NEGATIVE (NEGATIVE) 05/16/21 21:10 - Procedures Procedures: Procedures EXCISION OF ASCENDING COLON, ENDO, DIAGN (09/28/17) EXCISION OF CECUM, ENDO, DIAGN (09/28/17) EXCISION OF DESCENDING COLON, ENDO (07/13/18) EXCISION OF SIGMOID COLON, ENDO (07/13/18) EXCISION OF SIGMOID COLON, ENDO, DIAGN (09/28/17) EXCISION OF TRANSVERSE COLON, ENDO (07/13/18) EXCISION OF TRANSVERSE COLON, ENDO, DIAGN (09/28/17) INTRODUCTION OF OTH THERAP SUBST INTO LOW GI, ENDO (09/28/17)
[2021-05-20] MEDS: METOPROLOL TARTRATE 25 MG TABLET PO SCH ×2 (13:34→21:11)
[2021-05-20] MEDS: diltiaZEM 30 MG TABLET PO SCH (17:31)
[2021-05-20] MEDS: MIRTAZAPINE 15 MG TABLET PO SCH (21:10)
[2021-05-20] MEDS: rOPINIRole 0.25 MG TABLET PO SCH (21:11)
[2021-05-20] MEDS: buPROPion SR 100 MG TABLET PO SCH (21:12)
[2021-05-20] MEDS: traZODone 50 MG TABLET PO SCH (21:13)
[2021-05-20] MEDS: ATORVASTATIN 40 MG TABLET PO SCH (21:14)
[2021-05-20] MEDS: LORazepam 2 MG/ML VIAL IVP PRN (23:29)
[2021-05-21] MEDS: SODIUM CHLORIDE FLUSH 0.9% 10 ML SYRINGE IVP SCH ×3 (01:08→20:50)
[2021-05-21] MEDS: diltiaZEM INJ 125 MG in DEXTROSE 5% 100 ML IV SCH (02:01)
[2021-05-21 05:52] LABS: MAGNESIUM 2.1 mg/dL (1.7-2.8); PHOSPHORUS 4.2 mg/dL (2.5-4.6); POTASSIUM 4.7 mmol/L (3.5-5.0)
[2021-05-21] MEDS: diltiaZEM 30 MG TABLET PO SCH ×3 (06:21→11:31)
[2021-05-21] MEDS: METOPROLOL TARTRATE 25 MG TABLET PO SCH ×3 (06:22→21:33)
[2021-05-21] MEDS: BUDESONIDE 0.5 MG/2 ML NEB INH SCH ×2 (07:56→20:29)
[2021-05-21] MEDS: LEVALBUTEROL 1.25 MG/3 ML NEB INH SCH ×4 (07:56→20:29)
[2021-05-21] MEDS: FORMOTEROL FUMARATE NEB 20 MCG/2 ML INH SCH ×2 (07:56→20:29)
[2021-05-21] MEDS: SACCHAROMYCES BOULARDII 250 MG CAPSULE PO SCH ×2 (07:57→17:51)
[2021-05-21] MEDS: MULTIVITAMIN TABLET PO SCH (07:57)
[2021-05-21] MEDS: INSULIN ASPART 300 UNIT/3 ML PEN SUBQ SCH ×7 (08:26→21:32)
[2021-05-21] MEDS: INSULIN GLARGINE 300 UNIT/3 ML PEN SUBQ SCH ×2 (08:27→21:32)
[2021-05-21] MEDS: ASPIRIN EC 81 MG TABLET PO SCH (08:32)
[2021-05-21] MEDS: DEXAMETHASONE 4 MG/ML VIAL IVP SCH (08:37)
[2021-05-21] MEDS: FUROSEMIDE 20 MG/2 ML VIAL IVP SCH (08:38)
[2021-05-21] MEDS: polyethylene glycoL 3350 17 GM PACKET PO SCH (08:40)
[2021-05-21] MEDS: GABAPENTIN 400 MG CAPSULE PO SCH ×2 (08:40→20:44)
[2021-05-21] MEDS: PRIMIDONE 50 MG TABLET PO SCH ×2 (08:41→20:44)
[2021-05-21] MEDS: ACETAMINOPHEN 325 MG TABLET PO PRN (08:46)
[2021-05-21] MEDS: CHOLECALCIFEROL 25 MCG TABLET PO SCH (09:48)
[2021-05-21] MEDS: CYANOCOBALAMIN 500 MCG TABLET PO SCH (09:50)
[2021-05-21] MEDS: buPROPion SR 150 MG TABLET PO SCH (09:50)
[2021-05-21] MEDS: ENOXAPARIN 150 MG/ML SYRINGE SUBQ SCH ×2 (11:30→20:41)
[2021-05-21] MEDS: METOPROLOL 5 MG/5 ML VIAL IVP PRN (11:52)
[2021-05-21] MEDS: guaiFENesin 100 MG/5 ML UDC PO PRN (11:52)
[2021-05-21] MEDS ORDERED: diltiaZEM 30 MG TABLET PO SCH (12:23)
[2021-05-21] MEDS: SODIUM CHLORIDE FLUSH 0.9% 10 ML SYRINGE IVP PRN ×2 (12:23→13:19)
[2021-05-21] MEDS: LORazepam 2 MG/ML VIAL IVP PRN ×2 (13:16→17:48)
--- NOTE | 2021-05-21 15:09 | PROVIDER PROGRESS NOTE ---
Assessment/Plan - Problem List (1) Acute on chronic respiratory failure with hypoxia Assessment/Plan: This is related to her underlying COPD needing chronic oxygen (new home oxygen order 1 month ago after that admission), on top of having Covid pneumonia/community-acquired pneumonia. She is not in COPD exacerbation this admission. She was able to tolerate being off BiPAP the last 2 nights and is on 2L)2 per n.c. Continue with supplemental oxygen, keeping sats greater than 88%. (2) Pneumonia due to COVID-19 virus Assessment/Plan: She is on remdesivir per protocol and IV Decadron per protocol. She is also getting empiric antibiotics for possible community-acquired pneumonia. Continue with supplemental oxygen. Her O2 needs are decreasing. Continue with Mucinex for expectoration (3) Atrial fibrillation with RVR Assessment/Plan: The patient went into sudden A. fib with RVR several days ago, she was in distress and appeared to be "panicky" at the time. Chest x-ray was done that showed bilateral fluffy infiltrates and was read as possible CHF. Lasix was started iv. Her serial troponins ruled her out for an SC. We ordered Cardizem IV boluses, a Cardizem drip, scheduled iv Metoprolol and Dig iv X1 We are transitioning to po B-miya and po Cardizem to try to wean off Carizem drip. Will give another Dig iv x1 today. Will check a Dig level in am Her CHADS score is calculated at 2 (HTN and DM), therefore she is on Lovenox bid, therapeutic dose, for stroke prophylaxis. Will transition this to an oral DOAC soon. However, the dose will be determined after she is ruled out for PE. (4) Acute on chronic diastolic heart failure Assessment/Plan: Her last Echocardiogram done 1 mo ago, revealed grade 2 diastolic dysfunction wplus evidence of cor pulmonale. She redeveloped leg edema since being discharged a month ago, likely due to the COVID pneumonia exacerbating her cor pulmonale. She has been resumed on IV daily Lasix, and we stopped the qod po Lasix. Her edema is worse today and luid status is not neg. Will order leg elevation when OOB Controlling her persistent rapid heart rate will also help manage her diastolic heart failure (5) Cor pulmonale (chronic) Assessment/Plan: Chronic and likely secondary to her underlying COPD. She does have lower extremity edema and we did start IV Lasix and stopped iv fluids, since she is eating 100% of her tray (6) COPD (chronic obstructive pulmonary disease) Assessment/Plan: She is on 1-2 L of oxygen at baseline, ever since her admission 1 mo ago. She currently does not appear to be in exacerbation. She was on budesonide/formo terol and Tiotropium at home. Will keep her on duo nebs every 4 hours, but we changed prn Albuterol to prn Xopenex due to new RVR We will resume her home inhalers Her goal oxygen saturation is greater than 88%. (7) Diabetes mellitus with complication, with long-term current use of insulin Assessment/Plan: Her blood glucose was initially poorly controlled with a blood glucose of 400. This was likely exacerbated by the use of Decadron. She is currently on a diabetic diet We will continue her current dose of Lantus. Continue with sliding scale Insu kenya use (8) Chronic anemia Assessment/Plan: Her baseline hemoglobin appears to be around 10-11. She was noted to be anemic during her most recent hospitalization a month ago, with a hemoglobin of 9. Now it is further decreased to 8 and plateaued. There has been no obvious evidence of bleeding. Her MCV is elevated at 113. Her B12 and folate were within normal limits. She had iron studies during her prior hospitalization which suggested anemia of chronic disease. We will check her stool for occult blood otherwise we will continue to trend her hemoglobin and transfuse if it drops below 7. (9) Depression with anxiety Assessment/Plan: She had a "panic attack" while on BIPAP, was sobbing and in distress. She has appeared anxious at other times. We resumed her home Wellbutrin, mirtazapine, and Remeron. Will order po ativan prn. The son may contact her by phone in her room as well, which should help. - Current Meds Current Meds: Current Medications Generic Name Dose Route Start Last Admin Trade Name Freq PRN Reason Stop Dose Admin Acetaminophen 650 mg 05/18/21 23:51 05/21/21 08:46 Acetaminophen 325 Mg Tablet PO 650 mg Q4HR PRN Administration Pain 1 to 4 Aspirin 81 mg 05/16/21 09:00 05/21/21 08:32 Aspirin Ec 81 Mg Tablet PO 81 mg DAILY TEMO Administration Atorvastatin Calcium 80 mg 05/17/21 21:00 05/20/21 21:14 Atorvastatin 40 Mg Tablet PO 80 mg QPM TEMO Administration Budesonide 0.5 mg 05/16/21 07:00 05/21/21 07:56 Budesonide 0.5 Mg/2 Ml Neb INH 0.5 mg RTBID TEMO Administration Bupropion HCl 200 mg 05/17/21 21:00 05/20/21 21:12 Bupropion Sr 100 Mg Tablet PO 200 mg QPM TEMO Administration Bupropion HCl 150 mg 05/17/21 09:00 05/21/21 09:50 Bupropion Sr 150 Mg Tablet PO 150 mg DAILY TEMO Administration Cholecalciferol 50 mcg 05/21/21 09:00 05/21/21 09:48 Cholecalciferol 25 Mcg Tablet PO 50 mcg DAILY TEMO Administration Cyanocobalamin 250 mcg 05/21/21 09:00 05/21/21 09:50 Cyanocobalamin 500 Mcg Tablet PO 250 mcg DAILY TEMO Administration Dexamethasone 6 mg 05/17/21 09:00 05/21/21 08:37 Dexamethasone 4 Mg/Ml Vial IVP 6 mg DAILY TEMO Administration Enoxaparin Sodium 130 mg 05/18/21 21:00 05/21/21 11:30 Enoxaparin 150 Mg/Ml Syringe SUBQ 130 mg BID TEMO Administration Formoterol Fumarate 20 mcg 05/18/21 19:00 05/21/21 07:56 Formoterol Fumarate Neb 20 Mcg/2 Ml INH 20 mcg RTBID TEMO Administration Furosemide 20 mg 05/19/21 09:00 05/21/21 08:38 Furosemide 20 Mg/2 Ml Vial IVP 20 mg DAILY TEMO Administration Gabapentin 1,200 mg 05/17/21 21:00 05/21/21 08:40 Gabapentin 400 Mg Capsule PO 1,200 mg BID TEMO Administration Guaifenesin 100 mg 05/16/21 07:37 05/21/21 11:52 Guaifenesin 100 Mg/5 Ml Udc PO 100 mg Q6HR PRN Administration Cough Diltiazem HCl 125 mg/ Dextrose 125 mls @ 5 mls/hr 05/18/21 10:00 05/21/21 02:01 IV 5 mg/hr .Q25H TEMO 5 mls/hr Administration Protocol 5 MG/HR Sodium Chloride 500 mls @ 20 mls/hr 05/18/21 21:11 05/21/21 00:15 Normal Saline 0.9% IV Infused Q24H PRN Infusion TKO RATE Insulin Aspart 15 unit 05/16/21 08:00 05/21/21 11:46 Insulin Aspart 300 Unit/3 Ml Pen SUBQ 15 unit TIDWM TEMO Administration Protocol Insulin Aspart 2 - 10 unit 05/20/21 08:00 05/21/21 11:46 Insulin Aspart 300 Unit/3 Ml Pen SUBQ 8 unit 0800,1200,1700,2100 TEMO Administration Protocol Insulin Glargine 5 unit 05/16/21 08:00 05/21/21 08:27 Insulin Glargine 300 Unit/3 Ml Pen SUBQ 5 unit [id number] TEMO Administration Insulin Glargine 40 unit 05/16/21 21:00 05/20/21 21:14 Insulin Glargine 300 Unit/3 Ml Pen SUBQ 40 unit QPM TEMO Administration Levalbuterol HCl 1.25 mg 05/18/21 19:00 05/21/21 11:11 Levalbuterol 1.25 Mg/3 Ml Neb INH 1.25 mg RTQID TEMO Administration Lorazepam 0.5 mg 05/16/21 04:50 05/21/21 13:16 Lorazepam 2 Mg/Ml Vial IVP 0.5 mg Q2H PRN Administration Anxiety Metoprolol Tartrate 5 mg 05/19/21 06:59 05/21/21 11:52 Metoprolol 5 Mg/5 Ml Vial IVP 5 mg Q6H PRN Administration Tachycardia Metoprolol Tartrate 25 mg 05/21/21 14:00 05/21/21 14:07 Metoprolol Tartrate 25 Mg Tablet PO 25 mg TID TEMO Administration Mirtazapine 22.5 mg 05/17/21 21:00 05/20/21 21:10 Mirtazapine 15 Mg Tablet PO 22.5 mg QPM TEMO Administration Morphine Sulfate 2 mg 05/18/21 10:47 05/20/21 21:37 Morphine 2 Mg/Ml Carpuject IVP 2 mg Q3HR PRN Administration Dyspnea Multivitamins 1 tab 05/21/21 08:00 05/21/21 07:57 Multivitamin Tablet PO 1 tab DAILYWM TEMO Administration Ondansetron HCl 4 mg 05/16/21 00:44 05/18/21 11:13 Ondansetron 4 Mg/2 Ml Vial IVP 4 mg Q6HR PRN Administration Nausea / Vomiting Oxycodone HCl 5 mg 05/16/21 00:44 05/17/21 17:31 Oxycodone 5 Mg Tablet PO 5 mg Q4HR PRN Administration Pain 5 to 7 Polyethylene Glycol 17 gm 05/16/21 09:00 05/21/21 08:40 Polyethylene Glycol 3350 17 Gm Packet PO 17 gm DAILY TEMO Administration Primidone 150 mg 05/17/21 09:00 05/21/21 08:41 Primidone 50 Mg Tablet PO 150 mg BID TEMO Administration Ropinirole HCl 0.25 mg 05/18/21 21:00 05/20/21 21:11 Ropinirole 0.25 Mg Tablet PO 0.25 mg QPM TEMO Administration Saccharomyces Boulardii 250 mg 05/16/21 08:00 05/21/21 07:57 Saccharomyces Boulardii 250 Mg Capsule PO 250 mg BIDWM TEMO Administration Sodium Chloride 10 ml 05/16/21 00:37 05/21/21 13:19 Sodium Chloride Flush 0.9% 10 Ml Syringe IVP 10 ml PRN PRN Administration NEEDED PER PROVIDER ORDERS Sodium Chloride 10 ml 05/16/21 01:00 05/21/21 08:42 Sodium Chloride Flush 0.9% 10 Ml Syringe IVP Not Given 0100,0900,1700 TEMO Trazodone HCl 300 mg 05/18/21 21:00 05/20/21 21:13 Trazodone 50 Mg Tablet PO 300 mg QPM TEMO Administration - Lab Result Fish Bone Diagrams: 05/20/21 04:51 05/21/21 04:43 - Additional Planning My Orders: My Active Orders 05/21/21 08:00 Multivitamin [Theragran] 1 tab PO DAILYWM 05/21/21 09:00 Cholecalciferol [Vitamin D3] 50 mcg PO DAILY Cyanocobalamin [Vitamin B-12] 250 mcg PO DAILY 05/21/21 14:00 Metoprolol Tartrate [Lopressor] 25 mg PO TID 05/21/21 18:00 diltiaZEM [Cardizem] 60 mg PO Q6HR Subjective - Subjective Patient Reports: Feeling Better (Was OOB in chair for 1 hour, O2 is at 2.5L per n.c.), Other (She does not feel palpitations) Nursing Reports: Other (Pt crying and sobbing and wants someone to be with her.) Objective Vital Signs: Vital Signs - 24 hr 05/20/21 05/20/21 05/20/21 15:42 16:00 17:00 Temperature 36.9 C Heart Rate 122 H Heart Rate [ 128 H 141 H Monitoring electrodes] Respiratory 18 27 H 23 Rate Blood Pressure Blood Pressure 134/87 H 130/113 H [95/64] Blood Pressure [Left Brachial artery] O2 Saturation 92 91 L 05/20/21 05/20/21 05/20/21 17:31 18:00 19:00 Temperature Heart Rate Heart Rate [ 115 H 119 H Monitoring electrodes] Respiratory 18 20 Rate Blood Pressure 130/113 H Blood Pressure 109/77 108/74 [95/64] Blood Pressure [Left Brachial artery] O2 Saturation 96 97 05/20/21 05/20/21 05/20/21 20:00 20:05 21:00 Temperature Heart Rate 133 H Heart Rate [ 131 H 128 H Monitoring electrodes] Respiratory 25 H 21 23 Rate Blood Pressure Blood Pressure 170/128 H [95/64] Blood Pressure 103/55 L [Left Brachial artery] O2 Saturation 99 94 05/20/21 05/20/21 05/20/21 21:11 22:05 23:00 Temperature Heart Rate Heart Rate [ 122 H 105 H Monitoring electrodes] Respiratory 18 19 Rate Blood Pressure 103/55 L Blood Pressure 91/46 L 103/91 H [95/64] Blood Pressure [Left Brachial artery] O2 Saturation 94 93 05/21/21 05/21/21 05/21/21 00:00 01:00 02:00 Temperature 36.7 C Heart Rate Heart Rate [ 114 H 112 H 109 H Monitoring electrodes] Respiratory 16 16 16 Rate Blood Pressure 98/75 Blood Pressure 98/75 [95/64] Blood Pressure 98/75 106/66 [Left Brachial artery] O2 Saturation 97 95 94 05/21/21 05/21/21 05/21/21 03:00 04:00 05:00 Temperature 36.0 C L Heart Rate Heart Rate [ 122 H 115 H 114 H Monitoring electrodes] Respiratory 18 26 H 15 Rate Blood Pressure Blood Pressure [95/64] Blood Pressure 95/63 106/71 96/57 L [Left Brachial artery] O2 Saturation 95 96 96 05/21/21 05/21/21 05/21/21 06:00 06:21 06:22 Temperature 35.8 C L Heart Rate Heart Rate [ 120 H Monitoring electrodes] Respiratory 15 Rate Blood Pressure 101/72 101/70 Blood Pressure [95/64] Blood Pressure 101/72 [Left Brachial artery] O2 Saturation 96 05/21/21 05/21/21 05/21/21 07:00 08:00 08:18 Temperature 37.1 C Heart Rate 120 H Heart Rate [ 124 H 118 H 116 H Monitoring electrodes] Respiratory 13 20 19 Rate Blood Pressure Blood Pressure [95/64] Blood Pressure 113/91 H 92/32 L 99/75 [Left Brachial artery] O2 Saturation 94 94 94 05/21/21 05/21/21 05/21/21 09:00 10:00 11:00 Temperature Heart Rate 120 H Heart Rate [ 121 H 109 H 117 H Monitoring electrodes] Respiratory 22 19 18 Rate Blood Pressure Blood Pressure [95/64] Blood Pressure 105/70 106/78 105/78 [Left Brachial artery] O2 Saturation 94 94 94 05/21/21 05/21/21 05/21/21 11:31 11:52 12:00 Temperature Heart Rate Heart Rate [ 125 H Monitoring electrodes] Respiratory 20 Rate Blood Pressure 123/50 L 123/50 L Blood Pressure [95/64] Blood Pressure 104/67 [Left Brachial artery] O2 Saturation 94 05/21/21 05/21/21 05/21/21 12:22 13:00 13:32 Temperature 37.6 C Heart Rate Heart Rate [ 132 H 122 H Monitoring electrodes] Respiratory 24 21 Rate Blood Pressure 104/67 Blood Pressure [95/64] Blood Pressure 95/73 99/86 H [Left Brachial artery] O2 Saturation 94 94 05/21/21 14:07 Temperature Heart Rate Heart Rate [ Monitoring electrodes] Respiratory Rate Blood Pressure 101/73 Blood Pressure [95/64] Blood Pressure [Left Brachial artery] O2 Saturation Oxygen O2 Source Nasal cannula I&O (Last 24 Hrs): Intake and Output Totals x24h 05/19/21 05/20/21 05/21/21 23:59 23:59 23:59 Intake Total 2167.000 9736.520 4361 Output Total 971 1700 1725 Balance 1196.000 115.000 -180 General: Alert, Oriented x3, Other (Obese) HEENT: Mucous membr. moist/pink Neck: Supple, No JVD Neuro: Alert (Tremor of both arms and head) Cardiovascular: Other (Irreg irreg, tachy at 110-130) Respiratory: Breath sounds nml Abdomen: Normal bowel sounds, Soft (Obese with pannus) Extremities: Other (2+ edema to mid thighs) - Results Results: Laboratory Results WBC 5.4 x10^3/uL (4.8-10.8) 05/20/21 04:51 RBC 2.18 10^6/uL (4.20-5.40) L 05/20/21 04:51 Hgb 7.5 g/dL (12.0-16.0) L 05/20/21 04:51 Hct 24.9 % (37.0-47.0) L 05/20/21 04:51 MCV 114.2 fL (81.0-99.0) H 05/20/21 04:51 MCH 34.4 pg (27.0-31.0) H 05/20/21 04:51 MCHC 30.1 g/dL (32.0-36.0) L 05/20/21 04:51 RDW 17.2 % (12.0-15.0) H 05/20/21 04:51 Plt Count 273 10^3/uL (130-450) 05/20/21 04:51 MPV 10.2 fL (7.9-10.8) 05/20/21 04:51 Neut # (Auto) 3.0 10^3/uL (1.5-6.6) 05/20/21 04:51 Lymph # (Auto) 1.7 10^3/uL (1.5-3.5) 05/20/21 04:51 [place] # (Auto) 0.5 10^3/uL (0.0-1.0) 05/20/21 04:51 Eos # (Auto) 0.2 10^3/uL (0.0-0.7) 05/20/21 04:51 Baso # (Auto) 0.0 10^3/uL (0.0-0.1) 05/20/21 04:51 Absolute Nucleated RBC 0.09 x10^3/uL 05/20/21 04:51 Nucleated RBC % 1.7 /100WBC 05/20/21 04:51 Manual Slide Review Indicated 05/20/21 04:51 WBC Morphology NORMAL APPEARANCE (NORMAL) 05/20/21 04:51 Platelet Estimate NORMAL (130-450,000) (NORMAL) 05/20/21 04:51 Platelet Morphology NORMAL APPEARANCE (NORMAL) 05/20/21 04:51 RBC Morph Micro Appear 2+ MACROCYTOSIS (NORMAL) 1+ BASO STIPPLING (NORMAL) 05/20/21 04:51 RBC Morph Micro Appear 2+ MACROCYTOSIS (NORMAL) 1+ BASO STIPPLING (NORMAL) 05/20/21 04:51 Bld Gas Analysis Time 1012 05/18/21 10:01 Sample Site LEFT RADIAL 05/18/21 10:01 ABG pH 7.36 (7.35-7.45) 05/18/21 10:01 ABG pCO2 54 mmHg (34-45) H 05/18/21 10:01 ABG pO2 84 mmHg (80-100) 05/18/21 10:01 ABG HCO3 29.8 mmol/L (22.0-26.0) H 05/18/21 10:01 ABG Total CO2 31.5 MMOL/L (21.0-29.0) H 05/18/21 10:01 ABG O2 Saturation 96 % (94-98) 05/18/21 10:01 ABG Base Excess 3.6 mmol/L (-2.0-3.0) H 05/18/21 10:01 Derek Test POSITIVE 05/18/21 10:01 VBG pH 7.363 (7.31-7.41) 05/20/21 04:51 Ionized Calcium 1.14 mmol/L (1.15-1.33) L 05/20/21 04:51 O2 Delivery Device BiPAP 05/18/21 10:01 O2 Liters/Min 45.00 LPM 05/16/21 10:35 Vent Mode SYNCHRONOUS/TIMES 05/18/21 10:01 FiO2 35.00 05/18/21 10:01 Pressure Support Vent 7 cmH2O 05/17/21 09:25 EPAP 5 cmH2O 05/18/21 10:01 IPAP 12 cmH2O 05/18/21 10:01 Sodium 136 mmol/L (135-145) 05/20/21 04:51 Potassium 4.7 mmol/L (3.5-5.0) 05/21/21 04:43 Chloride 98 mmol/L (101-111) L 05/20/21 04:51 Carbon Dioxide 30 mmol/L (21-32) 05/20/21 04:51 Anion Gap 8.0 (6-13) 05/20/21 04:51 BUN 44 mg/dL (6-20) H 05/20/21 04:51 Creatinine 1.3 mg/dL (0.4-1.0) H 05/20/21 04:51 Estimated GFR (MDRD) 40 (>89) L 05/20/21 04:51 Glucose 220 mg/dL (70-100) H 05/20/21 04:51 POC Whole Bld Glucose 280 mg/dL (70 - 100) H 05/21/21 11:26 Estimat Average Glucose 220 mg/dL (70-100) H 05/16/21 05:00 Hemoglobin A1c % 9.3 % (4.27-6.07) H 05/16/21 05:00 Calcium 8.5 mg/dL (8.5-10.3) 05/20/21 04:51 Phosphorus 4.2 mg/dL (2.5-4.6) 05/21/21 04:43 Magnesium 2.1 mg/dL (1.7-2.8) 05/21/21 04:43 Troponin I High Sens 30.3 ng/L (2.3-14.8) H* 05/18/21 12:08 B-Natriuretic Peptide 203 pg/mL (5-100) H 05/18/21 12:08 Nasal Screen MRSA (PCR) NEGATIVE (NEGATIVE) 05/16/21 21:10 - Procedures Procedures: Procedures EXCISION OF ASCENDING COLON, ENDO, DIAGN (09/28/17) EXCISION OF CECUM, ENDO, DIAGN (09/28/17) EXCISION OF DESCENDING COLON, ENDO (07/13/18) EXCISION OF SIGMOID COLON, ENDO (07/13/18) EXCISION OF SIGMOID COLON, ENDO, DIAGN (09/28/17) EXCISION OF TRANSVERSE COLON, ENDO (07/13/18) EXCISION OF TRANSVERSE COLON, ENDO, DIAGN (09/28/17) INTRODUCTION OF OTH THERAP SUBST INTO LOW GI, ENDO (09/28/17)
[2021-05-21] MEDS ORDERED: DIGOXIN 500 MCG/2 ML AMP IVP STA (15:10)
[2021-05-21] MEDS: MIRTAZAPINE 15 MG TABLET PO SCH (20:42)
[2021-05-21] MEDS: buPROPion SR 100 MG TABLET PO SCH (20:43)
[2021-05-21] MEDS: LORazepam 0.5 MG TABLET PO PRN (20:43)
[2021-05-21] MEDS: traZODone 50 MG TABLET PO SCH (20:44)
[2021-05-21] MEDS: ATORVASTATIN 40 MG TABLET PO SCH (20:45)
[2021-05-21] MEDS: rOPINIRole 0.25 MG TABLET PO SCH (21:33)
[2021-05-22] MEDS: SODIUM CHLORIDE FLUSH 0.9% 10 ML SYRINGE IVP SCH ×3 (00:12→18:37)
[2021-05-22] MEDS: METOPROLOL 5 MG/5 ML VIAL IVP PRN (00:59)
[2021-05-22] MEDS: LORazepam 0.5 MG TABLET PO PRN ×2 (03:21→19:35)
[2021-05-22] MEDS: METOPROLOL TARTRATE 25 MG TABLET PO SCH (05:57)
[2021-05-22] MEDS: LEVALBUTEROL 1.25 MG/3 ML NEB INH SCH ×4 (07:51→20:10)
[2021-05-22] MEDS: FORMOTEROL FUMARATE NEB 20 MCG/2 ML INH SCH ×2 (07:51→20:10)
[2021-05-22] MEDS: BUDESONIDE 0.5 MG/2 ML NEB INH SCH ×2 (07:51→20:10)
--- NOTE | 2021-05-22 07:57 | PROVIDER PROGRESS NOTE ---
Assessment/Plan - Problem List (1) Atrial fibrillation with RVR Assessment/Plan: She came off the Cardizem drip overnight. Today, with activity, HR goes to 120. BP low at 90 syst Will continue her B-miya po dose, cont iv Lopressor pushes as needed, continue po Cardizem q6h, check a Dig level, and she may need a Dig dose today. Her CHADS score is calculated at 2 (HTN and DM), therefore she is on Lovenox bid, therapeutic dose, for stroke prophylaxis. Will transition this to an oral DOAC soon. However, the dose will be determined after she is ruled out for PE. If BP low, remain in ICU today yet, and stop Lasix (2) Acute on chronic respiratory failure with hypoxia Assessment/Plan: This is related to her underlying COPD needing chronic oxygen (new home oxygen order 1 month ago after that admission), on top of having Covid pneumonia/community-acquired pneumonia. She is not in COPD exacerbation this admission. She is on 2L O2 per n.c. Continue with supplemental oxygen, keeping sats greater than 88%. (3) Pneumonia due to COVID-19 virus Assessment/Plan: She is on remdesivir per protocol and IV Decadron per protocol. She is also getting empiric antibiotics for possible community-acquired pneumonia. Continue with supplemental oxygen. Her O2 needs are decreasing. Continue with Mucinex for expectoration (4) Acute on chronic diastolic heart failure Assessment/Plan: Her last Echocardiogram done 1 mo ago, revealed grade 2 diastolic dysfunction wplus evidence of cor pulmonale. She redeveloped leg edema since being discharged a month ago, likely due to the COVID pneumonia exacerbating her cor pulmonale. She has been on IV daily Lasix, but will stop this due to hypotension today Continue leg elevation when OOB Controlling her persistent rapid heart rate will also help manage her diastolic heart failure (5) Cor pulmonale (chronic) Assessment/Plan: This was found on the echo done at the last admission 1 month ago. It is likely chronic and likely secondary to her underlying COPD. She does have lower extremity edema and we did start IV Lasix sev days ago, need to stop Lasix due to hypotension today. (6) COPD (chronic obstructive pulmonary disease) Assessment/Plan: She is on 1-2 L of oxygen at baseline, ever since her admission 1 mo ago. She currently does not appear to be in exacerbation. She was on budesonide/formoterol and Tiotropium at home. Will keep her on duo nebs every 4 hours, but we changed prn Albuterol to prn Xopenex due to new RVR We resumed her home inhalers Her goal oxygen saturation is greater than 88%. (7) Diabetes mellitus with complication, with long-term current use of insulin Assessment/Plan: Her blood glucose was initially poorly controlled with a blood glucose of 400. This was likely exacerbated by the use of Decadron. She is currently on a diabetic diet We will continue her current dose of Lantus. Continue with sliding scale Insulin use (8) Chronic anemia Assessment/Plan: Her baseline hemoglobin appears to be around 10-11. She was noted to be anemic during her most recent hospitalization a month ago, with a hemoglobin of 9. Now it is further decreased to 8 and plateaued. There has been no obvious evidence of bleeding. Her MCV is elevated at 113. Her B12 and folate were within normal limits. She had iron studies during her prior hospitalization which suggested anemia of chronic disease. We will check her stool for occult blood otherwise we will continue to trend her hemoglobin and transfuse if it drops below 7. (9) Depression with anxiety Assessment/Plan: She had a "panic attack" while on BIPAP, was sobbing and in distress. She has appeared anxious at other times. We resumed her home Wellbutrin, mirtazapine, and Remeron. Will order po ativan prn. The son may contact her by phone in her room as well, which should help. - Current Meds Current Meds: Current Medications Generic Name Dose Route Start Last Admin Trade Name Freq PRN Reason Stop Dose Admin Acetaminophen 650 mg 05/18/21 23:51 05/21/21 08:46 Acetaminophen 325 Mg Tablet PO 650 mg Q4HR PRN Administration Pain 1 to 4 Aspirin 81 mg 05/16/21 09:00 05/21/21 08:32 Aspirin Ec 81 Mg Tablet PO 81 mg DAILY TEMO Administration Atorvastatin Calcium 80 mg 05/17/21 21:00 05/21/21 20:45 Atorvastatin 40 Mg Tablet PO 80 mg QPM TEMO Administration Budesonide 0.5 mg 05/16/21 07:00 05/22/21 07:51 Budesonide 0.5 Mg/2 Ml Neb INH 0.5 mg RTBID TEMO Administration Bupropion HCl 200 mg 05/17/21 21:00 05/21/21 20:43 Bupropion Sr 100 Mg Tablet PO 200 mg QPM TEMO Administration Bupropion HCl 150 mg 05/17/21 09:00 05/21/21 09:50 Bupropion Sr 150 Mg Tablet PO 150 mg DAILY TEMO Administration Cholecalciferol 50 mcg 05/21/21 09:00 05/21/21 09:48 Cholecalciferol 25 Mcg Tablet PO 50 mcg DAILY TEMO Administration Cyanocobalamin 250 mcg 05/21/21 09:00 05/21/21 09:50 Cyanocobalamin 500 Mcg Tablet PO 250 mcg DAILY TEMO Administration Dexamethasone 6 mg 05/17/21 09:00 05/21/21 08:37 Dexamethasone 4 Mg/Ml Vial IVP 6 mg DAILY TEMO Administration Diltiazem HCl 60 mg 05/21/21 18:00 05/22/21 05:54 Diltiazem 60 Mg Tablet PO 60 mg Q6HR TEMO Administration Enoxaparin Sodium 130 mg 05/18/21 21:00 05/21/21 20:41 Enoxaparin 150 Mg/Ml Syringe SUBQ 130 mg BID TEMO Administration Formoterol Fumarate 20 mcg 05/18/21 19:00 05/22/21 07:51 Formoterol Fumarate Neb 20 Mcg/2 Ml INH 20 mcg RTBID TEMO Administration Furosemide 20 mg 05/19/21 09:00 05/21/21 08:38 Furosemide 20 Mg/2 Ml Vial IVP 20 mg DAILY TEMO Administration Gabapentin 1,200 mg 05/17/21 21:00 05/21/21 20:44 Gabapentin 400 Mg Capsule PO 1,200 mg BID TEMO Administration Guaifenesin 100 mg 05/16/21 07:37 05/21/21 11:52 Guaifenesin 100 Mg/5 Ml Udc PO 100 mg Q6HR PRN Administration Cough Sodium Chloride 500 mls @ 20 mls/hr 05/18/21 21:11 05/21/21 00:15 Normal Saline 0.9% IV Infused Q24H PRN Infusion TKO RATE Insulin Aspart 15 unit 05/16/21 08:00 05/21/21 17:49 Insulin Aspart 300 Unit/3 Ml Pen SUBQ 15 unit TIDWM TEMO Administration Protocol Insulin Aspart 2 - 10 unit 05/20/21 08:00 05/21/21 21:32 Insulin Aspart 300 Unit/3 Ml Pen SUBQ 4 unit 0800,1200,1700,2100 TEMO Administration Protocol Insulin Glargine 5 unit 05/16/21 08:00 05/21/21 08:27 Insulin Glargine 300 Unit/3 Ml Pen SUBQ 5 unit [id number] TEMO Administration Insulin Glargine 40 unit 05/16/21 21:00 05/21/21 21:32 Insulin Glargine 300 Unit/3 Ml Pen SUBQ 40 unit QPM TEMO Administration Levalbuterol HCl 1.25 mg 05/18/21 19:00 05/22/21 07:51 Levalbuterol 1.25 Mg/3 Ml Neb INH 1.25 mg RTQID TEMO Administration Lorazepam 0.5 mg 05/16/21 04:50 05/21/21 17:48 Lorazepam 2 Mg/Ml Vial IVP 0.5 mg Q2H PRN Administration Anxiety Lorazepam 0.5 mg 05/21/21 18:21 05/22/21 03:21 Lorazepam 0.5 Mg Tablet PO 0.5 mg Q6H PRN Administration Anxiety Metoprolol Tartrate 5 mg 05/19/21 06:59 05/22/21 00:59 Metoprolol 5 Mg/5 Ml Vial IVP 5 mg Q6H PRN Administration Tachycardia Mirtazapine 22.5 mg 05/17/21 21:00 05/21/21 20:42 Mirtazapine 15 Mg Tablet PO 22.5 mg QPM TEMO Administration Morphine Sulfate 2 mg 05/18/21 10:47 05/20/21 21:37 Morphine 2 Mg/Ml Carpuject IVP 2 mg Q3HR PRN Administration Dyspnea Multivitamins 1 tab 05/21/21 08:00 05/21/21 07:57 Multivitamin Tablet PO 1 tab DAILYWM TEMO Administration Ondansetron HCl 4 mg 05/16/21 00:44 05/18/21 11:13 Ondansetron 4 Mg/2 Ml Vial IVP 4 mg Q6HR PRN Administration Nausea / Vomiting Oxycodone HCl 5 mg 05/16/21 00:44 05/17/21 17:31 Oxycodone 5 Mg Tablet PO 5 mg Q4HR PRN Administration Pain 5 to 7 Polyethylene Glycol 17 gm 05/16/21 09:00 05/21/21 08:40 Polyethylene Glycol 3350 17 Gm Packet PO 17 gm DAILY TEMO Administration Primidone 150 mg 05/17/21 09:00 05/21/21 20:44 Primidone 50 Mg Tablet PO 150 mg BID TEMO Administration Ropinirole HCl 0.25 mg 05/18/21 21:00 05/21/21 21:33 Ropinirole 0.25 Mg Tablet PO 0.25 mg QPM TEMO Administration Saccharomyces Boulardii 250 mg 05/16/21 08:00 05/21/21 17:51 Saccharomyces Boulardii 250 Mg Capsule PO 250 mg BIDWM TEMO Administration Sodium Chloride 10 ml 05/16/21 00:37 05/21/21 13:19 Sodium Chloride Flush 0.9% 10 Ml Syringe IVP 10 ml PRN PRN Administration NEEDED PER PROVIDER ORDERS Sodium Chloride 10 ml 05/16/21 01:00 05/22/21 00:12 Sodium Chloride Flush 0.9% 10 Ml Syringe IVP 10 ml 0100,0900,1700 TEMO Administration Trazodone HCl 300 mg 05/18/21 21:00 05/21/21 20:44 Trazodone 50 Mg Tablet PO 300 mg QPM TEMO Administration - Lab Result Fish Bone Diagrams: 05/22/21 08:44 05/22/21 08:44 - Additional Planning My Orders: My Active Orders 05/21/21 08:00 Multivitamin [Theragran] 1 tab PO DAILYWM 05/21/21 09:00 Cholecalciferol [Vitamin D3] 50 mcg PO DAILY Cyanocobalamin [Vitamin B-12] 250 mcg PO DAILY 05/21/21 18:00 diltiaZEM [Cardizem] 60 mg PO Q6HR 05/21/21 18:21 LORazepam [Ativan] 0.5 mg PO Q6H PRN 05/22/21 BMP - BASIC METABOLIC PANEL [CHEM] Urgent CBC - COMP BLD CT W/AUTO DIFF [HEME] Urgent DIGOXIN [CHEM] Urgent Evaluate and Treat PT [PT] Routine 05/22/21 07:50 Transfer [Admit \\ Transfer \\ Status] [RC] .ONCE 05/22/21 07:51 Telemetry- [RC] Q4HR 05/22/21 09:00 Metoprolol Succinate [Toprol Xl] 50 mg PO BID 05/23/21 05:00 BMP - BASIC METABOLIC PANEL [CHEM] DAILYLAB CBC - COMP BLD CT W/AUTO DIFF [HEME] DAILYLAB DIGOXIN [CHEM] DAILYLAB 05/24/21 05:00 BMP - BASIC METABOLIC PANEL [CHEM] DAILYLAB CBC - COMP BLD CT W/AUTO DIFF [HEME] DAILYLAB Subjective - Subjective Patient Reports: Shortness of Breath Nursing Reports: Other (Very tired and weak, when stood with PT, and pivoted and then sat, she was in a chair for over an hour) Objective Vital Signs: Vital Signs - 24 hr 05/21/21 05/21/21 05/21/21 08:00 08:18 09:00 Temperature 37.1 C Heart Rate 120 H Heart Rate [ 118 H 116 H 121 H Monitoring electrodes] Respiratory 20 19 22 Rate Blood Pressure Blood Pressure 92/32 L 99/75 105/70 [Left Brachial artery] O2 Saturation 94 94 94 05/21/21 05/21/21 05/21/21 10:00 11:00 11:31 Temperature Heart Rate 120 H Heart Rate [ 109 H 117 H Monitoring electrodes] Respiratory 19 18 Rate Blood Pressure 123/50 L Blood Pressure 106/78 105/78 [Left Brachial artery] O2 Saturation 94 94 05/21/21 05/21/21 05/21/21 11:52 12:00 12:22 Temperature Heart Rate Heart Rate [ 125 H Monitoring electrodes] Respiratory 20 Rate Blood Pressure 123/50 L 104/67 Blood Pressure 104/67 [Left Brachial artery] O2 Saturation 94 05/21/21 05/21/21 05/21/21 13:00 13:32 14:00 Temperature 37.6 C Heart Rate Heart Rate [ 132 H 122 H 118 H Monitoring electrodes] Respiratory 24 21 19 Rate Blood Pressure Blood Pressure 95/73 99/86 H 96/60 [Left Brachial artery] O2 Saturation 94 94 95 05/21/21 05/21/21 05/21/21 14:07 15:00 15:57 Temperature Heart Rate 117 H Heart Rate [ 122 H Monitoring electrodes] Respiratory 21 Rate Blood Pressure 101/73 Blood Pressure 105/93 H [Left Brachial artery] O2 Saturation 95 05/21/21 05/21/21 05/21/21 16:00 17:00 17:51 Temperature 36.6 C Heart Rate 117 H Heart Rate [ 112 H 122 H Monitoring electrodes] Respiratory 24 14 Rate Blood Pressure 109/93 H Blood Pressure 98/81 H 109/93 H [Left Brachial artery] O2 Saturation 96 95 05/21/21 05/21/21 05/21/21 17:56 19:00 20:00 Temperature 37.2 C Heart Rate Heart Rate [ 124 H 123 H 119 H Monitoring electrodes] Respiratory 20 18 19 Rate Blood Pressure Blood Pressure 109/93 H 100/84 H 116/85 H [Left Brachial artery] O2 Saturation 95 95 93 05/21/21 05/21/21 05/21/21 20:30 21:00 21:33 Temperature Heart Rate 21 L Heart Rate [ 121 H Monitoring electrodes] Respiratory 26 H 18 Rate Blood Pressure 106/93 H Blood Pressure 106/93 H [Left Brachial artery] O2 Saturation 94 05/21/21 05/21/21 05/22/21 22:00 23:00 00:00 Temperature Heart Rate Heart Rate [ 130 H 133 H 123 H Monitoring electrodes] Respiratory 15 18 Rate Blood Pressure Blood Pressure 107/72 105/77 108/64 [Left Brachial artery] O2 Saturation 94 97 97 05/22/21 05/22/21 05/22/21 00:12 00:59 01:00 Temperature Heart Rate Heart Rate [ 121 H Monitoring electrodes] Respiratory 17 Rate Blood Pressure 108/64 108/54 L Blood Pressure 108/54 L [Left Brachial artery] O2 Saturation 99 05/22/21 05/22/21 05/22/21 01:05 01:10 01:15 Temperature Heart Rate Heart Rate [ 115 H 123 H 116 H Monitoring electrodes] Respiratory Rate Blood Pressure Blood Pressure 101/67 110/77 104/75 [Left Brachial artery] O2 Saturation 05/22/21 05/22/21 05/22/21 01:29 02:00 03:00 Temperature Heart Rate Heart Rate [ 115 H 121 H Monitoring electrodes] Respiratory 16 15 Rate Blood Pressure 104/75 Blood Pressure 114/75 [Left Brachial artery] O2 Saturation 96 95 05/22/21 05/22/21 05/22/21 05:54 05:57 05:58 Temperature Heart Rate Heart Rate [ 129 H Monitoring electrodes] Respiratory 24 Rate Blood Pressure 141/98 H 141/98 H Blood Pressure 141/98 H [Left Brachial artery] O2 Saturation 94 05/22/21 05/22/21 07:00 07:51 Temperature Heart Rate 21 L Heart Rate [ 120 H Monitoring electrodes] Respiratory 21 16 Rate Blood Pressure Blood Pressure 125/75 [Left Brachial artery] O2 Saturation Oxygen O2 Source Nasal cannula I&O (Last 24 Hrs): Intake and Output Totals x24h 05/20/21 05/21/21 05/22/21 23:59 23:59 23:59 Intake Total 3741.459 9557.75 700 Output Total 1700 1785 450 Balance 115.000 896.75 250 General: Alert, Oriented x3 HEENT: Mucous membr. moist/pink, Other (On O2 n.c.) Neck: Supple Neuro: Alert, Other (Tremor of arms and head) Cardiovascular: Other (Tachy) Respiratory: Other (On O2 n.c.) Genitourinary: No Tenderness (Obese with pannus) Extremities: Other (1-2+ edema) - Results Results: Laboratory Results WBC 5.4 x10^3/uL (4.8-10.8) 05/20/21 04:51 RBC 2.18 10^6/uL (4.20-5.40) L 05/20/21 04:51 Hgb 7.5 g/dL (12.0-16.0) L 05/20/21 04:51 Hct 24.9 % (37.0-47.0) L 05/20/21 04:51 MCV 114.2 fL (81.0-99.0) H 05/20/21 04:51 MCH 34.4 pg (27.0-31.0) H 05/20/21 04:51 MCHC 30.1 g/dL (32.0-36.0) L 05/20/21 04:51 RDW 17.2 % (12.0-15.0) H 05/20/21 04:51 Plt Count 273 10^3/uL (130-450) 05/20/21 04:51 MPV 10.2 fL (7.9-10.8) 05/20/21 04:51 Neut # (Auto) 3.0 10^3/uL (1.5-6.6) 05/20/21 04:51 Lymph # (Auto) 1.7 10^3/uL (1.5-3.5) 05/20/21 04:51 [place] # (Auto) 0.5 10^3/uL (0.0-1.0) 05/20/21 04:51 Eos # (Auto) 0.2 10^3/uL (0.0-0.7) 05/20/21 04:51 Baso # (Auto) 0.0 10^3/uL (0.0-0.1) 05/20/21 04:51 Absolute Nucleated RBC 0.09 x10^3/uL 05/20/21 04:51 Nucleated RBC % 1.7 /100WBC 05/20/21 04:51 Manual Slide Review Indicated 05/20/21 04:51 WBC Morphology NORMAL APPEARANCE (NORMAL) 05/20/21 04:51 Platelet Estimate NORMAL (130-450,000) (NORMAL) 05/20/21 04:51 Platelet Morphology NORMAL APPEARANCE (NORMAL) 05/20/21 04:51 RBC Morph Micro Appear 2+ MACROCYTOSIS (NORMAL) 1+ BASO STIPPLING (NORMAL) 05/20/21 04:51 RBC Morph Micro Appear 2+ MACROCYTOSIS (NORMAL) 1+ BASO STIPPLING (NORMAL) 05/20/21 04:51 Bld Gas Analysis Time 1012 05/18/21 10:01 Sample Site LEFT RADIAL 05/18/21 10:01 ABG pH 7.36 (7.35-7.45) 05/18/21 10:01 ABG pCO2 54 mmHg (34-45) H 05/18/21 10:01 ABG pO2 84 mmHg (80-100) 05/18/21 10:01 ABG HCO3 29.8 mmol/L (22.0-26.0) H 05/18/21 10:01 ABG Total CO2 31.5 MMOL/L (21.0-29.0) H 05/18/21 10:01 ABG O2 Saturation 96 % (94-98) 05/18/21 10:01 ABG Base Excess 3.6 mmol/L (-2.0-3.0) H 05/18/21 10:01 Derek Test POSITIVE 05/18/21 10:01 VBG pH 7.363 (7.31-7.41) 05/20/21 04:51 Ionized Calcium 1.14 mmol/L (1.15-1.33) L 05/20/21 04:51 O2 Delivery Device BiPAP 05/18/21 10:01 O2 Liters/Min 45.00 LPM 05/16/21 10:35 Vent Mode SYNCHRONOUS/TIMES 05/18/21 10:01 FiO2 35.00 05/18/21 10:01 Pressure Support Vent 7 cmH2O 05/17/21 09:25 EPAP 5 cmH2O 05/18/21 10:01 IPAP 12 cmH2O 05/18/21 10:01 Sodium 136 mmol/L (135-145) 05/20/21 04:51 Potassium 4.7 mmol/L (3.5-5.0) 05/21/21 04:43 Chloride 98 mmol/L (101-111) L 05/20/21 04:51 Carbon Dioxide 30 mmol/L (21-32) 05/20/21 04:51 Anion Gap 8.0 (6-13) 05/20/21 04:51 BUN 44 mg/dL (6-20) H 05/20/21 04:51 Creatinine 1.3 mg/dL (0.4-1.0) H 05/20/21 04:51 Estimated GFR (MDRD) 40 (>89) L 05/20/21 04:51 Glucose 220 mg/dL (70-100) H 05/20/21 04:51 POC Whole Bld Glucose 202 mg/dL (70 - 100) H 05/21/21 20:40 Estimat Average Glucose 220 mg/dL (70-100) H 05/16/21 05:00 Hemoglobin A1c % 9.3 % (4.27-6.07) H 05/16/21 05:00 Calcium 8.5 mg/dL (8.5-10.3) 05/20/21 04:51 Phosphorus 4.2 mg/dL (2.5-4.6) 05/21/21 04:43 Magnesium 2.1 mg/dL (1.7-2.8) 05/21/21 04:43 Troponin I High Sens 30.3 ng/L (2.3-14.8) H* 05/18/21 12:08 B-Natriuretic Peptide 203 pg/mL (5-100) H 05/18/21 12:08 Nasal Screen MRSA (PCR) NEGATIVE (NEGATIVE) 05/16/21 21:10 - Procedures Procedures: Procedures EXCISION OF ASCENDING COLON, ENDO, DIAGN (09/28/17) EXCISION OF CECUM, ENDO, DIAGN (09/28/17) EXCISION OF DESCENDING COLON, ENDO (07/13/18) EXCISION OF SIGMOID COLON, ENDO (07/13/18) EXCISION OF SIGMOID COLON, ENDO, DIAGN (09/28/17) EXCISION OF TRANSVERSE COLON, ENDO (07/13/18) EXCISION OF TRANSVERSE COLON, ENDO, DIAGN (09/28/17) INTRODUCTION OF OTH THERAP SUBST INTO LOW GI, ENDO (09/28/17)
[2021-05-22] MEDS: INSULIN ASPART 300 UNIT/3 ML PEN SUBQ SCH ×7 (08:27→21:38)
[2021-05-22] MEDS: INSULIN GLARGINE 300 UNIT/3 ML PEN SUBQ SCH ×2 (08:29→21:38)
[2021-05-22] MEDS: CYANOCOBALAMIN 500 MCG TABLET PO SCH (08:31)
[2021-05-22] MEDS: MULTIVITAMIN TABLET PO SCH (08:32)
[2021-05-22] MEDS: CHOLECALCIFEROL 25 MCG TABLET PO SCH (08:33)
[2021-05-22] MEDS: DEXAMETHASONE 4 MG/ML VIAL IVP SCH (08:40)
[2021-05-22] MEDS: buPROPion SR 150 MG TABLET PO SCH (08:40)
[2021-05-22] MEDS: GABAPENTIN 400 MG CAPSULE PO SCH ×2 (08:41→21:40)
[2021-05-22] MEDS: FUROSEMIDE 20 MG/2 ML VIAL IVP SCH (08:41)
[2021-05-22] MEDS: PRIMIDONE 50 MG TABLET PO SCH ×2 (08:42→21:39)
[2021-05-22] MEDS: SACCHAROMYCES BOULARDII 250 MG CAPSULE PO SCH ×2 (08:44→18:38)
[2021-05-22] MEDS ORDERED: METOPROLOL SUCCINATE 50 MG TABLET PO SCH (09:00)
[2021-05-22 09:02] LABS: BASOPHILS # (AUTO) 0.1 10^3/uL (0.0-0.1); BASOPHILS % (AUTO) 0.8 %; HGB - HEMOGLOBIN 8.8 g/dL (12.0-16.0); RED CELL DISTRIBUTION WIDTH 17.2 % (12.0-15.0)
[2021-05-22] MEDS: guaiFENesin 100 MG/5 ML UDC PO PRN (09:04)
[2021-05-22 09:09] LABS: EOSINOPHILS # (AUTO) 0.2 10^3/uL (0.0-0.7); EOSINOPHILS % (AUTO) 3.5 %; LYMPHOCYTES # (AUTO) 1.7 10^3/uL (1.5-3.5); LYMPHOCYTES % (AUTO) 28.7 %; MEAN CORPUSCULAR HEMOGLOBIN 34.8 pg (27.0-31.0); MEAN CORPUSCULAR HGB CONC 31.4 g/dL (32.0-36.0); MEAN CORPUSCULAR VOLUME 110.7 fL (81.0-99.0); MEAN PLATELET VOLUME 10.6 fL (7.9-10.8); MONOCYTES # (AUTO) 0.7 10^3/uL (0.0-1.0); MONOCYTES % (AUTO) 12.3 %; NEUTROPHILS # (AUTO) 3.1 10^3/uL (1.5-6.6); NEUTROPHILS % (AUTO) 51.2 %; NRBC ABSOLUTE COUNT (AUTO) 0.27 x10^3/uL; NUCLEATED RED BLOOD CELLS AUTO 4.5 /100WBC; PLT - PLATELET COUNT 305 10^3/uL (130-450); RED BLOOD COUNT 2.53 10^6/uL (4.20-5.40)
[2021-05-22 09:10] LABS: CALCIUM 8.4 mg/dL (8.5-10.3); POTASSIUM 4.6 mmol/L (3.5-5.0)
[2021-05-22 09:19] LABS: SLIDE REVIEW? Indicated
[2021-05-22] MEDS: ASPIRIN EC 81 MG TABLET PO SCH (09:26)
[2021-05-22] MEDS: ENOXAPARIN 150 MG/ML SYRINGE SUBQ SCH (10:23)
[2021-05-22] MEDS: SENNA 8.6 MG TABLET PO SCH (10:24)
[2021-05-22] MEDS: polyethylene glycoL 3350 17 GM PACKET PO SCH (10:24)
[2021-05-22] MEDS: ACETAMINOPHEN 325 MG TABLET PO PRN (10:25)
[2021-05-22] MEDS: DOCUSATE SODIUM 250 MG CAPSULE PO SCH (10:25)
[2021-05-22 10:36] LABS: PLATELET ESTIMATE, MANUAL NORMAL (130-450,000) (NORMAL); PLATELET MORPHOLOGY NORMAL APPEARANCE (NORMAL); WBC MORPHOLOGY (MULTIPLE) NORMAL APPEARANCE (NORMAL)
[2021-05-22] MEDS ORDERED: DIGOXIN 500 MCG/2 ML AMP IVP ONE (10:58)
[2021-05-22] MEDS: METOPROLOL SUCCINATE 25 MG TABLET PO SCH ×2 (13:14→21:40)
[2021-05-22] MEDS: MORPHINE 2 MG/ML CARPUJECT IVP PRN (13:20)
[2021-05-22] MEDS: SODIUM CHLORIDE FLUSH 0.9% 10 ML SYRINGE IVP PRN (13:21)
[2021-05-22] MEDS: buPROPion SR 100 MG TABLET PO SCH (21:38)
[2021-05-22] MEDS: rOPINIRole 0.25 MG TABLET PO SCH (21:39)
[2021-05-22] MEDS: ATORVASTATIN 40 MG TABLET PO SCH (21:40)
[2021-05-22] MEDS: MIRTAZAPINE 15 MG TABLET PO SCH (21:40)
[2021-05-22] MEDS: traZODone 50 MG TABLET PO SCH (21:40)
[2021-05-23] MEDS: SODIUM CHLORIDE FLUSH 0.9% 10 ML SYRINGE IVP SCH ×3 (00:07→17:30)
[2021-05-23] MEDS: ENOXAPARIN 150 MG/ML SYRINGE SUBQ SCH ×3 (00:08→20:43)
[2021-05-23] MEDS: MORPHINE 2 MG/ML CARPUJECT IVP PRN (03:19)
[2021-05-23 07:06] LABS: BASOPHILS % (AUTO) 0.6 %; EOSINOPHILS # (AUTO) 0.2 10^3/uL (0.0-0.7); EOSINOPHILS % (AUTO) 2.2 %; HCT - HEMATOCRIT 29.4 % (37.0-47.0); HGB - HEMOGLOBIN 9.4 g/dL (12.0-16.0); LYMPHOCYTES % (AUTO) 29.2 %; MEAN CORPUSCULAR HEMOGLOBIN 34.7 pg (27.0-31.0); MEAN CORPUSCULAR VOLUME 108.5 fL (81.0-99.0); MEAN PLATELET VOLUME 10.2 fL (7.9-10.8); MONOCYTES # (AUTO) 0.9 10^3/uL (0.0-1.0); MONOCYTES % (AUTO) 13.7 %; NEUTROPHILS # (AUTO) 3.3 10^3/uL (1.5-6.6); NEUTROPHILS % (AUTO) 49.5 %; NRBC ABSOLUTE COUNT (AUTO) 0.22 x10^3/uL; NUCLEATED RED BLOOD CELLS AUTO 3.3 /100WBC; PLT - PLATELET COUNT 314 10^3/uL (130-450); RED BLOOD COUNT 2.71 10^6/uL (4.20-5.40); RED CELL DISTRIBUTION WIDTH 17.2 % (12.0-15.0); WHITE BLOOD COUNT 6.7 x10^3/uL (4.8-10.8)
[2021-05-23 07:15] LABS: CALCIUM 8.7 mg/dL (8.5-10.3); CREATININE 1.1 mg/dL (0.4-1.0); POTASSIUM 4.4 mmol/L (3.5-5.0)
[2021-05-23] MEDS: INSULIN ASPART 300 UNIT/3 ML PEN SUBQ SCH ×7 (08:19→20:42)
[2021-05-23] MEDS: DEXAMETHASONE 4 MG/ML VIAL IVP SCH (08:24)
[2021-05-23] MEDS: polyethylene glycoL 3350 17 GM PACKET PO SCH (08:25)
[2021-05-23] MEDS: CYANOCOBALAMIN 500 MCG TABLET PO SCH (08:26)
[2021-05-23] MEDS: METOPROLOL SUCCINATE 25 MG TABLET PO SCH ×2 (08:26→20:56)
[2021-05-23] MEDS: MULTIVITAMIN TABLET PO SCH (08:26)
[2021-05-23] MEDS: DOCUSATE SODIUM 250 MG CAPSULE PO SCH (08:27)
[2021-05-23] MEDS: PRIMIDONE 50 MG TABLET PO SCH ×2 (08:27→20:53)
[2021-05-23] MEDS: SENNA 8.6 MG TABLET PO SCH (08:28)
[2021-05-23] MEDS: ASPIRIN EC 81 MG TABLET PO SCH (08:28)
[2021-05-23] MEDS: CHOLECALCIFEROL 25 MCG TABLET PO SCH (08:28)
[2021-05-23] MEDS: SACCHAROMYCES BOULARDII 250 MG CAPSULE PO SCH ×2 (08:28→17:30)
[2021-05-23] MEDS: GABAPENTIN 400 MG CAPSULE PO SCH ×2 (08:28→20:51)
[2021-05-23] MEDS: buPROPion SR 100 MG TABLET PO SCH (08:30)
[2021-05-23] MEDS: buPROPion SR 150 MG TABLET PO SCH (08:31)
[2021-05-23] MEDS: INSULIN GLARGINE 300 UNIT/3 ML PEN SUBQ SCH ×2 (08:37→20:42)
[2021-05-23] MEDS: LEVALBUTEROL 1.25 MG/3 ML NEB INH SCH ×4 (08:39→20:22)
[2021-05-23] MEDS: BUDESONIDE 0.5 MG/2 ML NEB INH SCH ×2 (08:39→20:22)
[2021-05-23] MEDS: FORMOTEROL FUMARATE NEB 20 MCG/2 ML INH SCH ×2 (08:39→20:22)
[2021-05-23] MEDS ORDERED: DIGOXIN 500 MCG/2 ML AMP IVP STA (09:19)
[2021-05-23] MEDS: LORazepam 0.5 MG TABLET PO PRN ×3 (10:18→20:56)
[2021-05-23] MEDS ORDERED: MAGNESIUM CITRATE 296 ML BOTTLE ONE (11:05)
[2021-05-23] MEDS ORDERED: DIGOXIN 500 MCG/2 ML AMP IVP ONE (15:00)
[2021-05-23] MEDS: diltiaZEM INJ 125 MG in DEXTROSE 5% 100 ML IV SCH (15:26)
--- NOTE | 2021-05-23 17:32 | PROVIDER PROGRESS NOTE ---
Assessment/Plan - Problem List (1) Atrial fibrillation with RVR Assessment/Plan: When she is tachycardic she becomes hypotensive. Will resume a Cardizem drip, stop the p.o. Cardizem. We will continue with spreadout scheduled doses of beta-miya. We will give dig x2 today IV and check a dig level in the morning. Remain in the ICU on Cardizem drip (2) Acute on chronic respiratory failure with hypoxia Assessment/Plan: Her high O2 needs have resolved and she is down to the levels of her home oxygen order. Continue to treat the Covid pneumonia and her underlying COPD with nebs (3) Pneumonia due to COVID-19 virus Assessment/Plan: With remdesivir, Decadron, Mucinex, incentive spirometer, Isolation Her O2 needs have improved and stabilized (4) Acute on chronic diastolic heart failure Assessment/Plan: Her Lasix IV doses had to be stopped because of hypotension. We will continue with attention at rate control which will help her diastolic heart failure (5) Cor pulmonale (chronic) Assessment/Plan: As per echo that was done 1 month ago when she was here with a COPD exacerbation admission She redeveloped leg edema in the 1 month after that discharge, and she was on p.o. Lasix. We tried IV Lasix but diuretics were stopped 2 days ago when she became very hypotensive (6) COPD (chronic obstructive pulmonary disease) Assessment/Plan: She is not in COPD exacerbation, no wheezing, her sentences are long and without any noticable tachypnea today Continue her inhalers (7) Diabetes mellitus with complication, with long-term current use of insulin Assessment/Plan: Glucoses are in the 300s and higher because of being on IV Decadron. Continue with insulin coverage and CC diet (8) Chronic anemia Assessment/Plan: This was checked at the last recent admission and she has adequate B12, folate stores and iron stores. It is anemia of chronic disease. Continue to follow CBC daily, transfuse if hemoglobin under 7 (9) Depression with anxiety Assessment/Plan: More stable - Current Meds Current Meds: Current Medications Generic Name Dose Route Start Last Admin Trade Name Freq PRN Reason Stop Dose Admin Acetaminophen 650 mg 05/18/21 23:51 05/22/21 10:25 Acetaminophen 325 Mg Tablet PO 650 mg Q4HR PRN Administration Pain 1 to 4 Aspirin 81 mg 05/16/21 09:00 05/23/21 08:28 Aspirin Ec 81 Mg Tablet PO 81 mg DAILY TEMO Administration Atorvastatin Calcium 80 mg 05/17/21 21:00 05/22/21 21:40 Atorvastatin 40 Mg Tablet PO 80 mg QPM TEMO Administration Budesonide 0.5 mg 05/16/21 07:00 05/23/21 08:39 Budesonide 0.5 Mg/2 Ml Neb INH 0.5 mg RTBID TEMO Administration Bupropion HCl 200 mg 05/17/21 21:00 05/23/21 08:30 Bupropion Sr 100 Mg Tablet PO Not Given QPM TEMO Bupropion HCl 150 mg 05/17/21 09:00 05/23/21 08:31 Bupropion Sr 150 Mg Tablet PO 150 mg DAILY TEMO Administration Cholecalciferol 50 mcg 05/21/21 09:00 05/23/21 08:28 Cholecalciferol 25 Mcg Tablet PO 50 mcg DAILY TEMO Administration Cyanocobalamin 250 mcg 05/21/21 09:00 05/23/21 08:26 Cyanocobalamin 500 Mcg Tablet PO 250 mcg DAILY TEMO Administration Dexamethasone 6 mg 05/17/21 09:00 05/23/21 08:24 Dexamethasone 4 Mg/Ml Vial IVP 6 mg DAILY TEMO Administration Docusate Sodium 250 - 500 mg 05/22/21 11:00 05/23/21 08:27 Docusate Sodium 250 Mg Capsule PO 250 mg DAILY TEMO Administration Enoxaparin Sodium 130 mg 05/18/21 21:00 05/23/21 08:25 Enoxaparin 150 Mg/Ml Syringe SUBQ 130 mg BID TEMO Administration Formoterol Fumarate 20 mcg 05/18/21 19:00 05/23/21 08:39 Formoterol Fumarate Neb 20 Mcg/2 Ml INH 20 mcg RTBID TEMO Administration Gabapentin 1,200 mg 05/17/21 21:00 05/23/21 08:28 Gabapentin 400 Mg Capsule PO 1,200 mg BID TEMO Administration Guaifenesin 100 mg 05/16/21 07:37 05/22/21 09:04 Guaifenesin 100 Mg/5 Ml Udc PO 100 mg Q6HR PRN Administration Cough Sodium Chloride 500 mls @ 20 mls/hr 05/18/21 21:11 05/21/21 00:15 Normal Saline 0.9% IV Infused Q24H PRN Infusion TKO RATE Diltiazem HCl 125 mg/ Dextrose 125 mls @ 5 mls/hr 05/23/21 16:00 05/23/21 15:48 IV 10 mg/hr .Q25H TEMO 10 mls/hr Titration Protocol 5 MG/HR Insulin Aspart 15 unit 05/16/21 08:00 05/23/21 12:23 Insulin Aspart 300 Unit/3 Ml Pen SUBQ 15 unit TIDWM TEMO Administration Protocol Insulin Aspart 2 - 10 unit 05/20/21 08:00 05/23/21 12:24 Insulin Aspart 300 Unit/3 Ml Pen SUBQ 10 unit 0800,1200,1700,2100 TEMO Administration Protocol Insulin Glargine 5 unit 05/16/21 08:00 05/23/21 08:37 Insulin Glargine 300 Unit/3 Ml Pen SUBQ 5 unit [id number] TEMO Administration Insulin Glargine 40 unit 05/16/21 21:00 05/22/21 21:38 Insulin Glargine 300 Unit/3 Ml Pen SUBQ 40 unit QPM TEMO Administration Levalbuterol HCl 1.25 mg 05/18/21 19:00 05/23/21 16:59 Levalbuterol 1.25 Mg/3 Ml Neb INH Not Given RTQID TEMO Lorazepam 0.5 mg 05/21/21 18:21 05/23/21 15:24 Lorazepam 0.5 Mg Tablet PO 0.5 mg Q6H PRN Administration Anxiety Metoprolol Succinate 25 mg 05/22/21 12:00 05/23/21 08:26 Metoprolol Succinate 25 Mg Tablet PO Not Given BID TEMO Metoprolol Tartrate 5 mg 05/19/21 06:59 05/22/21 00:59 Metoprolol 5 Mg/5 Ml Vial IVP 5 mg Q6H PRN Administration Tachycardia Mirtazapine 22.5 mg 05/17/21 21:00 05/22/21 21:40 Mirtazapine 15 Mg Tablet PO 22.5 mg QPM TEMO Administration Multivitamins 1 tab 05/21/21 08:00 05/23/21 08:26 Multivitamin Tablet PO 1 tab DAILYWM TEMO Administration Ondansetron HCl 4 mg 05/16/21 00:44 05/18/21 11:13 Ondansetron 4 Mg/2 Ml Vial IVP 4 mg Q6HR PRN Administration Nausea / Vomiting Oxycodone HCl 5 mg 05/16/21 00:44 05/17/21 17:31 Oxycodone 5 Mg Tablet PO 5 mg Q4HR PRN Administration Pain 5 to 7 Polyethylene Glycol 17 gm 05/16/21 09:00 05/23/21 08:25 Polyethylene Glycol 3350 17 Gm Packet PO 17 gm DAILY TEMO Administration Primidone 150 mg 05/17/21 09:00 05/23/21 08:27 Primidone 50 Mg Tablet PO 150 mg BID TEMO Administration Ropinirole HCl 0.25 mg 05/18/21 21:00 05/22/21 21:39 Ropinirole 0.25 Mg Tablet PO 0.25 mg QPM TEMO Administration Saccharomyces Boulardii 250 mg 05/16/21 08:00 05/23/21 08:28 Saccharomyces Boulardii 250 Mg Capsule PO 250 mg BIDWM TEMO Administration Senna 8.6 - 17.2 mg 05/22/21 10:00 05/23/21 08:28 Senna 8.6 Mg Tablet PO 8.6 mg DAILY TEMO Administration Sodium Chloride 10 ml 05/16/21 00:37 05/22/21 13:21 Sodium Chloride Flush 0.9% 10 Ml Syringe IVP 10 ml PRN PRN Administration NEEDED PER PROVIDER ORDERS Sodium Chloride 10 ml 05/16/21 01:00 05/23/21 08:40 Sodium Chloride Flush 0.9% 10 Ml Syringe IVP 10 ml 0100,0900,1700 TEMO Administration Trazodone HCl 300 mg 05/18/21 21:00 05/22/21 21:40 Trazodone 50 Mg Tablet PO 300 mg QPM TEMO Administration - Lab Result Fish Bone Diagrams: 05/23/21 06:58 05/23/21 06:58 - Additional Planning My Orders: My Active Orders 05/23/21 16:00 Dextrose 5% [D5w] 100 ml diltiaZEM INJ [Cardizem Inj] 125 mg IV 5 mg/hr 05/24/21 05:00 BMP - BASIC METABOLIC PANEL [CHEM] DAILYLAB CBC - COMP BLD CT W/AUTO DIFF [HEME] DAILYLAB DIGOXIN [CHEM] DAILYLAB Subjective - Subjective Patient Reports: Feeling Better Nursing Reports: Other (Patient was able to ambulate in her room around her entire bed using a walker without severe shortness of breath or desaturations, on O2 pr n.c.) Objective Vital Signs: Vital Signs - 24 hr 05/22/21 05/22/21 05/22/21 18:00 18:30 18:44 Temperature 36.8 C Heart Rate Heart Rate [ 127 H Monitoring electrodes] Respiratory 24 Rate Blood Pressure 126/92 H Blood Pressure 86/66 L 102/77 [Left Brachial artery] O2 Saturation 05/22/21 05/22/21 05/22/21 19:00 19:10 19:44 Temperature 37.1 C Heart Rate Heart Rate [ 127 H 124 H 130 H Monitoring electrodes] Respiratory 17 22 Rate Blood Pressure Blood Pressure 172/71 H 110/78 [Left Brachial artery] O2 Saturation 95 91 L 05/22/21 05/22/21 05/22/21 20:10 21:00 22:00 Temperature Heart Rate 131 H Heart Rate [ 128 H 112 H Monitoring electrodes] Respiratory 22 16 18 Rate Blood Pressure Blood Pressure 119/88 H 100/67 [Left Brachial artery] O2 Saturation 95 93 05/22/21 05/23/21 05/23/21 23:00 00:00 00:07 Temperature Heart Rate Heart Rate [ 138 H 132 H Monitoring electrodes] Respiratory 19 16 Rate Blood Pressure 114/84 H Blood Pressure 78/67 L 114/84 H [Left Brachial artery] O2 Saturation 97 99 05/23/21 05/23/21 05/23/21 01:00 02:00 03:00 Temperature 36.0 C L Heart Rate Heart Rate [ 121 H 106 H 129 H Monitoring electrodes] Respiratory 17 14 21 Rate Blood Pressure Blood Pressure 101/69 100/71 126/90 H [Left Brachial artery] O2 Saturation 98 98 100 05/23/21 05/23/21 05/23/21 05:00 06:00 06:34 Temperature Heart Rate Heart Rate [ 132 H 106 H Monitoring electrodes] Respiratory 14 14 Rate Blood Pressure 80/55 L Blood Pressure 92/47 L 80/54 L [Left Brachial artery] O2 Saturation 100 100 05/23/21 05/23/21 05/23/21 07:00 08:00 08:39 Temperature 35.9 C L 36.9 C Heart Rate 131 H Heart Rate [ 134 H 122 H Monitoring electrodes] Respiratory 18 21 22 Rate Blood Pressure Blood Pressure 151/51 H 92/58 L [Left Brachial artery] O2 Saturation 91 L 92 05/23/21 05/23/21 05/23/21 09:00 10:00 10:17 Temperature Heart Rate 137 H Heart Rate [ 135 H 145 H Monitoring electrodes] Respiratory 18 23 Rate Blood Pressure Blood Pressure 102/79 88/58 L [Left Brachial artery] O2 Saturation 96 96 05/23/21 05/23/21 05/23/21 11:00 12:00 12:16 Temperature 36.8 C Heart Rate 137 H Heart Rate [ 144 H 141 H Monitoring electrodes] Respiratory 20 23 20 Rate Blood Pressure Blood Pressure 94/56 L 80/65 L [Left Brachial artery] O2 Saturation 92 92 05/23/21 05/23/21 05/23/21 12:22 13:00 14:00 Temperature Heart Rate Heart Rate [ 143 H 140 H Monitoring electrodes] Respiratory 24 Rate Blood Pressure 80/65 L Blood Pressure 104/89 H 101/85 H [Left Brachial artery] O2 Saturation 94 97 05/23/21 05/23/21 05/23/21 15:00 15:25 15:26 Temperature Heart Rate 134 H Heart Rate [ 133 H Monitoring electrodes] Respiratory 19 Rate Blood Pressure 130/107 H Blood Pressure 130/107 H [Left Brachial artery] O2 Saturation 92 05/23/21 05/23/21 16:00 17:00 Temperature 37.1 C Heart Rate Heart Rate [ 136 H 130 H Monitoring electrodes] Respiratory 20 20 Rate Blood Pressure Blood Pressure 142/111 H 125/77 [Left Brachial artery] O2 Saturation 96 99 Oxygen O2 Source [With Activity] Nasal cannula O2 Source Nasal cannula I&O (Last 24 Hrs): Intake and Output Totals x24h 05/21/21 05/22/21 05/23/21 23:59 23:59 23:59 Intake Total 2681.75 1730 1271.833 Output Total 1785 2250 1150 Balance 896.75 -520 121.833 General: Alert, Oriented x3, Other (She is vivbly less anxious today) HEENT: Mucous membr. moist/pink Neck: Supple Neuro: Alert, Other (tremors of arms and head) Cardiovascular: Other (Tachy, irregularly irregular) Respiratory: Other (Wearing O2 per nasal cannula) Abdomen: Other (Obese with pannus) Extremities: Other (1+ edema) - Results Results: Laboratory Results WBC 6.7 x10^3/uL (4.8-10.8) 05/23/21 06:58 RBC 2.71 10^6/uL (4.20-5.40) L 05/23/21 06:58 Hgb 9.4 g/dL (12.0-16.0) L 05/23/21 06:58 Hct 29.4 % (37.0-47.0) L 05/23/21 06:58 MCV 108.5 fL (81.0-99.0) H 05/23/21 06:58 MCH 34.7 pg (27.0-31.0) H 05/23/21 06:58 MCHC 32.0 g/dL (32.0-36.0) 05/23/21 06:58 RDW 17.2 % (12.0-15.0) H 05/23/21 06:58 Plt Count 314 10^3/uL (130-450) 05/23/21 06:58 MPV 10.2 fL (7.9-10.8) 05/23/21 06:58 Neut # (Auto) 3.3 10^3/uL (1.5-6.6) 05/23/21 06:58 Lymph # (Auto) 2.0 10^3/uL (1.5-3.5) 05/23/21 06:58 Phillips # (Auto) 0.9 10^3/uL (0.0-1.0) 05/23/21 06:58 Eos # (Auto) 0.2 10^3/uL (0.0-0.7) 05/23/21 06:58 Baso # (Auto) 0.0 10^3/uL (0.0-0.1) 05/23/21 06:58 Absolute Nucleated RBC 0.22 x10^3/uL 05/23/21 06:58 Nucleated RBC % 3.3 /100WBC 05/23/21 06:58 Manual Slide Review Indicated 05/22/21 08:44 WBC Morphology NORMAL APPEARANCE (NORMAL) 05/22/21 08:44 Platelet Estimate NORMAL (130-450,000) (NORMAL) 05/22/21 08:44 Platelet Morphology NORMAL APPEARANCE (NORMAL) 05/22/21 08:44 RBC Morph Micro Appear 1+ BASO STIPPLING (NORMAL) 2+ MACROCYTOSIS (NORMAL) 1+ POIKILOCYTOSIS (NORMAL) 1+ OVALOCYTES (NORMAL) 05/22/21 08:44 RBC Morph Micro Appear 1+ BASO STIPPLING (NORMAL) 2+ MACROCYTOSIS (NORMAL) 1+ POIKILOCYTOSIS (NORMAL) 1+ OVALOCYTES (NORMAL) 05/22/21 08:44 RBC Morph Micro Appear 1+ BASO STIPPLING (NORMAL) 2+ MACROCYTOSIS (NORMAL) 1+ POIKILOCYTOSIS (NORMAL) 1+ OVALOCYTES (NORMAL) 05/22/21 08:44 RBC Morph Micro Appear 1+ BASO STIPPLING (NORMAL) 2+ MACROCYTOSIS (NORMAL) 1+ POIKILOCYTOSIS (NORMAL) 1+ OVALOCYTES (NORMAL) 05/22/21 08:44 Bld Gas Analysis Time 1012 05/18/21 10:01 Sample Site LEFT RADIAL 05/18/21 10:01 ABG pH 7.36 (7.35-7.45) 05/18/21 10:01 ABG pCO2 54 mmHg (34-45) H 05/18/21 10:01 ABG pO2 84 mmHg (80-100) 05/18/21 10:01 ABG HCO3 29.8 mmol/L (22.0-26.0) H 05/18/21 10:01 ABG Total CO2 31.5 MMOL/L (21.0-29.0) H 05/18/21 10:01 ABG O2 Saturation 96 % (94-98) 05/18/21 10:01 ABG Base Excess 3.6 mmol/L (-2.0-3.0) H 05/18/21 10:01 Derek Test POSITIVE 05/18/21 10:01 VBG pH 7.363 (7.31-7.41) 05/20/21 04:51 Ionized Calcium 1.14 mmol/L (1.15-1.33) L 05/20/21 04:51 O2 Delivery Device BiPAP 05/18/21 10:01 O2 Liters/Min 45.00 LPM 05/16/21 10:35 Vent Mode SYNCHRONOUS/TIMES 05/18/21 10:01 FiO2 35.00 05/18/21 10:01 Pressure Support Vent 7 cmH2O 05/17/21 09:25 EPAP 5 cmH2O 05/18/21 10:01 IPAP 12 cmH2O 05/18/21 10:01 Sodium 135 mmol/L (135-145) 05/23/21 06:58 Potassium 4.4 mmol/L (3.5-5.0) 05/23/21 06:58 Chloride 95 mmol/L (101-111) L 05/23/21 06:58 Carbon Dioxide 31 mmol/L (21-32) 05/23/21 06:58 Anion Gap 9.0 (6-13) 05/23/21 06:58 BUN 32 mg/dL (6-20) H 05/23/21 06:58 Creatinine 1.1 mg/dL (0.4-1.0) H 05/23/21 06:58 Estimated GFR (MDRD) 49 (>89) L 05/23/21 06:58 Glucose 149 mg/dL (70-100) H 05/23/21 06:58 POC Whole Bld Glucose 275 mg/dL (70 - 100) H 05/23/21 17:08 Estimat Average Glucose 220 mg/dL (70-100) H 05/16/21 05:00 Hemoglobin A1c % 9.3 % (4.27-6.07) H 05/16/21 05:00 Calcium 8.7 mg/dL (8.5-10.3) 05/23/21 06:58 Phosphorus 4.2 mg/dL (2.5-4.6) 05/21/21 04:43 Magnesium 2.2 mg/dL (1.7-2.8) 05/23/21 06:58 Troponin I High Sens 30.3 ng/L (2.3-14.8) H* 05/18/21 12:08 B-Natriuretic Peptide 203 pg/mL (5-100) H 05/18/21 12:08 Nasal Screen MRSA (PCR) NEGATIVE (NEGATIVE) 05/16/21 21:10 - Procedures Procedures: Procedures EXCISION OF ASCENDING COLON, ENDO, DIAGN (09/28/17) EXCISION OF CECUM, ENDO, DIAGN (09/28/17) EXCISION OF DESCENDING COLON, ENDO (07/13/18) EXCISION OF SIGMOID COLON, ENDO (07/13/18) EXCISION OF SIGMOID COLON, ENDO, DIAGN (09/28/17) EXCISION OF TRANSVERSE COLON, ENDO (07/13/18) EXCISION OF TRANSVERSE COLON, ENDO, DIAGN (09/28/17) INTRODUCTION OF OTH THERAP SUBST INTO LOW GI, ENDO (09/28/17)
[2021-05-23] MEDS: ATORVASTATIN 40 MG TABLET PO SCH (20:50)
[2021-05-23] MEDS: MIRTAZAPINE 15 MG TABLET PO SCH (20:52)
[2021-05-23] MEDS: rOPINIRole 0.25 MG TABLET PO SCH (20:53)
[2021-05-23] MEDS: traZODone 50 MG TABLET PO SCH (20:54)
[2021-05-24] MEDS: SODIUM CHLORIDE FLUSH 0.9% 10 ML SYRINGE IVP SCH ×3 (00:25→16:50)
[2021-05-24] MEDS: diltiaZEM INJ 125 MG in DEXTROSE 5% 100 ML IV SCH ×2 (00:58→19:00)
[2021-05-24 04:41] LABS: BASOPHILS % (AUTO) 0.6 %; EOSINOPHILS % (AUTO) 2.5 %; HCT - HEMATOCRIT 26.6 % (37.0-47.0); HGB - HEMOGLOBIN 8.4 g/dL (12.0-16.0); LYMPHOCYTES % (AUTO) 25.6 %; MEAN CORPUSCULAR HEMOGLOBIN 34.9 pg (27.0-31.0); MEAN CORPUSCULAR HGB CONC 31.6 g/dL (32.0-36.0); MEAN CORPUSCULAR VOLUME 110.4 fL (81.0-99.0); MEAN PLATELET VOLUME 10.6 fL (7.9-10.8); MONOCYTES % (AUTO) 11.7 %; NEUTROPHILS % (AUTO) 52.2 %; PLT - PLATELET COUNT 330 10^3/uL (130-450); RED BLOOD COUNT 2.41 10^6/uL (4.20-5.40); RED CELL DISTRIBUTION WIDTH 17.4 % (12.0-15.0); WHITE BLOOD COUNT 8.1 x10^3/uL (4.8-10.8)
[2021-05-24 04:53] LABS: CALCIUM 8.5 mg/dL (8.5-10.3); CREATININE 1.1 mg/dL (0.4-1.0); POTASSIUM 4.4 mmol/L (3.5-5.0)
[2021-05-24 05:26] LABS: ABNORMAL LYMPHS % (MANUAL) 0 %
[2021-05-24 05:34] LABS: BAND NEUTROPHILS % (MANUAL) 4 %; BASOPHILS # (MANUAL) 0.1 10^3/uL (0-0.1); BASOPHILS % (MANUAL) 1 %; DIFFERENTIAL COMMENT MANUAL DIFFERENTIAL; LYMPHOCYTES # (MANUAL) 2.3 10^3/uL (1.5-3.5); LYMPHOCYTES % (MANUAL) 28 %; METAMYELOCYTES % (MANUAL) 1 %; MONOCYTES # (MANUAL) 0.4 10^3/uL (0.0-1.0); MYELOCYTES % (MANUAL) 2 %; NEUTROPHILS # (MANUAL) 5.1 10^3/uL (1.5-6.6); NUCLEATED RBC (MANUAL) 6 %; PLATELET ESTIMATE, MANUAL NORMAL (130-450,000) (NORMAL); RBC MORPHOLOGY (MULTIPLE) NORMAL APPEARANCE (NORMAL)
[2021-05-24] MEDS: LORazepam 0.5 MG TABLET PO PRN ×2 (05:58→20:41)
[2021-05-24] MEDS: FORMOTEROL FUMARATE NEB 20 MCG/2 ML INH SCH ×2 (08:21→20:37)
[2021-05-24] MEDS: BUDESONIDE 0.5 MG/2 ML NEB INH SCH ×2 (08:21→20:37)
[2021-05-24] MEDS: LEVALBUTEROL 1.25 MG/3 ML NEB INH SCH ×4 (08:22→20:37)
[2021-05-24] MEDS: INSULIN ASPART 300 UNIT/3 ML PEN SUBQ SCH ×7 (08:28→20:42)
[2021-05-24] MEDS: INSULIN GLARGINE 300 UNIT/3 ML PEN SUBQ SCH ×2 (08:32→20:42)
[2021-05-24] MEDS: DEXAMETHASONE 4 MG/ML VIAL IVP SCH (08:35)
[2021-05-24] MEDS: buPROPion SR 150 MG TABLET PO SCH (08:37)
[2021-05-24] MEDS: GABAPENTIN 400 MG CAPSULE PO SCH ×2 (08:39→20:41)
[2021-05-24] MEDS: CHOLECALCIFEROL 25 MCG TABLET PO SCH (08:41)
[2021-05-24] MEDS: DOCUSATE SODIUM 250 MG CAPSULE PO SCH (08:41)
[2021-05-24] MEDS: MULTIVITAMIN TABLET PO SCH (08:41)
[2021-05-24] MEDS: PRIMIDONE 50 MG TABLET PO SCH ×2 (08:42→20:40)
[2021-05-24] MEDS: ASPIRIN EC 81 MG TABLET PO SCH (08:42)
[2021-05-24] MEDS: CYANOCOBALAMIN 500 MCG TABLET PO SCH (08:43)
[2021-05-24] MEDS: SACCHAROMYCES BOULARDII 250 MG CAPSULE PO SCH ×2 (08:43→17:18)
[2021-05-24] MEDS: SENNA 8.6 MG TABLET PO SCH (08:47)
[2021-05-24] MEDS: polyethylene glycoL 3350 17 GM PACKET PO SCH (08:47)
[2021-05-24] MEDS: ENOXAPARIN 150 MG/ML SYRINGE SUBQ SCH ×2 (09:02→20:42)
[2021-05-24] MEDS: METOPROLOL SUCCINATE 25 MG TABLET PO SCH ×2 (09:04→20:41)
[2021-05-24] MEDS: DIGOXIN 125 MCG TABLET PO SCH (12:54)
--- NOTE | 2021-05-24 17:29 | PROVIDER PROGRESS NOTE ---
Assessment/Plan - Problem List (1) Atrial fibrillation with RVR Assessment/Plan: The patient went into sudden A. fib with RVR on 05/18/21. This appears to be new onset Afib for her. The etiology is likely from her COVID pneumonia, she ruled out for GA by troponins done that day. She was put on Lovenox therapeutic dose b.i.d. and has not yet been transitioned to a DOAC, since it is unknown if she will need transfer for EP study or ablation. She has required more dig for rate control. She is required Cardizem IV for rate control and oral metoprolol, all her meds are spread out to avoid hypotension. Today her Cardizem dose will be weaned off which helps her low blood pressure when the heart rate is under control. Continue with her anticoagulant. Remain in the ICU until she is off Cardizem drip (2) Acute on chronic respiratory failure with hypoxia Assessment/Plan: Her high O2 needs have resolved and she is down to the levels of her home oxygen order. We have finished treating the Covid pneumonia and continue her underlying COPD with nebs (3) Pneumonia due to COVID-19 virus Assessment/Plan: She received remdesivir, and is on Decadron, Mucinex, incentive spirometer, Isolation Her O2 needs have improved and stabilized Will taper down the Decadron to off (4) Acute on chronic diastolic heart failure Assessment/Plan: Her Lasix IV doses had to be stopped because of hypotension. We will continue with attention at rate control which will help her diastolic heart failure (5) Cor pulmonale (chronic) Assessment/Plan: As per Echo that was done 1 month ago when she was here with a COPD exacerbation admission She redeveloped leg edema in the 1 month after that discharge, and she was on p.o. Lasix. We tried IV Lasix but diuretics were stopped 2 days ago when she became very hypotensive (6) COPD (chronic obstructive pulmonary disease) Assessment/Plan: She is not in COPD exacerbation, no wheezing, her sentences are long and without any noticable tachypnea today Continue her inhalers (7) Diabetes mellitus with complication, with long-term current use of insulin Assessment/Plan: Glucoses are in the 300s and higher because of being on IV Decadron. Continue with insulin coverage and CC diet Will taper the Decadron to off (8) Chronic anemia Assessment/Plan: This was checked at the last recent admission and she has adequate B12, folate stores and iron stores. It is anemia of chronic disease. Continue to follow CBC daily, transfuse if hemoglobin under 7 (9) Depression with anxiety Assessment/Plan: She was sobbing tears of sarah and cries when she is anxious More stable over past 2 days. - Current Meds Current Meds: Current Medications Generic Name Dose Route Start Last Admin Trade Name Freq PRN Reason Stop Dose Admin Acetaminophen 650 mg 05/18/21 23:51 05/22/21 10:25 Acetaminophen 325 Mg Tablet PO 650 mg Q4HR PRN Administration Pain 1 to 4 Aspirin 81 mg 05/16/21 09:00 05/24/21 08:42 Aspirin Ec 81 Mg Tablet PO 81 mg DAILY TEMO Administration Atorvastatin Calcium 80 mg 05/17/21 21:00 05/23/21 20:50 Atorvastatin 40 Mg Tablet PO 80 mg QPM TEMO Administration Budesonide 0.5 mg 05/16/21 07:00 05/24/21 08:21 Budesonide 0.5 Mg/2 Ml Neb INH 0.5 mg RTBID TEMO Administration Bupropion HCl 200 mg 05/17/21 21:00 05/23/21 08:30 Bupropion Sr 100 Mg Tablet PO Not Given QPM TEMO Bupropion HCl 150 mg 05/17/21 09:00 05/24/21 08:37 Bupropion Sr 150 Mg Tablet PO 150 mg DAILY TEMO Administration Cholecalciferol 50 mcg 05/21/21 09:00 05/24/21 08:41 Cholecalciferol 25 Mcg Tablet PO 50 mcg DAILY TEMO Administration Digoxin 125 mcg 05/24/21 13:00 05/24/21 12:54 Digoxin 125 Mcg Tablet PO 125 mcg DAILY TEMO Administration Docusate Sodium 250 - 500 mg 05/22/21 11:00 05/24/21 08:41 Docusate Sodium 250 Mg Capsule PO 250 mg DAILY TEMO Administration Enoxaparin Sodium 130 mg 05/18/21 21:00 05/24/21 09:02 Enoxaparin 150 Mg/Ml Syringe SUBQ 130 mg BID TEMO Administration Formoterol Fumarate 20 mcg 05/18/21 19:00 05/24/21 08:21 Formoterol Fumarate Neb 20 Mcg/2 Ml INH 20 mcg RTBID TEMO Administration Gabapentin 1,200 mg 05/17/21 21:00 05/24/21 08:39 Gabapentin 400 Mg Capsule PO 1,200 mg BID TEMO Administration Guaifenesin 100 mg 05/16/21 07:37 05/22/21 09:04 Guaifenesin 100 Mg/5 Ml Udc PO 100 mg Q6HR PRN Administration Cough Sodium Chloride 500 mls @ 20 mls/hr 05/18/21 21:11 05/21/21 00:15 Normal Saline 0.9% IV Infused Q24H PRN Infusion TKO RATE Diltiazem HCl 125 mg/ Dextrose 125 mls @ 5 mls/hr 05/23/21 16:00 05/24/21 17:02 IV 0 mg/hr .Q25H TEMO 0 mls/hr Titration Protocol 5 MG/HR Insulin Aspart 15 unit 05/16/21 08:00 05/24/21 16:48 Insulin Aspart 300 Unit/3 Ml Pen SUBQ 15 unit TIDWM TEMO Administration Protocol Insulin Aspart 2 - 10 unit 05/20/21 08:00 05/24/21 16:49 Insulin Aspart 300 Unit/3 Ml Pen SUBQ 6 unit 0800,1200,1700,2100 TEMO Administration Protocol Insulin Glargine 5 unit 05/16/21 08:00 05/24/21 08:32 Insulin Glargine 300 Unit/3 Ml Pen SUBQ 5 unit [id number] TEMO Administration Insulin Glargine 40 unit 05/16/21 21:00 05/23/21 20:42 Insulin Glargine 300 Unit/3 Ml Pen SUBQ 40 unit QPM TEMO Administration Levalbuterol HCl 1.25 mg 05/18/21 19:00 05/24/21 15:38 Levalbuterol 1.25 Mg/3 Ml Neb INH 1.25 mg RTQID TEMO Administration Lorazepam 0.5 mg 05/21/21 18:21 05/24/21 05:58 Lorazepam 0.5 Mg Tablet PO 0.5 mg Q6H PRN Administration Anxiety Metoprolol Succinate 25 mg 05/22/21 12:00 05/24/21 09:04 Metoprolol Succinate 25 Mg Tablet PO 25 mg BID TEMO Administration Metoprolol Tartrate 5 mg 05/19/21 06:59 05/22/21 00:59 Metoprolol 5 Mg/5 Ml Vial IVP 5 mg Q6H PRN Administration Tachycardia Mirtazapine 22.5 mg 05/17/21 21:00 05/23/21 20:52 Mirtazapine 15 Mg Tablet PO 22.5 mg QPM TEMO Administration Multivitamins 1 tab 05/21/21 08:00 05/24/21 08:41 Multivitamin Tablet PO 1 tab DAILYWM TEMO Administration Ondansetron HCl 4 mg 05/16/21 00:44 05/18/21 11:13 Ondansetron 4 Mg/2 Ml Vial IVP 4 mg Q6HR PRN Administration Nausea / Vomiting Oxycodone HCl 5 mg 05/16/21 00:44 05/17/21 17:31 Oxycodone 5 Mg Tablet PO 5 mg Q4HR PRN Administration Pain 5 to 7 Polyethylene Glycol 17 gm 05/16/21 09:00 05/24/21 08:47 Polyethylene Glycol 3350 17 Gm Packet PO Not Given DAILY TEMO Primidone 150 mg 05/17/21 09:00 05/24/21 08:42 Primidone 50 Mg Tablet PO 150 mg BID TEMO Administration Ropinirole HCl 0.25 mg 05/18/21 21:00 05/23/21 20:53 Ropinirole 0.25 Mg Tablet PO 0.25 mg QPM TEMO Administration Saccharomyces Boulardii 250 mg 05/16/21 08:00 05/24/21 17:18 Saccharomyces Boulardii 250 Mg Capsule PO 250 mg BIDWM TEMO Administration Senna 8.6 - 17.2 mg 05/22/21 10:00 05/24/21 08:47 Senna 8.6 Mg Tablet PO Not Given DAILY TEMO Sodium Chloride 10 ml 05/16/21 00:37 05/22/21 13:21 Sodium Chloride Flush 0.9% 10 Ml Syringe IVP 10 ml PRN PRN Administration NEEDED PER PROVIDER ORDERS Sodium Chloride 10 ml 05/16/21 01:00 05/24/21 16:50 Sodium Chloride Flush 0.9% 10 Ml Syringe IVP 10 ml 0100,0900,1700 TEMO Administration Trazodone HCl 300 mg 05/18/21 21:00 05/23/21 20:54 Trazodone 50 Mg Tablet PO 300 mg QPM TEMO Administration - Lab Result Fish Bone Diagrams: 05/24/21 04:32 05/24/21 04:32 - Additional Planning My Orders: My Active Orders 05/24/21 04:32 MISC TEST QUEST REFRIG [REFLAB] Routine 05/24/21 13:00 Digoxin [Lanoxin] 125 mcg PO DAILY 05/25/21 05:00 BMP - BASIC METABOLIC PANEL [CHEM] DAILYLAB CBC - COMP BLD CT W/AUTO DIFF [HEME] DAILYLAB 05/25/21 09:00 dexAMETHasone [Decadron] 3 mg IVP DAILY 05/26/21 05:00 BMP - BASIC METABOLIC PANEL [CHEM] DAILYLAB CBC - COMP BLD CT W/AUTO DIFF [HEME] DAILYLAB Objective Vital Signs: Vital Signs - 24 hr 05/23/21 05/23/21 05/23/21 18:00 18:35 18:40 Temperature Heart Rate 82 122 H Heart Rate [ 115 H Monitoring electrodes] Respiratory 24 22 18 Rate Blood Pressure Blood Pressure [Left Brachial artery] O2 Saturation 93 05/23/21 05/23/21 05/23/21 18:45 18:50 18:55 Temperature Heart Rate 108 H 96 104 H Heart Rate [ Monitoring electrodes] Respiratory 23 25 H 21 Rate Blood Pressure Blood Pressure [Left Brachial artery] O2 Saturation 05/23/21 05/23/21 05/23/21 19:00 19:05 19:10 Temperature Heart Rate 106 H 93 96 Heart Rate [ 111 H Monitoring electrodes] Respiratory 20 20 22 Rate Blood Pressure Blood Pressure [Left Brachial artery] O2 Saturation 95 05/23/21 05/23/21 05/23/21 19:15 19:20 19:21 Temperature Heart Rate 93 96 94 Heart Rate [ Monitoring electrodes] Respiratory 23 21 19 Rate Blood Pressure 88/67 L Blood Pressure [Left Brachial artery] O2 Saturation 05/23/21 05/23/21 05/23/21 19:25 19:30 19:31 Temperature Heart Rate 89 105 H 83 Heart Rate [ Monitoring electrodes] Respiratory 26 H 22 23 Rate Blood Pressure Blood Pressure [Left Brachial artery] O2 Saturation 05/23/21 05/23/21 05/23/21 19:32 19:35 19:40 Temperature Heart Rate 87 80 86 Heart Rate [ Monitoring electrodes] Respiratory 19 24 22 Rate Blood Pressure 103/87 H Blood Pressure [Left Brachial artery] O2 Saturation 05/23/21 05/23/21 05/23/21 19:45 19:50 19:55 Temperature Heart Rate 102 H 96 91 Heart Rate [ Monitoring electrodes] Respiratory 24 22 22 Rate Blood Pressure Blood Pressure [Left Brachial artery] O2 Saturation 05/23/21 05/23/21 05/23/21 19:58 20:00 20:01 Temperature 37.4 C Heart Rate 80 84 Heart Rate [ 86 Monitoring electrodes] Respiratory 21 20 21 Rate Blood Pressure 116/68 Blood Pressure 116/68 [Left Brachial artery] O2 Saturation 96 05/23/21 05/23/21 05/23/21 20:05 20:10 20:15 Temperature Heart Rate 106 H 96 83 Heart Rate [ Monitoring electrodes] Respiratory 15 19 16 Rate Blood Pressure Blood Pressure [Left Brachial artery] O2 Saturation 05/23/21 05/23/21 05/23/21 20:20 20:25 20:30 Temperature Heart Rate 88 85 90 Heart Rate [ Monitoring electrodes] Respiratory 20 16 22 Rate Blood Pressure Blood Pressure [Left Brachial artery] O2 Saturation 05/23/21 05/23/21 05/23/21 20:35 20:40 20:45 Temperature Heart Rate 84 88 85 Heart Rate [ Monitoring electrodes] Respiratory 20 24 22 Rate Blood Pressure Blood Pressure [Left Brachial artery] O2 Saturation 05/23/21 05/23/21 05/23/21 20:50 20:54 20:55 Temperature Heart Rate 98 93 100 Heart Rate [ Monitoring electrodes] Respiratory 15 24 26 H Rate Blood Pressure 115/93 H Blood Pressure [Left Brachial artery] O2 Saturation 05/23/21 05/23/21 05/23/21 20:56 21:00 21:01 Temperature Heart Rate 110 H 100 101 H Heart Rate [ 90 Monitoring electrodes] Respiratory 23 18 22 Rate Blood Pressure 123/97 H Blood Pressure 123/97 H [Left Brachial artery] O2 Saturation 96 05/23/21 05/23/21 05/23/21 21:05 21:10 21:15 Temperature Heart Rate 97 119 H 123 H Heart Rate [ Monitoring electrodes] Respiratory 22 21 20 Rate Blood Pressure Blood Pressure [Left Brachial artery] O2 Saturation 05/23/21 05/23/21 05/23/21 21:20 21:50 21:55 Temperature Heart Rate 122 H 111 H 103 H Heart Rate [ Monitoring electrodes] Respiratory 19 13 19 Rate Blood Pressure Blood Pressure [Left Brachial artery] O2 Saturation 05/23/21 05/23/21 05/23/21 22:00 22:01 22:09 Temperature Heart Rate 103 H 106 H 131 H Heart Rate [ 93 Monitoring electrodes] Respiratory 21 25 H 21 Rate Blood Pressure 79/48 L Blood Pressure 92/75 [Left Brachial artery] O2 Saturation 93 05/23/21 05/23/21 05/23/21 22:10 22:11 22:12 Temperature Heart Rate 109 H 127 H 97 Heart Rate [ Monitoring electrodes] Respiratory 19 16 18 Rate Blood Pressure 92/75 Blood Pressure [Left Brachial artery] O2 Saturation 05/23/21 05/23/21 05/23/21 22:15 22:17 22:20 Temperature Heart Rate 98 92 88 Heart Rate [ Monitoring electrodes] Respiratory 20 20 19 Rate Blood Pressure Blood Pressure [Left Brachial artery] O2 Saturation 05/23/21 05/23/21 05/23/21 22:25 22:30 22:35 Temperature Heart Rate 83 91 94 Heart Rate [ Monitoring electrodes] Respiratory 17 17 18 Rate Blood Pressure Blood Pressure [Left Brachial artery] O2 Saturation 05/23/21 05/23/21 05/23/21 22:40 22:45 22:50 Temperature Heart Rate 90 88 96 Heart Rate [ Monitoring electrodes] Respiratory 15 16 17 Rate Blood Pressure Blood Pressure [Left Brachial artery] O2 Saturation 05/23/21 05/23/21 05/23/21 22:55 23:00 23:01 Temperature Heart Rate 88 80 95 Heart Rate [ 89 Monitoring electrodes] Respiratory 16 14 20 Rate Blood Pressure 102/60 Blood Pressure 102/60 [Left Brachial artery] O2 Saturation 93 05/23/21 05/23/21 05/23/21 23:05 23:10 23:15 Temperature Heart Rate 88 96 89 Heart Rate [ Monitoring electrodes] Respiratory 15 21 14 Rate Blood Pressure Blood Pressure [Left Brachial artery] O2 Saturation 05/23/21 05/23/21 05/23/21 23:20 23:25 23:30 Temperature Heart Rate 91 84 89 Heart Rate [ Monitoring electrodes] Respiratory 16 16 16 Rate Blood Pressure Blood Pressure [Left Brachial artery] O2 Saturation 05/23/21 05/23/21 05/23/21 23:35 23:40 23:45 Temperature Heart Rate 80 88 78 Heart Rate [ Monitoring electrodes] Respiratory 24 25 H 17 Rate Blood Pressure Blood Pressure [Left Brachial artery] O2 Saturation 05/23/21 05/23/21 05/24/21 23:50 23:55 00:00 Temperature Heart Rate 77 92 76 Heart Rate [ 83 Monitoring electrodes] Respiratory 24 26 H 32 H Rate Blood Pressure Blood Pressure 118/63 [Left Brachial artery] O2 Saturation 97 05/24/21 05/24/21 05/24/21 00:05 00:10 00:15 Temperature Heart Rate 83 82 77 Heart Rate [ Monitoring electrodes] Respiratory 21 30 H 29 H Rate Blood Pressure Blood Pressure [Left Brachial artery] O2 Saturation 05/24/21 05/24/21 05/24/21 00:20 00:21 00:22 Temperature Heart Rate 85 83 85 Heart Rate [ Monitoring electrodes] Respiratory 19 27 H 19 Rate Blood Pressure 118/63 Blood Pressure [Left Brachial artery] O2 Saturation 05/24/21 05/24/21 05/24/21 00:25 00:26 00:30 Temperature Heart Rate 82 87 85 Heart Rate [ Monitoring electrodes] Respiratory 20 19 20 Rate Blood Pressure 121/73 Blood Pressure [Left Brachial artery] O2 Saturation 05/24/21 05/24/21 05/24/21 00:31 00:35 00:36 Temperature Heart Rate 83 77 77 Heart Rate [ Monitoring electrodes] Respiratory 16 15 17 Rate Blood Pressure 121/104 H 109/69 Blood Pressure [Left Brachial artery] O2 Saturation 05/24/21 05/24/21 05/24/21 00:40 00:45 00:46 Temperature Heart Rate 78 84 78 Heart Rate [ Monitoring electrodes] Respiratory 24 15 15 Rate Blood Pressure 126/56 L Blood Pressure [Left Brachial artery] O2 Saturation 05/24/21 05/24/21 05/24/21 00:50 00:55 00:56 Temperature Heart Rate 79 98 Heart Rate [ 104 H Monitoring electrodes] Respiratory 28 H 21 27 H Rate Blood Pressure Blood Pressure 126/56 L [Left Brachial artery] O2 Saturation 100 05/24/21 05/24/21 05/24/21 01:00 01:01 01:05 Temperature Heart Rate 85 88 88 Heart Rate [ Monitoring electrodes] Respiratory 17 15 13 Rate Blood Pressure 99/54 L Blood Pressure [Left Brachial artery] O2 Saturation 05/24/21 05/24/21 05/24/21 01:40 01:45 01:50 Temperature Heart Rate 93 76 79 Heart Rate [ Monitoring electrodes] Respiratory 18 14 14 Rate Blood Pressure Blood Pressure [Left Brachial artery] O2 Saturation 05/24/21 05/24/21 05/24/21 01:55 02:00 02:01 Temperature Heart Rate 82 91 97 Heart Rate [ 77 Monitoring electrodes] Respiratory 16 14 17 Rate Blood Pressure 117/70 Blood Pressure 117/70 [Left Brachial artery] O2 Saturation 100 05/24/21 05/24/21 05/24/21 02:05 02:10 02:15 Temperature Heart Rate 91 96 94 Heart Rate [ Monitoring electrodes] Respiratory 15 23 16 Rate Blood Pressure Blood Pressure [Left Brachial artery] O2 Saturation 05/24/21 05/24/21 05/24/21 02:20 02:25 02:30 Temperature Heart Rate 101 H 90 98 Heart Rate [ Monitoring electrodes] Respiratory 18 21 18 Rate Blood Pressure Blood Pressure [Left Brachial artery] O2 Saturation 05/24/21 05/24/21 05/24/21 02:35 02:40 02:45 Temperature Heart Rate 110 H 121 H 101 H Heart Rate [ Monitoring electrodes] Respiratory 16 15 20 Rate Blood Pressure Blood Pressure [Left Brachial artery] O2 Saturation 05/24/21 05/24/21 05/24/21 02:50 02:55 03:00 Temperature Heart Rate 110 H 103 H 92 Heart Rate [ 102 H Monitoring electrodes] Respiratory 24 17 15 Rate Blood Pressure Blood Pressure 103/86 H [Left Brachial artery] O2 Saturation 96 05/24/21 05/24/21 05/24/21 03:01 03:05 03:10 Temperature Heart Rate 97 107 H 97 Heart Rate [ Monitoring electrodes] Respiratory 20 24 21 Rate Blood Pressure 103/86 H Blood Pressure [Left Brachial artery] O2 Saturation 05/24/21 05/24/21 05/24/21 03:15 03:20 03:25 Temperature Heart Rate 97 94 90 Heart Rate [ Monitoring electrodes] Respiratory 18 19 18 Rate Blood Pressure Blood Pressure [Left Brachial artery] O2 Saturation 05/24/21 05/24/21 05/24/21 03:30 03:35 03:40 Temperature Heart Rate 101 H 90 85 Heart Rate [ Monitoring electrodes] Respiratory 15 16 14 Rate Blood Pressure Blood Pressure [Left Brachial artery] O2 Saturation 05/24/21 05/24/21 05/24/21 03:45 03:50 03:55 Temperature Heart Rate 92 97 90 Heart Rate [ Monitoring electrodes] Respiratory 14 14 15 Rate Blood Pressure Blood Pressure [Left Brachial artery] O2 Saturation 05/24/21 05/24/21 05/24/21 04:00 04:02 04:03 Temperature Heart Rate 102 H 96 94 Heart Rate [ 98 Monitoring electrodes] Respiratory 26 H 13 15 Rate Blood Pressure 103/64 Blood Pressure 103/64 [Left Brachial artery] O2 Saturation 96 05/24/21 05/24/21 05/24/21 04:05 04:10 04:15 Temperature Heart Rate 103 H 95 93 Heart Rate [ Monitoring electrodes] Respiratory 23 16 16 Rate Blood Pressure Blood Pressure [Left Brachial artery] O2 Saturation 05/24/21 05/24/21 05/24/21 04:20 04:25 04:30 Temperature Heart Rate 87 88 104 H Heart Rate [ Monitoring electrodes] Respiratory 15 14 17 Rate Blood Pressure Blood Pressure [Left Brachial artery] O2 Saturation 05/24/21 05/24/21 05/24/21 04:35 04:40 04:45 Temperature Heart Rate 95 111 H 103 H Heart Rate [ Monitoring electrodes] Respiratory 18 20 17 Rate Blood Pressure Blood Pressure [Left Brachial artery] O2 Saturation 05/24/21 05/24/21 05/24/21 04:50 04:55 05:00 Temperature Heart Rate 94 97 84 Heart Rate [ 107 H Monitoring electrodes] Respiratory 13 18 19 Rate Blood Pressure Blood Pressure 107/69 [Left Brachial artery] O2 Saturation 97 05/24/21 05/24/21 05/24/21 05:01 05:05 05:10 Temperature Heart Rate 99 101 H 109 H Heart Rate [ Monitoring electrodes] Respiratory 16 23 19 Rate Blood Pressure 107/69 Blood Pressure [Left Brachial artery] O2 Saturation 05/24/21 05/24/21 05/24/21 05:15 05:20 06:00 Temperature Heart Rate 98 97 Heart Rate [ 98 Monitoring electrodes] Respiratory 16 19 19 Rate Blood Pressure Blood Pressure 108/95 H [Left Brachial artery] O2 Saturation 05/24/21 05/24/21 05/24/21 06:57 08:00 08:45 Temperature 36.0 C L 36.3 C L Heart Rate 78 Heart Rate [ 98 122 H Monitoring electrodes] Respiratory 15 20 18 Rate Blood Pressure Blood Pressure 95/70 75/45 L [Left Brachial artery] O2 Saturation 98 93 05/24/21 05/24/21 05/24/21 09:00 10:00 11:00 Temperature Heart Rate Heart Rate [ 124 H 114 H 128 H Monitoring electrodes] Respiratory 26 H 16 24 Rate Blood Pressure Blood Pressure 170/138 H 97/63 112/70 [Left Brachial artery] O2 Saturation 94 94 91 L 05/24/21 05/24/21 05/24/21 11:40 12:00 13:00 Temperature 36.4 C L Heart Rate 109 H Heart Rate [ 134 H 125 H Monitoring electrodes] Respiratory 18 21 19 Rate Blood Pressure Blood Pressure 111/100 H 120/86 H [Left Brachial artery] O2 Saturation 94 97 05/24/21 05/24/21 05/24/21 14:00 15:00 15:40 Temperature Heart Rate 118 H Heart Rate [ 132 H 102 H Monitoring electrodes] Respiratory 21 19 24 Rate Blood Pressure Blood Pressure 136/121 H 95/59 L [Left Brachial artery] O2 Saturation 98 93 05/24/21 05/24/21 05/24/21 15:45 16:00 17:00 Temperature Heart Rate Heart Rate [ 113 H 21 L 106 H Monitoring electrodes] Respiratory 28 H 20 20 Rate Blood Pressure Blood Pressure 104/65 109/97 H 136/61 H [Left Brachial artery] O2 Saturation 91 L 90 L 92 05/24/21 17:21 Temperature Heart Rate Heart Rate [ 117 H Monitoring electrodes] Respiratory 27 H Rate Blood Pressure Blood Pressure 115/65 [Left Brachial artery] O2 Saturation 93 Oxygen O2 Source [With Activity] Nasal cannula O2 Source Nasal cannula I&O (Last 24 Hrs): Intake and Output Totals x24h 05/22/21 05/23/21 05/24/21 23:59 23:59 23:59 Intake Total 1730 2529.000 1189.667 Output Total 2250 1150 900 Balance -520 1379.000 289.667 General: Alert, Oriented x3 HEENT: Mucous membr. moist/pink Neck: Supple Neuro: Alert, Other (Tremor of arms and head (chronic0) Cardiovascular: Other (Irreg and tachy) Respiratory: Other (Not auscultated) Genitourinary: No Discharge (Obese with pannus) Extremities: No clubbing, Other (2+ edema) - Results Results: Laboratory Results WBC 8.1 x10^3/uL (4.8-10.8) 05/24/21 04:32 RBC 2.41 10^6/uL (4.20-5.40) L 05/24/21 04:32 Hgb 8.4 g/dL (12.0-16.0) L 05/24/21 04:32 Hct 26.6 % (37.0-47.0) L 05/24/21 04:32 MCV 110.4 fL (81.0-99.0) H 05/24/21 04:32 MCH 34.9 pg (27.0-31.0) H 05/24/21 04:32 MCHC 31.6 g/dL (32.0-36.0) L 05/24/21 04:32 RDW 17.4 % (12.0-15.0) H 05/24/21 04:32 Plt Count 330 10^3/uL (130-450) 05/24/21 04:32 MPV 10.6 fL (7.9-10.8) 05/24/21 04:32 Neut # (Auto) Not Reportable 05/24/21 04:32 Lymph # (Auto) Not Reportable 05/24/21 04:32 [place] # (Auto) Not Reportable 05/24/21 04:32 Eos # (Auto) Not Reportable 05/24/21 04:32 Baso # (Auto) Not Reportable 05/24/21 04:32 Absolute Nucleated RBC Not Reportable 05/24/21 04:32 Total Counted 100 05/24/21 04:32 Band Neuts % (Manual) 4 % (0-10) 05/24/21 04:32 Abnorm Lymph % (Manual) 0 % 05/24/21 04:32 Metamyelocytes % 1 % (-0) H 05/24/21 04:32 Myelocytes % 2 % (-0) H 05/24/21 04:32 Nucleated RBC % Not Reportable 05/24/21 04:32 Neutrophils # (Manual) 5.1 10^3/uL (1.5-6.6) 05/24/21 04:32 Lymphocytes # (Manual) 2.3 10^3/uL (1.5-3.5) 05/24/21 04:32 Monocytes # (Manual) 0.4 10^3/uL (0.0-1.0) 05/24/21 04:32 Eosinophils # (Manual) 0.0 10^3/uL (0-0.7) 05/24/21 04:32 Basophils # (Manual) 0.1 10^3/uL (0-0.1) 05/24/21 04:32 Nucleated RBCs 6 % 05/24/21 04:32 Differential Comment MANUAL DIFFERENTIAL 05/24/21 04:32 Manual Slide Review Indicated 05/22/21 08:44 WBC Morphology NORMAL APPEARANCE (NORMAL) 05/22/21 08:44 Platelet Estimate NORMAL (130-450,000) (NORMAL) 05/24/21 04:32 Platelet Morphology NORMAL APPEARANCE (NORMAL) 05/22/21 08:44 RBC Morph Micro Appear NORMAL APPEARANCE (NORMAL) 05/24/21 04:32 Bld Gas Analysis Time 1012 05/18/21 10:01 Sample Site LEFT RADIAL 05/18/21 10:01 ABG pH 7.36 (7.35-7.45) 05/18/21 10:01 ABG pCO2 54 mmHg (34-45) H 05/18/21 10:01 ABG pO2 84 mmHg (80-100) 05/18/21 10:01 ABG HCO3 29.8 mmol/L (22.0-26.0) H 05/18/21 10:01 ABG Total CO2 31.5 MMOL/L (21.0-29.0) H 05/18/21 10:01 ABG O2 Saturation 96 % (94-98) 05/18/21 10:01 ABG Base Excess 3.6 mmol/L (-2.0-3.0) H 05/18/21 10:01 Derek Test POSITIVE 05/18/21 10:01 VBG pH 7.363 (7.31-7.41) 05/20/21 04:51 Ionized Calcium 1.14 mmol/L (1.15-1.33) L 05/20/21 04:51 O2 Delivery Device BiPAP 05/18/21 10:01 O2 Liters/Min 45.00 LPM 05/16/21 10:35 Vent Mode SYNCHRONOUS/TIMES 05/18/21 10:01 FiO2 35.00 05/18/21 10:01 Pressure Support Vent 7 cmH2O 05/17/21 09:25 EPAP 5 cmH2O 05/18/21 10:01 IPAP 12 cmH2O 05/18/21 10:01 Sodium 133 mmol/L (135-145) L 05/24/21 04:32 Potassium 4.4 mmol/L (3.5-5.0) 05/24/21 04:32 Chloride 93 mmol/L (101-111) L 05/24/21 04:32 Carbon Dioxide 33 mmol/L (21-32) H 05/24/21 04:32 Anion Gap 7.0 (6-13) 05/24/21 04:32 BUN 31 mg/dL (6-20) H 05/24/21 04:32 Creatinine 1.1 mg/dL (0.4-1.0) H 05/24/21 04:32 Estimated GFR (MDRD) 49 (>89) L 05/24/21 04:32 Glucose 177 mg/dL (70-100) H 05/24/21 04:32 POC Whole Bld Glucose 275 mg/dL (70 - 100) H 05/24/21 16:40 Estimat Average Glucose 220 mg/dL (70-100) H 05/16/21 05:00 Hemoglobin A1c % 9.3 % (4.27-6.07) H 05/16/21 05:00 Calcium 8.5 mg/dL (8.5-10.3) 05/24/21 04:32 Phosphorus 4.2 mg/dL (2.5-4.6) 05/21/21 04:43 Magnesium 2.2 mg/dL (1.7-2.8) 05/23/21 06:58 Troponin I High Sens 30.3 ng/L (2.3-14.8) H* 05/18/21 12:08 B-Natriuretic Peptide 203 pg/mL (5-100) H 05/18/21 12:08 Nasal Screen MRSA (PCR) NEGATIVE (NEGATIVE) 05/16/21 21:10 Ref Lab Test Result REPORT 05/22/21 08:44 - Procedures Procedures: Procedures EXCISION OF ASCENDING COLON, ENDO, DIAGN (09/28/17) EXCISION OF CECUM, ENDO, DIAGN (09/28/17) EXCISION OF DESCENDING COLON, ENDO (07/13/18) EXCISION OF SIGMOID COLON, ENDO (07/13/18) EXCISION OF SIGMOID COLON, ENDO, DIAGN (09/28/17) EXCISION OF TRANSVERSE COLON, ENDO (07/13/18) EXCISION OF TRANSVERSE COLON, ENDO, DIAGN (09/28/17) INTRODUCTION OF OTH THERAP SUBST INTO LOW GI, ENDO (09/28/17)
[2021-05-24] MEDS: MIRTAZAPINE 15 MG TABLET PO SCH (20:39)
[2021-05-24] MEDS: ATORVASTATIN 40 MG TABLET PO SCH (20:40)
[2021-05-24] MEDS: buPROPion SR 100 MG TABLET PO SCH (20:40)
[2021-05-24] MEDS: rOPINIRole 0.25 MG TABLET PO SCH (20:41)
[2021-05-24] MEDS: traZODone 50 MG TABLET PO SCH (22:06)
[2021-05-24] MEDS: SODIUM CHLORIDE 0.9% 500 ML IV PRN (22:31)
[2021-05-25] MEDS: SODIUM CHLORIDE FLUSH 0.9% 10 ML SYRINGE IVP SCH ×4 (00:52→23:53)
[2021-05-25 05:51] LABS: BASOPHILS % (AUTO) 0.5 %; EOSINOPHILS % (AUTO) 2.6 %; HCT - HEMATOCRIT 28.5 % (37.0-47.0); HGB - HEMOGLOBIN 8.5 g/dL (12.0-16.0); LYMPHOCYTES % (AUTO) 22.1 %; MEAN CORPUSCULAR HGB CONC 29.8 g/dL (32.0-36.0); MEAN PLATELET VOLUME 10.4 fL (7.9-10.8); MONOCYTES % (AUTO) 10.4 %; PLT - PLATELET COUNT 357 10^3/uL (130-450); RED CELL DISTRIBUTION WIDTH 17.7 % (12.0-15.0); WHITE BLOOD COUNT 8.4 x10^3/uL (4.8-10.8)
[2021-05-25 05:58] LABS: ABNORMAL LYMPHS % (MANUAL) 0 %; BAND NEUTROPHILS % (MANUAL) 0 %
[2021-05-25] MEDS ORDERED: BISACODYL 10 MG SUPP PR ONE (06:00)
[2021-05-25 06:01] LABS: CALCIUM 8.7 mg/dL (8.5-10.3); POTASSIUM 4.7 mmol/L (3.5-5.0)
[2021-05-25 06:38] LABS: EOSINOPHILS # (MANUAL) 0.2 10^3/uL (0-0.7); LYMPHOCYTES # (MANUAL) 2.1 10^3/uL (1.5-3.5); LYMPHOCYTES % (MANUAL) 25 %; MONOCYTES # (MANUAL) 0.5 10^3/uL (0.0-1.0); NEUTROPHILS # (MANUAL) 5.6 10^3/uL (1.5-6.6); NUCLEATED RBC (MANUAL) 1 %
[2021-05-25 06:40] LABS: DIFFERENTIAL COMMENT MANUAL DIFFERENTIAL; PLATELET ESTIMATE, MANUAL NORMAL (130-450,000) (NORMAL)
[2021-05-25] MEDS: INSULIN GLARGINE 300 UNIT/3 ML PEN SUBQ SCH ×2 (08:29→21:11)
[2021-05-25] MEDS: INSULIN ASPART 300 UNIT/3 ML PEN SUBQ SCH ×7 (08:30→21:10)
[2021-05-25] MEDS: BUDESONIDE 0.5 MG/2 ML NEB INH SCH ×2 (08:35→21:27)
[2021-05-25] MEDS: LEVALBUTEROL 1.25 MG/3 ML NEB INH SCH ×3 (08:35→21:27)
[2021-05-25] MEDS: FORMOTEROL FUMARATE NEB 20 MCG/2 ML INH SCH ×2 (08:35→21:27)
--- NOTE | 2021-05-25 08:43 | PROVIDER PROGRESS NOTE ---
Subjective - Prog Note Date Prog Note Date: 05/25/21 Prog Note Time: 19:05 - Subjective Subjective: Very emotional today. She states that she felt like her anxiety was under control a few days ago. But with today's visit with me she says that her anxiet y has crescendoed. She cries out. She grabs both sides of her head with her hands and pulled on her hair. She starts sobbing spontaneously. Gets tachypneic, tachycardic with her anxiety. The conversation that makes her anxious is going to a custodial facility. Physical therapy states that she needs a certain amount of rehab and help. In speaking to her son on the phone, in front of her, the son makes it very clear that he cannot take care of her with those needs. He really thinks that she should comply with physical therapy recommendations and go to a custodial facility temporarily for rehab. She cries with this. I reassured both of them that this is a temporary measure. This is not a permanent placement. She states that she once promised her mother that she would never put her in a home. Her mother had worked in the home and knew how horrible they were. So when mom became so disabled she could not take care of her anymore she reluctantly put her home and mom lasted 5 more years there and it broke her heart. The patient had gone to live with her son 8 years ago. She was no longer able to make it on her own and started needing help. She feels like she has been in denial about how much she has been deteriorating. She is limited mobility due to weight, deconditioning and overall physical status. In the back of her mind she thought that "eventually would lose weight and get better". She has not. And really has not thought about the future. While she states that she hates the idea of a custodial facility and starts to stop again when she talks about it, she is willing to consider it if her son can no longer take care of her. Current Medications - Current Medications Current Medications: Active Medications Acetaminophen (Acetaminophen 325 Mg Tablet) 650 mg PO Q4HR PRN PRN Reason: Pain 1 to 4 Last Admin: 05/22/21 10:25 Dose: 650 mg Documented by: Aspirin (Aspirin Ec 81 Mg Tablet) 81 mg PO DAILY [facility] [place] Last Admin: 05/24/21 08:42 Dose: 81 mg Documented by: Atorvastatin Calcium (Atorvastatin 40 Mg Tablet) 80 mg PO QPM [facility] Last Admin: 05/24/21 20:40 Dose: 80 mg Documented by: Budesonide (Budesonide 0.5 Mg/2 Ml Neb) 0.5 mg INH RTBID [facility] Last Admin: 05/24/21 20:37 Dose: 0.5 mg Documented by: Bupropion HCl (Bupropion Sr 100 Mg Tablet) 200 mg PO QPM [facility] [place] Last Admin: 05/24/21 20:40 Dose: 200 mg Documented by: Bupropion HCl (Bupropion Sr 150 Mg Tablet) 150 mg PO DAILY [facility] [place] Last Admin: 05/24/21 08:37 Dose: 150 mg Documented by: Carboxymethylcellulose (Carboxymethylcellulose Ophth Drops) 1 drops EACHEYE Q4HR PRN PRN Reason: Dry Eye Cholecalciferol (Cholecalciferol 25 Mcg Tablet) 50 mcg PO DAILY [facility] [place] Last Admin: 05/24/21 08:41 Dose: 50 mcg Documented by: Dexamethasone (Dexamethasone 4 Mg/Ml Vial) 3 mg IVP DAILY [facility] [place] Stop: 05/27/21 00:01 Digoxin (Digoxin 125 Mcg Tablet) 125 mcg PO DAILY [facility] [place] Last Admin: 05/24/21 12:54 Dose: 125 mcg Documented by: Docusate Sodium (Docusate Sodium 250 Mg Capsule) 250 - 500 mg PO DAILY [facility] [place] Last Admin: 05/24/21 08:41 Dose: 250 mg Documented by: Enoxaparin Sodium (Enoxaparin 150 Mg/Ml Syringe) 130 mg SUBQ BID [facility] [place] Last Admin: 05/24/21 20:42 Dose: 130 mg Documented by: Formoterol Fumarate (Formoterol Fumarate Neb 20 Mcg/2 Ml) 20 mcg INH RTBID [facility] [place] Last Admin: 05/24/21 20:37 Dose: 20 mcg Documented by: Gabapentin (Gabapentin 400 Mg Capsule) 1,200 mg PO BID [facility] [place] Last Admin: 05/24/21 20:41 Dose: 1,200 mg Documented by: Guaifenesin (Guaifenesin 100 Mg/5 Ml Udc) 100 mg PO Q6HR PRN PRN Reason: Cough Last Admin: 05/22/21 09:04 Dose: 100 mg Documented by: Sodium Chloride (Normal Saline 0.9%) 500 mls @ 20 mls/hr IV Q24H PRN PRN Reason: TKO RATE Last Infusion: 05/24/21 22:32 Dose: 10 mls/hr Documented by: Diltiazem HCl 125 mg/ Dextrose 125 mls @ 5 mls/hr IV .Q25H [facility]; Protocol Last Titration: 05/25/21 06:34 Dose: 5 mg/hr, 5 mls/hr Documented by: Insulin Aspart (Insulin Aspart 300 Unit/3 Ml Pen) 15 unit SUBQ TIDWM [facility] [place]; Protocol Last Admin: 05/25/21 08:30 Dose: 15 unit Documented by: Insulin Aspart (Insulin Aspart 300 Unit/3 Ml Pen) 3 - 11 unit SUBQ 0800,1200,1700,2100 [facility] [place]; Protocol Insulin Glargine (Insulin Glargine 300 Unit/3 Ml Pen) 5 unit SUBQ QDBREAKFAST [facility] [place] Last Admin: 05/25/21 08:29 Dose: 5 unit Documented by: Insulin Glargine (Insulin Glargine 300 Unit/3 Ml Pen) 40 unit SUBQ QPM [facility] [place] Last Admin: 05/24/21 20:42 Dose: 40 unit Documented by: Levalbuterol HCl (Levalbuterol 1.25 Mg/3 Ml Neb) 1.25 mg INH RTQID [facility] [place] Last Admin: 05/24/21 20:37 Dose: 1.25 mg Documented by: Levalbuterol HCl (Levalbuterol 1.25 Mg/3 Ml Neb) 1.25 mg INH Q4H PRN PRN Reason: Shortness of Air/Wheezing Lorazepam (Lorazepam 0.5 Mg Tablet) 0.5 mg PO Q6H PRN PRN Reason: Anxiety Last Admin: 05/24/21 20:41 Dose: 0.5 mg Documented by: Metoprolol Succinate (Metoprolol Succinate 25 Mg Tablet) 25 mg PO BID [facility] [place] Last Admin: 05/24/21 20:41 Dose: 25 mg Documented by: Metoprolol Tartrate (Metoprolol 5 Mg/5 Ml Vial) 5 mg IVP Q6H PRN PRN Reason: Tachycardia Last Admin: 05/22/21 00:59 Dose: 5 mg Documented by: Mirtazapine (Mirtazapine 15 Mg Tablet) 22.5 mg PO QPM [facility] [place] Last Admin: 05/24/21 20:39 Dose: 22.5 mg Documented by: Multivitamins (Multivitamin Tablet) 1 tab PO DAILYWM [facility] Last Admin: 05/24/21 08:41 Dose: 1 tab Documented by: Ondansetron HCl (Ondansetron Odt 4 Mg Tablet) 4 mg TL Q6HR PRN PRN Reason: Nausea / Vomiting Ondansetron HCl (Ondansetron 4 Mg/2 Ml Vial) 4 mg IVP Q6HR PRN PRN Reason: Nausea / Vomiting Last Admin: 05/18/21 11:13 Dose: 4 mg Documented by: Oxycodone HCl (Oxycodone 5 Mg Tablet) 5 mg PO Q4HR PRN PRN Reason: Pain 5 to 7 Last Admin: 05/17/21 17:31 Dose: 5 mg Documented by: Polyethylene Glycol (Polyethylene Glycol 3350 17 Gm Packet) 17 gm PO DAILY [facility] [place] Last Admin: 05/24/21 08:47 Dose: Not Given Documented by: Primidone (Primidone 50 Mg Tablet) 150 mg PO BID [facility] [place] Last Admin: 05/24/21 20:40 Dose: 150 mg Documented by: Ropinirole HCl (Ropinirole 0.25 Mg Tablet) 0.25 mg PO QPM [facility] [place] Last Admin: 05/24/21 20:41 Dose: 0.25 mg Documented by: Saccharomyces Boulardii (Saccharomyces Boulardii 250 Mg Capsule) 250 mg PO BIDWM [facility] [place] Last Admin: 05/24/21 17:18 Dose: 250 mg Documented by: Senna (Senna 8.6 Mg Tablet) 8.6 - 17.2 mg PO DAILY [facility] [place] Last Admin: 05/24/21 08:47 Dose: Not Given Documented by: Sodium Chloride (Sodium Chloride Flush 0.9% 10 Ml Syringe) 10 ml IVP PRN PRN PRN Reason: NEEDED PER PROVIDER ORDERS Last Admin: 05/22/21 13:21 Dose: 10 ml Documented by: Sodium Chloride (Sodium Chloride Flush 0.9% 10 Ml Syringe) 10 ml IVP 0100,0900,1700 [facility] [place] Last Admin: 05/25/21 08:37 Dose: 10 ml Documented by: Trazodone HCl (Trazodone 50 Mg Tablet) 300 mg PO QPM [facility] [place] Last Admin: 05/24/21 22:06 Dose: 300 mg Documented by: Albuterol Sulfate [Proair Hfa Inhaler] 2 puffs INH Q4HR PRN 05/30/15 Aspirin [Aspir 81] 81 mg PO DAILY 05/30/15 Gabapentin 1,200 mg PO BID 05/30/15 Nitroglycerin [Nitrostat] 0.4 mg PO Q5MIN PRN 05/30/15 Primidone 150 mg PO BID 01/01/16 Cholecalciferol (Vitamin D3) [Vitamin D3] 2,000 unit PO DAILY 08/22/16 Insulin Glargine/Lixisenatide [[place] 100 Unit-33 Mcg/ml Pen] 40 units PO QPM 0 09/28/17 Atorvastatin Calcium 80 mg PO QPM 01/09/19 Cyanocobalamin (Vitamin B-12) [Vitamin B-12 (500 mcg sublingual)] 250 mcg SL DAILY 01/09/19 Multivitamin [Multiple Vitamins] 1 each PO DAILY 01/09/19 Vitamin E 100 unit PO DAILY 01/09/19 Insulin Lispro [Humalog Kwikpen U-100] 15 units SUBQ TID 02/18/21 Mirtazapine 22.5 mg PO QPM 04/20/21 Trazodone HCl 300 mg PO QPM 04/20/21 rOPINIRole [Requip] 0.25 mg PO QPM 04/20/21 Enalapril Maleate [Vasotec] 10 mg PO DAILY 05/16/21 Propranolol [Inderal] 10 mg PO DAILY 05/16/21 Propranolol [Inderal] 20 mg PO QPM 05/16/21 Tiotropium [place] [Spiriva Respimat] 1 inh IH BID 05/16/21 Objective - Vital Signs/Intake & Output Reviewed Vital Signs: Yes Vital Signs: Vital Signs x48h Temp Pulse Resp BP Pulse Ox 05/25/21 08:00 36.8 C 85 17 117/86 H 92 05/25/21 07:00 85 21 102/72 98 05/25/21 06:00 35.8 C L 106 H 20 96/67 100 05/25/21 05:00 83 20 108/76 93 05/25/21 04:00 84 15 94/57 L 98 05/25/21 03:00 91 16 108/93 H 94 05/25/21 02:00 94 36 H 115/71 97 05/25/21 01:00 95 25 H 104/57 L 2 L Intake & Output: Intake & Output 05/22/21 05/23/21 05/24/21 05/25/21 23:59 23:59 23:59 23:59 Intake Total 1730 2529.000 1567.000 195.833 Output Total 2250 1150 1550 500 Balance -520 1379.000 17.000 -304.167 - Objective General Appearance: positive: Alert, Other (White female with an essential tremor of the head, vocal cords, and hands. Just bringing water to her mouth or trying to dial the phone to call her son is an effort for her.) Eyes Bilateral: positive: PERRL, EOMI ENT: positive: No signs of dehydration Neck: positive: No JVD. negative: Stiff neck Respiratory: positive: Wheezes, Rales Cardiovascular: positive: Regular rate & rhythm, Systolic murmur. negative: Gallop/S4, Friction rub Abdomen: positive: Non-tender, No organomegaly, Nml bowel sounds, No distention Skin: positive: Warm, Dry, Pallor Extremities: positive: Full ROM, Pedal edema Neurologic/Psychiatric: positive: Oriented x3, CN's nml (2-12). negative: Motor nml (severe tremor), Mood/affect nml - Lab Results Fish Bones: 05/25/21 05:31 05/25/21 05:31 Other Labs: Lab Results x24hrs 05/25/21 05/25/21 05/25/21 Range/Units 07:54 05:31 05:31 WBC 8.4 (4.8-10.8) x10^3/uL RBC 2.50 L (4.20-5.40) 10^6/uL Hgb 8.5 L (12.0-16.0) g/dL Hct 28.5 L (37.0-47.0) % MCV 114.0 H (81.0-99.0) fL MCH 34.0 H (27.0-31.0) pg MCHC 29.8 L (32.0-36.0) g/dL RDW 17.7 H (12.0-15.0) % Plt Count 357 (130-450) 10^3/uL MPV 10.4 (7.9-10.8) fL Neut # (Auto) Not Reportable Lymph # (Auto) Not Reportable [place] # (Auto) Not Reportable Eos # (Auto) Not Reportable Baso # (Auto) Not Reportable Absolute Nucleated RBC Not Reportable Total Counted 100 Band Neuts % (Manual) 0 (0 - 10) % Abnorm Lymph % (Manual) 0 % Nucleated RBC % Not Reportable Neutrophils # (Manual) 5.6 (1.5-6.6) 10^3/uL Lymphocytes # (Manual) 2.1 (1.5-3.5) 10^3/uL Monocytes # (Manual) 0.5 (0.0-1.0) 10^3/uL Eosinophils # (Manual) 0.2 (0-0.7) 10^3/uL Basophils # (Manual) 0.0 (0-0.1) 10^3/uL Nucleated RBCs 1 % Differential Comment MANUAL DIFFERENTIAL Platelet Estimate NORMAL (130-450,000) (NORMAL) RBC Morph Micro Appear 1+ POLYCHROMASIA (NORMAL) Sodium 135 (135-145) mmol/L Potassium 4.7 (3.5-5.0) mmol/L Chloride 94 L (101-111) mmol/L Carbon Dioxide 33 H (21-32) mmol/L Anion Gap 8.0 (6-13) BUN 29 H (6-20) mg/dL Creatinine 1.0 (0.4-1.0) mg/dL Estimated GFR (MDRD) 54 L (>89) Glucose 134 H (70-100) mg/dL POC Whole Bld Glucose 137 H (70 - 100) mg/dL Calcium 8.7 (8.5-10.3) mg/dL Ref Lab Test Result 05/24/21 05/24/21 05/24/21 Range/Units 20:27 16:40 10:45 WBC (4.8-10.8) x10^3/uL RBC (4.20-5.40) 10^6/uL Hgb (12.0-16.0) g/dL Hct (37.0-47.0) % MCV (81.0-99.0) fL MCH (27.0-31.0) pg MCHC (32.0-36.0) g/dL RDW (12.0-15.0) % Plt Count (130-450) 10^3/uL MPV (7.9-10.8) fL Neut # (Auto) Lymph # (Auto) [place] # (Auto) Eos # (Auto) Baso # (Auto) Absolute Nucleated RBC Total Counted Band Neuts % (Manual) (0 - 10) % Abnorm Lymph % (Manual) % Nucleated RBC % Neutrophils # (Manual) (1.5-6.6) 10^3/uL Lymphocytes # (Manual) (1.5-3.5) 10^3/uL Monocytes # (Manual) (0.0-1.0) 10^3/uL Eosinophils # (Manual) (0-0.7) 10^3/uL Basophils # (Manual) (0-0.1) 10^3/uL Nucleated RBCs % Differential Comment Platelet Estimate (NORMAL) RBC Morph Micro Appear (NORMAL) Sodium (135-145) mmol/L Potassium (3.5-5.0) mmol/L Chloride (101-111) mmol/L Carbon Dioxide (21-32) mmol/L Anion Gap (6-13) BUN (6-20) mg/dL Creatinine (0.4-1.0) mg/dL Estimated GFR (MDRD) (>89) Glucose (70-100) mg/dL POC Whole Bld Glucose 265 H 275 H 245 H (70 - 100) mg/dL Calcium (8.5-10.3) mg/dL Ref Lab Test Result 05/24/21 05/22/21 Range/Units 04:32 08:44 WBC (4.8-10.8) x10^3/uL RBC (4.20-5.40) 10^6/uL Hgb (12.0-16.0) g/dL Hct (37.0-47.0) % MCV (81.0-99.0) fL MCH (27.0-31.0) pg MCHC (32.0-36.0) g/dL RDW (12.0-15.0) % Plt Count (130-450) 10^3/uL MPV (7.9-10.8) fL Neut # (Auto) Lymph # (Auto) [place] # (Auto) Eos # (Auto) Baso # (Auto) Absolute Nucleated RBC Total Counted Band Neuts % (Manual) (0 - 10) % Abnorm Lymph % (Manual) % Nucleated RBC % Neutrophils # (Manual) (1.5-6.6) 10^3/uL Lymphocytes # (Manual) (1.5-3.5) 10^3/uL Monocytes # (Manual) (0.0-1.0) 10^3/uL Eosinophils # (Manual) (0-0.7) 10^3/uL Basophils # (Manual) (0-0.1) 10^3/uL Nucleated RBCs % Differential Comment Platelet Estimate (NORMAL) RBC Morph Micro Appear (NORMAL) Sodium (135-145) mmol/L Potassium (3.5-5.0) mmol/L Chloride (101-111) mmol/L Carbon Dioxide (21-32) mmol/L Anion Gap (6-13) BUN (6-20) mg/dL Creatinine (0.4-1.0) mg/dL Estimated GFR (MDRD) (>89) Glucose (70-100) mg/dL POC Whole Bld Glucose (70 - 100) mg/dL Calcium (8.5-10.3) mg/dL Ref Lab Test Result REPORT REPORT ABX Reporting Has patient been on IV antibiotics over the past 48 hours?: Yes Assessment/Plan - Problem List (1) Atrial fibrillation with RVR Impression: The patient went into sudden A. fib with RVR on 05/18/21. This appears to be new onset Afib for her. The etiology is likely from her COVID pneumonia, she ruled out for MO by troponins done that day. She was put on Lovenox therapeutic dose b.i.d. and has not yet been transitioned to a DOAC, since it is unknown if she will need transfer for EP study or ablation. In spite of increasing dig dosing, Cardizem IV, metoprolol IV and p.o., she continues to be tachycardic. Rates will approach 140s to 150s especially if she is upset. They attempted to wean her Cardizem off yesterday. But yesterday evening, tachycardia returned and she had to go back on a Cardizem drip. Plan: Increase metoprolol from 25 twice daily to 50 twice daily. Continue Cardizem. Add amiodarone. This is strictly for rate control not to cardiovert her. Continue anticoagulant Check echo (2) Acute on chronic respiratory failure with hypoxia, resolved acute phase and now chronic Assessment/Plan: Her high O2 needs have resolved and she is down to the levels of her home oxygen order. We have finished treating the Covid pneumonia and continue her underlying COPD with nebs (3) Pneumonia due to COVID-19 virus Assessment/Plan: She completed remdesivir, and is on Decadron to be completed after today Continue Mucinex, incentive spirometer, Isolation Her O2 needs have improved and stabilized (4) Acute on chronic diastolic heart failure Assessment/Plan: Her Lasix IV doses had to be stopped because of hypotension. We will continue with attention at rate control which will help her diastolic heart failure (5) Cor pulmonale (chronic) Assessment/Plan: As per Echo that was done 1 month ago when she was here with a COPD exacerbation admission She redeveloped leg edema in the 1 month after that discharge, and she was on p.o. Lasix. We tried IV Lasix but diuretics were stopped 2 days ago when she became very hypotensive I will repeat echo since she is so hard to control (6) COPD (chronic obstructive pulmonary disease) Assessment/Plan: She is not in COPD exacerbation, no wheezing, her sentences are long and without any noticable tachypnea today Continue her inhalers (7) Diabetes mellitus with complication, with long-term current use of insulin Assessment/Plan: Glucoses were in the 300s and higher because of being on IV Decadron. Yesterday morning glucose was 145 then as a day progression went to 245, 275 and then 265 at night. This morning she is 137, 223 and 188. Continue with insulin coverage and CC diet Will taper the Decadron to off (8) Chronic anemia Assessment/Plan: This was checked at the last recent admission and she has adequate B12, folate stores and iron stores. It is anemia of chronic disease. Continue to follow CBC daily, transfuse if hemoglobin under 7 (9) Depression with anxiety Assessment/Plan: She was sobbing tears of sarah and cries when she is anxious More stable over past 2 days until today. Son is a calming influence.
[2021-05-25] MEDS: CHOLECALCIFEROL 25 MCG TABLET PO SCH (09:22)
[2021-05-25] MEDS: buPROPion SR 150 MG TABLET PO SCH (09:23)
[2021-05-25] MEDS: PRIMIDONE 50 MG TABLET PO SCH ×2 (09:23→20:55)
[2021-05-25] MEDS: GABAPENTIN 400 MG CAPSULE PO SCH ×2 (09:24→20:59)
[2021-05-25] MEDS: MULTIVITAMIN TABLET PO SCH (09:24)
[2021-05-25] MEDS: DIGOXIN 125 MCG TABLET PO SCH (09:27)
[2021-05-25] MEDS: METOPROLOL SUCCINATE 25 MG TABLET PO SCH ×2 (09:27→21:07)
[2021-05-25] MEDS: SACCHAROMYCES BOULARDII 250 MG CAPSULE PO SCH ×2 (09:52→16:58)
[2021-05-25] MEDS: ASPIRIN EC 81 MG TABLET PO SCH (09:53)
[2021-05-25] MEDS: DEXAMETHASONE 4 MG/ML VIAL IVP SCH (09:56)
[2021-05-25] MEDS: ENOXAPARIN 150 MG/ML SYRINGE SUBQ SCH ×2 (09:58→21:12)
[2021-05-25] MEDS: SENNA 8.6 MG TABLET PO SCH (09:59)
[2021-05-25] MEDS: DOCUSATE SODIUM 250 MG CAPSULE PO SCH (09:59)
[2021-05-25] MEDS: polyethylene glycoL 3350 17 GM PACKET PO SCH (09:59)
[2021-05-25] MEDS: SODIUM CHLORIDE FLUSH 0.9% 10 ML SYRINGE IVP PRN (10:02)
[2021-05-25] MEDS: METOPROLOL 5 MG/5 ML VIAL IVP PRN ×2 (10:16→16:59)
[2021-05-25] MEDS: LORazepam 0.5 MG TABLET PO PRN ×3 (10:17→23:52)
[2021-05-25] MEDS: diltiaZEM INJ 125 MG in DEXTROSE 5% 100 ML IV SCH (11:31)
[2021-05-25] MEDS: LEVALBUTEROL 1.25 MG/3 ML NEB INH PRN (12:00)
[2021-05-25] MEDS ORDERED: AMIODARONE 360 MG/200 ML 200 ML IV ONE (19:19)
[2021-05-25] MEDS ORDERED: AMIODARONE 150 MG/100 ML 100 ML IV ONE (19:19)
[2021-05-25] MEDS ORDERED: AMIODARONE 360 MG/200 ML 200 ML IV SCH (20:00)
[2021-05-25] MEDS: buPROPion SR 100 MG TABLET PO SCH (20:56)
[2021-05-25] MEDS: MIRTAZAPINE 15 MG TABLET PO SCH (20:57)
[2021-05-25] MEDS: ATORVASTATIN 40 MG TABLET PO SCH (20:57)
[2021-05-25] MEDS: traZODone 50 MG TABLET PO SCH (20:58)
[2021-05-25] MEDS: rOPINIRole 0.25 MG TABLET PO SCH (20:59)
[2021-05-26] MEDS: LORazepam 0.5 MG TABLET PO PRN ×3 (06:29→22:05)
[2021-05-26 07:25] LABS: CALCIUM 8.7 mg/dL (8.5-10.3); CREATININE 1.1 mg/dL (0.4-1.0); POTASSIUM 4.7 mmol/L (3.5-5.0)
[2021-05-26 07:42] LABS: BASOPHILS # (AUTO) 0.1 10^3/uL (0.0-0.1); BASOPHILS % (AUTO) 0.8 %; EOSINOPHILS # (AUTO) 0.2 10^3/uL (0.0-0.7); EOSINOPHILS % (AUTO) 2.4 %; HCT - HEMATOCRIT 27.1 % (37.0-47.0); HGB - HEMOGLOBIN 8.4 g/dL (12.0-16.0); LYMPHOCYTES # (AUTO) 1.7 10^3/uL (1.5-3.5); LYMPHOCYTES % (AUTO) 20.9 %; MEAN CORPUSCULAR VOLUME 112.9 fL (81.0-99.0); MEAN PLATELET VOLUME 10.3 fL (7.9-10.8); MONOCYTES # (AUTO) 0.9 10^3/uL (0.0-1.0); MONOCYTES % (AUTO) 11.6 %; NEUTROPHILS # (AUTO) 4.7 10^3/uL (1.5-6.6); NEUTROPHILS % (AUTO) 59.3 %; NRBC ABSOLUTE COUNT (AUTO) 0.12 x10^3/uL; NUCLEATED RED BLOOD CELLS AUTO 1.5 /100WBC; PLT - PLATELET COUNT 329 10^3/uL (130-450); RED CELL DISTRIBUTION WIDTH 17.8 % (12.0-15.0)
[2021-05-26] MEDS: BUDESONIDE 0.5 MG/2 ML NEB INH SCH ×2 (07:54→19:29)
[2021-05-26] MEDS: LEVALBUTEROL 1.25 MG/3 ML NEB INH SCH (07:54)
[2021-05-26] MEDS: FORMOTEROL FUMARATE NEB 20 MCG/2 ML INH SCH ×2 (07:54→19:29)
[2021-05-26] MEDS: INSULIN GLARGINE 300 UNIT/3 ML PEN SUBQ SCH ×2 (09:05→21:55)
[2021-05-26] MEDS: INSULIN ASPART 300 UNIT/3 ML PEN SUBQ SCH ×7 (09:06→21:55)
[2021-05-26] MEDS: MULTIVITAMIN TABLET PO SCH (09:11)
[2021-05-26] MEDS: CHOLECALCIFEROL 25 MCG TABLET PO SCH (09:12)
[2021-05-26] MEDS: buPROPion SR 150 MG TABLET PO SCH (09:12)
[2021-05-26] MEDS: SACCHAROMYCES BOULARDII 250 MG CAPSULE PO SCH ×2 (09:12→17:24)
[2021-05-26] MEDS: ASPIRIN EC 81 MG TABLET PO SCH (09:12)
[2021-05-26] MEDS: DEXAMETHASONE 4 MG/ML VIAL IVP SCH (09:12)
[2021-05-26] MEDS: GABAPENTIN 400 MG CAPSULE PO SCH ×2 (09:13→21:53)
[2021-05-26] MEDS: DOCUSATE SODIUM 250 MG CAPSULE PO SCH (09:13)
[2021-05-26] MEDS: DIGOXIN 125 MCG TABLET PO SCH (09:13)
[2021-05-26] MEDS: PRIMIDONE 50 MG TABLET PO SCH ×2 (09:14→21:53)
[2021-05-26] MEDS: METOPROLOL SUCCINATE 25 MG TABLET PO SCH ×2 (09:14→21:54)
[2021-05-26] MEDS: ENOXAPARIN 150 MG/ML SYRINGE SUBQ SCH (09:21)
[2021-05-26] MEDS: SODIUM CHLORIDE FLUSH 0.9% 10 ML SYRINGE IVP SCH ×2 (09:22→17:26)
[2021-05-26] MEDS: SENNA 8.6 MG TABLET PO SCH (09:22)
[2021-05-26] MEDS: polyethylene glycoL 3350 17 GM PACKET PO SCH (09:22)
--- NOTE | 2021-05-26 11:59 | PROVIDER PROGRESS NOTE ---
Subjective - Prog Note Date Prog Note Date: 05/26/21 Prog Note Time: 11:53 Objective - Vital Signs/Intake & Output Vital Signs: Vital Signs Temp Pulse Pulse Resp BP Pulse Ox 05/26/21 11:49 37.4 C 05/26/21 11:00 106 H 22 100/65 97 05/26/21 10:00 108 H 21 99/70 98 05/26/21 09:00 128 H 23 117/84 H 98 05/26/21 08:00 36.9 C 112 H 21 99/63 96 05/26/21 07:55 106 H 14 Intake & Output: Intake & Output 05/23/21 05/24/21 05/25/21 05/26/21 23:59 23:59 23:59 23:59 Intake Total 2529.000 7818.359 2858.832 768.335 Output Total 1150 1550 1400 200 Balance 1379.000 17.000 1016.832 568.335 - Lab Results Fish Bones: 05/26/21 07:05 05/26/21 07:05 Other Labs: Lab Results x24hrs 05/26/21 05/26/21 05/26/21 Range/Units 08:41 07:05 07:05 WBC 8.0 (4.8-10.8) x10^3/uL RBC 2.40 L (4.20-5.40) 10^6/uL Hgb 8.4 L (12.0-16.0) g/dL Hct 27.1 L (37.0-47.0) % MCV 112.9 H (81.0-99.0) fL MCH 35.0 H (27.0-31.0) pg MCHC 31.0 L (32.0-36.0) g/dL RDW 17.8 H (12.0-15.0) % Plt Count 329 (130-450) 10^3/uL MPV 10.3 (7.9-10.8) fL Neut # (Auto) 4.7 (1.5-6.6) 10^3/uL Lymph # (Auto) 1.7 (1.5-3.5) 10^3/uL [place] # (Auto) 0.9 (0.0-1.0) 10^3/uL Eos # (Auto) 0.2 (0.0-0.7) 10^3/uL Baso # (Auto) 0.1 (0.0-0.1) 10^3/uL Absolute Nucleated RBC 0.12 x10^3/uL Nucleated RBC % 1.5 /100WBC Sodium 136 (135-145) mmol/L Potassium 4.7 (3.5-5.0) mmol/L Chloride 96 L (101-111) mmol/L Carbon Dioxide 33 H (21-32) mmol/L Anion Gap 7.0 (6-13) BUN 30 H (6-20) mg/dL Creatinine 1.1 H (0.4-1.0) mg/dL Estimated GFR (MDRD) 49 L (>89) Glucose 144 H (70-100) mg/dL POC Whole Bld Glucose 144 H (70 - 100) mg/dL Calcium 8.7 (8.5-10.3) mg/dL 05/25/21 05/25/21 05/25/21 Range/Units 21:00 19:48 16:51 WBC (4.8-10.8) x10^3/uL RBC (4.20-5.40) 10^6/uL Hgb (12.0-16.0) g/dL Hct (37.0-47.0) % MCV (81.0-99.0) fL MCH (27.0-31.0) pg MCHC (32.0-36.0) g/dL RDW (12.0-15.0) % Plt Count (130-450) 10^3/uL MPV (7.9-10.8) fL Neut # (Auto) (1.5-6.6) 10^3/uL Lymph # (Auto) (1.5-3.5) 10^3/uL [place] # (Auto) (0.0-1.0) 10^3/uL Eos # (Auto) (0.0-0.7) 10^3/uL Baso # (Auto) (0.0-0.1) 10^3/uL Absolute Nucleated RBC x10^3/uL Nucleated RBC % /100WBC Sodium (135-145) mmol/L Potassium (3.5-5.0) mmol/L Chloride (101-111) mmol/L Carbon Dioxide (21-32) mmol/L Anion Gap (6-13) BUN (6-20) mg/dL Creatinine (0.4-1.0) mg/dL Estimated GFR (MDRD) (>89) Glucose (70-100) mg/dL POC Whole Bld Glucose 333 H 288 H 188 H (70 - 100) mg/dL Calcium (8.5-10.3) mg/dL 05/25/21 Range/Units 11:41 WBC (4.8-10.8) x10^3/uL RBC (4.20-5.40) 10^6/uL Hgb (12.0-16.0) g/dL Hct (37.0-47.0) % MCV (81.0-99.0) fL MCH (27.0-31.0) pg MCHC (32.0-36.0) g/dL RDW (12.0-15.0) % Plt Count (130-450) 10^3/uL MPV (7.9-10.8) fL Neut # (Auto) (1.5-6.6) 10^3/uL Lymph # (Auto) (1.5-3.5) 10^3/uL [place] # (Auto) (0.0-1.0) 10^3/uL Eos # (Auto) (0.0-0.7) 10^3/uL Baso # (Auto) (0.0-0.1) 10^3/uL Absolute Nucleated RBC x10^3/uL Nucleated RBC % /100WBC Sodium (135-145) mmol/L Potassium (3.5-5.0) mmol/L Chloride (101-111) mmol/L Carbon Dioxide (21-32) mmol/L Anion Gap (6-13) BUN (6-20) mg/dL Creatinine (0.4-1.0) mg/dL Estimated GFR (MDRD) (>89) Glucose (70-100) mg/dL POC Whole Bld Glucose 223 H (70 - 100) mg/dL Calcium (8.5-10.3) mg/dL Assessment/Plan - Problem List (1) Atrial fibrillation with RVR Impression: The patient went into sudden A. fib with RVR on 05/18/21. This appears to be new onset Afib for her. The etiology is likely from her COVID pneumonia/hypoxia, she ruled out for DE by troponins done that day. She was put on Lovenox therapeutic dose b.i.d. and has not yet been transitioned to a DOAC, since it is unknown if she will need transfer for EP study or ablation. In spite of increasing dig dosing, Cardizem IVP/drip, metoprolol IVP and p.o., she continued to be tachycardic. Rates will approach 140s to 150s especially if she is upset. They attempted to wean her Cardizem off 05/24 But by 05/24 evening, tachycardia returned and general claims agent put her back on a Cardizem drip. On 05/25 I came on service. I have ordered an Echo to see if we are missing a new process. She had just had a Echo 1 month [employer]. I also started her on amiodarone drip yesterday. I has resulted in a rate in the 90s. She has had Step 1, 2, 3 loading. Plan: Stop diltiazem, stop dig Stop amiodarone IV and change to po Continue metoprolol for now. Now that rate is controlled can be transferred for rehab to SNF Though of changing lovenox to DOAC dabigatran but there is interaction between pradaxa and amiodarone to increase levels of pradaxa and increased bleeding. Go to [facility]. (2) Acute on chronic respiratory failure with hypoxia, resolved acute phase and now chronic Assessment/Plan: Her high O2 needs have resolved and she is down to the levels of her home oxygen order. We have finished treating the Covid pneumonia and continue her underlying COPD with nebs (3) Pneumonia due to COVID-19 virus Assessment/Plan: She completed remdesivir, and is on Decadron to be completed after today Continue Mucinex, incentive spirometer, Isolation Her O2 needs have improved and stabilized (4) Acute on chronic diastolic heart failure Assessment/Plan: Her Lasix IV doses had to be stopped because of hypotension. We will continue with attention at rate control which will help her diastolic heart failure (5) Cor pulmonale (chronic) Assessment/Plan: As per Echo that was done 1 month ago when she was here with a COPD exacerbation admission She redeveloped leg edema in the 1 month after that discharge, and she was on p.o. Lasix. We tried IV Lasix but diuretics were stopped 2 days ago when she became very hypotensive I will repeat echo since she is so hard to control (6) COPD (chronic obstructive pulmonary disease) Assessment/Plan: She is not in COPD exacerbation, no wheezing, her sentences are long and without any noticable tachypnea today Continue her inhalers. She is on fixed dose shedule of xopenex. That will be changed to prn. She is on perforomist and budesonide bid via inh here but will changed to cannisters at [facility]. Note: This female has carried this diagnosis for quite some time. Yet when I review her old records her pulmonary function studies show her to have no obstruction. I would asked that she be evaluated in the outpatient setting by pulmonology to verify this diagnosis. Could she possibly have a restrictive lung disease due to severe obesity. She could also have obesity hypoventilation syndrome or obstructive sleep apnea that is untreated. (7) Diabetes mellitus with complication, with long-term current use of insulin Assessment/Plan: Glucoses were in the 300s and higher because of being on IV Decadron. 05/24: glucose was 145 then as a day progression went to 245, 275 and then 265 at night. 05/25: 137, 223 and 188. Continue with insulin coverage and CC diet She is being tapered off decadron. Still IVP. I will change to po and reduce dose further. (8) Chronic anemia Assessment/Plan: This was checked at the last recent admission and she has adequate B12, folate stores and iron stores. It is anemia of chronic disease. Continue to follow CBC daily, transfuse if hemoglobin under 7 (9) Depression with anxiety Assessment/Plan: She was sobbing tears of sarah and cries when she is anxious. Very labile as manifested by behavior yesterday but is cooperative. Can be prompted and cued. Doesn't need change in meds. More stable over past 2 days until 05/25 when she realized she can't go home quite yet. Son is a calming influence.
[2021-05-26] MEDS: AMIODARONE 200 MG TABLET PO SCH (15:23)
[2021-05-26] MEDS: METOPROLOL 5 MG/5 ML VIAL IVP PRN (18:52)
[2021-05-26] MEDS: LEVALBUTEROL 1.25 MG/3 ML NEB INH PRN (19:29)
[2021-05-26] MEDS: MIRTAZAPINE 15 MG TABLET PO SCH (21:47)
[2021-05-26] MEDS: ATORVASTATIN 40 MG TABLET PO SCH (21:53)
[2021-05-26] MEDS: traZODone 50 MG TABLET PO SCH (21:53)
[2021-05-26] MEDS: rOPINIRole 0.25 MG TABLET PO SCH (21:53)
[2021-05-26] MEDS: buPROPion SR 100 MG TABLET PO SCH (21:54)
[2021-05-26] MEDS: APIXABAN 5 MG TABLET PO SCH (21:54)
[2021-05-27] MEDS: SODIUM CHLORIDE FLUSH 0.9% 10 ML SYRINGE IVP SCH ×3 (00:30→17:02)
[2021-05-27] MEDS: LORazepam 0.5 MG TABLET PO PRN ×2 (05:37→19:21)
[2021-05-27] MEDS: ONDANSETRON 4 MG/2 ML VIAL IVP PRN (05:38)
[2021-05-27] MEDS: oxyCODONE 5 MG TABLET PO PRN ×2 (05:38→19:21)
[2021-05-27] MEDS: SODIUM CHLORIDE FLUSH 0.9% 10 ML SYRINGE IVP PRN (05:38)
[2021-05-27] MEDS ORDERED: diphenhydrAMINE INJ 50 MG/ML VIAL IVP STA ×2 (06:58→08:05)
[2021-05-27] MEDS: BUDESONIDE 0.5 MG/2 ML NEB INH SCH ×2 (07:35→19:31)
[2021-05-27] MEDS: LEVALBUTEROL 1.25 MG/3 ML NEB INH PRN ×2 (07:35→19:31)
[2021-05-27] MEDS: FORMOTEROL FUMARATE NEB 20 MCG/2 ML INH SCH ×2 (07:35→19:32)
[2021-05-27] MEDS ORDERED: dexAMETHasone 4 MG TABLET PO SCH (09:00)
[2021-05-27] MEDS: INSULIN ASPART 300 UNIT/3 ML PEN SUBQ SCH ×7 (09:03→20:48)
[2021-05-27] MEDS: MULTIVITAMIN TABLET PO SCH (09:04)
[2021-05-27] MEDS: INSULIN GLARGINE 300 UNIT/3 ML PEN SUBQ SCH ×2 (09:04→20:44)
[2021-05-27] MEDS: AMIODARONE 200 MG TABLET PO SCH (09:05)
[2021-05-27] MEDS: SACCHAROMYCES BOULARDII 250 MG CAPSULE PO SCH ×2 (09:05→17:08)
[2021-05-27] MEDS: APIXABAN 5 MG TABLET PO SCH ×2 (09:06→20:32)
[2021-05-27] MEDS: ASPIRIN EC 81 MG TABLET PO SCH (09:06)
[2021-05-27] MEDS: buPROPion SR 150 MG TABLET PO SCH (09:07)
[2021-05-27] MEDS: CHOLECALCIFEROL 25 MCG TABLET PO SCH (09:07)
[2021-05-27] MEDS: GABAPENTIN 400 MG CAPSULE PO SCH ×2 (09:08→20:31)
[2021-05-27] MEDS: DOCUSATE SODIUM 250 MG CAPSULE PO SCH (09:08)
[2021-05-27] MEDS: METOPROLOL SUCCINATE 25 MG TABLET PO SCH ×2 (09:08→20:32)
[2021-05-27] MEDS: polyethylene glycoL 3350 17 GM PACKET PO SCH (09:08)
[2021-05-27] MEDS: SENNA 8.6 MG TABLET PO SCH (09:09)
[2021-05-27] MEDS: PRIMIDONE 50 MG TABLET PO SCH ×2 (09:09→20:29)
[2021-05-27] MEDS: METOPROLOL 5 MG/5 ML VIAL IVP PRN (10:09)
[2021-05-27] MEDS ORDERED: METOPROLOL SUCCINATE 25 MG TABLET PO SCH (11:00)
--- NOTE | 2021-05-27 14:22 | Ultrasound Report ---
PROCEDURE: Duplex Ext Veins Bilateral INDICATIONS: Calf pain TECHNIQUE: Real-time imaging, as well as color and pulse Doppler interrogation, were performed of the deep veins of both legs from the inguinal ligament to the popliteal fossa. COMPARISON: 04/20/2021, 01/03/2016 FINDINGS: The deep veins are normally compressible, and free of intraluminal thrombus. Color and pu lse Doppler demonstrate normal phasic intravascular flow. There is normal augmentation response to d istal compression maneuver. Moderate edema in the subcutaneous tissues of the calfs bilaterally. No focal fluid collections. IMPRESSION: 1. No DVT in either lower extremity. 2. Moderate subcutaneous calf edema bilaterally. Reviewed by: Keri Sherwood MD on 05/27/2021 2:21 PM PDT Approved by: Keri Sherwood MD on 05/27/2021 2:21 PM PDT Station ID: [id number]
--- NOTE | 2021-05-27 17:27 | PROVIDER PROGRESS NOTE ---
Progress Note May 27, 2021 4:37 PM She has had a good day today. We were able to take her out of isolation and put her in a regular room. Do not have to wear the gallons in the gloves that was causing her to feel more more psychologically isolated. Her heart rate had become very well controlled with the amiodarone drip. Once she was fully loaded with amiodarone, I transitioned her to oral. Stop the digoxin. Stop the Cardizem. Unfortunately her heart rate bounced back up into the 130s. She is asymptomatic from that perspective. She does not feel it. She feels like she is back to her baseline. She is just very anxious to get out of here. Medications: Tylenol, Pacerone, Eliquis, Ecotrin, Lipitor, Pulmicort, Perforomist, Wellbutrin, refresh ophthalmic solution, vitamin D3, Decadron is down to 2 mg p.o. daily, Neurontin, Robitussin, NovoLog 15 units 3 times daily, NovoLog sliding scale before meals, Lantus 5 units at breakfast, 40 units at night, Xopenex as needed, Ativan, Toprol, Lopressor IV as needed, Remeron, Theragran, Zofran, Roxicodone, MiraLAX as needed Vitals: Temperature 36.3, heart rate 120, blood pressure 142/68, respirations 20, 97% saturated on 2 L 5 foot 6 inches tall, 136 kg Morbidly obese pleasant female, pale. Moderate to severe head tremor, hand tremor, voice tremor Neck is supple. Difficult to assess for JVD because it is short and thick but it is without pain or rigidity Lungs are quiet. But clear. No crackles rhonchi wheezing. She has increased respiratory effort with trying to sit up or to stand and walk to a chair. The respiratory effort subsides within 1 minute Fast irregular heartbeat Abdomen has a huge pannus, obese, hypoactive bowel sounds, soft. Legs with edema. Skin has bruising from her IVs and her blood draws. Assessment/plan 1. Atrial fibrillation with RVR. Resume diltiazem p.o. on top of Lopressor and amiodarone. I am well aware that I could give her second degree of third-degree heart block with is much rate lowering medication but she is not responding to single or double agent therapy. She is on anticoagulation with Eliquis. 2. Pneumonia due to Covid virus with his subsequent acute respiratory failure has resolved. She is back to her baseline 2 L nasal cannula that she takes at home. She is completed remdesivir and I am tapering down her Decadron. 3. Acute on chronic diastolic heart failure. Not on current diuretic therapy due to diuretic therapy induced hypotension. 4. COPD. This patient describes her self is having chronic dyspnea on exert ion. It got to the point that she needed to move in with her son and [id number] 8 years ago from [place]. She used to smoke 3 packs/day. Cut back to 1 pack/day x 2013. And quit in 2019. She takes albuterol and Symbicort at home. Also Singulair. Currently on Perforomist and budesonide and Xopenex. She will be transition back to her home medicines at discharge. 5. Immobility and deconditioning. This lady was already relatively sedentary even before admission. Now with a subsequent illness and isolation it is very difficult for her to get up out of bed and take care of her self. As such she has been seen by physical therapy and is getting regular visits. Physical therapy is recommending rehabilitation in the [facility] facility until she can become independent to return to home. She lives with her son and [id number]. I have already spoken to the son a couple of times on the phone and he is very supportive. He thinks that his mother's plan is practical and will be able to be achieved.
[2021-05-27] MEDS: diltiaZEM 30 MG TABLET PO SCH (17:54)
[2021-05-27] MEDS: ATORVASTATIN 40 MG TABLET PO SCH (20:25)
[2021-05-27] MEDS: buPROPion SR 100 MG TABLET PO SCH (20:26)
[2021-05-27] MEDS: traZODone 50 MG TABLET PO SCH (20:27)
[2021-05-27] MEDS: MIRTAZAPINE 15 MG TABLET PO SCH (20:29)
[2021-05-27] MEDS: rOPINIRole 0.25 MG TABLET PO SCH (20:44)
[2021-05-28] MEDS: diltiaZEM 30 MG TABLET PO SCH ×4 (00:38→17:41)
[2021-05-28] MEDS: oxyCODONE 5 MG TABLET PO PRN ×3 (00:41→20:19)
[2021-05-28] MEDS: SODIUM CHLORIDE FLUSH 0.9% 10 ML SYRINGE IVP SCH ×3 (00:44→17:41)
[2021-05-28 06:30] LABS: BASOPHILS % (AUTO) 0.6 %; EOSINOPHILS # (AUTO) 0.2 10^3/uL (0.0-0.7); EOSINOPHILS % (AUTO) 2.6 %; HCT - HEMATOCRIT 27.8 % (37.0-47.0); HGB - HEMOGLOBIN 8.4 g/dL (12.0-16.0); LYMPHOCYTES # (AUTO) 1.4 10^3/uL (1.5-3.5); LYMPHOCYTES % (AUTO) 19.5 %; MEAN CORPUSCULAR HEMOGLOBIN 33.7 pg (27.0-31.0); MEAN CORPUSCULAR HGB CONC 30.2 g/dL (32.0-36.0); MEAN CORPUSCULAR VOLUME 111.6 fL (81.0-99.0); MEAN PLATELET VOLUME 10.6 fL (7.9-10.8); MONOCYTES # (AUTO) 0.8 10^3/uL (0.0-1.0); MONOCYTES % (AUTO) 11.8 %; NEUTROPHILS # (AUTO) 4.4 10^3/uL (1.5-6.6); NEUTROPHILS % (AUTO) 63.1 %; NRBC ABSOLUTE COUNT (AUTO) 0.06 x10^3/uL; NUCLEATED RED BLOOD CELLS AUTO 0.9 /100WBC; PLT - PLATELET COUNT 284 10^3/uL (130-450); RED BLOOD COUNT 2.49 10^6/uL (4.20-5.40); RED CELL DISTRIBUTION WIDTH 17.4 % (12.0-15.0)
[2021-05-28 06:33] LABS: SLIDE REVIEW? Indicated
[2021-05-28 06:36] LABS: CALCIUM 8.1 mg/dL (8.5-10.3); POTASSIUM 4.8 mmol/L (3.5-5.0)
[2021-05-28] MEDS: FORMOTEROL FUMARATE NEB 20 MCG/2 ML INH SCH ×2 (07:28→20:49)
[2021-05-28] MEDS: LEVALBUTEROL 1.25 MG/3 ML NEB INH PRN ×3 (07:28→20:49)
[2021-05-28] MEDS: BUDESONIDE 0.5 MG/2 ML NEB INH SCH ×2 (07:28→20:49)
[2021-05-28] MEDS ORDERED: FUROSEMIDE 40 MG/4 ML VIAL IVP STA (07:45)
--- NOTE | 2021-05-28 07:51 | PROVIDER PROGRESS NOTE ---
Subjective - Prog Note Date Prog Note Date: 05/28/21 Prog Note Time: 07:49 - Subjective Subjective: She is struggling this morning. More short of breath. She denies chest pain. Leg edema is definitely worse. Intake and output has been positive for a liter on May 25, a liter on May 26, and -261 so far this morning. So her intake and output has not been significantly positive considering she is tachypneic and is a mouth breather. I would take that positive liter as needed for her insensate air loss. Venous Dopplers were done yesterday because of the increasing edema and leg pain and she did not have DVTs, but edema was noted. There are no fevers. Her heart rate has come down to 112 this morning. Yesterday consistently between 88 and 110. Current Medications - Current Medications Current Medications: Active Medications Acetaminophen (Acetaminophen 325 Mg Tablet) 650 mg PO Q4HR PRN PRN Reason: Pain 1 to 4 Last Admin: 05/22/21 10:25 Dose: 650 mg Documented by: Amiodarone HCl (Amiodarone 200 Mg Tablet) 200 mg PO DAILY [facility] Last Admin: 05/27/21 09:05 Dose: 200 mg Documented by: Apixaban (Apixaban 5 Mg Tablet) 5 mg PO BID [facility] Last Admin: 05/27/21 20:32 Dose: 5 mg Documented by: Aspirin (Aspirin Ec 81 Mg Tablet) 81 mg PO DAILY [facility] Last Admin: 05/27/21 09:06 Dose: 81 mg Documented by: Atorvastatin Calcium (Atorvastatin 40 Mg Tablet) 80 mg PO QPM [facility] Last Admin: 05/27/21 20:25 Dose: 80 mg Documented by: Budesonide (Budesonide 0.5 Mg/2 Ml Neb) 0.5 mg INH RTBID [facility] Last Admin: 05/28/21 07:28 Dose: 0.5 mg Documented by: Bupropion HCl (Bupropion Sr 100 Mg Tablet) 200 mg PO QPM [facility] Last Admin: 05/27/21 20:26 Dose: 200 mg Documented by: Bupropion HCl (Bupropion Sr 150 Mg Tablet) 150 mg PO DAILY [facility] Last Admin: 05/27/21 09:07 Dose: 150 mg Documented by: Carboxymethylcellulose (Carboxymethylcellulose Ophth Drops) 1 drops EACHEYE Q4HR PRN PRN Reason: Dry Eye Cholecalciferol (Cholecalciferol 25 Mcg Tablet) 50 mcg PO DAILY [facility] Last Admin: 05/27/21 09:07 Dose: 50 mcg Documented by: Dexamethasone (Dexamethasone 4 Mg Tablet) 2 mg PO DAILY [facility] Last Admin: 05/27/21 09:07 Dose: 2 mg Documented by: Diltiazem HCl (Diltiazem 30 Mg Tablet) 30 mg PO Q6HR [facility] Last Admin: 05/28/21 06:21 Dose: 30 mg Documented by: Docusate Sodium (Docusate Sodium 250 Mg Capsule) 250 - 500 mg PO DAILY [facility] Last Admin: 05/27/21 09:08 Dose: 250 mg Documented by: Formoterol Fumarate (Formoterol Fumarate Neb 20 Mcg/2 Ml) 20 mcg INH RTBID [facility] Last Admin: 05/28/21 07:28 Dose: 20 mcg Documented by: Gabapentin (Gabapentin 400 Mg Capsule) 1,200 mg PO BID [facility] Last Admin: 05/27/21 20:31 Dose: 1,200 mg Documented by: Guaifenesin (Guaifenesin 100 Mg/5 Ml Udc) 100 mg PO Q6HR PRN PRN Reason: Cough Last Admin: 05/22/21 09:04 Dose: 100 mg Documented by: Guaifenesin (Guaifenesin 600 Mg Tablet) 600 mg PO BID [facility] Sodium Chloride (Normal Saline 0.9%) 500 mls @ 20 mls/hr IV Q24H PRN PRN Reason: TKO RATE Last Infusion: 05/26/21 23:46 Dose: Infused Documented by: Insulin Aspart (Insulin Aspart 300 Unit/3 Ml Pen) 15 unit SUBQ TIDWM [facility]; Protocol Last Admin: 05/27/21 16:58 Dose: 15 unit Documented by: Insulin Aspart (Insulin Aspart 300 Unit/3 Ml Pen) 3 - 11 unit SUBQ 0800,1200,1 700,2100 [facility]; Protocol Last Admin: 05/27/21 20:48 Dose: Not Given Documented by: Insulin Glargine (Insulin Glargine 300 Unit/3 Ml Pen) 5 unit SUBQ QDBREAKFAST [facility] Last Admin: 05/27/21 09:04 Dose: 5 unit Documented by: Insulin Glargine (Insulin Glargine 300 Unit/3 Ml Pen) 40 unit SUBQ QPM [facility] Last Admin: 05/27/21 20:44 Dose: 40 unit Documented by: Levalbuterol HCl (Levalbuterol 1.25 Mg/3 Ml Neb) 1.25 mg INH RTQID PRN PRN Reason: Wheezing Last Admin: 05/28/21 07:28 Dose: 1.25 mg Documented by: Lorazepam (Lorazepam 0.5 Mg Tablet) 0.5 mg PO Q6H PRN PRN Reason: Anxiety Last Admin: 05/27/21 19:21 Dose: 0.5 mg Documented by: Metoprolol Succinate (Metoprolol Succinate 25 Mg Tablet) 50 mg PO BID [facility] Last Admin: 05/27/21 20:32 Dose: 50 mg Documented by: Metoprolol Tartrate (Metoprolol 5 Mg/5 Ml Vial) 5 mg IVP Q6H PRN PRN Reason: Tachycardia Last Admin: 05/27/21 10:09 Dose: 5 mg Documented by: Mirtazapine (Mirtazapine 15 Mg Tablet) 22.5 mg PO QPM [facility] Last Admin: 05/27/21 20:29 Dose: 22.5 mg Documented by: Multivitamins (Multivitamin Tablet) 1 tab PO DAILYWM [facility] Last Admin: 05/27/21 09:04 Dose: 1 tab Documented by: Ondansetron HCl (Ondansetron Odt 4 Mg Tablet) 4 mg TL Q6HR PRN PRN Reason: Nausea / Vomiting Ondansetron HCl (Ondansetron 4 Mg/2 Ml Vial) 4 mg IVP Q6HR PRN PRN Reason: Nausea / Vomiting Last Admin: 05/27/21 05:38 Dose: 4 mg Documented by: Oxycodone HCl (Oxycodone 5 Mg Tablet) 5 mg PO Q4HR PRN PRN Reason: Pain 5 to 7 Last Admin: 05/28/21 06:21 Dose: 5 mg Documented by: Polyethylene Glycol (Polyethylene Glycol 3350 17 Gm Packet) 17 gm PO DAILY [facility] Last Admin: 05/27/21 09:08 Dose: 17 gm Documented by: Primidone (Primidone 50 Mg Tablet) 150 mg PO BID [facility] Last Admin: 05/27/21 20:29 Dose: 150 mg Documented by: Ropinirole HCl (Ropinirole 0.25 Mg Tablet) 0.25 mg PO QPM [facility] Last Admin: 05/27/21 20:44 Dose: 0.25 mg Documented by: Saccharomyces Boulardii (Saccharomyces Boulardii 250 Mg Capsule) 250 mg PO BIDWM [facility] Last Admin: 05/27/21 17:08 Dose: 250 mg Documented by: Senna (Senna 8.6 Mg Tablet) 8.6 - 17.2 mg PO DAILY [facility] Last Admin: 05/27/21 09:09 Dose: 8.6 mg Documented by: Sodium Chloride (Sodium Chloride Flush 0.9% 10 Ml Syringe) 10 ml IVP PRN PRN PRN Reason: NEEDED PER PROVIDER ORDERS Last Admin: 05/27/21 05:38 Dose: 10 ml Documented by: Sodium Chloride (Sodium Chloride Flush 0.9% 10 Ml Syringe) 10 ml IVP 0100,0900,1700 [facility] Last Admin: 05/28/21 00:44 Dose: 10 ml Documented by: Trazodone HCl (Trazodone 50 Mg Tablet) 300 mg PO QPM [facility] Last Admin: 05/27/21 20:27 Dose: 300 mg Documented by: Albuterol Sulfate [Proair Hfa Inhaler] 2 puffs INH Q4HR PRN 05/30/15 Aspirin [Aspir 81] 81 mg PO DAILY 05/30/15 Gabapentin 1,200 mg PO BID 05/30/15 Nitroglycerin [Nitrostat] 0.4 mg PO Q5MIN PRN 05/30/15 Primidone 150 mg PO BID 01/01/16 Cholecalciferol (Vitamin D3) [Vitamin D3] 2,000 unit PO DAILY 08/22/16 Insulin Glargine/Lixisenatide [Soliqua 100 Unit-33 Mcg/ml Pen] 40 units PO QPM 09/28/17 Atorvastatin Calcium 80 mg PO QPM 01/09/19 Cyanocobalamin (Vitamin B-12) [Vitamin B-12 (500 mcg sublingual)] 250 mcg SL DAILY 01/09/19 Multivitamin [Multiple Vitamins] 1 each PO DAILY 01/09/19 Vitamin E 100 unit PO DAILY 01/09/19 Insulin Lispro [Humalog Kwikpen U-100] 15 units SUBQ TID 02/18/21 Mirtazapine 22.5 mg PO QPM 04/20/21 Trazodone HCl 300 mg PO QPM 04/20/21 rOPINIRole [Requip] 0.25 mg PO QPM 04/20/21 Enalapril Maleate [Vasotec] 10 mg PO DAILY 05/16/21 Propranolol [Inderal] 10 mg PO DAILY 05/16/21 Propranolol [Inderal] 20 mg PO QPM 05/16/21 Tiotropium [place] [Spiriva Respimat] 1 inh IH BID 05/16/21 Objective - Vital Signs/Intake & Output Reviewed Vital Signs: Yes Vital Signs: Vital Signs x48h Temp Pulse Pulse Resp BP BP Pulse Ox 05/28/21 07:28 112 H 22 05/28/21 06:21 112/79 05/28/21 05:00 35.8 C L 90 22 132/56 H 92 05/28/21 00:38 106/74 05/28/21 00:28 36.0 C L 111 H 18 101/75 97 Intake & Output: Intake & Output 05/25/21 05/26/21 05/27/21 05/28/21 23:59 23:59 23:59 23:59 Intake Total 2416.832 2388.363 9519 500 Output Total 5114 414 9952 Balance 6513.734 6810.167 -261 500 - Objective General Appearance: positive: Alert, Moderate distress (from anxiety about wanting to leave and her legs hurtiing her) Eyes Bilateral: positive: PERRL, EOMI Neck: positive: No JVD. negative: Stiff neck Respiratory: positive: Wheezes (increased effort or at least increased resp rate). negative: Rales, Rhonchi Cardiovascular: positive: Irregularly irregular, Tachycardia (but slower overall). negative: Gallop/S4, Friction rub Abdomen: positive: Non-tender, Nml bowel sounds, No distention, Other (very very large abd panus, prtuberant as she sits in chair and she can't see her legs as it obstructs vision but tells me legs hurt). negative: Guarding, Rebound Skin: positive: Warm, Dry Extremities: positive: Full ROM, Pedal edema (tense over shins, pulling at skin, no redness or heat. no serous drainage) Neurologic/Psychiatric: positive: Oriented x3, CN's nml (2-12). negative: Motor nml (tremors of head, hands, voice) - Lab Results Fish Bones: 05/28/21 06:04 05/28/21 06:04 Other Labs: Lab Results x24hrs 05/28/21 05/28/21 05/27/21 Range/Units 06:04 06:04 20:48 WBC 7.0 (4.8-10.8) x10^3/uL RBC 2.49 L (4.20-5.40) 10^6/uL Hgb 8.4 L (12.0-16.0) g/dL Hct 27.8 L (37.0-47.0) % MCV 111.6 H (81.0-99.0) fL MCH 33.7 H (27.0-31.0) pg MCHC 30.2 L (32.0-36.0) g/dL RDW 17.4 H (12.0-15.0) % Plt Count 284 (130-450) 10^3/uL MPV 10.6 (7.9-10.8) fL Neut # (Auto) 4.4 (1.5-6.6) 10^3/uL Lymph # (Auto) 1.4 L (1.5-3.5) 10^3/uL [place] # (Auto) 0.8 (0.0-1.0) 10^3/uL Eos # (Auto) 0.2 (0.0-0.7) 10^3/uL Baso # (Auto) 0.0 (0.0-0.1) 10^3/uL Absolute Nucleated RBC 0.06 x10^3/uL Nucleated RBC % 0.9 /100WBC Manual Slide Review Indicated Sodium 128 L (135-145) mmol/L Potassium 4.8 (3.5-5.0) mmol/L Chloride 91 L (101-111) mmol/L Carbon Dioxide 28 (21-32) mmol/L Anion Gap 9.0 (6-13) BUN 34 H (6-20) mg/dL Creatinine 1.0 (0.4-1.0) mg/dL Estimated GFR (MDRD) 54 L (>89) Glucose 97 (70-100) mg/dL POC Whole Bld Glucose 116 H (70 - 100) mg/dL Calcium 8.1 L (8.5-10.3) mg/dL 05/27/21 05/27/21 Range/Units 11:56 08:17 WBC (4.8-10.8) x10^3/uL RBC (4.20-5.40) 10^6/uL Hgb (12.0-16.0) g/dL Hct (37.0-47.0) % MCV (81.0-99.0) fL MCH (27.0-31.0) pg MCHC (32.0-36.0) g/dL RDW (12.0-15.0) % Plt Count (130-450) 10^3/uL MPV (7.9-10.8) fL Neut # (Auto) (1.5-6.6) 10^3/uL Lymph # (Auto) (1.5-3.5) 10^3/uL [place] # (Auto) (0.0-1.0) 10^3/uL Eos # (Auto) (0.0-0.7) 10^3/uL Baso # (Auto) (0.0-0.1) 10^3/uL Absolute Nucleated RBC x10^3/uL Nucleated RBC % /100WBC Manual Slide Review Sodium (135-145) mmol/L Potassium (3.5-5.0) mmol/L Chloride (101-111) mmol/L Carbon Dioxide (21-32) mmol/L Anion Gap (6-13) BUN (6-20) mg/dL Creatinine (0.4-1.0) mg/dL Estimated GFR (MDRD) (>89) Glucose (70-100) mg/dL POC Whole Bld Glucose 181 H 77 (70 - 100) mg/dL Calcium (8.5-10.3) mg/dL Assessment/Plan - Problem List (1) Atrial fibrillation with RVR Impression: The patient went into sudden A. fib with RVR on 05/18/21. This appears to be new onset Afib for her. The etiology is likely from her COVID pneumonia/hypoxia, she ruled out for RI by troponins done that day. She was put on Lovenox therapeutic dose b.i.d. And then I transitioned her to Eliquis. In spite of increasing dig dosing, Cardizem IVP/drip, metoprolol IVP and p.o., she continued to be tachycardic. Rates will approach 140s to 150s especially if she is upset. They attempted to wean her Cardizem off 05/24 But by 05/24 evening, tachycardia returned and dockworker put her back on a Cardizem drip. On 05/25 I came on service. 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 But I redordered one to see if there was a change in atria or valves. Preliminary echo report shows an ejection fraction of 60 to 65%. The right ventricle was normal size and function. No significant valvular heart disease. The aortic valve is not well visualized. Right and left atrial sizes were acceptable with the right atrial size just on the upper limits of normal. I started her on amiodarone drip 914 and it resulted in a rate in the 90s. She has had Step 1, 2, 3 loading. I stopped amiodarone IV and started po. Rate went back up. I added cardizem po qid 05/27 and her rate is usually below 110 now. Plan: Check EKG for QT. I worry about block with betablocker, amidarone and calcium channel miya all on board. Dig has been stopped. With her rate around 110 today, I hope to discharge. [facility]. But they say that they have lost her bariatric bed and need to find one before she can come there. (2) Acute on chronic respiratory failure with hypoxia, resolved acute phase and now chronic Assessment/Plan: Her high O2 needs have resolved and she is down to the levels of her home oxygen order. We have finished treating the Covid pneumonia and continue her underlying COPD with nebs (3) Pneumonia due to COVID-19 virus Assessment/Plan: She completed remdesivir, and is on Decadron to be completed and tapered. Stop decadron today. Continue Mucinex, incentive spirometer, Isolation Her O2 needs have improved and stabilized (4) Acute on chronic diastolic heart failure Assessment/Plan: Her Lasix IV doses had to be stopped because of hypotension. We will continue with attention at rate control which will help her diastolic heart failure but I will give a dose of lasix due to the leg edema (5) Cor pulmonale (chronic) Assessment/Plan: As per Echo that was done 1 month ago when she was here with a COPD exacerbation admission She redeveloped leg edema in the 1 month after that discharge, and she was on p.o. Lasix. We tried IV Lasix but diuretics were stopped when she became very hypotensive I repeated echo this admit, since she is so hard to control and it does not show sig valvular heart disease or elevated R heart pressures or elevated RVSP. With today's exam she has tense edema of the legs. We did bilateral Dopplers yesterday to make sure there was no DVT. There was no DVT. Plan: Lasix 40 mg IV push. We will need to watch her blood pressure carefully since she becomes very easily intravascularly depleted in the face of edema and drops her pressure. Which would then make her atrial fib worse. (6) COPD (chronic obstructive pulmonary disease) Assessment/Plan: She is not in COPD exacerbation, no wheezing, but is more sob today. I think its fluid and not COPD Continue her inhalers. She is on fixed dose shedule of xopenex. That will be changed to prn. She is on perforomist and budesonide bid via inh here but will changed to cannisters at SNF. (7) Diabetes mellitus with complication, with long-term current use of insulin Assessment/Plan: Glucoses were in the 300s and higher because of being on IV Decadron. 05/24: glucose was 145 then as a day progression went to 245, 275 and then 265 at night. 05/25: 137, 223 and 188. 05/26: 144, 234, 214, 260 05/27: 197, 181, 141, 116 Continue with insulin coverage and CC diet She is being tapered off decadron. Changed to p.o. from IV. There was a drop in her glucose with that. Today I am stopping Decadron so we will need to watch for hypoglycemia. Since she is 111 this morning, I will decrease her NovoLog insulin from 15 units before meals to 5 units before meals. Lantus is 40 units at night and I will decrease that to 30 units. I will also stop her morning Lantus 5 units. (8) Chronic anemia Assessment/Plan: This was checked at the last recent admission and she has adequate B12, folate stores and iron stores. It is anemia of chronic disease. Continue to follow CBC daily, transfuse if hemoglobin under 7 She has been consistently 8.4 or 8.5 for days (9) Depression with anxiety Assessment/Plan: She sobs tears of sarah and cries when she is anxious. Very labile but is cooperative. Can be prompted and cued. Doesn't need change in meds. Was stable over until 05/25 when she realized she can't go home quite yet. Son is a calming influence. Understandably still laments she can't go home but was happy to leave ICU yesterday and move to regular room with less isolation required.
[2021-05-28] MEDS: guaiFENesin 600 MG TABLET PO SCH ×2 (08:14→20:20)
[2021-05-28] MEDS: MULTIVITAMIN TABLET PO SCH (08:15)
[2021-05-28] MEDS: SACCHAROMYCES BOULARDII 250 MG CAPSULE PO SCH ×2 (08:15→17:20)
[2021-05-28] MEDS: INSULIN ASPART 300 UNIT/3 ML PEN SUBQ SCH ×6 (08:16→20:14)
--- NOTE | 2021-05-28 09:04 | XRAY Report ---
PROCEDURE: Chest 1 View X-Ray INDICATIONS: uncontrolled afib TECHNIQUE: One view of the chest was acquired. COMPARISON: 05/18/2021 FINDINGS: Surgical changes and devices: None. Lungs and pleura: No pleural effusions or pneumothorax. There is mildly improved aeration in the r ight lung base. Unchanged patchy opacities in the left lower lobe. No new focal consolidation. Mediastinum: Mediastinal contours appear normal. Heart size is normal. Bones and chest wall: No suspicious bony lesions. Overlying soft tissues appear unremarkable. IMPRESSION: Mildly improved aeration of the right lung base since 05/18/2021, suggesting decreasing pulmonary edema . Recommend clinical and laboratory correlation to exclude underlying infection. No new focal consolidation Reviewed by: Wilberto Barbosa MD on 05/28/2021 9:03 AM PDT Approved by: Wilberto Barbosa MD on 05/28/2021 9:03 AM PDT Station ID: [id number]
[2021-05-28] MEDS: DOCUSATE SODIUM 250 MG CAPSULE PO SCH (09:14)
[2021-05-28] MEDS: SENNA 8.6 MG TABLET PO SCH (09:15)
[2021-05-28] MEDS: ASPIRIN EC 81 MG TABLET PO SCH (09:15)
[2021-05-28] MEDS: polyethylene glycoL 3350 17 GM PACKET PO SCH (09:16)
[2021-05-28] MEDS: METOPROLOL SUCCINATE 25 MG TABLET PO SCH ×2 (09:17→20:19)
[2021-05-28] MEDS: buPROPion SR 150 MG TABLET PO SCH (09:18)
[2021-05-28] MEDS: APIXABAN 5 MG TABLET PO SCH ×2 (09:18→20:20)
[2021-05-28] MEDS: AMIODARONE 200 MG TABLET PO SCH (09:18)
[2021-05-28] MEDS: PRIMIDONE 50 MG TABLET PO SCH ×2 (09:19→20:18)
[2021-05-28] MEDS: CHOLECALCIFEROL 25 MCG TABLET PO SCH (09:19)
[2021-05-28] MEDS: GABAPENTIN 400 MG CAPSULE PO SCH ×2 (09:25→20:18)
--- NOTE | 2021-05-28 12:12 | Discharge Plan ---
"Discharge Plan for SNF / TRE - Discharge Plan And Transition Orders Problem Reviewed?: Yes Disposition: 03 SNF DC/Xfer Condition: Fair Allergies and Adverse Reactions: Allergies Allergy/AdvReac Type Severity Reaction Status Date / Time No Known Drug Allergies Allergy Verified 04/19/21 23:24 Health Concerns: Ms. Mckeon is a 75-year-old female who has COPD and still smokes. She is not on home oxygen. She says that she is a sedentary person. She has chronic dyspnea on exertion. She is still able to dress herself, feed herself. She lives with her son, and he does everything else. She was seen in the emergency room February 182020 then sent home. She returned April 202020 and was admitted. With her last admission she had run out of inhalers and was having increasing cough, shortness of breath, sputum production. She was stabilized with steroids, empiric antibiotic therapy and discharged April 26. She was discharged on 2 L nasal cannula to be done 03/04. Having increasing shortness of breath. She denies fever, chills, rhinorrhea, coryza, sore throat, eustachian tube dysfunction.There is no new phlegm production.Chest feels tight and she cannot breathe. As far she knows no one else around her is sick with COVID-19. Today her family threw her a green party and there was a big celebration at her sister's house. Her shortness of breath was not able to be controlled with her metered-dose inhaler so she went to the emergency room. In the emergency room they described her as tachypneic, respiratory distress. O2 sat was 85% on room air. Venous blood gases were 7.29 with a PCO2 of 64. BNP was normal. She was treated for COPD exacerbation with nebulizers and steroids. Her Covid testing came back positive. Chest x-ray shows faint nodular opacity that are scant. D-dimer was elevated at 1050. CT pulmonary angiogram was done and negative for pulmonary embolus. BNP was 165. Plan of Treatment: 1. Remdesivir, Decadron, supplemental oxygen 2. Physical therapy 3. Emotional support in a very anxious patient During her stay, glucose was very elevated due to Decadron. As Decadron dosing was tapered, glucose started to drop tremendously. She was admitted on 40 units of Lantus, and 15 units of lispro before meals. She is being discharged on 35 units of Lantus, and only 7 units of NovoLog before each meal. She still has leg edema. Lasix was resumed 2 days before discharge. Venous Dopplers were negative for DVT. For her new atrial fibrillation, Cardizem was added every 6 hours to control heart rate. She has been very difficult to slow down. This is in spite of of metoprolol, digoxin, Cardizem, amiodarone. Please watch heart rate. I anticipate that as she gradually recovers from her acute illness her heart rate will slow down on its own and you will need to back off on the Cardizem primarily. Then amiodarone. We do not carry canisters for inhalers. As such she was on Xopenex, formoterol, budesonide inhalation. She is being transitioned back to her home Symbicort, Spiriva and as needed Xopenex. Care Goals: To get strong enough to be able to be independent again with activities of daily living. She needs to be able to get out of bed, get to bedside commode or bathroom. Needs to be able to dress herself. Feed herself. Once those are achieved she can get back home to live with her son and [id number] Assessment: Patient is very motivated to get to home. She was started having advance care planning conversations with her son about the future will bring with her immobility, weight, and emphysema - SNF / TRE Transition Orders Admit to ([facility]ility): [facility] Discharge Diagnosis: 1. Acute on chronic respiratory failure with hypoxia 2. Pneumonia due to COVID-19 virus 3. Acute on chronic diastolic heart failure 4. Cor pulmonale 5. COPD 6. Type 2 diabetes mellitus with complication with long-term use of insulin 7. Atrial fibrillation with RVR, new 8. Chronic anemia 9. Depression with anxiety 10. Morbid obesity 11. Immobility and deconditioning Medicare Certification Statement: I certify that [facility] is medically necessary on a continuing basis for any of the conditions for which she/he is receiving care during hospitalization. Notify PCP of admission and forward orders to primary provider for signature. Weight on admission and: Daily Call PCP immediately if weight increases by: 2 kg Other Notification Orders: Call PCP immediately if patient develops dyspnea, chest pain/tightness or edema. House Bowel Program: Yes Additional Bowel Program Orders: If no BM after 2 days, nurse may give M.O.M. 30ml PO PRN and/or ducolax Supp 1 ND and/or CEM 250mg P.O., and/or senna 1-2 tabs PO. On day 3 nurse may give repeat above order until residents constipation is resolved. Annual Influenza Vaccine (between May 12 and December 09): Yes Two-step PPD per [employer] [id number] or approved exception documents: Yes Oxygen Orders: 2 L nasal cannula, 03/04. If she gets short of breath with exertion, may need to increase it to 3 L Lab Tests or X-ray Orders: CBC and BMP in 1 week, approximately June 05 Medication Orders: PLEASE REFER TO THE DISCHARGE MEDICATION LIST. Insulin Orders?: Yes - Diet Type: No added sugar Texture: Regular Liquids: Thin - Therapies | Activity Therapy: Evaluation | Treat if indicated: PT, OT Rehabilitation Potential: Maximize functional status, Return to independent living Activity: Activity as Tolerated Weight Bearing: Full Weight Assistance Devices: Wheelchair, Walker Additional Instructions: Her primary care provider is Alyson Mock. Please make sure she sees Dr. Patino in follow-up within a week after [facility] for review of her medications, specifically her use of Lantus and NovoLog and her diuretics for chronic congestive heart failure. Insulin Orders - [facility] Basal | Correction | Custom Orders: Diagnosis: Diabetes Initiate hypo and hyperglycemia protocols for BG <70 and BG >375. May check BG PRN for signs/symptoms of dysglycemia. Frequency of BG checks: [AC/Meal/HS] Basal Insulin: [X] Lantus 100 units / ml inject subq as follows: [35 units SQ daily in am] [] Other: [] Correction Insulin: - Select the type of insulin below [Choose: Novolog ]100 units /ml insulin inject subq per orders indicate below 7 units SQ before each meal as well as [] LOW DOSE [x] MODERATE DOSE [] MODERATE/HIGH DOSE [] HIGH DOSE GB UNITS GB UNITS GB UNITS GB UNITS 61-140 0 UNITS 61-140 0 UNITS 61-140 0 UNITS 61-140 0 UNITS 141-175 1 UNITS 141-175 1 UNITS 141-175 2 UNITS 141-175 3 UNITS 176-225 2 UNITS 176-225 3 UNITS 176-225 4 UNITS 176-225 5 UNITS 226-275 3 UNITS 226-275 5 UNITS 226-275 6 UNITS 226-275 7 UNITS 276-325 4 UNITS 276-325 7 UNITS 276-325 8 UNITS 276-325 9 UNITS 326-375 5 UNITS 326-375 9 UNITS 326-375 10 UNITS 326-375 11 UNITS >375 CONTACT MD >375 CONTACT MD >375 CONTACT MD >375 CONTACT MD Custom Dosing: [Choose: Novolog/Humalog] 100 units/ml Insulin inject subq as follows: GB Units 61-140 [] Units 141-175 [] Units 176-225 [] Units 226-275 [] Units 276-325 []Units 326-375 [] Units >375 Contact MD"
[2021-05-28] MEDS: ATORVASTATIN 40 MG TABLET PO SCH (20:18)
[2021-05-28] MEDS: traZODone 50 MG TABLET PO SCH (20:18)
[2021-05-28] MEDS: buPROPion SR 100 MG TABLET PO SCH (20:18)
[2021-05-28] MEDS: MIRTAZAPINE 15 MG TABLET PO SCH (20:19)
[2021-05-28] MEDS: rOPINIRole 0.25 MG TABLET PO SCH (20:28)
[2021-05-28] MEDS ORDERED: INSULIN GLARGINE 300 UNIT/3 ML PEN SUBQ SCH (21:00)
[2021-05-29] MEDS: diltiaZEM 30 MG TABLET PO SCH ×2 (00:41→06:05)
[2021-05-29] MEDS: SODIUM CHLORIDE FLUSH 0.9% 10 ML SYRINGE IVP SCH ×2 (00:42→08:25)
[2021-05-29] MEDS: oxyCODONE 5 MG TABLET PO PRN ×2 (00:45→08:03)
[2021-05-29 05:11] LABS: BASOPHILS % (AUTO) 0.6 %; EOSINOPHILS # (AUTO) 0.2 10^3/uL (0.0-0.7); EOSINOPHILS % (AUTO) 2.4 %; HCT - HEMATOCRIT 26.9 % (37.0-47.0); HGB - HEMOGLOBIN 8.1 g/dL (12.0-16.0); LYMPHOCYTES # (AUTO) 1.3 10^3/uL (1.5-3.5); MEAN CORPUSCULAR HEMOGLOBIN 33.8 pg (27.0-31.0); MEAN CORPUSCULAR HGB CONC 30.1 g/dL (32.0-36.0); MEAN CORPUSCULAR VOLUME 112.1 fL (81.0-99.0); MONOCYTES # (AUTO) 0.8 10^3/uL (0.0-1.0); MONOCYTES % (AUTO) 11.4 %; NEUTROPHILS # (AUTO) 4.7 10^3/uL (1.5-6.6); NEUTROPHILS % (AUTO) 66.3 %; NRBC ABSOLUTE COUNT (AUTO) 0.04 x10^3/uL; NUCLEATED RED BLOOD CELLS AUTO 0.6 /100WBC; PLT - PLATELET COUNT 316 10^3/uL (130-450); RED CELL DISTRIBUTION WIDTH 17.4 % (12.0-15.0); WHITE BLOOD COUNT 7.1 x10^3/uL (4.8-10.8)
[2021-05-29 05:13] LABS: SLIDE REVIEW? Indicated
[2021-05-29 05:22] LABS: CALCIUM 8.4 mg/dL (8.5-10.3); POTASSIUM 4.8 mmol/L (3.5-5.0)
[2021-05-29 05:33] LABS: PLATELET MORPHOLOGY NORMAL APPEARANCE (NORMAL)
[2021-05-29 05:34] LABS: PLATELET ESTIMATE, MANUAL NORMAL (130-450,000) (NORMAL); WBC MORPHOLOGY (MULTIPLE) NORMAL APPEARANCE (NORMAL)
[2021-05-29] MEDS: ACETAMINOPHEN 325 MG TABLET PO PRN (08:03)
[2021-05-29] MEDS: SACCHAROMYCES BOULARDII 250 MG CAPSULE PO SCH (08:03)
[2021-05-29] MEDS: MULTIVITAMIN TABLET PO SCH (08:10)
[2021-05-29] MEDS: INSULIN ASPART 300 UNIT/3 ML PEN SUBQ SCH ×2 (08:11→08:12)
[2021-05-29] MEDS: CHOLECALCIFEROL 25 MCG TABLET PO SCH (08:23)
[2021-05-29] MEDS: ASPIRIN EC 81 MG TABLET PO SCH (08:23)
[2021-05-29] MEDS: GABAPENTIN 400 MG CAPSULE PO SCH (08:23)
[2021-05-29] MEDS: AMIODARONE 200 MG TABLET PO SCH (08:23)
[2021-05-29] MEDS: SENNA 8.6 MG TABLET PO SCH (08:23)
[2021-05-29] MEDS: buPROPion SR 150 MG TABLET PO SCH (08:23)
[2021-05-29] MEDS: PRIMIDONE 50 MG TABLET PO SCH (08:24)
[2021-05-29] MEDS: APIXABAN 5 MG TABLET PO SCH (08:24)
[2021-05-29] MEDS: DOCUSATE SODIUM 250 MG CAPSULE PO SCH (08:24)
[2021-05-29] MEDS: METOPROLOL SUCCINATE 25 MG TABLET PO SCH (08:24)
[2021-05-29] MEDS: guaiFENesin 600 MG TABLET PO SCH (08:24)
[2021-05-29] MEDS: polyethylene glycoL 3350 17 GM PACKET PO SCH (08:25)
[2021-05-29] MEDS: BUDESONIDE 0.5 MG/2 ML NEB INH SCH (08:38)
[2021-05-29] MEDS: FORMOTEROL FUMARATE NEB 20 MCG/2 ML INH SCH (08:38)
[2021-05-29 11:50] VITALS: BP 110/78
--- NOTE | 2021-05-30 17:07 | DISCHARGE SUMMARY ---
Discharge Summary Admit Date: 05/16/21 Discharge Date: 05/29/21 Discharging Provider: Jen Fishman MD Primary Care Provider: Clifford Mock Code Status: Attempt Resuscitation Condition at Discharge: Fair Discharge Disposition: DC/Xfer - DIAGNOSES Discharge Diagnoses with Status of Each Condition: 1. Acute on chronic respiratory failure with hypoxia 2. COPD exacerbation 3. Acute kidney insufficiency 4. COVID-19 infection 5. Type 2 diabetes mellitus with hyperglycemia, on long-term use of insulin 6. Depression with severe anxiety and emotional lability 7. Chronic anemia 8. Cor pulmonale 9. Elevated troponin 10. Atrial fibrillation with RVR 11. Acute on chronic diastolic heart failure 12. Complications of immobility - HPI History of Present Illness: Ms. Mckeon is a 75-year-old female who has COPD and still smokes. She is not on home oxygen. She says that she is a sedentary person. She has chronic dyspnea on exertion. She is still able to dress herself, feed herself. She lives with her son, and he does everything else. She was seen in the emergency room February 182020 then sent home. She returned April 202020 and was admitted. With her last admission she had run out of inhalers and was having increasing cough, shortness of breath, sputum production. She was stabilized with steroids, empiric antibiotic therapy and discharged April 26. She was discharged on 2 L nasal cannula to be done 03/04. She says that she has been doing "okay" but not the best she could be. She feels that she is not really returned to her baseline dyspnea on exertion and her mobility is even more limited because of that shortness of breath. However, she felt well enough that she went to go see the band [employer] at [facility] a week ago today (today is a Monday). She had a great time with her brother and the band played for 2-1/2 hours. She is vaccinated against COVID-19 with the Moderna vaccine. She then went to her sister's house in [place] and has been th [facility] this last week. Her best friend from [place] flew in Monday. She has been miserable in that she has been having increasing shortness of breath. She denies fever, chills, rhinorrhea, coryza, sore throat, eustachian tube dysfunction.There is no new phlegm production.Chest feels tight and she cannot breathe. As far she knows no one else around her is sick with COVID-19. Today her family threw her a democrat and there was a big celebration at her sister's house. Her shortness of breath was not able to be controlled with her metered-dose inhaler so she went to the emergency room. In the emergency room they described her as tachypneic, respiratory distress. O2 sat was 85% on room air. Venous blood gases were 7.29 with a PCO2 of 64. BNP was normal. She was treated for COPD exacerbation with nebulizers and steroids. Her Covid testing came back positive. Chest x-ray shows faint nodular opacity that are scant. D-dimer was elevated at 1050. CT pulmonary angiogram was done and negative for pulmonary embolus. BNP was 165. They initially put her on BiPAP to stabilize her shortness of breath. They called us for transfer since their facility is not able to take care of critica lly ill patients who are respiratory failure needing BiPAP. I asked him to make sure she stays stable. She was able to come off BiPAP within 1.5 hours and was transition to high flow nasal cannula for an hour.. However, to transfer her, she was put back on BiPAP to keep her respiratory status stable. Once she was on the gurney and transferred from the ambulance [facility] to the [facility] bed, the first thing she asked for was food. She says she has not eaten all day long and she is starving. She is short of breath but states that she feels tremendously better than when she was in [place]. - Past Medical History Cardiovascular: reports: Hypertension, Coronary artery disease (stents 2003 and 2010), Other (Pulmonary hypertension on echo. Chronic leg edema) Respiratory: reports: COPD Neuro: reports: Peripheral neuropathy, Tremors Endocrine/Autoimmune: reports: Type 2 diabetes GI: reports: None : reports: None HEENT: reports: Other Psych: reports: Depression, Anxiety Musculoskeletal: reports: None, Chronic back pain Derm: reports: None MRSA Hx?: No - Past Surgical History General: reports: Colonoscopy Ortho: reports: Carpal Tunnel surgery, Spine surgery /[employer]EL[employer]: reports: Hysterectomy Cardiovascular: reports: Coronary stent HEENT: reports: Cataracts - CONSULTS | PROCEDURES Procedures: Chest x-ray on admission was suggestive of congestive heart failure without acute infiltrate or gross pneumothorax. Repeat chest x-ray 10 days later showed improved aeration of the right lung base, decreasing pulmonary edema. Venous duplex Dopplers of the lower extremities were without DVT. However she had subcutaneous calf edema bilaterally. Echocardiogram had mild concentric left ventricular hypertrophy with normal systolic ejection fraction of 60%. Left atrium normal size. Moderate pulmonary hypertension with a PASP of 56 mmHg. Normal right ventricular size and function. Rapid atrial fibrillation. - HOSPITAL COURSE Hospital Course: The patient presented as acute on chronic respiratory failure with hypoxia. Our initial assessment was that of Covid pneumonia but she never developed groundglass opacities. She did have acute on chronic diastolic heart failure. Noted cor pulmonale that probably contributed to this. Prior to admission she had developed leg edema that we attributed to the cor pulmonale. Diabetes was initially difficult to control because she was on Decadron for Covid. Covid was treated with Decadron and remdesivir. But again, it can only be emphasized again, that her chest x-ray never developed groundglass opacities of Covid pneumonia. We felt that most of her shortness of breath was due to cor pulmonale, congestive heart failure, and A. fib with RVR. Once we started tapering Decadron off, it was easier to control her glucose. She has anemia of chronic disease. With her previous admission she has adequate B12, folate and iron stores. She never needed transfusion. Troponins were elevated but we felt this was due to demand ischemia, and not an NSTEMI. Depression was present with significant anxiety. She was very emotionally labile with sobbing tears of sarah, and crying tears of anxiety. She then developed A. fib with RVR which became very difficult to control. She was increasing doses of diltiazem, metoprolol, and even digoxin. We finally added amiodarone drip to load her and that seemed to bring her pulse below 110. When she was transitioned off amiodarone loading and put on amiodarone p.o., pulse started to rebound back. At that point in time she was on amiodarone and metoprolol. Cardizem was added. Short acting. On the day of discharge pulse was 112-180. She did have leg edema and as such Lasix was given before discharge. In the past, this patient will develop hypotension with consistent Lasix use. We anticipate that her medications will need to be adjusted with regards to rate control. She is resumed on her beta- miya propranolol for tremors, this will help with rate control for A. joann el is being treated with amiodarone and Cardizem. She was also anticoagulated with Eliquis. She is a morbidly obese female that we will need rehab for strengthening exercises. She is a relatively sedentary person with acute deconditioning of her muscles. It is hoped that she will be able to get enough strength to be independent with transitioning from supine to standing position. Walks steps using a walker to be independent with using the bathroom. Getting to a dining room table. To dressing herself. She will return to home when these goals were met to live with her son and [id number] who are very, very supportive. At discharge temperature was 36.8. Pulse was 108. Blood pressure was 110/78. Respirations were 22. 98% saturated with 2 L. She is 5 foot 6 inches tall and weighs 137 kg. Centripetal obesity is present. But she does have large edematous legs. Speech is normal, lucid, sequential historian. Emotional lability with anxiety. Head tremor, hand tremor, and voice tremor. Lungs have diminished breath sounds at the bases that are diminished. When she gets up to walk to the bathroom and back she will have increased respiratory effort but it resolves quickly. Irregular rate and rhythm is present. The abdomen is obese, huge pannus, soft, nontender. There is mild Jeanie underneath the breast pannus, abdominal pannus and groin folds that is being treated by nystatin. For COPD that was occasionally accompanied by wheezing during her hospitalization she will be resumed on her Symbicort, and Xopenex. She is also on Spiriva. Greater than 30 minutes was spent coordinating discharge. - ALLERGIES Allergies/Adverse Reactions: Allergies Allergy/AdvReac Type Severity Reaction Status Date / Time No Known Drug Allergies Allergy Verified 04/19/21 23:24 - MEDICATIONS Home Medications: Ambulatory Orders Medication Instructions Recorded Confirmed Albuterol Sulfate [Proair Hfa 2 puffs INH Q4HR PRN 05/30/15 05/16/21 Inhaler] Aspirin [Aspir 81] 81 mg PO DAILY 05/30/15 05/16/21 Gabapentin 1,200 mg PO BID 05/30/15 05/16/21 Nitroglycerin [Nitrostat] 0.4 mg PO Q5MIN PRN 05/30/15 05/16/21 Primidone 150 mg PO BID 01/01/16 05/16/21 Cholecalciferol (Vitamin D3) 2,000 unit PO DAILY 08/22/16 05/16/21 [Vitamin D3] Atorvastatin Calcium 80 mg PO QPM 01/09/19 05/16/21 Cyanocobalamin (Vitamin B-12) 250 mcg SL DAILY 01/09/19 05/16/21 [Vitamin B-12 (500 mcg sublingual)] Multivitamin [Multiple Vitamins] 1 each PO DAILY 01/09/19 05/16/21 Vitamin E 100 unit PO DAILY 01/09/19 05/16/21 Mirtazapine 22.5 mg PO QPM 04/20/21 05/16/21 Trazodone HCl 300 mg PO QPM 04/20/21 05/16/21 rOPINIRole [Requip] 0.25 mg PO QPM 04/20/21 05/16/21 Budesonide/Formoterol Fumarate 2 puffs IH BID #1 inhaler 04/26/21 05/16/21 [Symbicort 160-4.5 Mcg Inhaler] Furosemide [Lasix] 40 mg PO MOWEFR #15 tablet 04/26/21 05/16/21 Spironolactone [Aldactone] 25 mg PO DAILY #30 tablet 04/26/21 05/16/21 buPROPion [Wellbutrin Sr] 150 mg PO DAILY #30 tablet 04/26/21 05/16/21 buPROPion [Wellbutrin Sr] 200 mg PO QPM #60 tablet 04/26/21 05/16/21 Enalapril Maleate [Vasotec] 10 mg PO DAILY 05/16/21 05/16/21 Propranolol [Inderal] 10 mg PO DAILY 05/16/21 05/16/21 Propranolol [Inderal] 20 mg PO QPM 05/16/21 05/16/21 Tiotropium [place] [Spiriva 1 inh IH BID 05/16/21 05/16/21 Respimat] Acetaminophen [Tylenol] 650 mg PO Q4HR PRN tablet 05/29/21 Amiodarone [Pacerone] 200 mg PO DAILY tablet 05/29/21 Apixaban [Eliquis] 5 mg PO BID tablet 05/29/21 Carboxymethylcellulose 1% Opht 1 drops EACHEYE Q4HR PRN drops 05/29/21 [Refresh 1% Ophth Drops] Levalbuterol [Xopenex] 1.25 mg INH RTQID PRN neb 05/29/21 diltiaZEM [Cardizem] 30 mg PO Q6HR tablet 05/29/21 guaiFENesin [Mucinex] 600 mg PO BID tablet 05/29/21 - LABS Result Diagrams: 05/29/21 04:35 05/29/21 04:35
== END 2021-05-29 11:53 | DRG 189 ==
LOC: ED 02:28 → MS3 02:30 → ICU 16:02 → MS3 05-27 11:05
PROVIDERS: ADMIT Specialist; ATTEND Specialist
PROC: XW033E5 Introduction of Remdesivir Anti-infective into Peripheral Vein, Percutaneous Approach, New Technology Group 5 (ICD-10-PCS; principal; 2021-05-16)
PROC: 3E0333Z Introduction of Anti-inflammatory into Peripheral Vein, Percutaneous Approach (ICD-10-PCS; 2021-05-16)
DX: J96.21 Acute and chronic respiratory failure with hypoxia (principal); U07.1 COVID-19; I50.33 Acute on chronic diastolic (congestive) heart failure; J44.1 Chronic obstructive pulmonary disease with (acute) exacerbation; N17.9 Acute kidney failure, unspecified; Z68.42 Body mass index [BMI] 45.0-49.9, adult; I24.8 Other forms of acute ischemic heart disease; J96.22 Acute and chronic respiratory failure with hypercapnia; Z99.81 Dependence on supplemental oxygen; F41.8 Other specified anxiety disorders; D63.8 Anemia in other chronic diseases classified elsewhere; I27.81 Cor pulmonale (chronic); I11.0 Hypertensive heart disease with heart failure; I48.91 Unspecified atrial fibrillation; E66.01 Morbid (severe) obesity due to excess calories; F17.210 Nicotine dependence, cigarettes, uncomplicated; I25.10 Atherosclerotic heart disease of native coronary artery without angina pectoris; Z95.5 Presence of coronary angioplasty implant and graft; I27.20 Pulmonary hypertension, unspecified; E11.65 Type 2 diabetes mellitus with hyperglycemia; E11.42 Type 2 diabetes mellitus with diabetic polyneuropathy; Z66 Do not resuscitate; Z79.4 Long term (current) use of insulin; R25.1 Tremor, unspecified; W18.39XA Other fall on same level, initial encounter; Y92.230 Patient room in hospital as the place of occurrence of the external cause
CPT/HCPCS: 36415; 36600; 71045; 80048; 81599; 82272; 82330; 82803; 83036; 83735; 83880; 84100; 84132; 84484; 85025; 87150; 93005; 93306; 93970; 94640; 94660; 97116; 97162; 97530; A9270; C9399; J0282; J1200; J1650; J1815; J2060; J7626; J8540; 80162